=== PATIENT | female | born 1990 | race Caucasian/White ===

== ENCOUNTER 2018-09-07 17:02 | Emergency (ER) | payer MEDICAID, SELFPAY ==
[2018-09-07 17:03] VITALS: BP 125/84; PULSE 89; RESP 16; TEMP 36.6; O2SAT 97; BMI 27.2
--- NOTE | 2018-09-07 17:16 | RAD_ITS ---
STUDY: X-RAY - LEFT FOOT CLINICAL: Female, 28 years old. Smashed foot in between lawnmower and the table. Redness and swelling. TECHNIQUE: 3 view(s) of the foot. COMPARISON: None. FINDINGS: Normal talus, calcaneus, and tarsal bones. Normal visualized subtalar, talonavicular, calcaneocuboid, tarsal and tarsometatarsal articulations. Normal metatarsi. Normal metatarsophalangeal joint of the great toe. Normal tibial and fibular sesamoid bones. Normal interphalangeal joint of the great toe. Normal phalanges of the great toe. Normal second through fifth metatarsophalangeal joints. Normal interphalangeal joints and phalanges of the lesser toes. There is minimal soft tissue swelling over the dorsum of the forefoot. RAD/Foot min 3 Views IMPRESSION: Minimal soft tissue swelling. There is no fracture or dislocation. Electronically Signed: Pancho Mckeon DO at 18:03 EST Tel [phone], Service support ,
--- NOTE | 2018-09-07 18:02 | ED.DCSUM_ITS ---
- ER Visit Summary Date of Service: 09/07/18 Chief Complaint: [Injury to left foot] History of Present Illness: The patient is a 28 F [presents to the emergency department complaint of injury to her left foot that occurred earlier today. Patient states she was moving a riding mower and accidentally crushed her left foot between an hour and a large wooden table. Patient was wearing steel toed boots. Patient complains of bruising and swelling to the foot. Patient is able to bear some weight but painful.] Physical Examination: [HEENT-PERRLA, EOMI. Cranial nerves II through XII grossly intact. TMs clear. Mucous membranes moist. No adenopathy. Cardiovascular-regular rate and rhythm without murmur or ectopy Lungs-clear to auscultation, chest wall stable without crepitus or subcu emphysema Abdomen-normoactive bowel sounds, soft, nontender, no rebound or rigidity, no peritoneal signs. Extremities-intact ?4, normal range of motion, normal pulses. Left foot-patient does have ecchymosis and bruising noted over the dorsal lateral aspect of the foot. Patient has diffuse tenderness palpation. There is some mild soft tissue swelling noted. Patient has no pain about the ankle. No real tenderness over the calcaneus. Patient neurovascular intact. Test Results: [X-rays obtained the left foot showed no fractures.] Emergency Department Course and Treatment: [Patient will be given an Dane wrap and crutches.] Treatment Plan: [Patient given a prescription for Naprosyn and [place] for pain. Patient advised ice and elevate extremity. Patient to follow-up with primary care physician in 5-7 days.] Disposition: [Discharged home in stable condition.] Impression: [Contusion/crush injury left foot] This note was generated with [employer] dictation software. It may contain incorrect words, spelling, and punctuation that were not noted in review of the chart prior to signing ED Disposition - Plan for ED Patient: Chief Complaint: Lower Extremity Injury Referrals: Ellis Arnett DO [Primary Care Provider] -
--- NOTE | 2018-09-07 18:02 | ED.DEP ---
ED Disposition - Plan for ED Patient: Chief Complaint: Lower Extremity Injury Instructions: ED Contusion Foot Prescriptions: Hydrocodone Bitart/Apap 5-325 [[place] 5MG-325MG] 1 tab PO Q4H PRN PRN 2 Days #10 tab PRN Reason: Pain Naproxen [Naprosyn] 500 mg PO BID PRN #20 tab Referrals: Ellis Arnett DO [Primary Care Provider] - 5-7 Days
[2018-09-07 18:32] VITALS: BP 118/64; PULSE 71; RESP 16
== END 2018-09-07 18:33 | disposition home or self-care (01) ==
PROVIDERS: Emergency Provider Emergency Medicine; Family Provider Student in an Organized Health Care Education/Training Program; PCP Student in an Organized Health Care Education/Training Program
DX: S90.32XA Contusion of left foot, initial encounter (principal); W23.0XXA Caught, crushed, jammed, or pinched between moving objects, initial encounter; Y93.9 Activity, unspecified; Y92.9 Unspecified place or not applicable; Y99.9 Unspecified external cause status; Z72.0 Tobacco use
CPT/HCPCS: 73630; 99283

== ENCOUNTER 2020-07-04 14:32 | Emergency (ER) | payer BC, SELFPAY ==
[2020-07-04 14:32] VITALS: BP 104/76; PULSE 100; RESP 18; TEMP 36.6; O2SAT 99; BMI 22.2
--- NOTE | 2020-07-04 15:00 | CT_ITS ---
STUDY: CT ABDOMEN AND PELVIS WITHOUT CONTRAST REASON FOR EXAM: Female, 29 years old. Right flank pain x 1 week. RADIATION DOSAGE (If Supplied By Facility): CTDIvol = ( 6.04 ) mGy, DLP = ( 271.80 ) mGycm TECHNIQUE: Transaxial images were obtained from the dome of the diaphragm to the symphysis pubis without oral contrast, and without intravenous contrast. Sagittal and coronal images were reconstructed. Individualized dose optimization techniques were used for this CT. COMPARISON: None. FINDINGS: The visualized lung bases are unremarkable. The visualized portions of the heart are within normal limits. Normal liver. Normal gallbladder and extrahepatic biliary system. Normal spleen. Normal pancreas. Normal bilateral adrenal glands. Normal right kidney. Normal left kidney. Normal visualized stomach. Normal small intestine. Normal colon. The appendix is visualized and appears normal. Normal abdominal aorta. Normal inferior vena cava. Normal retroperitoneum. Normal urinary bladder. Normal abdominal wall. Normal osseous structures. CT/Abdomen/Pelvis without Cont IMPRESSION: Normal unenhanced CT of the abdomen and pelvis. Electronically Signed: Artis Harrington MD at 16:42 EDT Tel , Service support ,
--- NOTE | 2020-07-04 15:04 | ED.DCSUM_ITS ---
History of Present Illness Chief Complaint: Flank Pain Informant: Patient Onset: Days Context: Gradual Onset Timing: Intermittent Current Severity: Moderate Maximum Severity: Moderate Narrative: The patient is a 29-year-old female that presents to the emergency department with right-sided flank pain and right lower quadrant pain. The patient states has been having symptoms intermittently for the past week. She denies fevers or chills. She states she just finished her menses and has not noticed any hematuria. She states the pain started high in her back and is moved to her right lower quadrant. She does have history of prior , but no other abdominal surgery. She has no history of kidney stone. She denies urgency or dysuria. She states mostly, she is just been having pain. There is no food intolerance. Prior similar symptoms: No Recent Illness/Hospitalization: No Past Medical History - Allergies and Home Meds Allergies/Adverse Reactions: Allergies No Known Allergies Allergy (Verified 07/04/20 14:36) Primary Care Physician: Ellis Arnett DO [Primary Care Provider] - Prior records reviewed: Yes Past Medical History: None Surgical History: noncontributory Smoking Status: Current every day smoker Review of Systems General: Denies: Chills, Fever, Sweats Eyes: Denies: Visual changes - bilaterally, Diplopia ENT: Denies: Rhinorrhea, Sore throat Cardiovascular: Denies: Chest pain, Palpitations Respiratory: Denies: Dyspnea, Cough, Dyspnea on exertion Gastrointestinal: Reports: Abdominal pain. Denies: Nausea, Vomiting, Diarrhea, Melena, Hematochezia Genitourinary: Denies: Dysuria, Hematuria, Frequency Musculoskeletal: Denies: Back pain, Extremity Pain Skin: Denies: Rash, Wounds Neurological: Denies: Headache, Weakness, Numbness Physical Exam Vital Signs/Narrative: Vital Signs Temp Pulse Resp BP Pulse Ox 07/04/20 14:32 97.8 F 100 18 104/76 99 Inital Vital Signs reviewed: Yes General: Well nourished, Well developed, No Acute Distress Head: Normocephalic, Atraumatic Eyes: Perrl, EOMI ENT: Moist mucous membranes, No rhinorrhea Neck: Supple, Nontender Cardiovascular: Regular rate, Regular rhythm, No murmurs Respiratory: No distress, CTA bilaterally, Chest nontender Abdomen: Soft, Nontender, Nondistended, Normal bowel sounds Back: Nontender, Normal Inspection Extremities: Nontender, No edema Skin: Normal color, No rash Neurological: Alert, Oriented x3, Cranial nerves II-XII grossly intact, Normal Strength, Normal Sensation Psychological: Normal affect, Normal Mood Diagnostic/Tx/Re-eval Clinical Impression(s) from Imaging Studies Abdomen/Pelvis CT 07/04/20 15:00 IMPRESSION: Normal unenhanced CT of the abdomen and pelvis. Electronically Signed: Artis Harrington MD at 16:42 EDT Tel , Service support , Abnormal Lab Results 07/04/20 07/04/20 07/04/20 15:10 15:20 15:20 WBC 9.2 RBC 4.14 L Hgb 12.1 Hct 37.8 MCV 91.3 MCH 29.2 MCHC 32.0 RDW Std Deviation 46.6 H RDW Coeff of Jyoti 13.8 Plt Count 358 MPV 9.3 Immature Gran % (Auto) 0.300 Neut % (Auto) 65.5 Lymph % (Auto) 27.2 [place] % (Auto) 5.8 Eos % (Auto) 0.8 Baso % (Auto) 0.4 Absolute Neuts (auto) 6.0 Absolute Lymphs (auto) 2.49 Nucleated RBC % 0 Sodium 141 Potassium 4.1 Chloride 113 H Carbon Dioxide 26.0 Anion Gap 2 L BUN 14 Creatinine 0.73 Estim Creat Clear Calc 87.95 Est GFR (MDRD) Af Amer 118 Est GFR (MDRD) Non-Af 98 BUN/Creatinine Ratio 19.1 Glucose 78 Calcium 8.9 Serum , Qual Urine Color Yellow Urine Clarity Clear Urine pH 5.0 Ur Specific [place] 1.025 Urine Protein Negative Urine Glucose (UA) Normal Urine Ketones 5 H Urine Occult Blood 250 H Urine Nitrite Negative Urine Bilirubin Negative Urine Urobilinogen Normal Ur Leukocyte Esterase 25 H Urine RBC 0-5 SEEN Urine WBC 0 SEEN Ur Squamous Epith Cells 0-5 SEEN Urine Bacteria 3+ Urine Mucus 0 SEEN 07/04/20 15:20 WBC RBC Hgb Hct MCV MCH MCHC RDW Std Deviation RDW Coeff of Jyoti Plt Count MPV Immature Gran % (Auto) Neut % (Auto) Lymph % (Auto) [place] % (Auto) Eos % (Auto) Baso % (Auto) Absolute Neuts (auto) Absolute Lymphs (auto) Nucleated RBC % Sodium Potassium Chloride Carbon Dioxide Anion Gap BUN Creatinine Estim Creat Clear Calc Est GFR (MDRD) Af Amer Est GFR (MDRD) Non-Af BUN/Creatinine Ratio Glucose Calcium Serum , Qual NEGATIVE Urine Color Urine Clarity Urine pH Ur Specific [place] Urine Protein Urine Glucose (UA) Urine Ketones Urine Occult Blood Urine Nitrite Urine Bilirubin Urine Urobilinogen Ur Leukocyte Esterase Urine RBC Urine WBC Ur Squamous Epith Cells Urine Bacteria Urine Mucus - Medical Decision Making The patient's exam is relatively unremarkable. She does have some pain in the right lateral abdomen and CVA tenderness. Urine was obtained. There is 3+ bacteria with some blood. She is not febrile. Labs are unremarkable. The patient's pain is controlled. She underwent CT which shows no obstructing stone and a normal appendix. My suspicion is that she might be early pyelonephritis given her urine and where her pain is at. However, I do feel the patient is safe outpatient therapy. She will be given IV Rocephin and kept on Bactrim. She was counseled on concerning symptoms and reasons to return. She will be discharged home. Impression 1. Pyelonephritis ED Disposition - Plan for ED Patient: Instructions: ED Pyelonephritis Female Adult Prescriptions: Smz/Tmp Ds [Bactrim Ds] 1 tab PO BID #14 tab Prescription Printed Hydrocodone Bitart/Apap 5-325 [[place] 5MG-325MG] 1 tab PO Q6H PRN PRN 3 Days #10 tab PRN Reason: Pain Prescription Printed Ondansetron [Zofran Odt] 4 mg PO Q8H PRN PRN #10 tab PRN Reason: Nausea Prescription Printed Referrals: Ellis Arnett DO [Primary Care Provider] -
[2020-07-04 15:18] LABS: Mucous, Urine 0 SEEN /hpf (<or=2+); White Blood Cells 0 SEEN /hpf (0-5)
[2020-07-04 15:21] LABS: Color, Urine Yellow (Yellow); Glucose, Dipstick Normal (Normal); Ketone-Dipstick 5 mg/dl (Negative); Leukocyte Esterase-Dipstick 25 /ul (Negative); Nitrite-Dipstick Negative (Negative); Occult Blood-Urine 250 /ul (Negative); Protein-Dipstick Negative (Negative); Specific Gravity, Urine 1.025 (1.002-1.030); Urine Bilirubin Dipstick Negative (Negative); Urine Clarity Clear (Clear); Urine Urobilinogen Normal (Normal)
[2020-07-04 15:28] LABS: Bacteria 3+ /hpf (None Seen); Red Blood Cells-Urine 0-5 SEEN /hpf (0-5); Squamous Epithelial Cells - UA 0-5 SEEN /hpf (5-10)
[2020-07-04] MEDS: 0.9% Normal Saline 1,000 ML 250 ML IV (15:31)
[2020-07-04] MEDS: Ondansetron 4 MG/2 ML Vial IV (15:31)
[2020-07-04] MEDS: Ketorolac 15 MG/ML Vial IV (15:33)
[2020-07-04 15:37] LABS: Absolute Lymphocyte Count 2.49 X10^3/uL (0.83-4.51); Basophil# 0.04 X10^3/uL; Basophil% 0.4 % (0-1); Eosinophil# 0.07 X10^3/uL; Eosinophils% 0.8 % (0-5); Hematocrit 37.8 % (37-47); Hemoglobin 12.1 g/dL (12.0-15.0); Lymphocyte # 2.49 X10^3/ul (4.0); Lymphocyte % 27.2 % (19-41); Mean Corpuscular Hgb 29.2 pg (27.0-32.0); Mean Corpuscular Volume 91.3 fL (81-99); Mean Platelet Vol. 9.3 fl (6.2-12.0); Monocyte# 0.53 X10^3/uL; Monocyte% 5.8 % (0-10); NRBC Flagged by Analyzer 0 % (0-5); Neutrophil % 65.5 % (47-70); Platelet Count 358 K/mm3 (150-450); RBC Distribution Width CV 13.8 % (11.6-14.6); RBC Distribution Width SD 46.6 fl (35.1-43.9); Red Blood Count 4.14 M/mm3 (4.2-5.4); White Blood Count 9.2 K/mm3 (4.4-11.0)
[2020-07-04 15:59] LABS: Anion Gap 2 (5-15); BUN 14 mg/dL (7-18); BUN/Creat Ratio 19.1 RATIO (10-20); Calcium,Total 8.9 mg/dL (8.5-10.1); Chloride 113 mmol/L (98-107); Creatinine, Serum 0.73 mg/dL (0.55-1.02); EST Glomerular Filtration Rate 98 mL/min (>60); Est Glom Filt Rate - Afr Amer 118 mL/min (>60); Estimated Creatinine Clearance 87.95 ml/min; Glucose 78 mg/dL (74-106); Internal QC Validated? YES +Cl - CLEAR BKGD; Potassium 4.1 mmol/L (3.5-5.1); Pregnancy, Serum, hCG Quali. NEGATIVE Negative; Sodium Level 141 mmol/L (136-145)
[2020-07-04] MEDS: Morphine 4 MG/ML Syringe IV (16:27)
[2020-07-04] MEDS: Ceftriaxone 1 GM/50 ML BAG IV (17:27)
[2020-07-04 17:29] VITALS: PULSE 72; RESP 17; O2SAT 99
[2020-07-04 18:43] VITALS: BP 102/65; PULSE 75; RESP 18; O2SAT 97
== END 2020-07-04 18:20 | disposition home or self-care (01) ==
PROVIDERS: Emergency Provider Emergency Medicine; PCP Student in an Organized Health Care Education/Training Program
DX: N12 Tubulo-interstitial nephritis, not specified as acute or chronic (principal); F17.200 Nicotine dependence, unspecified, uncomplicated
CPT/HCPCS: 74176; 80048; 81001; 84703; 85025; 87086; 87088; 96365; 96375; 99283; J7030; A4216; J2405

== ENCOUNTER 2020-09-20 23:27 | Inpatient (IN) | payer BC, SELFPAY ==
[2020-09-20 23:28] VITALS: BP 121/83; PULSE 110; RESP 16; TEMP 36.6; O2SAT 99; BMI 22.2
[2020-09-21] VITALS (7 sets, daily range): BP systolic 95–120; BP diastolic 55–85; PULSE 73–96; RESP 16–18; TEMP 36.8–37.5; O2SAT 97–100; BMI 21.9
--- NOTE | 2020-09-21 00:05 | CT_ITS ---
STUDY: CT ORBITS WITH CONTRAST REASON FOR EXAM: Female, 30 years old. ORBITAL CELLULITIS ON RIGHT up into frontal and scalp area x 24 hr. RADIATION DOSAGE (If Supplied By Facility): CTDIvol = ( 29.38 ) mGy, DLP = ( 554.80 ) mGycm TECHNIQUE: The patient was scanned in a multi detector CT scanner. Transaxial imaging was performed following the intravenous administration of IV 75mL Isovue-370. Sagittal and coronal images were reconstructed. Individualized dose optimization techniques were used for this CT. COMPARISON: None. FINDINGS: Normal globes. Normal intraconal spaces. Normal optic nerve sheath complex. Normal bilateral extraocular muscles. Normal lacrimal glands. Normal bilateral medial and inferior orbital russ. Normal bilateral maxillary bones. Normal bilateral frontozygomatic arches. Normal bilateral zygomatic temporal arches. Normal frontal sinus. Normal ethmoidal sinuses. Normal maxillary sinuses. Normal sphenoid sinuses. There is mild nonspecific enhancement involving the region of the right temporal fossa, anterior aspect of the right zygomatic arch and right infraorbital region consistent with cellulitis. There is no evidence of abscess. CT/Orb Sella Post Fossa Ear W/CON IMPRESSION: Right facial soft tissue cellulitis as described. No evidence of abscess or mass. Electronically Signed: Zunilda Aviles MD at 1:02 EST , Service support ,
[2020-09-21 00:26] LABS: Absolute Lymphocyte Count 2.64 X10^3/uL (0.83-4.51); Absolute Neutrophil Count 13.9 X10^3/uL (2.0-7.7); Basophil# 0.05 X10^3/uL; Basophil% 0.3 % (0-1); Eosinophil# 0.09 X10^3/uL; Eosinophils% 0.5 % (0-5); Hematocrit 36.7 % (37-47); Lymphocyte # 2.64 X10^3/ul (4.0); Lymphocyte % 14.9 % (19-41); Mean Corp Hgb Conc 32.7 g/dL (32-36); Mean Corpuscular Hgb 28.8 pg (27.0-32.0); Mean Corpuscular Volume 88.2 fL (81-99); Mean Platelet Vol. 9.1 fl (6.2-12.0); Monocyte# 0.92 X10^3/uL; Monocyte% 5.2 % (0-10); NRBC Flagged by Analyzer 0 % (0-5); Neutrophil # 13.94 X10^3/uL (2.7-7.7); Neutrophil % 78.6 % (47-70); Platelet Count 409 K/mm3 (150-450); RBC Distribution Width CV 14.2 % (11.6-14.6); RBC Distribution Width SD 45.8 fl (35.1-43.9); Red Blood Count 4.16 M/mm3 (4.2-5.4); White Blood Count 17.7 K/mm3 (4.4-11.0)
--- NOTE | 2020-09-21 00:32 | ED.VISSUMM ---
- ER Visit Summary Date of Service: 09/21/20 Chief Complaint: Facial abscess History of Present Illness: The patient is a 30 F presenting with facial abscess. She states on she noticed an abscess on her right forehead. This continued to enlarge. States today she noticed redness surrounding this down inferior to her right eye. Denies vision changes. Denies fever. Denies other complaints. Physical Examination: Vitals are stable. Patient is afebrile. Alert no acute distress. HEENT exam right 3 cm forehead abscess with fluctuance and surrounding erythema. PERRL, EOMI Neck is supple. No meningismus Lungs are clear and equal bilaterally. Heart is regular and tachycardic Abdomen is soft nontender nondistended. Extremities are unremarkable. Skin is warm and dry. No focal neurologic deficit. Remainder of exam is unremarkable. Emergency Department Course and Treatment: Patient was given IV fluids. CBC shows white count 17.7. Chemistries unremarkable other than potassium 3.2. Lactic acid is normal. CT orbits shows right facial soft tissue cellulitis. No evidence of abscess or mass. I&D was performed. Anesthetized with lidocaine. Incised with 11 blade. Small amount of pus was drained. Irrigated and probed to break up loculations. Patient was given clindamycin IV. Discussed with the hospitalist for admission. Disposition: Admission Impression: Facial cellulitis, facial abscess, I&D This note was generated with [employer] dictation software. It may contain incorrect words, spelling, and punctuation that were not noted in review of the chart prior to signing ED Disposition - Plan for ED Patient:
[2020-09-21 00:43] LABS: Anion Gap 8 (5-15); BUN 10 mg/dL (7-18); Calcium,Total 9.1 mg/dL (8.5-10.1); Chloride 110 mmol/L (98-107); Creatinine, Serum 0.67 mg/dL (0.55-1.02); EST Glomerular Filtration Rate 109 mL/min (>60); Est Glom Filt Rate - Afr Amer 132 mL/min (>60); Estimated Creatinine Clearance 95.15 ml/min; Glucose 85 mg/dL (74-106); Potassium 3.2 mmol/L (3.5-5.1); Sodium Level 141 mmol/L (136-145)
[2020-09-21] MEDS: 0.9% Normal Saline 1,000 ML 999 ML IV (00:56)
[2020-09-21 01:07] LABS: Lactic Acid 0.8 mmol/L (0.4-1.9)
[2020-09-21] MEDS: Morphine 4 MG/ML Syringe IV (01:31)
[2020-09-21] MEDS: Ondansetron 4 MG/2 ML Vial IV (01:31)
--- NOTE | 2020-09-21 01:32 | HP.PCM_ITS ---
Problem List (1) Facial abscess Status: Acute (2) Sepsis Status: Acute (3) Hypokalemia Status: Acute History of Present Illness Date of Admission: 09/21/20 Chief Complaint: right facial swelling The patient is a 30 year old F with a significant history of asthma who presents emergency department with swelling of her right forehead. Her symptoms started 2 days ago with swelling at the right forehead. She tried to pop open the swelling but she stopped because it was painful. The swelling progressively got worse. Later she developed swelling under her right eye. At emergency department her heart rate was elevated. Her white count was also elevated. Past Medical History Medical History: Medical History (Last Updated 09/21/20 @ 02:[address] Konstantin García MD) Asthma J45.909 Allergies sulfamethoxazole [From Bactrim] Allergy (Verified 09/20/20 23:30) Vomiting trimethoprim [From Bactrim] Allergy (Verified 09/20/20 23:30) Vomiting Home Medications: Ambulatory Orders Medication Instructions Recorded Melatonin 10 mg PO QHS 09/21/20 Surgical History: - - Smoking Status: Current every day smoker Tobacco Use: Cigarettes - *Family History Maternal History Items: Cancer Paternal History Items: - - His father had lupus. His father was alcoholic and developed liver cirrhosis. Review of Systems Constitutional: Denies: Chills, Fever, Weight Change HEENT: Denies: Head Aches, Sinus Congestion, Sinus Drainage Cardiovascular: Denies: Chest Pain, Palpitations Respiratory: Denies: Cough, Shortness of breath at rest, Sputum production Gastrointestinal: Denies: Abdominal Pain, Nausea, Vomiting Genitourinary: Denies: Dysuria Musculoskeletal: Denies: Joint Pain, Joint Tenderness Skin: Reports: Skin Changes - Right forehead and right infraorbital area. Denies: Rash Neurological: Denies: Numbness, Tingling, Focal weakness Psychiatric: Denies: Anxiety, Depression, Homicidal Ideations, Suicidal Ideations Hematologic/ Lymphatic: Denies: Easy Bruising, Easy Bleeding VTE Information - Inpt Only VTE Present on Admission: No VTE Mechan Device Prophylaxis: None VTE Pharm Prophylaxis ordered?: No Reason prophylaxis not ordered:: Treatment Not Indicated - Low risk; encouraged to ambulate Patient Problems: Active and Suspected Problems (Last Updated 09/21/20 @ 02:[address] Konstantin García MD) Facial abscess (Acute) Sepsis (Acute) Hypokalemia (Acute) - Physical Exam Vitals/I&O's: Vital Signs Temp Pulse Resp BP Pulse Ox 97.8 F 110 H 16 121/83 H 99 09/20/20 23:28 09/20/20 23:28 09/20/20 23:28 09/20/20 23:28 09/20/20 23:28 Oxygen Delivery Method Room Air Weight: 50 kg Body Mass Index (BMI) 22.2 General: Alert, Oriented x3, Cooperative HEENT: Atraumatic, PERRLA, EOMI, Normocephalic, - - Swelling of right forehead with small ulcer; Swelling below right eye. Erythema of right forehead and right infraorbital area. Tenderness of right forehead. Neck: Supple, No JVD, Negative Carotid Bruits Lungs: Clear to auscultation, Normal air movement Cardiovascular: Regular rate, Normal S1, Normal S2, No murmurs Abdomen: Bowel Sounds Present, Soft, Non Tender Extremities: No edema, Capillary Refill Less than 3 Seconds Skin: No rashes, No breakdown Musculoskeletal: No Tenderness to Palpation of Joints or Extremities Neurological: Cranial nerves II-XII grossly intact Psych/Mental Status: Normal Affect, Appropriate Laboratory Results 09/20/20 00:12: WBC 17.7 H, RBC 4.16 L, Hgb 12.0, Hct 36.7 L, MCV 88.2, MCH 28.8, MCHC 32.7, RDW Std Deviation 45.8 H, RDW Coeff of Jyoti 14.2, Plt Count 409, MPV 9.1, Immature Gran % (Auto) 0.500, Neut % (Auto) 78.6 H, Lymph % (Auto) 14.9 L, [place] % (Auto) 5.2, Eos % (Auto) 0.5, Baso % (Auto) 0.3, Absolute Neuts (auto) 13.9 H, Absolute Lymphs (auto) 2.64, Nucleated RBC % 0 09/20/20 00:12: Sodium 141, Potassium 3.2 L, Chloride 110 H, Carbon Dioxide 23.0, Anion Gap 8, BUN 10, Creatinine 0.67, Estim Creat Clear Calc 95.15, Est GFR (MDRD) Af Amer 132, Est GFR (MDRD) Non-Af 109, BUN/Creatinine Ratio 15.0, Glucose 85, Calcium 9.1 09/20/20 00:12: Lactic Acid 0.8 Current Medications Sodium Chloride () 1,000 mls @ 999 mls/hr IV .Q1H1M ONE Stop: 09/21/20 01:34 Last Admin: 09/21/20 00:56 Dose: 999 mls/hr Documented by: Clindamycin Phosphate 600 mg/ (Dextrose) 54 mls @ 100 mls/hr IV X1 ONE Stop: 09/21/20 02:02 Assessment/Plan All Active Problems (Last Updated 09/21/20 @ 02:[address] Konstantin García MD) Facial abscess (Acute) Sepsis (Acute) Hypokalemia (Acute) The patient is a 30 year old F with a significant history of asthma who presents emergency department with swelling of her right face; tachycardia and tachypnea. Sepsis secondary to right forehead abscess and right infraorbital cellulitis Patient with tachycardia Review of emergency department labs showed leukocytosis Emergency department doctor will be doing I&D of the right forehead head abscess. Clindamycin IV started at the emergency department and continued Blood culture ordered by emergent department doctor, follow. Tobacco abuse Patient is trying to quit smoking. She apparently smokes about 3-4 sticks of cigarettes per day. Patient requested for nicotine patch. Nicotine patch ordered. Counseled. Hypokalemia Potassium was 3.2 Replacement ordered Trend BMP. DVT Prophylaxis Low risk Encouraged to ambulate. Inpatient E&M: 76476 Init Hosp L3
--- NOTE | 2020-09-21 02:35 | PCS.PANDOC ---
PANDEMIC DOCUMENTATION INITIATED: Date: 09/21/20 Time: 02:23
[2020-09-21] MEDS: oxyCODONE 5 MG Tablet 10 MG PO ×5 (02:53→20:39)
[2020-09-21] MEDS: Acetaminophen 325 MG Tablet 650 MG PO ×2 (02:54→20:40)
[2020-09-21 07:33] LABS: Absolute Lymphocyte Count 3.12 X10^3/uL (0.83-4.51); Absolute Neutrophil Count 11.2 X10^3/uL (2.0-7.7); Basophil# 0.03 X10^3/uL; Basophil% 0.2 % (0-1); Eosinophil# 0.09 X10^3/uL; Eosinophils% 0.6 % (0-5); Hematocrit 32.6 % (37-47); Hemoglobin 10.4 g/dL (12.0-15.0); Lymphocyte # 3.12 X10^3/ul (4.0); Lymphocyte % 20.3 % (19-41); Mean Corp Hgb Conc 31.9 g/dL (32-36); Mean Corpuscular Hgb 28.6 pg (27.0-32.0); Mean Corpuscular Volume 89.6 fL (81-99); Mean Platelet Vol. 9.6 fl (6.2-12.0); Monocyte# 0.84 X10^3/uL; Monocyte% 5.5 % (0-10); NRBC Flagged by Analyzer 0 % (0-5); Neutrophil % 72.9 % (47-70); Platelet Count 389 K/mm3 (150-450); RBC Distribution Width CV 14.1 % (11.6-14.6); RBC Distribution Width SD 45.8 fl (35.1-43.9); Red Blood Count 3.64 M/mm3 (4.2-5.4); White Blood Count 15.4 K/mm3 (4.4-11.0)
[2020-09-21 07:56] LABS: Anion Gap 7 (5-15); BUN 8 mg/dL (7-18); BUN/Creat Ratio 12.7 RATIO (10-20); Calcium,Total 8.3 mg/dL (8.5-10.1); Chloride 114 mmol/L (98-107); Creatinine, Serum 0.63 mg/dL (0.55-1.02); EST Glomerular Filtration Rate 116 mL/min (>60); Est Glom Filt Rate - Afr Amer 141 mL/min (>60); Estimated Creatinine Clearance 99.57 ml/min; Glucose 96 mg/dL (74-106); Potassium 3.8 mmol/L (3.5-5.1); Sodium Level 143 mmol/L (136-145)
--- NOTE | 2020-09-21 08:02 | PN_ITS ---
Progress Note Patient is a 30-year-old female admitted with Sepsis secondary to right forehead abscess and right infraorbital cellulitis. Antibiotics initiated per protocol admitted for subsequent inpatient management. Patient seen and evaluated. Her initial assessment including history and physical diagnostic data integrity specialist orders reviewed will follow STROKE Vital Signs/Narrative: Vital Signs Pulse Ox 09/21/20 07:22 97
--- NOTE | 2020-09-21 10:14 | PCM.RX.CS ---
Consult Pharmacy has been consulted to manage selected antiobiotic: Vancomycin Type of Consult: New start Suspected Infection: Skin/Soft tissue Prior Doses of Antibiotics Received/Current Regimen: Received 1250mg iv x 1 on 09.21.20 at 0748. Labs: Sodium 143 mmol/L (136-145) 09/21/20 06:00 Potassium 3.8 mmol/L (3.5-5.1) 09/21/20 06:00 Chloride 114 mmol/L (98-107) H 09/21/20 06:00 Carbon Dioxide 22.0 mmol/L (21.0-32.0) 09/21/20 06:00 Anion Gap 7 (5-15) 09/21/20 06:00 BUN 8 mg/dL (7-18) 09/21/20 06:00 Creatinine 0.63 mg/dL (0.55-1.02) 09/21/20 06:00 Est GFR (MDRD) Af Amer 141 mL/min (>60) 09/21/20 06:00 Est GFR (MDRD) Non-Af 116 mL/min (>60) 09/21/20 06:00 BUN/Creatinine Ratio 12.7 RATIO (10-20) 09/21/20 06:00 Glucose 96 mg/dL (74-106) 09/21/20 06:00 Weight used for dosin kg Estimated Creatinine Clearance: 100 ml/min Goal Trough: 15-20 mcg/mL Pharmacy Plan for Drug Dosing: Will begin 1gm iv q12h starting 12hrs after 1250mg dose.Trough level is ordered for 09.22.20 before 4th total dose. Pharmacy Service will continue to monitor and adjust dosing as required. Follow-Up Labs: Trough Vancomycin - .18.21 @1930 before 2000 dose
--- NOTE | 2020-09-21 11:39 | NURSING ---
Juan Tomas will be essential visitor for duration of stay
[2020-09-21] MEDS: MELATONIN 10 MG TABLET PO (20:40)
[2020-09-21] MEDS: Vancomycin IV 1,000 MG/200 ML BAG 200 MG IV (20:40)
[2020-09-22] MEDS: oxyCODONE 5 MG Tablet 10 MG PO ×2 (00:46→21:47)
[2020-09-22 02:45] VITALS: BP 92/58; PULSE 69; RESP 18; TEMP 36.7; O2SAT 98
[2020-09-22] MEDS: Acetaminophen 325 MG Tablet 650 MG PO ×3 (05:32→19:32)
[2020-09-22 06:06] LABS: Hematocrit 34.3 % (37-47); Hemoglobin 10.9 g/dL (12.0-15.0); Mean Corp Hgb Conc 31.8 g/dL (32-36); Mean Corpuscular Hgb 28.4 pg (27.0-32.0); Mean Corpuscular Volume 89.3 fL (81-99); Mean Platelet Vol. 9.5 fl (6.2-12.0); Platelet Count 364 K/mm3 (150-450); RBC Distribution Width CV 14.2 % (11.6-14.6); RBC Distribution Width SD 46.1 fl (35.1-43.9); Red Blood Count 3.84 M/mm3 (4.2-5.4)
[2020-09-22 06:35] LABS: Anion Gap 6 (5-15); BUN 5 mg/dL (7-18); BUN/Creat Ratio 9.1 RATIO (10-20); Calcium,Total 8.6 mg/dL (8.5-10.1); Chloride 108 mmol/L (98-107); Creatinine, Serum 0.55 mg/dL (0.55-1.02); EST Glomerular Filtration Rate 136 mL/min (>60); Est Glom Filt Rate - Afr Amer 165 mL/min (>60); Estimated Creatinine Clearance 114.05 ml/min; Glucose 72 mg/dL (74-106); Potassium 3.5 mmol/L (3.5-5.1); Sodium Level 139 mmol/L (136-145)
[2020-09-22 07:21] VITALS: O2SAT 98
--- NOTE | 2020-09-22 07:44 | PCM.PROGNOTE ---
Patient Problems: Active and Suspected Problems (Last Updated 09/21/20 @ 02:[address] Konstantin García MD) Facial abscess (Acute) Sepsis (Acute) Hypokalemia (Acute) Subjective: Chief complaint: Follow-up after admission for sepsis secondary to facial cellulitis and found to have hypokalemia. Patient seen and examined. No acute events overnight. Denies any more fever, no chills. Swelling of the right face is getting better, improving. Her vital signs are stable. - Physical Exam Vitals/I&O's: Vital Signs Temp Pulse Resp BP Pulse Ox 98.1 F 69 18 92/58 L 98 09/22/20 02:45 09/22/20 02:45 09/22/20 02:45 09/22/20 02:45 09/22/20 07:21 Oxygen Delivery Method Room Air Weight: 108 lb 7.479 oz Body Mass Index (BMI) 21.9 Intake and Output for Last 24 Hours 09/20/20 09/21/20 09/22/20 23:59 23:59 23:59 Intake Total 3012.0 / 3012.0 209.5 / 209.5 Balance 3012.0 / 3012.0 209.5 / 209.5 General: Alert, Oriented x3, Cooperative, No apparent distress HEENT: Atraumatic, PERRLA, EOMI, Normocephalic Oral: Moist Mucosa, No Gingival or Mucosal Lesions/ Ulcerations Neck: Supple, No JVD, Negative Carotid Bruits, Trachea Midline, Thyroid Normal Size and Texture Lungs: Clear to auscultation, Normal air movement, No rhonchi, No wheeze, No rales Cardiovascular: Regular rate, Regular Rhythm, Normal S1, Normal S2, PMI Normal Abdomen: Bowel Sounds Present, Soft, Non Tender, Non-Distended, No Hepato-splenomegaly Extremities: No clubbing, No cyanosis, No edema Skin: No rashes, No breakdown Lymphatic: No Cervical, Supraclavicular, or Inguinal Adenopathy Neurological: Cranial nerves II-XII grossly intact, Motor Exam 5/5 strength throughout Psych/Mental Status: Normal Affect, Appropriate, Alert and oriented to time, place, person, mood and affect Laboratory Results 09/21/20 06:00: Sodium 143, Potassium 3.8, Chloride 114 H, Carbon Dioxide 22.0, Anion Gap 7, BUN 8, Creatinine 0.63, Estim Creat Clear Calc 99.57, Est GFR (MDRD) Af Amer 141, Est GFR (MDRD) Non-Af 116, BUN/Creatinine Ratio 12.7, Glucose 96, Calcium 8.3 L 09/22/20 05:20: WBC 12.0 H, RBC 3.84 L, Hgb 10.9 L, Hct 34.3 L, MCV 89.3, MCH 28.4, MCHC 31.8 L, RDW Std Deviation 46.1 H, RDW Coeff of Jyoti 14.2, Plt Count 364, MPV 9.5 09/22/20 05:20: Sodium 139, Potassium 3.5, Chloride 108 H, Carbon Dioxide 25.0, Anion Gap 6, BUN 5 L, Creatinine 0.55, Estim Creat Clear Calc 114.05, Est GFR (MDRD) Af Amer 165, Est GFR (MDRD) Non-Af 136, BUN/Creatinine Ratio 9.1 L, Glucose 72 L, Calcium 8.6, Magnesium 2.0 Current Medications Acetaminophen (Acetaminophen 325 Mg Tablet) 650 mg PO Q6H PRN PRN PRN Reason: Pain Score 1-10/Temp > 100.7 F Last Admin: 09/22/20 05:32 Dose: 650 mg Documented by: Sodium Chloride () 250 mls @ 15 mls/hr IV .[id number] PRN PRN Reason: Saline Flush Last Infusion: 09/21/20 13:47 Dose: Infused Documented by: Sodium Chloride () 250 mls @ 15 mls/hr IV .[id number] PRN PRN Reason: Additional IVPB Infusion Vancomycin IV Pharmacy to Dose (1 ea/ Sodium Chloride) 500 mls @ 250 mls/hr IV PRN PRN; Protocol PRN Reason: Rx to Dose Vancomycin HCl (Vancomycin) 1,000 mg in 200 mls @ 200 mls/hr IV Q12H [facility] Last Infusion: 09/21/20 21:42 Dose: Infused Documented by: Ampicillin Sodium/Sulbactam (Sodium 3 gm/ Sodium Chloride) 112 mls @ 150 mls/hr IV Q6 [facility] Last Infusion: 09/22/20 06:11 Dose: Infused Documented by: Melatonin (Melatonin 10 Mg Tablet) 10 mg PO QHS [facility] Last Admin: 09/21/20 20:40 Dose: 10 mg Documented by: Nicotine (Nicotine 7 Mg Patch) 7 mg TD DAILY [facility] Last Admin: 09/21/20 09:15 Dose: 7 mg Documented by: Ondansetron HCl (Ondansetron 4 Mg/2 Ml Vial) 4 mg IV Q8H PRN PRN PRN Reason: NAUSEA/VOMITING Oxycodone HCl (Oxycodone 5 Mg Tablet) 5 mg PO Q4H PRN PRN PRN Reason: Pain Score 4-5 Oxycodone HCl (Oxycodone 5 Mg Tablet) 10 mg PO Q4H PRN PRN PRN Reason: Pain 6-10 Last Admin: 09/22/20 00:46 Dose: 10 mg Documented by: Sodium Chloride (0.9% Saline Lock 10 Ml Syringe) 10 - 40 ml IV UD PRN PRN Reason: SALINE FLUSH Medical Necessity - Tobacco Use Smoking Status: Current every day smoker Tobacco Use: Cigarettes Assessment/Plan All Active Problems (Last Updated 09/21/20 @ 02:[address] Konstantin García MD) Facial abscess (Acute) Sepsis (Acute) Hypokalemia (Acute) This is a 30 years old female patient presented to the emergency room because of increasing right forehead swelling and erythema, abscess and she was found to have acute right facial cellulitis/right forehead abscess with sepsis. #1 acute right facial cellulitis/right forehead abscess: Status post bedside incision and drainage. She is on IV Unasyn and vancomycin. She has been afebrile, WBC is trending down. Facial erythema and swelling is getting better. Her vital signs are stable. Lactic acid was normal. Blood cultures pending. Plan: Continue same treatment, start bacitracin ointment topically, repeat CBC tomorrow morning, anticipate discharge home tomorrow. #2 hypokalemia: Potassium was replaced and corrected, today's potassium is 3.5 which is normal. #3 tobacco abuse: Continue nicotine patch. #4 DVT prophylaxis: Low risk patient, no prophylaxis indicated. This note was generated with [employer] software. It may contain incorrect words, spelling, and punctuation that were not noted in checking the note before signing. Inpatient E&M: 79151 [facility] Hosp L2
[2020-09-22 08:00] VITALS: BP 104/54; PULSE 77; RESP 18; TEMP 36.9; O2SAT 97
[2020-09-22] MEDS: Vancomycin IV 1,000 MG/200 ML BAG 200 MG IV ×2 (08:03→20:32)
[2020-09-22] MEDS: oxyCODONE 5 MG Tablet PO ×2 (08:08→17:37)
--- NOTE | 2020-09-22 10:37 | CASEMGMT ---
WARD JOSEPH assessment: Face to Face with patient for initial transition planning/care coordination assessment. WARD JOSEPH introduced self and role at [facility], pt voices understanding and consents to assessment at this time. Pt is lying in bed in no distress at this time. Pt is A/Ox4 at this time and answers all questions appropriately at this time. Care providers, pharmacy, and demographics verified at this time. Presentation: Pt abscess to right forehead Admitting dx: Sepsis secondary to right facial abscess PCP: Melquiades Specialists: Pt states no current specialists. Preferred Pharmacy: [facility] Insurance: [employer] Prescription Benefit: [employer] Living Will/HPOA: Pt states does not have LW/HPOA and declines AD info at this time. LNOK: Karlene Sharpe, mother; Yane Hardwick, sister Living Arrangements: Pt states lives with daughter in apartment and states no concerns at home at this time. Pt states is independent with ADL's. Transportation: Pt states drives self and states no transportation concerns at this time. DME/HHC: Pt states no current DME or need for any at this time. Pt states no hx of HHC or SNF in the past. Pt states no concerns with going home at time of discharge. 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 Pt states smokes 3-4cigarettes daily and does not drink ETOH. Pt states no further concerns/needs at this time. CM to follow for any further discharge planning/needs. Advised pt to ask for CM if any further questions/concerns/needs arise, voices understanding. Pt Goal: Home Plan: [place] WARD JOSEPH
[2020-09-22] MEDS: BACITRACIN 15 GM Tube 1 APPLIC TOPICAL ×2 (12:37→21:48)
[2020-09-22 14:00] VITALS: BP 112/58; PULSE 84; RESP 18; TEMP 36.8; O2SAT 99
[2020-09-22 20:05] VITALS: BP 118/72; PULSE 83; RESP 18; TEMP 36.8; O2SAT 99
[2020-09-22] MEDS: MELATONIN 10 MG TABLET PO (21:47)
[2020-09-22] MEDS: 0.9% Saline Lock 10 ML Syringe IV (21:49)
[2020-09-22 22:03] LABS: Vancomycin, Trough Level 6.3 ug/mL (5.0-15.0)
--- NOTE | 2020-09-22 23:08 | PCM.RX.CS ---
Consult Pharmacy has been consulted to manage selected antiobiotic: Vancomycin Type of Consult: Follow-up Labs: Sodium 139 mmol/L (136-145) 09/22/20 05:20 Potassium 3.5 mmol/L (3.5-5.1) 09/22/20 05:20 Chloride 108 mmol/L (98-107) H 09/22/20 05:20 Carbon Dioxide 25.0 mmol/L (21.0-32.0) 09/22/20 05:20 Anion Gap 6 (5-15) 09/22/20 05:20 BUN 5 mg/dL (7-18) L 09/22/20 05:20 Creatinine 0.55 mg/dL (0.55-1.02) 09/22/20 05:20 Est GFR (MDRD) Af Amer 165 mL/min (>60) 09/22/20 05:20 Est GFR (MDRD) Non-Af 136 mL/min (>60) 09/22/20 05:20 BUN/Creatinine Ratio 9.1 RATIO (10-20) L 09/22/20 05:20 Glucose 72 mg/dL (74-106) L 09/22/20 05:20 Vancomycin Trough 6.3 ug/mL (5.0-15.0) 09/22/20 19:40 Goal Trough: 15-20 mcg/mL Pharmacy Plan for Drug Dosing: Pharmacy Service will continue to monitor and adjust dosing as required. TROUGH 6.3 (GOAL 15-20) INCREASE TO 1G Q8H Follow-Up Labs: Trough Vancomycin Labs to be done on [date and time ordered]: 09/23 @ 1930
[2020-09-23 02:05] VITALS: BP 95/45; PULSE 65; RESP 18; TEMP 36.6; O2SAT 97
[2020-09-23] MEDS: oxyCODONE 5 MG Tablet 10 MG PO ×2 (02:11→07:41)
[2020-09-23] MEDS: Acetaminophen 325 MG Tablet 650 MG PO (02:12)
[2020-09-23] MEDS: Vancomycin IV 1,000 MG/200 ML BAG 200 MG IV (04:11)
[2020-09-23] MEDS: 0.9% Saline Lock 10 ML Syringe IV (04:11)
[2020-09-23 06:06] LABS: Absolute Lymphocyte Count 2.93 X10^3/uL (0.83-4.51); Absolute Neutrophil Count 5.1 X10^3/uL (2.0-7.7); Basophil# 0.04 X10^3/uL; Basophil% 0.4 % (0-1); Eosinophil# 0.24 X10^3/uL; Eosinophils% 2.7 % (0-5); Hematocrit 33.1 % (37-47); Hemoglobin 10.3 g/dL (12.0-15.0); Lymphocyte # 2.93 X10^3/ul (4.0); Lymphocyte % 32.9 % (19-41); Mean Corp Hgb Conc 31.1 g/dL (32-36); Mean Corpuscular Hgb 27.9 pg (27.0-32.0); Mean Corpuscular Volume 89.7 fL (81-99); Mean Platelet Vol. 9.5 fl (6.2-12.0); Monocyte# 0.58 X10^3/uL; Monocyte% 6.5 % (0-10); NRBC Flagged by Analyzer 0 % (0-5); Neutrophil # 5.08 X10^3/uL (2.7-7.7); Neutrophil % 57.2 % (47-70); Platelet Count 327 K/mm3 (150-450); RBC Distribution Width CV 13.9 % (11.6-14.6); RBC Distribution Width SD 45.5 fl (35.1-43.9); Red Blood Count 3.69 M/mm3 (4.2-5.4); White Blood Count 8.9 K/mm3 (4.4-11.0)
[2020-09-23] MEDS: BACITRACIN 15 GM Tube 1 APPLIC TOPICAL (06:10)
[2020-09-23 07:21] VITALS: O2SAT 96
--- NOTE | 2020-09-23 07:59 | PCM.PROGNOTE ---
Patient Problems: Active and Suspected Problems (Last Updated 09/21/20 @ 02:[address] Konstantin García MD) Facial abscess (Acute) Sepsis (Acute) Hypokalemia (Acute) Subjective: Chief complaint: From hospital admission for sepsis secondary to right facial cellulitis and right forehead abscess. Patient seen and examined. No acute events overnight. Patient thinks that the swelling around her right eye still there, minimal improvement. I think the swelling and erythema is improving but the erythema on the right foot is more localized with fluctuation. Patient has been afebrile, no chills. Her vital signs are stable. - Physical Exam Vitals/I&O's: Vital Signs Temp Pulse Resp BP Pulse Ox 97.9 F 65 18 95/45 L 96 09/23/20 02:05 09/23/20 02:05 09/23/20 02:05 09/23/20 02:05 09/23/20 07:21 Oxygen Delivery Method Room Air Weight: 108 lb 7.479 oz Body Mass Index (BMI) 21.9 Intake and Output for Last 24 Hours 09/21/20 09/22/20 09/23/20 23:59 23:59 23:59 Intake Total 3012.0 / 3012.0 495.75 / 495.75 Balance 3012.0 / 3012.0 495.75 / 495.75 General: Alert, Oriented x3, Cooperative, No apparent distress HEENT: Atraumatic, PERRLA, EOMI, Normocephalic, - - Right foot localized swelling measuring about 3 x 3 cm, fluctuation, overlying erythema. Diffuse mild erythema of the right face, improving. Oral: Moist Mucosa, No Gingival or Mucosal Lesions/ Ulcerations Neck: Supple, No JVD, Negative Carotid Bruits, Trachea Midline, Thyroid Normal Size and Texture Lungs: Clear to auscultation, Normal air movement, No rhonchi, No wheeze, No rales Cardiovascular: Regular rate, Regular Rhythm, Normal S1, Normal S2, PMI Normal Abdomen: Bowel Sounds Present, Soft, Non Tender, Non-Distended, No Hepato-splenomegaly Extremities: No clubbing, No cyanosis, No edema Skin: No rashes, No breakdown Lymphatic: No Cervical, Supraclavicular, or Inguinal Adenopathy Neurological: Cranial nerves II-XII grossly intact, Motor Exam 5/5 strength throughout Psych/Mental Status: Normal Affect, Appropriate, Alert and oriented to time, place, person, mood and affect Microbiology Past 72 Hours 09/21/20 03:10 Blood Culture (Wb) - Right Forearm Blood Culture - Preliminary No growth in 48 hours. 09/21/20 03:10 Blood Culture (Wb) - Left Hand Blood Culture - Preliminary No growth in 48 hours. Laboratory Results 09/22/20 19:40: Vancomycin Trough 6.3 09/23/20 05:20: WBC 8.9, RBC 3.69 L, Hgb 10.3 L, Hct 33.1 L, MCV 89.7, MCH 27.9, MCHC 31.1 L, RDW Std Deviation 45.5 H, RDW Coeff of Jyoti 13.9, Plt Count 327, MPV 9.5, Immature Gran % (Auto) 0.300, Neut % (Auto) 57.2, Lymph % (Auto) 32.9, [place] % (Auto) 6.5, Eos % (Auto) 2.7, Baso % (Auto) 0.4, Absolute Neuts (auto) 5.1, Absolute Lymphs (auto) 2.93, Nucleated RBC % 0 Microbiology 09/21/20 03:10 Blood Culture (Wb) - Right Forearm Blood Culture - Preliminary No growth in 48 hours. 09/21/20 03:10 Blood Culture (Wb) - Left Hand Blood Culture - Preliminary No growth in 48 hours. Current Medications Acetaminophen (Acetaminophen 325 Mg Tablet) 650 mg PO Q6H PRN PRN PRN Reason: Pain Score 1-10/Temp > 100.7 F Last Admin: 09/23/20 02:12 Dose: 650 mg Documented by: Bacitracin (Bacitracin 15 Gm Tube) 1 applic TOPICAL TID [facility]; Protocol Last Admin: 09/23/20 06:10 Dose: 1 applicatio Documented by: Sodium Chloride () 250 mls @ 15 mls/hr IV .[id number] PRN PRN Reason: Saline Flush Last Infusion: 09/23/20 06:09 Dose: 0 mls/hr Documented by: Sodium Chloride () 250 mls @ 15 mls/hr IV .[id number] PRN PRN Reason: Additional IVPB Infusion Vancomycin IV Pharmacy to Dose (1 ea/ Sodium Chloride) 500 mls @ 250 mls/hr IV PRN PRN; Protocol PRN Reason: Rx to Dose Ampicillin Sodium/Sulbactam (Sodium 3 gm/ Sodium Chloride) 112 mls @ 150 mls/hr IV Q6 [facility] Last Infusion: 09/23/20 07:23 Dose: Infused Documented by: Vancomycin HCl (Vancomycin) 1,000 mg in 200 mls @ 200 mls/hr IV Q8H [facility] Last Infusion: 09/23/20 05:11 Dose: Infused Documented by: Melatonin (Melatonin 10 Mg Tablet) 10 mg PO QHS [facility] Last Admin: 09/22/20 21:47 Dose: 10 mg Documented by: Nicotine (Nicotine 7 Mg Patch) 7 mg TD DAILY [facility] Last Admin: 09/23/20 07:43 Dose: 7 mg Documented by: Ondansetron HCl (Ondansetron 4 Mg/2 Ml Vial) 4 mg IV Q8H PRN PRN PRN Reason: NAUSEA/VOMITING Oxycodone HCl (Oxycodone 5 Mg Tablet) 5 mg PO Q4H PRN PRN PRN Reason: Pain Score 4-5 Last Admin: 09/22/20 17:37 Dose: 5 mg Documented by: Oxycodone HCl (Oxycodone 5 Mg Tablet) 10 mg PO Q4H PRN PRN PRN Reason: Pain 6-10 Last Admin: 09/23/20 07:41 Dose: 10 mg Documented by: Sodium Chloride (0.9% Saline Lock 10 Ml Syringe) 10 - 40 ml IV UD PRN PRN Reason: SALINE FLUSH Last Admin: 09/23/20 04:11 Dose: 10 ml Documented by: Medical Necessity - Tobacco Use Smoking Status: Current every day smoker Tobacco Use: Cigarettes Assessment/Plan All Active Problems (Last Updated 09/21/20 @ 02:[address] Konstantin García MD) Facial abscess (Acute) Sepsis (Acute) Hypokalemia (Acute) This is a 30 years old female patient presented to the emergency room because of increasing right forehead swelling and erythema, abscess and she was found to have acute right facial cellulitis/right forehead abscess with sepsis. #1 acute right facial cellulitis/right forehead abscess: Status post bedside incision and drainage. Remained on IV Unasyn and vancomycin. Right forehead abscess is more localized with fluctuation. Patient has been afebrile, WBC is back to normal. Her vital signs are stable. Blood culture showed no growth in 48 hours. Plan: Plastic surgery consult as this forehead abscess may need to be drained again, continue same treatment. #2 hypokalemia: Potassium was replaced and corrected, yesterday's potassium is 3.5 which is normal. #3 tobacco abuse: Continue nicotine patch. #4 DVT prophylaxis: Low risk patient, no prophylaxis indicated. This note was generated with [employer] dictation software. It may contain incorrect words, spelling, and punctuation that were not noted in checking the note before signing. Inpatient E&M: 97439 [facility]s Hosp L2
[2020-09-23 08:05] VITALS: BP 116/74; PULSE 85; RESP 18; TEMP 36.8; O2SAT 98
--- NOTE | 2020-09-23 08:05 | NURSING ---
this RN in room with patient who is voicing concerns about hospitalization and states that she is feeling neglected. Pt stating that she wants to go somewhere else to see medical care. Reviewed lab work, blood cultures, POC with patient and also procedure if patient chooses to leave AMA. Pt is on the phone with her sister at this time who heard entire conversation. Informed patient that plastic surgery was consulted and waiting for him to come see patient. Patient decided to wait until Plastic surgery to come and eval before making decision. Notified dr mendes all of this @ [phone] via [employer].
--- NOTE | 2020-09-23 09:00 | NURSING ---
Pt called out and stating that she wants to go outside to get some fresh air. Informed patient that we are unable to do that at this time d/t hospital policy. Pt became more upset and states that she would just like to leave and to give her the paper to sign. IV removed at this time.
--- NOTE | 2020-09-23 09:12 | NURSING ---
education provided about AMA process and possible consequences. Pt accepts responsibility and signed AMA paper. Also asking for medical records, patient signed paper for medical records release and also educated on online portal for patient to access info.
--- NOTE | 2020-09-23 09:17 | NURSING ---
dr mendes in room with patient at this time
--- NOTE | 2020-09-23 11:26 | PCM.DC.SUM ---
Discharge Date and Diagnosis - Problem List Patient Problems: Active and Suspected Problems (Last Updated 09/21/20 @ 02:[address] Konstantin García MD) Facial abscess (Acute) Sepsis (Acute) Hypokalemia (Acute) Date of Admission: 09/21/20 Date of Discharge: 09/23/20 - Primary Discharge Diagnosis Acute Problems: Active Problems (Last Updated 09/21/20 @ 02:[address] Konstantin García MD) #1 acute right facial cellulitis/right forehead abscess, status post bedside incision and drainage that was performed by ED physician. #2 hypokalemia. #3 left the hospital AGAINST MEDICAL ADVICE. Hospital Course and Treatment Imaging Results: Clinical Impression(s) from Imaging Studies CT Orbit Sella Inner 09/21/20 00:05 IMPRESSION: Right facial soft tissue cellulitis as described. No evidence of abscess or mass. Electronically Signed: Zunilda Aviles MD at 1:02 EST , Service support , Operations: None Procedures: - - Bedside incision and drainage of the right forehead abscess. Summary of Care Provided: The patient is a 30 year old F presented to the emergency room because of increasing right forehead swelling and erythema extending to the right side of her face, found to have acute right facial cellulitis/right forehead abscess with sepsis. Patient was tachycardic on admission, had significant leukocytosis and she did have sepsis upon admission. Simple incision and drainage was performed by the ER physician and patient was admitted for IV antibiotics. She was treated with IV Unasyn and vancomycin as well as topical bacitracin. She remained afebrile throughout admission. Her lactic acid was normal. White blood cell count returned back to normal. Blood culture showed no growth in 48 hours. Facial erythema and swelling started to improve and patient started to have fluid collection with fluctuation at the site of the right foot abscess. Today, I spoke with the patient and I informed her that we will need to have a surgeon take a look at this abscess which may need to be drained again. Later in the morning, the nurse called me and informed that patient is very upset because she does not know what is going on although I have been explained to her what is going on and what we are doing. I went down to the patient's room, patient was upset and was about to leave the hospital AGAINST MEDICAL ADVICE. She claimed that she does not understand what is going on although I informed her multiple times that she does have facial cellulitis with forehead abscess which is bacterial in origin. Then she mentioned that she is upset because the staff took 7 hours to get her toothbrush. Then she mentioned that she is upset because she cannot go outside and take up fresh air. I informed the patient that according to the hospital policy, she cannot go out of the hospital while she is being treated for medical condition. Then patient mentioned that she has been having pain and nobody took care of it although she did not mention to me that she has any pain. Patient has been jumping from 1 topic to another just to find an excuse to leave the hospital. She mentioned that she would go to a different hospital and I told her that if she go to any other hospital, she will be on kind of similar antibiotics that she is on now. I informed her that she is on too strong IV antibiotics namely IV Unasyn and IV vancomycin which covers MRSA infection. I informed the patient that Dr. Dial was consulted and he will be seeing her either later today or tomorrow about need for drainage of this abscess again. After all this, patient decided to leave the hospital AGAINST MEDICAL ADVICE. Patient Problems: Active and Suspected Problems (Last Updated 09/21/20 @ 02:[address] Konstantin García MD) Facial abscess (Acute) Sepsis (Acute) Hypokalemia (Acute) - Physical Exam Vitals/I&O's: Vital Signs Temp Pulse Resp BP Pulse Ox 98.3 F 85 18 116/74 98 09/23/20 08:05 09/23/20 08:05 09/23/20 08:05 09/23/20 08:05 09/23/20 08:05 Oxygen Delivery Method Room Air Weight: 108 lb 7.479 oz Body Mass Index (BMI) 21.9 Intake and Output for Last 24 Hours 09/21/20 09/22/20 09/23/20 23:59 23:59 23:59 Intake Total 3012.0 / 3012.0 495.75 / 495.75 Balance 3012.0 / 3012.0 495.75 / 495.75 General: Alert, Oriented x3, Cooperative, No apparent distress HEENT: Atraumatic, PERRLA, EOMI, Normocephalic, - - Forehead: Swelling, erythema, localized fluid collection with fluctuation. Oral: Moist Mucosa, No Gingival or Mucosal Lesions/ Ulcerations Neck: Supple, No JVD, Negative Carotid Bruits, Trachea Midline, Thyroid Normal Size and Texture Lungs: Clear to auscultation, Normal air movement, No rhonchi, No wheeze, No rales Cardiovascular: Regular rate, Regular Rhythm, Normal S1, Normal S2, PMI Normal Abdomen: Bowel Sounds Present, Soft, Non Tender, Non-Distended, No Hepato-splenomegaly Extremities: No clubbing, No cyanosis, No edema Skin: No rashes, No breakdown Lymphatic: No Cervical, Supraclavicular, or Inguinal Adenopathy Neurological: Cranial nerves II-XII grossly intact, Neuro grossly intact Psych/Mental Status: Normal Affect, Appropriate Microbiology Past 72 Hours 09/21/20 03:10 Blood Culture (Wb) - Right Forearm Blood Culture - Preliminary No growth in 48 hours. 09/21/20 03:10 Blood Culture (Wb) - Left Hand Blood Culture - Preliminary No growth in 48 hours. Laboratory Results 09/22/20 19:40: Vancomycin Trough 6.3 09/23/20 05:20: WBC 8.9, RBC 3.69 L, Hgb 10.3 L, Hct 33.1 L, MCV 89.7, MCH 27.9, MCHC 31.1 L, RDW Std Deviation 45.5 H, RDW Coeff of Jyoti 13.9, Plt Count 327, MPV 9.5, Immature Gran % (Auto) 0.300, Neut % (Auto) 57.2, Lymph % (Auto) 32.9, [place] % (Auto) 6.5, Eos % (Auto) 2.7, Baso % (Auto) 0.4, Absolute Neuts (auto) 5.1, Absolute Lymphs (auto) 2.93, Nucleated RBC % 0 Home Medications: Medications to take at Discharge Melatonin 10 mg PO QHS 09/21/20 Primary Care Physician: Ellis Arnett DO [Primary Care Provider] - Disposition: Against Medical Advice Minutes spent on discharge:: 27 Patient Condition:: Stable Medical Necessity - Tobacco Use Smoking Status: Current every day smoker Tobacco Use: Cigarettes Meaningful Use Info Meaningful Use Diagnoses (Choose all that apply): None applicable Inpatient E&M: 86832 Disch Hosp
== END 2020-09-23 09:36 | disposition left against medical advice (07) | DRG 872 ==
LOC: ED 09-21 → PCU 09-21 01:48
PROVIDERS: Internal Medicine; Admitting Provider Hospitalist; Emergency Provider Emergency Medicine; PCP Student in an Organized Health Care Education/Training Program; Visit Provider Hospitalist
DX: A41.9 Sepsis, unspecified organism (principal); L02.01 Cutaneous abscess of face; L03.211 Cellulitis of face; E87.6 Hypokalemia; F17.210 Nicotine dependence, cigarettes, uncomplicated; Z53.29 Procedure and treatment not carried out because of patient's decision for other reasons
CPT/HCPCS: 36415; 70481; 80048; 80202; 83605; 83735; 85025; 85027; 87040; 99283; 99406; J7030; J7050; Q9967; A4216; J0295; J2405

== ENCOUNTER 2022-01-06 08:05 | Emergency (ER) | payer MEDICAID, SELFPAY ==
[2022-01-06 08:06] VITALS: BP 130/97; PULSE 114; RESP 16; TEMP 36.1; O2SAT 99; BMI 23.1
--- NOTE | 2022-01-06 08:21 | RAD_ITS ---
STUDY: X-RAY - RIGHT SHOULDER REASON FOR EXAM: Right shoulder pain, no specific injury. TECHNIQUE: 4 view(s) of the shoulder. COMPARISON: None. FINDINGS: Normal glenohumeral articulation. Normal acromioclavicular joint. Normal acromion. Normal humeral head and visualized proximal humerus. The soft tissue structures are unremarkable. Normal visualized pulmonary apex. RAD/Shoulder min 2 Views IMPRESSION: Normal x-ray examination of the right shoulder. Electronically Signed: Prosper Perez MD at 9:08 EDT ,
--- NOTE | 2022-01-06 08:24 | EX.ED.UPPERE ---
HPI History of Present Illness Chief Complaint: Upper Extremity Injury Informant: patient Narrative Narrative: [id number] female recurrent right shoulder pain for the past 4 days. No trauma no new exercises. States had issues with her shoulder when she was in her 20s was getting multiple cortisone injections however told not to continue by her specialist due to her age. Intermittent mild symptoms up till Tuesday. Using ibuprofen. Currently does not see the student development specialist. No other past medical history. States occasional tingling to the fingers. Pain worse with movement. No neck pain. Prior similar symptoms: Yes PFSH PFSH Medical History Asthma Home Medications Melatonin 10 mg PO QHS 09/21/20 [History Last Taken Unknown] oxycodone-acetaminophen [Percocet] 1 tab PO Q6H PRN 3 Days #12 tab 01/06/22 [Rx Last Taken Unknown] Allergy/AdvReac Type Severity Reaction Status Date / Time sulfamethoxazole Allergy Vomiting Verified 01/06/22 08:08 [From Bactrim] trimethoprim [From Bactrim] Allergy Vomiting Verified 01/06/22 08:08 Social History Smoking Status: Current every day smoker tobacco type: cigarettes ROS ROS ED Constitutional Constitutional ED: Denies chills, fever(s) or sweats Eyes Eyes: Denies change in vision ENT ENT ED: Denies dysphagia or sore throat Cardiovascular Cardiovascular: Denies chest pain, leg edema, palpitations or racing heartbeat Respiratory/Chest Respiratory/Chest: Denies cough, dyspnea or dyspnea on exertion Gastrointestinal Gastrointestinal: Denies abdominal pain, diarrhea, nausea or vomiting Genitourinary Genitourinary ED: Denies dysuria, hematuria or urinary frequency Musculoskeletal Musculoskeletal: Reports other Details: Right shoulder pain ; Denies back pain, extremity pain or neck pain Integumentary Denies rash or wounds Neurologic Neurologic: Denies headache(s), paresthesias or weakness EXAM Physical Exam Const Vital Signs: 01/06/22 08:06 Temperature 96.9 F L Temperature Source Temporal Pulse Rate 114 H Respiratory Rate 16 Blood Pressure 130/97 H Blood Pressure Mean 108 Pulse Ox 99 Oxygen Delivery Method Room Air Positive well nourished and well developed General Appearance ED: well developed and NAD HEENT Reports moist mucous membranes normocephalic and atraumatic Eyes PERRL, EOMs intact bilaterally and conjunctivae normal General Eye ED: Yes normal appearance of both eyes Neck no lymphadenopathy and supple General: Negative for tenderness Chest Wall Chest: Negative for tenderness Resp normal respiratory effort and normal air movement Effort and Inspection: symmetric chest movement; Negative for respiratory distress Cardio regular rate, regular rhythm and no murmurs Peripheral Pulses: pulses 2+ throughout GI normal to inspection, nondistended, normoactive bowel sounds and non-tender Palpation: Negative for guarding or rebound tenderness present Back/Spine no CVA tenderness and no thoracic nor lumbar tenderness Extremity Extremity Narrative: Right upper extremity: No clavicular pain. No deformities tender palpation with movement of the shoulder limited due to pain. No elbow tenderness. Neurovascular intact distally. General Extremety ED: Negative for edema or tenderness General Extremity: Negative for edema Neuro oriented x3 and no sensory deficits noted Sensorium / Orientation: awake and alert Skin no rashes or lesions noted and no wounds MDM MDM MDM Narrative Medical decision making narrative: Patient recurrent right shoulder pain over the last 4 days and symptoms worse with movement. Difficulty with exam of the shoulder due to pain. However there is no deformities. I suspect rotator cuff injury. She did states she had a tear in her 20s recommended surgery however was concerned and therefore did not have it done. 2 view x-ray shoulder reviewed by myself and read by radiology shows no acute process. [facility] report showed no recent prescriptions. Last Percocet was in July. She was given oxycodone in the ED due to having a ride. She will continue ibuprofen, short prescription Percocet additionally given for symptom control. I discussed adjunct therapies and limitations with certain movements not flare of her rotator cuff. She is given follow-up with orthopedics as an outpatient. Discharge Plan Triage Chief Complaint: Upper Extremity Injury ED Provider: Arpan Taylor Dx/Rx/DC Orders Clinical Impression: Acute pain of right shoulder, Rotator cuff arthropathy of right shoulder Instructions: Rotator Cuff Tendon Tear, ED Shoulder Pain, Uncertain Cause Prescriptions: New oxycodone-acetaminophen [Percocet] 5-325 mg tablet 1 tab PO Q6H PRN (Reason: pain) 3 Days Qty: 12 RF: 0 No Action Melatonin 10 mg PO QHS RF: 0 Primary Care Provider: Ellis Arnett Referrals: Ellis Arnett DO [Primary Care Provider] - Spittle,Jose Miguel, DO [STAFF PHYSICIAN] - 3-5 Days Disposition Disposition: Home, Self Care Discharge Date/Time: 01/06/22 10:02
[2022-01-06] MEDS: oxyCODONE 5 MG Tablet PO (08:38)
== END 2022-01-06 10:02 | disposition home or self-care (01) ==
PROVIDERS: Emergency Provider Emergency Medicine; PCP Student in an Organized Health Care Education/Training Program; Visit Provider Emergency Medicine
DX: M75.102 Unspecified rotator cuff tear or rupture of left shoulder, not specified as traumatic (principal); F17.210 Nicotine dependence, cigarettes, uncomplicated
CPT/HCPCS: 73030; 99283

== ENCOUNTER 2022-06-17 08:32 | Emergency (ER) | payer MEDICAID, SELFPAY ==
[2022-06-17 08:33] VITALS: BP 121/55; PULSE 98; RESP 14; TEMP 36.2; O2SAT 100; BMI 20.6
--- NOTE | 2022-06-17 09:02 | ED.VIS.GI ---
HPI HPI - GI History of Present Illness Chief Complaint: Constipation Informant: patient Abdominal Pain/Flank Pain Onset: Days (3) Context: Sudden Onset Timing: Continuous Quality: Sharp Location: RLQ and LLQ Worsened by: - (Palpation) Relieved by: Nothing Nausea/Vomiting/Emesis GI Symptom: Negative for Nausea or Vomiting Diarrhea/Melena/Hematochezia GI Symptom: Negative for Diarrhea, Melena or Hematochezia Associated Symptoms Associated Symptoms: Negative for Dysuria, Frequency or Hematuria LMP: Current Narrative Narrative: Patient presents with abdominal pain that has been constant for the past 3 days. Patient states it began rather suddenly. Patient states it has been constant. Patient describes her pain as sharp. Patient states her pain is over the lower abdomen. Patient states it is worse with palpation. Patient states nothing seems to help with it. Patient thinks she may be constipated. Patient states her last bowel movement was yesterday but states it was small. Patient denies any melena or hematochezia. Patient denies any nausea or vomiting. Patient denies any dysuria or hematuria. Patient states she is currently on her menstrual cycle and recently came off the Depo-Provera shot. Patient states she has been having some vaginal bleeding over the last month. Patient denies any fevers or chills. [facility] Medical History (Updated 06/17/22 @ 17:[address] Shay Stokes DO) Asthma Home Medications NK 06/17/22 [History Last Taken Unknown] Allergy/AdvReac Type Severity Reaction Status Date / Time sulfamethoxazole Allergy Vomiting Verified 06/17/22 08:33 [From Bactrim] trimethoprim [From Bactrim] Allergy Vomiting Verified 06/17/22 08:33 Surgical History (Updated 06/17/22 @ 09:[address] Shay Stokes DO) H/O section Social History Smoking Status: Current every day smoker tobacco type: cigarettes ROS ROS ED Constitutional Constitutional ED: Denies chills or fever(s) Eyes Eyes: Denies blurry vision or change in vision ENT ENT ED: Denies rhinorrhea or sore throat Cardiovascular Cardiovascular: Denies chest pain or palpitations Respiratory/Chest Respiratory/Chest: Denies cough or dyspnea Gastrointestinal Gastrointestinal: Reports abdominal pain and constipation; Denies melena, nausea or vomiting Genitourinary Genitourinary ED: Denies dysuria or hematuria Musculoskeletal Musculoskeletal: Denies back pain or neck pain Integumentary Denies abscess or rash Neurologic Neurologic: Denies headache(s) or weakness Allergic/Immunologic Allergic/Immunologic ED: Denies mouth swelling or urticaria EXAM Physical Exam Const Vital Signs: 06/17/22 08:33 Temperature 97.2 F L Temperature Source Temporal Pulse Rate 98 Respiratory Rate 14 Blood Pressure 121/55 H Blood Pressure Mean 77 Pulse Ox 100 Oxygen Delivery Method Room Air Positive well nourished and well developed General Appearance ED: well developed and NAD HEENT Reports moist mucous membranes Neck supple and no JVD Resp normal respiratory effort and clear to auscultation bilaterally Cardio regular rate, regular rhythm and no murmurs GI normal to inspection, nondistended, normoactive bowel sounds Palpation: soft and tender LLQ, RLQ and suprapubic; Negative for guarding or rebound tenderness present Extremity normal to inspection General Extremety ED: Negative for edema or tenderness General Extremity: Negative for edema Neuro oriented x3, CN's II-XII intact bilaterally and no sensory deficits noted Sensorium / Orientation: alert Motor Exam: strength 5/5 throughout Psych mental status grossly normal Skin no rashes or lesions noted MDM MDM MDM Narrative Medical decision making narrative: Patient was ordered IV fluids, Zofran, and Bentyl. I also ordered labs and CT scan to evaluate her abdominal pain. Patient states she did not think she was going to be here this long. Patient states she has no one to watch her children. Patient states she needs to leave. Patient left without receiving any medication or treatment. Patient states she thinks she is constipated and will try [id number] laxatives to see if this improves her pain. Patient states she will return if it is persistent. Discharge Plan Triage Chief Complaint: Constipation ED Provider: Shay Stokes Dx/Rx/DC Orders Clinical Impression: Abdominal pain Instructions: ED Abdominal Pain Unkn Cause Fem Prescriptions: No Action NK Primary Care Provider: Ellis Arnett Referrals: Ellis Arnett DO [Primary Care Provider] - Disposition Disposition: Elopement Discharge Date/Time: 06/17/22 09:48
--- NOTE | 2022-06-17 09:40 | ED.RN ---
This nurse went into pt's room to start her iv and give medications. 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 Pt notes she will try constipation medications at home and if that doesn't help her pain she will come back later. Dr. Stokes was made aware.
== END 2022-06-17 09:48 | disposition left against medical advice (07) ==
LOC: ED 09:17
PROVIDERS: Emergency Provider Emergency Medicine; PCP Student in an Organized Health Care Education/Training Program; Visit Provider Emergency Medicine
DX: R10.32 Left lower quadrant pain (principal); R10.31 Right lower quadrant pain; F17.210 Nicotine dependence, cigarettes, uncomplicated
CPT/HCPCS: J2405; 99281; 99282

== ENCOUNTER 2023-02-27 09:59 | Emergency (ER) | payer MEDICAID, SELFPAY ==
[2023-02-27 10:00] VITALS: BP 112/75; PULSE 117; RESP 16; TEMP 36.7; O2SAT 100; BMI 20.7
--- NOTE | 2023-02-27 10:32 | EDS_ITS ---
HPI History of Present Illness Chief Complaint: Upper Extremity Injury Informant: patient Narrative Narrative: Patient presenting with right shoulder pain. She is right-hand dominant, she had chronic issues with this shoulder for maybe 10 years and is following with Dr. Carrasquillo with orthopedics at [facility], she states that over the years it has just gradually gotten worse and she has episodes like she has for the past week where it flares up, she states that is the case right now. 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 She denies any acute onset symptoms. She does have some tingling in all of her fingers on the right, and this is happened before when this is flared up. She states most of the pain is anterior. PFSH PFSH Medical History Asthma Home Medications hydrocodone-acetaminophen 5-325mg 5mg-325mg 1 tab PO Q4H PRN PRN Pain 2 days #10 TABLETS 02/27/23 [Rx Last Taken Unknown] meloxicam 15 mg tablet 15 mg PO DAILY #20 tabs 02/27/23 [Rx Last Taken Unknown] Allergy/AdvReac Type Severity Reaction Status Date / Time sulfamethoxazole Allergy Vomiting Verified 06/17/22 08:33 [From Bactrim] trimethoprim [From Bactrim] Allergy Vomiting Verified 06/17/22 08:33 Surgical History H/O section Social History Smoking Status: Current every day smoker tobacco type: cigarettes ROS ROS ED Constitutional Constitutional ED: Denies chills or fever(s) Musculoskeletal Musculoskeletal: Reports extremity pain; Denies neck pain Integumentary Denies Abrasions, rash or wounds Neurologic Neurologic: Reports paresthesias RUE; Denies weakness EXAM Physical Exam Const Vital Signs: 02/27/23 10:00 Temperature 98.1 F Temperature Source Temporal Pulse Rate 117 H Respiratory Rate 16 Blood Pressure 112/75 Blood Pressure Mean 87 Pulse Ox 100 Oxygen Delivery Method Room Air Positive well nourished and well developed General Appearance ED: well developed and NAD Neck full ROM and supple Back/Spine normal ROM and normal to inspection Extremity normal to inspection Extremity Narrative: Tender at the anterior right shoulder bicipital groove and in addition at the coracoid process, she also has some pain posteriorly in the area of the teres minor. She does not have subacromial tenderness or acromioclavicular t enderness. There is no deformity. She can move with short arc range of motion without difficulty including flexion forward, internal/external rotation, but in a limited fashion. She does not have excessive warmth of the right shoulder. Positive speeds sign. Positive Yergason sign. Neuro oriented x3, no focal motor deficits and no sensory deficits noted Sensorium / Orientation: alert Psych mental status grossly normal and thought process normal Skin no wounds Rashes: no rashes MDM MDM MDM Narrative Medical decision making narrative: Patient states she has had multiple cortisone injections into the joint, she points to the subacromial approach when she had them in the past. Differential here includes multiple different rotators, she has trouble internally rotating, externally rotating, and abducting. Differential also includes subcoracoid bursitis, bicipital tendinitis, or she could have more than 1 of all of these. I do not think she has calcific tendinitis right now, I do not think she needs an emergent x-ray, I certainly recommend follow-up with orthopedics, she is already been contemplating surgery which has been recommended to her and we talked about that some. She is looking for pain control now, I will put her on Mobic in addition to a short course of something stronger for pain. Discharge Plan Triage Chief Complaint: Upper Extremity Injury ED Provider: Juvenal Kim Dx/Rx/DC Orders Clinical Impression: Rotator cuff arthropathy Instructions: The Shoulder Joint Prescriptions: New meloxicam 15 mg tablet 15 mg PO DAILY Qty: 20 0RF hydrocodone-acetaminophen [hydrocodone-acetaminophen] 5-325 mg tablet 1 tab PO Q4H PRN PRN (Reason: Pain) 2 Days Qty: 10 0RF Primary Care Provider: Ellis Arnett Referrals: Juvenal Carrasqulilo MD [Non-Staff] - As soon as possible Ellis Arnett, [Primary Care Provider] - Disposition Disposition: Home, Self Care
== END 2023-02-27 10:51 | disposition home or self-care (01) ==
LOC: ED 10:44
PROVIDERS: Emergency Provider Emergency Medicine; PCP Student in an Organized Health Care Education/Training Program; Visit Provider Emergency Medicine
DX: M19.011 Primary osteoarthritis, right shoulder (principal); F17.210 Nicotine dependence, cigarettes, uncomplicated
CPT/HCPCS: 99282

== ENCOUNTER 2023-05-14 10:57 | Emergency (ER) | payer MEDICAID, SELFPAY ==
[2023-05-14 10:58] VITALS: BP 137/89; PULSE 110; RESP 16; TEMP 36.2; O2SAT 100; BMI 20.9
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
[2023-05-14] MEDS: Oxycodone/Apap 5/325 Tablet PO (11:49)
[2023-05-14] MEDS: 0.9% Normal Saline (1000mL) 1,000 ML 1000 ML IV (11:49)
[2023-05-14] MEDS: Ondansetron ODT 4 MG Tablet PO (11:49)
[2023-05-14 11:52] LABS: Absolute Lymphocyte Count 1.96 X10^3/uL (0.83-4.51); Absolute Neutrophil Count 8.5 X10^3/uL (2.0-7.7); Basophil# 0.06 X10^3/uL; Basophil% 0.5 % (0-1); Eosinophil# 0.12 X10^3/uL; Eosinophils% 1.1 % (0-5); Hematocrit 37.8 % (37-47); Hemoglobin 11.2 g/dL (12.0-15.0); Lymphocyte # 1.96 X10^3/ul (0.83-4.51); Lymphocyte % 17.5 % (19-41); Mean Corp Hgb Conc 29.6 g/dL (32-36); Mean Corpuscular Hgb 24.3 pg (27.0-32.0); Mean Corpuscular Volume 82.2 fL (81-99); Mean Platelet Vol. 9.2 fl (6.2-12.0); Monocyte# 0.49 X10^3/uL; Monocyte% 4.4 % (0-10); NRBC Flagged by Analyzer 0 % (0-5); Neutrophil # 8.53 X10^3/uL (2.7-7.7); Neutrophil % 75.9 % (47-70); Platelet Count 445 K/mm3 (150-450); RBC Distribution Width CV 19.6 % (11.6-14.6); White Blood Count 11.2 K/mm3 (4.4-11.0)
[2023-05-14 12:08] LABS: ALB/GLOB Ratio 0.8 RATIO (0.9-2.4); AST(SGOT) 42 U/L (15-37); Alanine Aminotransfer ALT/SGPT 31 U/L (13-56); Albumin, Serum 3.5 g/dL (3.2-5.0); Alkaline Phosphatase 116 U/L (45-117); Anion Gap 5 (5-15); BUN 14 mg/dL (7-18); BUN/Creat Ratio 20.1 RATIO (10-20); Calcium,Total 9.3 mg/dL (8.5-10.1); Chloride 106 mmol/L (98-107); EST Glomerular Filtration Rate 102 mL/min (>60); Est Glom Filt Rate - Afr Amer 123 mL/min (>60); Estimated Creatinine Clearance 84.38 ml/min; Globulin 4.5 g/dL (2.2-4.2); Glucose 97 mg/dL (74-106); Sodium Level 137 mmol/L (136-145)
[2023-05-14 12:33] LABS: Bacteria 0 SEEN /hpf (None Seen); Mucous, Urine 0 SEEN /hpf (<or=2+); Red Blood Cells-Urine 0 SEEN /hpf (0-5); White Blood Cells 0 SEEN /hpf (0-5)
[2023-05-14 12:35] LABS: Color, Urine Yellow (Yellow); Glucose, Dipstick Normal (Normal); Ketone-Dipstick Negative (Negative); Leukocyte Esterase-Dipstick 25 /ul (Negative); Nitrite-Dipstick Negative (Negative); Occult Blood-Urine 10 /ul (Negative); Protein-Dipstick 15 mg/dl (Negative); Urine Bilirubin Dipstick Negative (Negative); Urine Clarity Clear (Clear); Urine Urobilinogen Normal (Normal)
[2023-05-14 12:40] LABS: Squamous Epithelial Cells - UA 0-5 SEEN /hpf (5-10)
== END 2023-05-14 13:15 | disposition home or self-care (01) ==
PROVIDERS: Nurse Practitioner; Emergency Provider Emergency Medicine; PCP Student in an Organized Health Care Education/Training Program; Visit Provider Emergency Medicine
DX: S20.20XA Contusion of thorax, unspecified, initial encounter (principal); S16.1XXA Strain of muscle, fascia and tendon at neck level, initial encounter; F17.210 Nicotine dependence, cigarettes, uncomplicated; V43.53XA Car driver injured in collision with pick-up truck in traffic accident, initial encounter
CPT/HCPCS: 70498; 71275; 74177; 80053; 81001; 85025; 96360; 99284; J7030; Q9967

== ENCOUNTER 2023-10-15 09:01 | Emergency (ER) | payer MEDICAID, SELFPAY ==
[2023-10-15 09:02] VITALS: BP 130/95; PULSE 115; RESP 16; TEMP 36.5; O2SAT 98; BMI 21.8
--- NOTE | 2023-10-15 09:33 | EDS_ITS ---
HPI History of Present Illness Chief Complaint: Abscess Informant: patient Onset/Context/Timing Onset: Days Context: Gradual Onset Timing: Continuous Current Severity: Mild Maximum Severity: Mild Narrative Narrative: 33-year-old female history of MRSA abscess to her face before. She is an abscess to the lateral right upper lip region for about 3 to 4 days. She has had some pus-like discharge. Denies any fever or other complaints. Prior similar symptoms: Yes Recent Illness/Hospitalization: No PFSH PFSH Medical History Asthma Home Medications clindamycin HCl 300 mg capsule (Cleocin HCl) 300 mg PO Q6H 10 days #40 CAPSULES 10/15/23 [Rx Last Taken Unknown] Allergy/AdvReac Type Severity Reaction Status Date / Time sulfamethoxazole Allergy Vomiting Verified 05/14/23 11:01 [From Bactrim] trimethoprim [From Bactrim] Allergy Vomiting Verified 05/14/23 11:01 Surgical History H/O section Social History Smoking Status: Current every day smoker tobacco type: cigarettes ROS ROS ED ROS Narrative Denies any recent illness. Review of Systems ROS Unobtainable: Denies due to encephalopathy Constitutional Constitutional ED: Denies chills or fever(s) Eyes Eyes: Denies blurry vision ENT ENT ED: Denies ear pain Cardiovascular Cardiovascular: Denies chest pain Respiratory/Chest Respiratory/Chest: Denies cough or dyspnea Gastrointestinal Gastrointestinal: Denies abdominal pain Genitourinary Genitourinary ED: Denies dysuria or hematuria Musculoskeletal Musculoskeletal: Denies arthralgias Integumentary Reports abscess; Denies Abrasions Neurologic Neurologic: Denies headache(s) Psychiatric Psychiatric: Denies anxiety Hematologic/Lymphatic Hematologic/Lymphatic: Reports none Allergic/Immunologic Allergic/Immunologic ED: Denies mouth swelling, tongue swelling or urticaria EXAM Physical Exam Narrative Exam Narrative: Well-appearing 33-year-old female. Vital signs stable afebrile. H EENT exam she has a small abscess about 1 cm in length circular to the lateral aspect of her right upper lip and corner of the lip. Involves the skin. Tender to palpation. There is no preauricular lymphadenopathy. No facial swelling otherwise. Neck nontender no lymphadenopathy. Lungs clear. Heart regular rhythm. Abdomen soft nontender. Moving all 4 extremities. Awake and alert. Const Vital Signs: 10/15/23 09:02 10/15/23 11:51 Temperature 97.7 F L Temperature Source Temporal Pulse Rate 115 H 101 H Respiratory Rate 16 16 Blood Pressure 130/95 H 115/80 Blood Pressure Mean 106 91 Pulse Ox 98 99 Oxygen Delivery Method Room Air Positive well nourished and well developed; Negative for obese, cachectic, contractures or unkempt General Appearance ED: well developed and NAD; Negative for unkempt, cachectic, contractures, cyanotic, diaphoretic or pallor Nutritional Appearance: Negative for cachectic or obese HEENT Reports moist mucous membranes Negative for trauma Eyes PERRL and EOMs intact bilaterally General Eye ED: Negative for pale conjunctiva or scleral icterus Neck no lymphadenopathy, supple and no JVD General: Negative for tenderness Lymph Lymphatic: Negative for other Chest Wall inspection of chest normal and palpation of chest normal Chest: Negative for other Resp normal respiratory effort and clear to auscultation bilaterally Effort and Inspection: Negative for retractions or pain with movement Cardio regular rate, regular rhythm, S1 normal heart sound, S2 normal heart sound and no murmurs Palpation: Negative for palpable S3 or palpable S4 Rate: Negative for bradycardia or tachycardic Rhythm: Negative for abnormal rhythm GI normal to inspection, nondistended, normoactive bowel sounds, non-tender, non- distended and no masses Inspection: Negative for abdominal distention Auscultation: normoactive bowel sounds Palpation: soft; Negative for tender or guarding Back/Spine no CVA tenderness General Back: Negative for CVA tenderness Cervical Spine: Negative for cervical spine tenderness Thoracic Spine / Upper Back: Negative for thoracic spinal tenderness Lumbar Spine / Lower Back: Negative for lumbar spinal tenderness Extremity normal to inspection General Extremety ED: Negative for edema or tenderness General Extremity: Negative for edema Neuro oriented x3 and CN's II-XII intact bilaterally Sensorium / Orientation: alert and orientation impaired; Negative for lethargic or stuporous Motor Exam: strength 5/5 throughout; Negative for general weakness or strength abnormal Psych mental status grossly normal Appearance: Negative for unkempt Attitude: No agitated Mood & Affect: Negative for depressed, anxious or tearful Skin no rashes or lesions noted and no wounds Skin Narrative: Small right facial abscess at the corner of her mouth on the right involving the skin. General Skin Exam: Negative for elasticity normal, jaundice or pallor Lesions: No lesion noted Trauma: Negative for abrasion MDM MDM MDM Narrative Medical decision making narrative: 33-year-old right facial abscess. That she would like to have this drained. History of MRSA. Clindamycin 1 dose here p.o. and then for the next 10 days. Outpatient follow-up. Will place let on the abscess and do an incision and drainage. Incision and drainage of the right facial abscess expressed about 1 cc of pus. She be discharged home. Tylenol and Motrin for pain. Clindamycin 4 times a day for 10 days. Outpatient follow-up to ensure she is improving. Return if worse. History & Record Review Discussion w/independent historian: Patient Procedures Other Procedures Procedure(s): Right facial abscess incision and drainage. Let applied. Cleaned with Shur-Clens. Local lidocaine. Made about centimeter incision drained about 1 cc of pus. It was mostly blood from her squeezing the area. She was instructed on wound care and when to return. Discharge Plan Triage Chief Complaint: Abscess ED Provider: Martell Lopez Dx/Rx/DC Orders Clinical Impression: Facial abscess, Hx MRSA infection Instructions: ED Abscess Incision And Drainage Prescriptions: New clindamycin HCl [Cleocin HCl] 300 mg capsule 300 mg PO Q6H 10 Days Qty: 40 0RF Primary Care Provider: Ellis Arnett Referrals: Ellis Arnett DO [Primary Care Provider] - 1 Week Activity Restrictions/Additional Instructions: Tylenol and Motrin for pain. Warm compresses to the abscess. Clindamycin 1 pill 4 times a day for the next 10 days. Follow-up with your doctor to ensure this is improving. If is getting a lot worse follow-up with the emergency department. Disposition Disposition: Home, Self Care Discharge Date/Time: 10/15/23 11:53
[2023-10-15] MEDS: Clindamycin HCl 150 MG Capsule 300 MG PO (09:38)
[2023-10-15] MEDS: Lidocaine 1% (20 ml mdv) 20 ML Vial 5 ML INFILT (09:38)
[2023-10-15] MEDS: Lidocaine/Epi/Tetracaine 50 ML 1 APPLIC TOPICAL (09:39)
--- OUTSIDE RECORDS SUMMARY | 2023-10-15 09:53 | XMS RPT_ITS | CCD ---
Author Name Unknown Address [address] [place] [address] Organization [facility] Care Team Providers Care Plating Engineer Name Role Phone ELLIS PRATHER DO Primary Care Physician Ellis Prather DO Primary Care Provider Ellis Prather DO Primary Care Provider Ellis Prather DO Primary Care Provider [facility]ORT Referring Unavailable ELLIS PRATHER Primary Care Unavailable NO LINDSAY Referring Unavailable ELLIS PRATHER Primary Care Unavailable ELLIS PRATHER Primary Care Unavailable LUIS A CLAYTON Referring Unavailab DILIP Cárdenas Attending Unavailable ELLIS PRATHER Primary Care Unavailable ELLIS PRATHER Primary Care Unavailable ELLIS PRATHER Primary Care Unavailable DIAZ DEL CIDON Attending Unavailable ELLIS PRATHER Primary Care Unavailable JOSE, YING Referring Unavailable ELLIS PRATHER Primary Care Unavailable JOSE, YING Attending Unavailable ELLIS PRATHER Primary Care Unavailable MARYA FLORES Attending Unavailable ELLIS PRATHER Primary Care Unavailable ELLIS PRATHER Primary Care Unavailable DILIP JONES Attending Unavailable JOSE, YING Attending Unavailable ELLIS PRATHER Primary Care Unavailable Allergies Allergy Classification Reported Allergen(s) Allergy Type Date of Onset Reaction(s) Facility (20 sources) Sulfamethoxazole / Trimethoprim; Translations: [sulfamethoxazole-tr imethoprim] Drug Allergy 0 Other: See [facility] (2 sources) Sulfamethoxazole / Trimethoprim; Translations: [SULFAMETHOXAZOLE-TR IMETHOPRIM] Drug Allergy [facility] Other [facility] Medications Current Medications Medication Drug Class(es) Dates Sig (Normalized) Sig (Original) Albuterol (Eqv-Proventil HFA) 90 mcg/inh inhalation aerosol (2 sources) Start: 04-27-2021 take 2 puff(s) by inhalation every four hours as needed for wheezing Albuterol (Eqv-Proventil HFA) 90 mcg/inh inhalation aerosol INHALE 2 PUFFS INSTRUCTED EVERY 4 HOURS NEEDED FOR WHEEZING/SHORTNE SS OF BREATH. Start Date: 04/27/21 Status: Ordered amoxicillin 875 mg / clavulanate 125 mg oral tablet (2 sources) Penicillin-class Antibacterial Start: 08-09-2022 End: 08-16-2022 take 1 tablet by mouth twice daily amoxicillin-clav ulanic acid (AUGMENTIN) 875-125 mg per tablet Take 1 tablet by mouth twice daily for 7 days. 14 tablet 0 08/09/2022 08/16/2022 Active Completed/Discontinued Medications Medication Drug Class(es) Dates Sig (Normalized) Sig (Original) [id number] 200 actuat albuterol 0.09 mg/actuat metered dose inhaler (20 sources) beta2-Adrenergic Agonist Start: 03-18-2023 take 2 puff(s) by inhalation every four hours as needed for wheezing albuterol HFA (PROVENTIL HFA, VENTOLIN HFA) 90 mcg/actuation inhaler Inhale 2 Puffs as instructed every 4 hours as needed for wheezing/shortnes s of breath. 8 g 4 03/18/2023 Active Problems Active Problems Problem Classification Problem Date Documented Date Episodic/Chronic Anxiety disorders (20 sources) Anxiety; Translations: [Mixed anxiety and depressive disorder] Onset: 12-18-2010 06-15-2021 Chronic Asthma (20 sources) Uncomplicated mild persistent asthma; Translations: [Mild persistent asthma, uncomplicated] Onset: 11-28-2015 11-28-2015 Chronic Contraceptive and procreative management (3 sources) Patient encounter status; Translations: [Encounter for contraceptive management, unspecified] Episodic Deficiency and other anemia (1 source) Iron deficiency anemia; Translations: [Iron deficiency anemia, unspecified] Episodic Deficiency and other anemia (3 sources) Iron deficiency anemia secondary to inadequate dietary iron intake; Translations: [Other iron deficiency anemias] Episodic Hepatitis (20 sources) Chronic hepatitis C; Translations: [Chronic viral hepatitis C] Onset: 09-26-2017 09-26-2017 Chronic Inflammation; infection of eye (except that caused by tuberculosis or sexually transmitteddisease) (1 source) Conjunctivitis of left eye; Translations: [Unspecified conjunctivitis] Episodic Miscellaneous mental health disorders (1 source) Lacks emotional support; Translations: [Other symptoms and signs involving emotional state] 05-05-2023 Episodic Mood disorders (1 source) Mood disorders; Translations: [Anxiety and depression] Onset: 08-04-2022 Other connective tissue disease (2 sources) Impingement syndrome of right shoulder region; Translations: [Impingement syndrome of right shoulder] Episodic Other skin disorders (2 sources) Mass of subcutaneous tissue; Translations: [Localized swelling, mass and lump, unspecified] Episodic Other skin disorders (4 sources) Disorder of left upper extremity; Translations: [Localized swelling, mass and lump, left upper limb] Episodic Other skin disorders (1 source) Mass of upper limb; Translations: [Localized swelling, mass and lump, right upper limb] Episodic Other upper respiratory infections (1 source) Bacterial sinusitis; Translations: [Chronic sinusitis, unspecified] Chronic Other upper respiratory infections (1 source) Sore throat symptom; Translations: [Acute pharyngitis, unspecified] Episodic Residual codes; unclassified (2 sources) Insomnia 06-15-2021 Episodic Residual codes; unclassified (1 source) Influenza-like symptoms; Translations: [Other general symptoms and signs] Episodic Substance-related disorders (20 sources) Tobacco user; Translations: [Nicotine dependence, unspecified, uncomplicated] Onset: 06-11-2013 06-11-2013 Chronic Viral infection (1 source) Recurrent herpes simplex labialis; Translations: [Herpesviral vesicular dermatitis] 05-05-2023 Episodic Past or Other Problems Problem Classification Problem Date Documented Da te Episodic/Chronic Deficiency and other anemia (1 source) Other iron deficiency anemias; Translations: [Iron deficiency anemia secondary to inadequate dietary iron intake] Onset: 08-04-2022 Episodic Deficiency and other anemia (1 source) Iron deficiency anemia, unspecified; Translations: [Iron deficiency anemia, unspecified iron deficiency anemia type] Onset: 07-09-2022 Episodic Malaise and fatigue (2 sources) Fatigue; Translations: [Other fatigue] Onset: 07-09-2022 Episodic Other nervous system disorders (20 sources) Numbness of upper limb; Translations: [Anesthesia of skin] Onset: 07-11-2014 07-11-2014 Episodic Other nervous system disorders (1 source) Anesthesia of skin; Translations: [Right arm numbness] Onset: 07-11-2014 Episodic Other and delivery including normal (2 sources) Onset: 10-10-2020 11-14-2020 Episodic Other skin disorders (2 sources) Localized swelling, mass and lump, left upper limb; Translations: [Localized swelling, mass, or lump of left upper extremity] Onset: 11-04-2022 Episodic Other skin disorders (1 source) Localized swelling, mass and lump, unspecified; Translations: [Subcutaneous mass] Onset: 07-09-2022 Episodic Other skin disorders (1 source) Localized swelling, mass and lump, right upper limb; Translations: [Arm mass, right] Onset: 11-30-2022 Episodic Results Test Name Value Interpretation Reference Range Facil ity Vital Signs Date Time Vital Sign Value Performing Clinician Facility 05-05-2023 12:06-0400 Body weight 42.91 kg Marya Flores APRN.CNP Work Phone: [facility] 05-05-2023 12:06-0400 Diastolic blood pressure 76 mm[Hg] Marya Flores APRN.CNP Work Phone: [facility] 05-05-2023 12:06-0400 Heart rate 84 /min Marya Flores APRN.CNP Work Phone: [facility] 05-05-2023 12:06-0400 Respiratory rate 16 /min Marya Flores APRN.CNP Work Phone: [facility] 05-05-2023 12:06-0400 SaO2% (BldA) [Mass fraction] 98 % Marya Flores APRN.CNP Work Phone: [facility] 05-05-2023 12:06-0400 Systolic blood pressure 102 mm[Hg] Marya Flores HAND TOUCH UP PAINTER.EXAMINER OF CURRENCY Work Phone: [facility] 02-01-2023 08:42-0400 Body temperature 98.4 [degF] Jeovanny King HAND TOUCH UP PAINTER.EXAMINER OF CURRENCY Work Phone: [facility] 02-01-2023 08:42-0400 Body weight 43.36 kg Jeovanny Sonny HAND TOUCH UP PAINTER.EXAMINER OF CURRENCY Work Phone: [facility] 02-01-2023 08:42-0400 Diastolic blood pressure 76 mm[Hg] Jeovanny Sonny HAND TOUCH UP PAINTER.EXAMINER OF CURRENCY Work Phone: [facility] 02-01-2023 08:42-0400 Heart rate 94 /min Jeovanny Sonny HAND TOUCH UP PAINTER.EXAMINER OF CURRENCY Work Phone: [facility] 02-01-2023 08:42-0400 Respiratory rate 16 /min Jeovanny Sonny HAND TOUCH UP PAINTER.EXAMINER OF CURRENCY Work Phone: [facility] 02-01-2023 08:42-0400 SaO2% (BldA) [Mass fraction] 99 % Jeovanny Sonny HAND TOUCH UP PAINTER.EXAMINER OF CURRENCY Work Phone: [facility] 02-01-2023 08:42-0400 Systolic blood pressure 110 mm[Hg] Jeovanny Dennis HAND TOUCH UP PAINTER.EXAMINER OF CURRENCY Work Phone: [facility] 11-18-2022 16:12-0400 Body height 149.9 cm Dilip Jones MD Work Phone: [facility] 11-18-2022 16:12-0400 Body temperature 98.01 [degF] Dilip Jones MD Work Phone: [facility] 11-18-2022 16:12-0400 Body weight 45.27 kg Dilip Jones MD Work Phone: [facility] 11-18-2022 16:12-0400 Diastolic blood pressure 60 mm[Hg] Dilip Jones MD Work Phone: [facility] 11-18-2022 16:12-0400 Heart rate 95 /min Dilip Jones MD Work Phone: [facility] 11-18-2022 16:12-0400 SaO2% (BldA) [Mass fraction] 98 % Dilip Jones MD Work Phone: [facility] 11-18-2022 16:12-0400 Systolic blood pressure 98 mm[Hg] Dilip Jones MD Work Phone: [facility] 08-31-2022 08:07-0500 Body temperature 100.6 [degF] Chiqui Praisler-Wood HAND TOUCH UP PAINTER.EXAMINER OF CURRENCY Work Phone: [facility] 08-31-2022 08:07-0500 Body weight 47.45 kg Chiqui Praisler-Wood HAND TOUCH UP PAINTER.EXAMINER OF CURRENCY Work Phone: [facility] 08-31-2022 08:07-0500 Diastolic blood pressure 64 mm[Hg] Chiqui Praisler-Wood HAND TOUCH UP PAINTER.EXAMINER OF CURRENCY Work Phone: [facility] 08-31-2022 08:07-0500 Heart rate 108 /min Chiqui Praisler-Wood HAND TOUCH UP PAINTER.EXAMINER OF CURRENCY Work Phone: [facility] 08-31-2022 08:07-0500 Respiratory rate 18 /min Chiqui Praisler-Wood HAND TOUCH UP PAINTER.EXAMINER OF CURRENCY Work Phone: [facility] 08-31-2022 08:07-0500 SaO2% (BldA) [Mass fraction] 99 % Chiqui Praisler-Wood HAND TOUCH UP PAINTER.EXAMINER OF CURRENCY Work Phone: [facility] 08-31-2022 08:07-0500 Systolic blood pressure 102 mm[Hg] Chiqui Praisler-Wood HAND TOUCH UP PAINTER.EXAMINER OF CURRENCY Work Phone: [facility] 08-09-2022 16:29-0500 Body temperature 98.29 [degF] Ted Claudia HAND TOUCH UP PAINTER.EXAMINER OF CURRENCY Work Phone: [facility] 08-09-2022 16:29-0500 Body weight 48.17 kg Ted Claudia HAND TOUCH UP PAINTER.EXAMINER OF CURRENCY Work Phone: [facility] 08-09-2022 16:29-0500 Diastolic blood pressure 66 mm[Hg] Ted [facility] HAND TOUCH UP PAINTER.EXAMINER OF CURRENCY Work Phone: [facility] 08-09-2022 16:29-0500 Heart rate 71 /min [facility] HAND TOUCH UP PAINTER.EXAMINER OF CURRENCY Work Phone: [facility] 08-09-2022 16:29-0500 Respiratory rate 18 /min [facility] HAND TOUCH UP PAINTER.EXAMINER OF CURRENCY Work Phone: [facility] 08-09-2022 16:29-0500 SaO2% (BldA) [Mass fraction] 99 % [facility] HAND TOUCH UP PAINTER.EXAMINER OF CURRENCY Work Phone: [facility] 08-09-2022 16:29-0500 Systolic blood pressure 102 mm[Hg] [facility] HAND TOUCH UP PAINTER.EXAMINER OF CURRENCY Work Phone: [facility] 07-07-2022 10:08-0400 Body weight 45.63 kg Ying Zureddieck HAND TOUCH UP PAINTER.EXAMINER OF CURRENCY Work Phone: [facility] 07-07-2022 10:08-0400 Diastolic blood pressure 60 mm[Hg] Ying Zurawick HAND TOUCH UP PAINTER.EXAMINER OF CURRENCY Work Phone: [facility] 07-07-2022 10:08-0400 Heart rate 64 /min Ying Zurawick HAND TOUCH UP PAINTER.EXAMINER OF CURRENCY Work Phone: [facility] 07-07-2022 10:08-0400 Respiratory rate 12 /min Ying Zurawick HAND TOUCH UP PAINTER.EXAMINER OF CURRENCY Work Phone: [facility] 07-07-2022 10:08-0400 Systolic blood pressure 90 mm[Hg] Ying Zurawick HAND TOUCH UP PAINTER.EXAMINER OF CURRENCY Work Phone: [facility] 03-22-2022 11:14-0400 Body weight 45.41 kg Ying Zurawick HAND TOUCH UP PAINTER.EXAMINER OF CURRENCY Work Phone: [facility] 03-16-2022 14:02-0400 Body weight 46.27 kg No Lindsay HAND TOUCH UP PAINTER.EXAMINER OF CURRENCY Work Phone: [facility] 03-16-2022 14:02-0400 Diastolic blood pressure 72 mm[Hg] No Podlogar HAND TOUCH UP PAINTER.EXAMINER OF CURRENCY Work Phone: [facility] 03-16-2022 14:02-0400 Heart rate 89 /min No Podlogar HAND TOUCH UP PAINTER.EXAMINER OF CURRENCY Work Phone: [facility] 03-16-2022 14:02-0400 Respiratory rate 18 /min No Podlogar HAND TOUCH UP PAINTER.EXAMINER OF CURRENCY Work Phone: [facility] 03-16-2022 14:02-0400 SaO2% (BldA) [Mass fraction] 100 % No Podlogar HAND TOUCH UP PAINTER.EXAMINER OF CURRENCY Work Phone: [facility] 03-16-2022 14:02-0400 Systolic blood pressure 100 mm[Hg] No Podlogar HAND TOUCH UP PAINTER.EXAMINER OF CURRENCY Work Phone: [facility] 07-02-2021 16:51-0400 Body height 149.9 cm LOUIS ALEXANDER MD [facility] 07-02-2021 16:51-0400 Body weight 65.5 kg LOUIS ALEXANDER MD [facility] 07-02-2021 16:51-0400 Body weight 29.15 kg/m2 LOUIS ALEXANDER MD [facility] 07-02-2021 16:50-0400 Body temperature 97.88 [degF] LOUIS ALEXANDER MD [facility] 07-02-2021 16:50-0400 Diastolic blood pressure 85 mm[Hg] LOUIS ALEXANDER MD [facility] 07-02-2021 16:50-0400 Heart rate 106 /min LOUIS ALEXANDER MD [facility] 07-02-2021 16:50-0400 Mean blood pressure 100 mm[Hg] LOUIS ALEXANDER MD [facility] 07-02-2021 16:50-0400 Respiratory rate 18 /min LOUIS ALEXANDER MD [facility] 07-02-2021 16:50-0400 Systolic blood pressure 131 mm[Hg] LOUIS ALEXANDER MD [facility] Encounters Encounter Date Encounter Type Care Provider Facility Start: 05-05-2023 End: 05-05-[address] [facility] Facility:[facility] Start: 05-05-2023 End: 05-05-2023 Patient encounter procedure Marya Flores HAND TOUCH UP PAINTER.EXAMINER OF CURRENCY Work Phone: [facility] Procedures Date Procedure Procedure Detail Performing Clinician Start: 11-30-2022 Level iv surg pathology gross&microscopic exam Dilip Jones MD Work Phone: Start: 08-31-2022 COVID WITH FLUA+B, ROUTINE Chiqui Salvador HAND TOUCH UP PAINTER.EXAMINER OF CURRENCY Work Phone: Start: 08-31-2022 STREP A MOLECULAR (POC) Gina Bradford PA-C Work Phone: Start: 03-16-2022 Urine test visual color cmprsn galos No Lindsay HAND TOUCH UP PAINTER.EXAMINER OF CURRENCY Work Phone: Start: 09-18-2007 section JACKIE CONTRERAS MD H/O: section Previous c esarean delivery, antepartum( Confirmed ) JACKIE CONTRERAS MD Plan of Treatment Date Care Activity Detail Author Start: 09-23-2030 Urine microalbumin profile DTA P,TDAP,TD (3 - Td or Tdap) [facility] Start: 11-01-2024 HPV TESTING HPV TESTING [facility] Start: 11-01-2024 PAP TESTING PAP TESTING [facility] Start: 05-05-2024 ANNUAL PCP TEAM INSURANCE LOSS ASSESSOR [place] DISEASE VISIT ANNUAL PCP TEAM CHRONIC DISEASE VISIT [facility] Start: 11-23-2023 ANNUAL PCP TEAM INSURANCE LOSS ASSESSOR [place] DISEASE VISIT ANNUAL PCP TEAM CHRONIC DISEASE VISIT [facility] Start: 08-04-2023 ANNUAL PCP TEAM INSURANCE LOSS ASSESSOR [place] DISEASE VISIT ANNUAL PCP TEAM CHRONIC DISEASE VISIT [facility] Start: 08-04-2023 COVID-19 VACCINE (#1) COVID-19 VACCI NE (#1) [facility] Immunizations Immunization Date Immunization Notes Care Provider Ivone ramirez 04-27-2021 tetanus toxoid, redu mike diphtheria toxoid, and acellular pertussis vaccine, adsorbed; Translations: [Boostrix (Tdap)] JACKIE CONTRERAS MD [facility] Payers Date Payer Category Payer Medicaid [id number] 2021 Medicaid [employer] [id number] 2021-Present [phone] [address] [place] [address] Medicaid [id number] 2021 Medicaid [id number] 2021 Medicaid [id number] Social History Date Type Detail Facility Start: 11-14-2020 Light tobacco smoker (finding) [facility] Sex Assigned At [facility] Start: 07-07-2022 Tobacco smoking stat us ILIS Smokes tobacco daily [facility] History of tobacco use Cigarette Smoker [facility] Work Phone: Start: 03-16-2022 End: 05-05-2023 Alcohol intake Current drinker of alcohol (finding) [facility] Start: 06-21-2018 History SDOH Alcohol Comment social [facility] Start: 11-01-2019 End: 11-22-2022 History SDOH Social Connections Phone 5 [facility] Start: 11-01-2019 History SDOH Social Connections Get Together 4 [facility] Start: 11-01-2019 End: 11-22-2022 History SDOH Social Connections Sabianism 1 [facility] Start: 11-01-2019 End: 11-22-2022 History SDOH Social Connections Membership 2 [facility] Start: 11-01-2019 End: 11-22-2022 History SDOH Physical Activity DPW 0 [facility] Start: 11-15-2013 End: 07-07-2022 Tobacco Comment 4-5 cigarettes per day [facility] Start: 1990 Sex Assigned At Not on file [facility] Start: 03-06-2022 End: 08-04-2022 Exposure to SARS-CoV-2 (event) Not sure [facility] Start: 07-07-2022 End: 01-05-2023 Cigarettes smoked current (pack per day) - Reported 0.2 [facility] Start: 07-07-2022 Tobacco use and exposure Smoke less tobacco non-user [facility] Start: 11-22-2022 History SDOH Social Connections Living 7 [facility] Start: 11-22-2022 History SDOH Physica l Activity MPS 3 [facility] Start: 11-22-2022 End: 01-05-2023 Social connection and isolation panel [facility] Do you belong to any clubs or organizations such as episcopalian groups, unions, fraternal or athletic groups, or school groups? No [facility] Are you now , , , , never or living with a partner? Never [facility] How often to you hav e a drink containing alcohol? Never [facility] How many standard dr inks containing alcohol do you have on a typical day? Patient does not drink [facility] How hard is it for y ou to pay for the very basics like food, housing, medical care, and heating Hard [facility] Do you feel stress - tense, restless, nervous, or anxious, or unable to sleep at night because your mind is troubled all the time - these days [OSQ] Very much [facility] (I/We) worried wheth er (my/our) food would run out before (I/we) got money to buy more. Sometimes true [facility] In the past 12 month s, was there a time when you were not able to pay the mortgage or rent on time? Yes [facility] Clinical Notes 03-31-2017 to 05-05-2023 Marya Flores APRN.NAVIN - 05/05/2023 12:43 PM EDTTelephone Encounter - Kevin Pina MD - 03/18/2023 3:12 PM EDTTelephone Encounter - Muriel Zhu LPN - 03/18/2023 2:09 PM EDT Note Date & Type Note Facility 05-05-2023 Note HNO ID: [id number] Author: Marya Flores APRN.EXAMINER OF CURRENCY Service: ? Author Type: Nurse Practitioner Type: Progress Notes Filed: 05/05/2023 1:07 PM Note Text: Chief Complaint Patient presents with: Medication Follow-up: Requested rx for cold sores, needs letter- emotional support animal HPI Sherlyn Amin is a 32 year old female who presents here today for Above Complaints. Today: When gets very stressed out breaks out with cold sores. Has been very stressed out with moving, financial. [place]-moving to an apartment complex and needs these to help her emotionally with her anxiety and depression. 3 cats-Mary Humphrey Nola. Past medical history, appointments, medications, allergies reviewed. Previous Medical History PAST MEDICAL HISTORY Diagnosis Date Anemia Arthritis In both shoulders Asthma Chronic hepatitis C affecting , antepartum (HCC) 03/31/2017 Hepatitis C treated Heroin addiction (HCC) 11/18/2016 Mental disorder Previous Surgical History PAST SURGICAL HISTORY Procedure Laterality Date DELIVERY ONLY 09/18/2007 , low transverse SUCTION D AND C 04/05/2017 Family History FAMILY HISTORY Problem Relation Age of Onset Colon Cancer Mother other (lupus) Father Diabetes Maternal Grandmother Great Grandmother Cancer Maternal Grandmother Brain Cancer Maternal Grandfather Lung-Greatgrandfather Prostate Cancer Maternal Grandfather Stroke Paternal Grandmother Cervical Cancer Maternal Aunt Patient Allergies ALLERGIES Allergen Reactions Bactrim [Sulfametho* Other: See Comments Sick to stomach, chest tightness, FLORES Current Medications Current Outpatient Medications on File Prior to Visit Medication Sig ARIPiprazole (ABILIFY) 2 mg tablet TAKE 1/2 (ONE-HALF) OF A TABLET BY MOUTH EVERY MORNING venlafaxine (EFFEXOR) 37.5 mg tablet Take 1/4 tablet by mouth for 4 days, then 1/2 tablet daily x4 days, then 1 tablet daily after dinner. QUEtiapine (SEROQUEL) 100 mg tablet Take 100 mg by mouth daily at bedtime. hydrOXYzine HCl (ATARAX) 10 mg tablet Take 10 mg by mouth three times daily. cyclobenzaprine (FLEXERIL) 10 mg tablet Take 1 tablet by mouth three times daily as needed for muscle spasm. albuterol HFA (PROVENTIL HFA, VENTOLIN HFA) 90 mcg/actuation inhaler Inhale 2 Puffs as instructed every 4 hours as needed for wheezing/shortness of breath. albuterol HFA (VENTOLIN HFA) 90 mcg/actuation inhaler Inhale 2 Puffs as instructed every 4 hours as needed for wheezing/shortness of breath. COMPOUNDED PRESCRIPTION AIR CONDITIONER DX ASTHMA J45.909 ciprofloxacin HCl (CILOXAN) 0.3 % ophthalmic solution Use 1 Drop in the left eye four times daily. (Patient not taking: Reported on 05/05/2023) DULoxetine (CYMBALTA) 20 mg capsule Take 1 capsule by mouth once daily. (Patient not taking: Reported on 02/01/2023) Ferrous Sulfate (SLOW FE) 142 mg (45 mg iron) TbER Take 1 tablet by mouth twice daily with meals. (Patient not taking: Reported on 02/01/2023) Ascorbic Acid 1,000 mg tablet TAKE 1 TABLET BY MOUTH EVERY DAY (Patient not taking: Reported on 02/01/2023) No current facility-administered medications on file prior to visit. Social History Social History Tobacco Use Smoking status: Every Day Packs/day: 0.20 Years: 5.00 Additional pack years: 0.00 Total pack years: 1.00 Types: Cigarettes Smokeless tobacco: Never Tobacco comments: 4-5 cigarettes per day Vaping Use Vaping Use: Never used Substance Use Topics Alcohol use: Yes Comment: social Drug use: No Review of Symptoms REVIEW OF SYSTEMS See HPI, otherwise negative EXAM: BP 102/76 (BP Site: Left Arm, BP Position: Sitting, BP Cuff Size: Regular Adult) Pulse 84 Resp 16 Wt 42.9 kg (94 lb 9.6 oz) LMP 02/14/2022 SpO2 98% BMI 19.11 kg/m? General Appearance: Well appearing, alert, in no acute distress, well-hydrated, well nourished. and Thin. Skin: 3 small lesions spread just under bottom lip, are reddened, no drainage, mild erythema. Lungs: Lungs clear to auscultation. No wheezing, rhonchi, rales.. Heart: RRR without murmur, gallop, or rubs. No ectopy. Psychiatric: pleasant cooperative. Health Maintenance List HEPATITIS A(1 of 2 - Risk 2-dose series) Never done PNEUMOCOCCAL(1 - PCV) due on 07/07/2023 COVID-19 VACCINE(1) due on 08/04/2023 INFLUENZA(1) due on 05/06/2023 ANNUAL PCP TEAM CHRONIC DISEASE VISIT due on 05/05/2024 PAP TESTING due on 11/01/2024 HPV TESTING due on 11/01/2024 DTAP,TDAP,TD(3 - Td or Tdap) due on 09/23/2030 SPIROMETRY Completed HEPATITIS C SCREENING Completed HIV SCREENING Completed HPV VACCINE Aged Out Data reviewed See HPI, otherwise negative ASSESSMENT/PLAN: 1. 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 Need for emotional support - ICD9: 799.29, ICD10: R45.89 Letter given for [place] for apartment complex. Marya Flores APRN.C (more content not included)... [facility] 05-05-2023 History of Presen t illness Narrative Chief Complaint Patient presents with: Medication Follow-up: Requested rx for cold sores, needs letter- emotional support animal HPI Sherlyn Amin is a 32 year old female who presents here today for Above Complaints. Today: When gets very stressed out breaks out with cold sores. Has been very stressed out with moving, financial. [place]-moving to an apartment complex and needs these to help her emotionally with her anxiety and depression. 3 cats-Mary Humphrey Nola. Past medical history, appointments, medications, allergies reviewed. Previous Medical History PAST MEDICAL HISTORY Diagnosis Date Anemia Arthritis In both shoulders Asthma Chronic hepatitis C affecting , antepartum (HCC) 03/31/2017 Hepatitis C treated Heroin addiction (HCC) 11/18/2016 Mental disorder Previous Surgical History PAST SURGICAL HISTORY Procedure Laterality Date DELIVERY ONLY 09/18/2007 , low transverse SUCTION D & C 04/05/2017 Family History FAMILY HISTORY Problem Relation Age of Onset Colon Cancer Mother other (lupus) Father Diabetes Maternal Grandmother Great Grandmother Cancer Maternal Grandmother Brain Cancer Maternal Grandfather Lung-Greatgrandfather Prostate Cancer Maternal Grandfather Stroke Paternal Grandmother Cervical Cancer Maternal Aunt Patient Allergies ALLERGIES Allergen Reactions Bactrim [Sulfametho* Other: See Comments Sick to stomach, chest tightness, FLORES Current Medications Current Outpatient Medications on File Prior to Visit Medication Sig ARIPiprazole (ABILIFY) 2 mg tablet TAKE 1/2 (ONE-HALF) OF A TABLET BY MOUTH EVERY MORNING venlafaxine (EFFEXOR) 37.5 mg tablet Take 1/4 tablet by mouth for 4 days, then 1/2 tablet daily x4 days, then 1 tablet daily after dinner. QUEtiapine (SEROQUEL) 100 mg tablet Take 100 mg by mouth daily at bedtime. hydrOXYzine HCl (ATARAX) 10 mg tablet Take 10 mg by mouth three times daily. cyclobenzaprine (FLEXERIL) 10 mg tablet Take 1 tablet by mouth three times daily as needed for muscle spasm. albuterol HFA (PROVENTIL HFA, VENTOLIN HFA) 90 mcg/actuation inhaler Inhale 2 Puffs as instructed every 4 hours as needed for wheezing/shortness of breath. albuterol HFA (VENTOLIN HFA) 90 mcg/actuation inhaler Inhale 2 Puffs as instructed every 4 hours as needed for wheezing/shortness of breath. COMPOUNDED PRESCRIPTION AIR CONDITIONER DX ASTHMA J45.909 ciprofloxacin HCl (CILOXAN) 0.3 % ophthalmic solution Use 1 Drop in the left eye four times daily. (Patient not taking: Reported on 05/05/2023) DULoxetine (CYMBALTA) 20 mg capsule Take 1 capsule by mouth once daily. (Patient not taking: Reported on 02/01/2023) Ferrous Sulfate (SLOW FE) 142 mg (45 mg iron) TbER Take 1 tablet by mouth twice daily with meals. (Patient not taking: Reported on 02/01/2023) Ascorbic Acid 1,000 mg tablet TAKE 1 TABLET BY MOUTH EVERY DAY (Patient not taking: Reported on 02/01/2023) No current facility-administered medications on file prior to visit. Social History Social History Tobacco Use Smoking status: Every Day Packs/day: 0.20 Years: 5.00 Additional pack years: 0.00 Total pack years: 1.00 Types: Cigarettes Smokeless tobacco: Never Tobacco comments: 4-5 cigarettes per day Vaping Use Vaping Use: Never used Substance Use Topics Alcohol use: Yes Comment: social Drug use: No Review of Symptoms REVIEW OF SYSTEMS See HPI, otherwise negative EXAM: BP 102/76 (BP Site: Left Arm, BP Position: Sitting, BP Cuff Size: Regular Adult) Pulse 84 Resp 16 Wt 42.9 kg (94 lb 9.6 oz) LMP 02/14/2022 SpO2 98% BMI 19.11 kg/m General Appearance: Well appearing, alert, in no acute distress, well-hydrated, well nourished. and Thin. Skin: 3 small lesions spread just under bottom lip, are reddened, no drainage, mild erythema. Lungs: Lungs clear to auscultation. No wheezing, rhonchi, rales.. Heart: RRR without murmur, gallop, or rubs. No ectopy. Psychiatric: pleasant cooperative. Health Maintenance List HEPATITIS A(1 of 2 - Risk 2-dose series) Never done PNEUMOCOCCAL(1 - PCV) due on 07/07/2023 COVID-19 VACCINE(1) due on 08/04/2023 INFLUENZA(1) due on 05/06/2023 ANNUAL PCP TEAM CHRONIC DISEASE VISIT due on 05/05/2024 PAP TESTING due on 11/01/2024 HPV TESTING due on 11/01/2024 DTAP,TDAP,TD(3 - Td or Tdap) due on 09/23/2030 SPIROMETRY Completed HEPATITIS C SCREENING Completed HIV SCREENING Completed HPV VACCINE Aged Out Data reviewed See HPI, otherwise negative ASSESSMENT/PLAN: 1. 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 Need for emotional support - ICD9: 799.29, ICD10: R45.89 Letter given for [place] for apartment complex. Marya Flores APRN.NAVIN documented in this encounter [facility] 03-18-2023 Miscellaneous Notes Oarrs done. Filled in pcp absence Patient phones requesting refills as follows: Requested Prescriptions Pending Prescriptions Disp Refills ALPRAZolam (XANAX) 0.25 mg tablet 30 tablet 0 Sig: Take 1 tablet by mouth once daily as needed for up to 30 days. MARGARET-08/04/22 Labs-07/09/22Jul-04/11/23 Please review and advise. Muriel Zhu LPN documented in this encounter [facility] 03-18-2023 Miscellaneous Notes The following approved medication requests have been transmitted electronically. Requested Prescriptions Pending Prescriptions Disp Refills cyclobenzaprine (FLEXERIL) 10 mg tablet 30 tablet 0 Sig: Take 1 tablet by mouth three times daily as needed for muscle spasm. Sawyer Gordon APRN.NAVIN Patient phones requesting refills as follows: Requested Prescriptions Pending Prescriptions Disp Refills cyclobenzaprine (FLEXERIL) 10 mg tablet 30 tablet 0 Sig: Take 1 tablet by mouth three times daily as needed for muscle spasm. MARGARET-08/04/22 Labs-07/09/22Jul-04/11/23 Please review and advise. Muriel Zhu LPN documented in this encounter [facility] 03-18-2023 Miscellaneous Notes Spacer included. The following approved medication requests have been transmitted electronically. Requested Prescriptions Signed Prescriptions Disp Refills albuterol HFA (PROVENTIL HFA, VENTOLIN HFA) 90 mcg/actuation inhaler 8 g 4 Sig: Inhale 2 Puffs as instructed every 4 hours as needed for wheezing/shortness of breath. Authorizing Provider: ELLIS PRATHER Ordering User: SAWYER GORDON Inhalational Spacing Device 1 Each 0 Si Device one time only for 1 dose. Authorizing Provider: ELLIS PRATHER Ordering User: SAWYER GORDON APRN.EXAMINER OF CURRENCY Patient phones requesting refills as follows: Patient comment: Can i also get a spacer for my inhaler to please Requested Prescriptions Pending Prescriptions Disp Refills albuterol HFA (VENTOLIN HFA) 90 mcg/actuation inhaler 8 g 0 Sig: Inhale 2 Puffs as instructed every 4 hours as needed for wheezing/shortness of breath. MARGARET-08/04/22 Labs-07/09/22 NOV-04/11/23 Please review and advise. Muriel Zhu LPN documented in this encounter [facility] 02-17-2023 Miscellaneous Notes OK to refill as ordered Sage Mishra MD Last office visit: 11/22/22 F/u scheduled: 03/16/23 Last refilled on: Xanax #30 with 0 refill on 01/20/23 Tanika Phillip Ma Patient has been identified by name and date of : Yes Requested Prescriptions Pending Prescriptions Disp Refills ALPRAZolam (XANAX) 0.25 mg tablet 30 tablet 0 Sig: Take 1 tablet by mouth once daily as needed for up to 30 days. RX INSTRUCTIONS: Patient aware RX will be sent to pharmacy. No need to notify patient. Ivanna Dexter documented in this encounter [facility] 02-01-2023 Note HNO ID: [id number] Author: Jeovanny Dennis APRN.EXAMINER OF [employer]RENCY Service: ? Author Type: Nurse Practitioner Type: Progress Notes Filed: 02/01/2023 9:06 AM Note Text: Subjective HPI HPI Sherlyn Amin is a 32 year old female who presents today for CC of left eye redness/drainage. This started 5 days ago. Has tried otc drops without relief. Symptoms are worsened by nothing. Denies uri symptoms. Does not wear contacts. Denies possibility of being . .Patient presents with: Eye Problem: Red irritated left eye x 5 days PAST MEDICAL HISTORY Diagnosis Date Anemia Arthritis In both shoulders Asthma Chronic hepatitis C affecting , antepartum (HCC) 03/31/2017 Hepatitis C treated Heroin addiction (HCC) 11/18/2016 Mental disorder PAST SURGICAL HISTORY Procedure Laterality Date DELIVERY ONLY 09/18/2007 , low transverse SUCTION D AND C 04/05/2017 ALLERGIES Bactrim [Sulfamethoxazole-Trimethoprim] MEDICATIONS ALPRAZolam (XANAX) 0.25 mg tabletTake 1 tablet by mouth once daily as needed for up to 30 days.Disp: 30 tabletRfl: 0 cyclobenzaprine (FLEXERIL) 10 mg tabletTake 1 tablet by mouth three times daily as needed for muscle spasm.Disp: 30 tabletRfl: 0 albuterol HFA (VENTOLIN HFA) 90 mcg/actuation inhalerInhale 2 Puffs as instructed every 4 hours as needed for wheezing/shortness of breath.Disp: 8 gRfl: 5 olopatadine (PATANOL) 0.1 % ophthalmic solutionUse 1 Drop in the left eye twice daily for 30 days.Disp: 5 mLRfl: 0 ciprofloxacin HCl (CILOXAN) 0.3 % ophthalmic solutionUse 1 Drop in the left eye four times daily.Disp: 5 mLRfl: 0 DULoxetine (CYMBALTA) 20 mg capsuleTake 1 capsule by mouth once daily.Disp: 90 capsuleRfl: 0 (Patient not taking: Reported on 02/01/2023) Ferrous Sulfate (SLOW FE) 142 mg (45 mg iron) TbERTake 1 tablet by mouth twice daily with meals.Disp: 60 tabletRfl: 5 (Patient not taking: Reported on 02/01/2023) Ascorbic Acid 1,000 mg tabletTAKE 1 TABLET BY MOUTH EVERY DAYDisp: 30 tabletRfl: 5 (Patient not taking: Reported on 02/01/2023) COMPOUNDED PRESCRIPTIONAIR CONDITIONER DX ASTHMA J45.909Disp: 1 EachRfl: 0 FAMILY HISTORY Problem Relation Age of Onset Colon Cancer Mother other (lupus) Father Diabetes Maternal Grandmother Great Grandmother Cancer Maternal Grandmother Brain Cancer Maternal Grandfather Lung-Greatgrandfather Prostate Cancer Maternal Grandfather Stroke Paternal Grandmother Cervical Cancer Maternal Aunt Social History Tobacco Use Smoking status: Every Day Packs/day: 0.20 Years: 5.00 Pack years: 1.00 Types: Cigarettes Smokeless tobacco: Never Tobacco comments: 4-5 cigarettes per day Vaping Use Vaping Use: Never used Substance Use Topics Alcohol use: Yes Comment: social Drug use: No Review of Systems Constitutional: Negative for chills and fever. HENT: Negative for ear discharge, ear pain and sore throat. Eyes: Positive for discharge and redness. Negative for blurred vision, double vision, photophobia and pain. Neurological: Negative for headaches. Objective Blood pressure 110/76, pulse 94, temperature 36.9 ?C (98.4 ?F), temperature source Tympanic, resp. rate 16, weight 43.4 kg (95 lb 9.6 oz), last menstrual period 02/14/2022, SpO2 99 %. Physical Exam Constitutional: General: She is not in acute distress. Appearance: She is not toxic-appearing. HENT: Right Ear: Hearing, tympanic membrane and external ear normal. Left Ear: Hearing, tympanic membrane, ear canal and external ear normal. Nose: No mucosal edema. Mouth/Throat: Pharynx: Uvula midline. Eyes: General: Right eye: No discharge. Left eye: No discharge. Conjunctiva/sclera: Right eye: Right conjunctiva is not injected. Left eye: Left conjunctiva is injected. Chemosis present. Lymphadenopathy: Cervical: Right cervical: No superficial cervical adenopathy. Left cervical: No superficial cervical adenopathy. Comments: No cervical lymphadenopathy bilaterally Neurological: Mental Status: She is oriented to person, place, and time. ASSESSMENT/PLAN: 1. Conjunctivitis of left eye, unspecified conjunctivitis type - ICD9: 372.30, ICD10: H10.9 -today is suspect mostly allergic conjunctivitis, try patanol today, if no improvement in 2 days try atb drops. -urgent f/u for severe/worsening s/s. - see medication orders - course and contagiousness issues discussed, including hand washing. - Instructed to call if high fever, development of periorbital redness or swelling, eye pain, visual changes, concerns or if symptoms persist. Agrees to plan Declines avs - OLOPATADINE 0.1 % EYE DROPS - CIPROFLOXACIN 0.3 % EYE DROPS Jeovanny Dennis APRN.CNP [facility] 02-01-2023 Instructions Jeovanny Dennis APRN.CNP - 02/01/2023 9:02 AM EDT Try patanol first, antibiotics second. If no improvement see eye dr in 3-4 days. Urgent f/u for severe/worsening s/s. EXPRESS CARE PATIENT INFO CONJUNCTIVITIS OVERVIEW Conjunctivitis, also called pinkeye , is defined as an inflammation of the conjunctiva. The conjunctiva is the thin membrane that lines the inner surface of the eyelids and the whites of the eyes (called the sclera). Conjunctivitis can affect children and adults. The most common symptoms of conjunctivitis include a red eye and discharge. There are many potential causes of conjunctivitis, including bacterial or viral infections, allergies, or a non-specific condition (eg, a foreign body in the eye). All types of conjunctivitis cause a red eye, although not everyone with a red eye has conjunctivitis. TYPES OF CONJUNCTIVITIS There are four main types of conjunctivitis: bacterial, viral, allergic, and non-specific. Most cases of infectious conjunctivitis are viral in adults and children; however, bacterial conjunctivitis is more common in children than in adults. Viral conjunctivitis -- Viral conjunctivitis is typically caused by a virus that can also cause the common cold. A person may have symptoms of conjunctivitis alone, or as part of a general cold syndrome, with swollen lymph nodes (glands), fever, a sore throat, and runny nose. Viral conjunctivitis is highly contagious. It is spread by contact, usually with objects which have come into contact with the infected person's eye secretions. As examples, the virus can be transmitted when an infected person touches their eye and then touches another surface (eg, door handle) or shares an object that has touched their eye (eg, a towel or pillow case). The most common symptoms of viral conjunctivitis include redness, watery or mucus discharge, and a burning, case, or gritty feeling in one eye. Some people have morning crusting followed by watery discharge, perhaps with some scant mucus discharge throughout the day. The second eye usually becomes infected within 24 to 48 hours. There is no cure for viral conjunctivitis. Recovery can begin within days, although the symptoms frequently get worse for the first three to five days, with gradual improvement over the following one to two weeks for a total course of two to three weeks. Some people experience morning crusting that continues for up to two weeks after the initial symptoms, although the daytime redness, irritation, and tearing should be much improved. Bacterial conjunctivitis -- Bacterial conjunctivitis is highly contagious, often affecting multiple family members or children within a classroom. Bacterial conjunctivitis is spread by contact, usually with objects which have come into contact with the infected person's eye secretions. As examples, the virus can be transmitted when an infected person touches their eye and then touches another surface (eg, door handle) or shares an object that has touched their eye (eg, a towel or pillow case). The most common symptoms of bacterial conjunctivitis include redness and thick discharge from one eye, although both eyes can become infected. The discharge may be yellow, white, or green, and it usually continues to drain throughout the day. The affected eye often is stuck shut in the morning. Most types of bacterial conjunctivitis resolve quickly and cause no permanent damage when treated with antibiotic eye drops or ointment Non-specific conjunctivitis -- It is possible to develop a red eye and discharge that is not caused by an infection or allergy. The most common causes include one of the following. People with a dry eye may have chronic or intermittent redness or discharge. A person whose eyes are irrigated after a chemical splash may have redness and discharge. A person with a foreign body (eg, dust, eyelash) in the eye may have redness and discharge for 12 to 24 hours after the object is removed. All of these problems generally improve spontaneously within 24 hours. CONJUNCTIVITIS TREATMENT The treatment of conjunctivitis depends upon the cause. For this reason, it is important to have the correct diagnosis before treatment begins. Viral conjunctivitis treatment -- A topical antihistamine/decongestant eye drop may help to relieve the itching and irritation of viral conjunctivitis. These drops are available without a prescription in most pharmacies. However, particular care must be taken to avoid spreading viral infections from one eye to the other -- apply drops only to affected eye and wash hands thoroughly after application. Similar to cold medicines, this treatment may reduce the symptoms but does not shorten the course of the infection. Another option is to use warm or cool compresses, as needed. The irritation and discharge may get worse for three to five days before getting better, and symptoms can persist for two to three weeks. Bacterial conjunctivitis treatment -- Bacterial conjunctivitis is usually treated with an antibiotic eye drop or ointment. When started early, treatment helps to shorten the duration of symptoms, although most cases do resolve spontaneously if no treatment is used. Adults -- Adults are usually treated with an antibiotic eye drop or ointment for five to seven days. Redness, irritation, and eye discharge should begin to improve within 24 to 48 hours. If there is no improvement or if the condition worsens within this time, the person should be evaluated by an strip cutter. Contact lens wearers -- People who wear contact lenses should be evaluated by a healthcare provider before treatment begins; this is to confirm the diagnosis of conjunctivitis and to be sure that another, more serious condition related to contact lens use (an infection of the cornea), is not present. People who wear contact lenses should avoid wearing the lenses during the first 24 hours of treatment, or until the eye is no longer red. The contact case should be thrown away and the contacts disinfected overnight or replaced (if disposable). Return to work/school -- The safest approach to avoid spreading viral and bacterial conjunctivitis to others is to stay home until there is no longer any discharge from the eye(s). However, this is not practical for most students and for those who work outside the home. Most daycare centers and schools require that students receive 24 hours of eye drops or ointment before returning to school. This treatment helps to prevent the spread of bacterial conjunctivitis, but is not necessary or helpful for children with viral conjunctivitis. Viral conjunctivitis is similar to a cold because it spreads easily between people. Younger children, who may not remember to wash their hands or avoid touching their eyes, should probably not attend school until the discharge has resolved. Older students or adults may choose to attend school/work, although they should limit close contact with others. In addition, adults who have contact with the very old, the very young, and people with a weakened immune system should limit contact with these susceptible individuals. Non-specific conjunctivitis treatment -- The conjunctiva heals quickly after it is injured, and non-specific conjunctivitis usually resolves within a few days without any treatment. However, the eye may feel better faster when it is treated with a lubricant, such as drops or ointments. These products are available without a prescription in most pharmacies. Preservative-free preparations are more expensive and are necessary only for people with a severe case of dry eye and those who are allergic to preservatives. Lubricant drops can be used as often as hourly with no side effects. The ointment provides longer lasting relief but blurs vision temporarily. For this reason, some people use ointment only at bedtime. It may be worthwhile to switch brands if one brand of drop or ointment is irritating, since each preparation contains different active and inactive ingredients and preservatives. Antibiotic or steroid eye drops/ointments are not recommended unless there is a specific reason they are needed (eg, a bacterial infection or inflammatory condition). Using these treatments when they are not needed can lead to serious complications. If the symptoms of conjunctivitis do not improve within two weeks, an examination with an strip cutter may be recommended. CONJUNCTIVITIS PREVENTION Bacterial and viral conjunctivitis are both highly contagious and spread by direct contact with secretions or contact with contaminated objects. Simple hygiene measures can help minimize transmission to others. Adults or children with bacterial or viral conjunctivitis should not share handkerchiefs, tissues, towels, cosmetics, or bed sheets/pillows with uninfected family or friends. Hand washing is an essential and highly effective way to prevent the spread of infection. Hands should be wet with water and plain soap, and rubbed together for 15 to 30 seconds. It is not necessary to use antibacterial hand soap. Teach children to wash their hands before and after eating and after touching the eyes, coughing, or sneezing. Alcohol-based hand rubs are a good alternative for disinfecting hands if a sink is not available. Hand rubs should be spread over the entire surface of hands, fingers, and wrists until dry, and may be used several times. These rubs can be used repeatedly without skin irritation or loss of effectiveness. documented in this encounter [facility] 02-01-2023 History of Presen t illness Narrative Subjective HPI HPI Sherlyn Amin is a 32 year old female who presents today for CC of left eye redness/drainage. This started 5 days ago. Has tried otc drops without relief. Symptoms are worsened by nothing. Denies uri symptoms. Does not wear contacts. Denies possibility of being . .Patient presents with: Eye Problem: Red irritated left eye x 5 days PAST MEDICAL HISTORY Diagnosis Date Anemia Arthritis In both shoulders Asthma Chronic hepatitis C affecting , antepartum (HCC) 03/31/2017 Hepatitis C treated Heroin addiction (HCC) 11/18/2016 Mental disorder PAST SURGICAL HISTORY Procedure Laterality Date DELIVERY ONLY 09/18/2007 , low transverse SUCTION D & C 04/05/2017 ALLERGIES Bactrim [Sulfamethoxazole-Trimethoprim] MEDICATIONS ALPRAZolam (XANAX) 0.25 mg tablet^Take 1 tablet by mouth once daily as needed for up to 30 days.^Disp: 30 tablet^Rfl: 0 cyclobenzaprine (FLEXERIL) 10 mg tablet^Take 1 tablet by mouth three times daily as needed for muscle spasm.^Disp: 30 tablet^Rfl: 0 albuterol HFA (VENTOLIN HFA) 90 mcg/actuation inhaler^Inhale 2 Puffs as instructed every 4 hours as needed for wheezing/shortness of breath.^Disp: 8 g^Rfl: 5 olopatadine (PATANOL) 0.1 % ophthalmic solution^Use 1 Drop in the left eye twice daily for 30 days.^Disp: 5 mL^Rfl: 0 ciprofloxacin HCl (CILOXAN) 0.3 % ophthalmic solution^Use 1 Drop in the left eye four times daily.^Disp: 5 mL^Rfl: 0 DULoxetine (CYMBALTA) 20 mg capsule^Take 1 capsule by mouth once daily.^Disp: 90 capsule^Rfl: 0 (Patient not taking: Reported on 02/01/2023) Ferrous Sulfate (SLOW FE) 142 mg (45 mg iron) TbER^Take 1 tablet by mouth twice daily with meals.^Disp: 60 tablet^Rfl: 5 (Patient not taking: Reported on 02/01/2023) Ascorbic Acid 1,000 mg tablet^TAKE 1 TABLET BY MOUTH EVERY DAY^Disp: 30 tablet^Rfl: 5 (Patient not taking: Reported on 02/01/2023) COMPOUNDED PRESCRIPTION^AIR CONDITIONER DX ASTHMA J45.909^Disp: 1 Each^Rfl: 0 FAMILY HISTORY Problem Relation Age of Onset Colon Cancer Mother other (lupus) Father Diabetes Maternal Grandmother Great Grandmother Cancer Maternal Grandmother Brain Cancer Maternal Grandfather Lung-Greatgrandfather Prostate Cancer Maternal Grandfather Stroke Paternal Grandmother Cervical Cancer Maternal Aunt Social History Tobacco Use Smoking status: Every Day Packs/day: 0.20 Years: 5.00 Pack years: 1.00 Types: Cigarettes Smokeless tobacco: Never Tobacco comments: 4-5 cigarettes per day Vaping Use Vaping Use: Never used Substance Use Topics Alcohol use: Yes Comment: social Drug use: No Review of Systems Constitutional: Negative for chills and fever. HENT: Negative for ear discharge, ear pain and sore throat. Eyes: Positive for discharge and redness. Negative for blurred vision, double vision, photophobia and pain. Neurological: Negative for headaches. Objective Blood pressure 110/76, pulse 94, temperature 36.9 C (98.4 F), temperature source Tympanic, resp. rate 16, weight 43.4 kg (95 lb 9.6 oz), last menstrual period 02/14/2022, SpO2 99 %. Physical Exam Constitutional: General: She is not in acute distress. Appearance: She is not toxic-appearing. HENT: Right Ear: Hearing, tympanic membrane and external ear normal. Left Ear: Hearing, tympanic membrane, ear canal and external ear normal. Nose: No mucosal edema. Mouth/Throat: Pharynx: Uvula midline. Eyes: General: Right eye: No discharge. Left eye: No discharge. Conjunctiva/sclera: Right eye: Right conjunctiva is not injected. Left eye: Left conjunctiva is injected. Chemosis present. Lymphadenopathy: Cervical: Right cervical: No superficial cervical adenopathy. Left cervical: No superficial cervical adenopathy. Comments: No cervical lymphadenopathy bilaterally Neurological: Mental Status: She is oriented to person, place, and time. ASSESSMENT/PLAN: 1. Conjunctivitis of left eye, unspecified conjunctivitis type - ICD9: 372.30, ICD10: H10.9 -today is suspect mostly allergic conjunctivitis, try patanol today, if no improvement in 2 days try atb drops. -urgent f/u for severe/worsening s/s. - see medication orders - course and contagiousness issues discussed, including hand washing. - Instructed to call if high fever, development of periorbital redness or swelling, eye pain, visual changes, concerns or if symptoms persist. Agrees to plan Declines avs - OLOPATADINE 0.1 % EYE DROPS - CIPROFLOXACIN 0.3 % EYE DROPS Jeovanny Dennis APRN.EXAMINER OF CURRENCY documented in this encounter [facility] 01-07-2023 Miscellaneous Notes This is being addressed in another encounter. Isaias Roberson LPN documented in this encounter [facility] 01-07-2023 Miscellaneous Notes Last refill 11/24/22 Qty: 30 with 0 refills MARGARET 11/22/22 NOV pt had appointment schedule 01/05/23. Looks like she did not complete appointment. No other appointment scheduled. Isaias Roberson LPN documented in this encounter [facility] 11-30-2022 Note HNO ID: [id number] Author: Dilip Jones MD Service: ? Author Type: Physician Type: Progress Notes Filed: 12/20/2022 12:25 PM Note Text: Preoperative diagnosis: 1.5 cm subcutaneous lesion in the left forearm Postoperative diagnosis: The same Procedure: Excision of a 1.5 cm subcutaneous lesion of the left forearm Surgeon: Robert Procedure: Left forearm was sterilely prepped and draped in usual fashion. 1% lidocaine plain was injected. A transverse incision was made. Dissection was carried down a firm yellowish lesion was removed this did not look like a typical lipoma. It was sent to pathology for permanent sectioning. The wound was brought together with a deep dermal stitch of 3-0 Vicryl then 2 interrupted 4-0 nylon's. Sterile dressings were applied and the patient tolerated the procedure well. [facility] 11-30-2022 Note HNO ID: [id number] Author: Maeve Terrazas LPN Service: ? Author Type: LICENSED NURSE Type: Progress Notes Filed: 12/20/2022 12:25 PM Note Text: UNIVERSAL PROTOCOL / SAFETY CHECKLIST Procedure to be Performed: Excision of uncertain subcutaneous lesion left forearm Sign In: A Moment of CARE was completed. Personnel directly involved with the procedure wore the appropriate PPE (Personal Protective Equipment). No special equipment needed. Patient/Surrogate Stated/Verified: PATIENT VERIFIED(optional for EMERGENT procedures): Patient name, Date of , Relevant allergies, and The intended procedure Time Out Communication: Intended patient and procedure match the source documents. Consent documented and matches the intended procedure. No relevant labs, photos, and/or imaging studies were applicable for review. No medications required for procedure. No fire risk assessment and interventions applicable. No implant(s) inserted. Sign Out: SIGN OUT (optional for EMERGENT procedures): All specimen containers correctly labeled. No instruments, equipment or retained foreign bodies applicable. Maeve Terrazas LPN [facility] 11-30-2022 History of Presen t illness Narrative Preoperative diagnosis: 1.5 cm subcutaneous lesion in the left forearm Postoperative diagnosis: The same Procedure: Excision of a 1.5 cm subcutaneous lesion of the left forearm Surgeon: Robert Procedure: Left forearm was sterilely prepped and draped in usual fashion. 1% lidocaine plain was injected. A transverse incision was made. Dissection was carried down a firm yellowish lesion was removed this did not look like a typical lipoma. It was sent to pathology for permanent sectioning. The wound was brought together with a deep dermal stitch of 3-0 Vicryl then 2 interrupted 4-0 nylon's. Sterile dressings were applied and the patient tolerated the procedure well. UNIVERSAL PROTOCOL / SAFETY CHECKLIST Procedure to be Performed: Excision of uncertain subcutaneous lesion left forearm Sign In: A Moment of CARE was completed. Personnel directly involved with the procedure wore the appropriate PPE (Personal Protective Equipment). No special equipment needed. Patient/Surrogate Stated/Verified: PATIENT VERIFIED(optional for EMERGENT procedures): Patient name, Date of , Relevant allergies, and The intended procedure Time Out Communication: Intended patient and procedure match the source documents. Consent documented and matches the intended procedure. No relevant labs, photos, and/or imaging studies were applicable for review. No medications required for procedure. No fire risk assessment and interventions applicable. No implant(s) inserted. Sign Out: SIGN OUT (optional for EMERGENT procedures): All specimen containers correctly labeled. No instruments, equipment or retained foreign bodies applicable. Maeve Terrazas LPN documented in this encounter [facility] 11-30-2022 Instructions Maeve Terrazas LPN - 11/30/2022 8:52 AM EDT The following instructions are important for you related to your office visit today with the [facility] Surgeons. Instructions After SKIN EXCISION-SUTURES You can remove the dressing in two days. If the dressing becomes soaked or had significant drainage, the dressing should be changed. If there is minor bleeding from this skin edge, you should hold pressure on the incision until the bleeding stops. If there is continued bleeding, you should contact our office immediately. You do not need to leave a dressing on the wound after two days. If the wound shows signs of redness, inflammation, or purulent drainage, you should contact our office immediately. You should keep the wound dry for the first two days. After that time, you may wash the wound with gentle soap and water. The wound should not be immersed in a pool, bathtub, or even hot tub. We prefer to check the incision and remove the stitches in our office when ready. Please make an appointment to return to our office in 1 week. Please do not remove the stitches yourself without approval from our office. If you note any additional difficulties, questions, or concerns, you should contact our office immediately @ [phone] and ask to be transferred to the General Surgery department. documented in this encounter [facility] 11-24-2022 Miscellaneous Notes PDMP website checked and validated. All prescriptions have been APPROPRIATELY filled. No suspicious activity was identified. 11/24/2022 by Ying Del Cid APRN.CNP The following approved medication requests have been transmitted electronically. Requested Prescriptions Signed Prescriptions Disp Refills ALPRAZolam (XANAX) 0.25 mg tablet 30 tablet 0 Sig: Take 1 tablet by mouth once daily as needed for up to 30 days. Authorizing Provider: YING DEL CID APRN.CNP Patient calls to ask why alprazolam prescription is not able to be ordered. Noted discontinued on 11/22/2022 but not certain of specific reason to relay to patient. Patient asking if provider would send prescription to [facility]. Patient is aware provider is out of office today. Please review and advise, Pema Moser RN documented in this encounter [facility] 11-22-2022 Note HNO ID: [id number] Author: Ying Del Cid APRN.CNP Service: ? Author Type: Nurse Practitioner Type: Progress Notes Filed: 11/26/2022 9:38 AM Note Text: This Team Access Model visit is a virtual encounter. It required patient-provider interaction for the medical decision making as documented below. Patient agrees to the visit: Yes Patient Location: [place] I have communicated my name and active licensure. The patient's identity and physical location were verified at the time of this visit. Either the patient or their legal textile designs sales representative has been informed of the risks and benefits of -- and alternatives to -- treatment through a remote evaluation and consents to proceed with the evaluation remotely. CC: Patient presents with: Anxiety HPI Sherlyn Amin is a 32 year old female who is contacted today for a virtual visit. This is an established patient of Dr. Ellis Prather, DO and myself. Concerns today.. Anxiety/depression --- Has tried numerous medications for anxiety/depression without relief. Has tried: Paxil, Prozac, Zoloft, Seroquel, Wellbutrin, and Celexa. Feels that none of these worked well for her. Paxil was the most recent and pt stopped taking after 1 month. Trying to get into psychiatrist/counseling center but long wait lists and insurance recently changed so now she has to wait for new card to establish. Pt asking about anxiety vs ADHD symptoms -- reports sister is dx with adult ADHD. Reports poor motivation is biggest concern. Pt also reports poor focus, easily distracted and unable to finish tasks for weeks/months. Does feel like xanax helps symptoms but not day-to-day generalized mood/anxiety/depression. On 0.25 mg as needed, uses rarely. Shoulder pain --- Reports about 2x per year her R shoulder will act-up and cause severe pain that takes her to the ER. Will normally give her muscle relaxant and pain medication to relieve. Asking if she can have some of this on hand when needed so she does not have to make ER trips for this. Reports she is suppose to get rotator cuff surgery to R shoulder but has not been able to get this completed d/t hectic schedule. Has been seen by Dr. Carrasquillo for this in 2013. Was given steroid injection in joint at this time. REVIEW OF SYSTEMS See HPI PAST MEDICAL HISTORY Diagnosis Date Anemia Arthritis In both shoulders Asthma Chronic hepatitis C affecting , antepartum (HCC) 03/31/2017 Hepatitis C treated Heroin addiction (HCC) 11/18/2016 Mental disorder PAST SURGICAL HISTORY Procedure Laterality Date DELIVERY ONLY 09/18/2007 , low transverse SUCTION D AND C 04/05/2017 ALLERGIES Bactrim [Sulfamethoxazole-Trimethoprim] MEDICATIONS Ferrous Sulfate (SLOW FE) 142 mg (45 mg iron) TbERTake 1 tablet by mouth twice daily with meals.Disp: 60 tabletRfl: 5 ALPRAZolam (XANAX) 0.25 mg tabletTake 2 tablets by mouth twice daily as needed for up to 30 days.Disp: 60 tabletRfl: 0 Ascorbic Acid 1,000 mg tabletTAKE 1 TABLET BY MOUTH EVERY DAYDisp: 30 tabletRfl: 5 albuterol HFA (VENTOLIN HFA) 90 mcg/actuation inhalerInhale 2 Puffs as instructed every 4 hours as needed for wheezing/shortness of breath.Disp: 8 gRfl: 5 COMPOUNDED PRESCRIPTIONAIR CONDITIONER DX ASTHMA J45.909Disp: 1 EachRfl: 0 FAMILY HISTORY Problem Relation Age of Onset Colon Cancer Mother other (lupus) Father Diabetes Maternal Grandmother Great Grandmother Cancer Maternal Grandmother Brain Cancer Maternal Grandfather Lung-Greatgrandfather Prostate Cancer Maternal Grandfather Stroke Paternal Grandmother Cervical Cancer Maternal Aunt Social History Tobacco Use Smoking status: Every Day Packs/day: 0.20 Years: 5.00 Pack years: 1.00 Types: Cigarettes Smokeless tobacco: Never Tobacco comments: 4-5 cigarettes per day Vaping Use Vaping Use: Never used Substance Use Topics Alcohol use: Yes Comment: social Drug use: No EXAM: Deferred physical exam as visit was completed over the phone Patient is speaking in complete sentences without obvious respiratory distress or audible wheezing. Virtual visit completed using video, limited exam completed. GENERAL: alert and appropriate, in no distress, well-hydrated, well nourished, and happy, smiling, interactive SKIN: no rash noted HEAD: normocephalic, no abnormality or lesion noted DATA REVIEWED: Most recent labs and imaging results. HEPATITIS A(1 of 2 - Risk 2-dose series) Never done INFLUENZA(1) due on 03/04/2023 PNEUMOCOCCAL(1 - PCV) due on 07/07/2023 COVID-19 VACCINE(1) due on 08/04/2023 ANNUAL PCP TEAM CHRONIC DISEASE VISIT due on 08/04/2023 PAP TESTING due on 11/01/2024 HPV TESTING due on 11/01/2024 DTAP,TDAP,TD(3 - Td or Tdap) due on 09/23/2030 SPIROMETRY Completed HEPATITIS C SCREENING Completed HIV SCREENING Completed ASSESSMENT/PLAN: 1. Anxiety and depression - ICD9: 300.00, 311, ICD10: F41.9, F32.A (prima (more content not included)... [facility] 11-22-2022 Note HNO ID: [id number] Author: Eileen Thompson LPN Service: ? Author Type: LICENSED NURSE Type: Progress Notes Filed: 11/22/2022 4:38 PM Note Text: Spoke to Sherlyn Amin, confirmed patient is registered on [employer] and is prepared for their appointment. Confirmed the patient will update medications, allergies, and questionnaires via [employer]. Informed patient if there is an issue with the connection, provider will send the patient a secure link. If provider is running late, patient should remain connected to the visit. Patient verbalized understanding. [facility] 11-22-2022 History of Presen t illness Narrative This Team Access Model visit is a virtual encounter. It required patient-provider interaction for the medical decision making as documented below. Patient agrees to the visit: Yes Patient Location: [place] CC: Patient presents with: Anxiety HPI Sherlyn Amin is a 32 year old female who is contacted today for a virtual visit. This is an established patient of Dr. Ellis Prather, DO and myself. Concerns today.. Anxiety/depression --- Has tried numerous medications for anxiety/depression without relief. Has tried: Paxil, Prozac, Zoloft, Seroquel, Wellbutrin, and Celexa. Feels that none of these worked well for her. Paxil was the most recent and pt stopped taking after 1 month. Trying to get into psychiatrist/counseling center but long wait lists and insurance recently changed so now she has to wait for new card to establish. Pt asking about anxiety vs ADHD symptoms -- reports sister is dx with adult ADHD. Reports poor motivation is biggest concern. Pt also reports poor focus, easily distracted and unable to finish tasks for weeks/months. Does feel like xanax helps symptoms but not day-to-day generalized mood/anxiety/depression. On 0.25 mg as needed, uses rarely. Shoulder pain --- Reports about 2x per year her R shoulder will act-up and cause severe pain that takes her to the ER. Will normally give her muscle relaxant and pain medication to relieve. Asking if she can have some of this on hand when needed so she does not have to make ER trips for this. Reports she is suppose to get rotator cuff surgery to R shoulder but has not been able to get this completed d/t hectic schedule. Has been seen by Dr. Carrasquillo for this in 2013. Was given steroid injection in joint at this time. REVIEW OF SYSTEMS See HPI PAST MEDICAL HISTORY Diagnosis Date Anemia Arthritis In both shoulders Asthma Chronic hepatitis C affecting , antepartum (HCC) 03/31/2017 Hepatitis C treated Heroin addiction (HCC) 11/18/2016 Mental disorder PAST SURGICAL HISTORY Procedure Laterality Date DELIVERY ONLY 09/18/2007 , low transverse SUCTION D & C 04/05/2017 ALLERGIES Bactrim [Sulfamethoxazole-Trimethoprim] MEDICATIONS Ferrous Sulfate (SLOW FE) 142 mg (45 mg iron) TbER^Take 1 tablet by mouth twice daily with meals.^Disp: 60 tablet^Rfl: 5 ALPRAZolam (XANAX) 0.25 mg tablet^Take 2 tablets by mouth twice daily as needed for up to 30 days.^Disp: 60 tablet^Rfl: 0 Ascorbic Acid 1,000 mg tablet^TAKE 1 TABLET BY MOUTH EVERY DAY^Disp: 30 tablet^Rfl: 5 albuterol HFA (VENTOLIN HFA) 90 mcg/actuation inhaler^Inhale 2 Puffs as instructed every 4 hours as needed for wheezing/shortness of breath.^Disp: 8 g^Rfl: 5 COMPOUNDED PRESCRIPTION^AIR CONDITIONER DX ASTHMA J45.909^Disp: 1 Each^Rfl: 0 FAMILY HISTORY Problem Relation Age of Onset Colon Cancer Mother other (lupus) Father Diabetes Maternal Grandmother Great Grandmother Cancer Maternal Grandmother Brain Cancer Maternal Grandfather Lung-Greatgrandfather Prostate Cancer Maternal Grandfather Stroke Paternal Grandmother Cervical Cancer Maternal Aunt Social History Tobacco Use Smoking status: Every Day Packs/day: 0.20 Years: 5.00 Pack years: 1.00 Types: Cigarettes Smokeless tobacco: Never Tobacco comments: 4-5 cigarettes per day Vaping Use Vaping Use: Never used Substance Use Topics Alcohol use: Yes Comment: social Drug use: No EXAM: Deferred physical exam as visit was completed over the phone Patient is speaking in complete sentences without obvious respiratory distress or audible wheezing. Virtual visit completed using video, limited exam completed. GENERAL: alert and appropriate, in no distress, well-hydrated, well nourished, and happy, smiling, interactive SKIN: no rash noted HEAD: normocephalic, no abnormality or lesion noted DATA REVIEWED: Most recent labs and imaging results. HEPATITIS A(1 of 2 - Risk 2-dose series) Never done INFLUENZA(1) due on 03/04/2023 PNEUMOCOCCAL(1 - PCV) due on 07/07/2023 COVID-19 VACCINE(1) due on 08/04/2023 ANNUAL PCP TEAM CHRONIC DISEASE VISIT due on 08/04/2023 PAP TESTING due on 11/01/2024 HPV TESTING due on 11/01/2024 DTAP,TDAP,TD(3 - Td or Tdap) due on 09/23/2030 SPIROMETRY Completed HEPATITIS C SCREENING Completed HIV SCREENING Completed ASSESSMENT/PLAN: 1. Anxiety and depression - ICD9: 300.00, 311, ICD10: F41.9, F32.A (primary diagnosis) Try Cymbalta regimen -- discussed how this is an SNRI vs an SSRI which is all the prior medication she has tried and failed. Encouraged to continue to try to get in with psychiatry once insurance situation is figured out. Pt concerned about possibility of ADHD d/t symptoms and familial hx --- we discussed follow-up in office in 6 weeks after starting Cymbalta to reassess symptoms and possibly screen for ADHD. If significant benefit -- will need drug tox screen and pain panel. As well as controlled substance agreement signed -- pt hx of heroin addiction puts her at very high risk for abuse and likely makes risk higher than benefit of starting stimulant. - DULOXETINE 20 MG CAPSULE,DELAYED RELEASE 2. Shoulder impingement syndrome, right - ICD9: 726.2, ICD10: M75.41 Flexeril as needed when shoulder discomfort flares. If occurring frequently -- should revisit with ortho for this. - CYCLOBENZAPRINE 10 MG TABLET Prescription instructions reviewed with patient as applicable. Potential red flag symptoms discussed with the patient. Reviewed appropriate action plan to take if red flag symptoms occur. Patient agreeable to treatment plan. During this patient visit I have spent approximately 30 minutes in counseling regarding treatment options and medications. Ying Del Cid APRN.NAVIN Spoke to Sherlyn E Eloisa, confirmed patient is registered on [employer] and is prepared for their appointment. Confirmed the patient will update medications, allergies, and questionnaires via [employer]. Informed patient if there is an issue with the connection, provider will send the patient a secure link. If provider is running late, patient should remain connected to the visit. Patient verbalized understanding. documented in this encounter [facility] 11-19-2022 Note HNO ID: [id number] Author: Dilip Jones MD Service: ? Author Type: Physician Type: Progress Notes Filed: 11/19/2022 2:28 PM Note Text: HISTORY AND PHYSICAL Sherlyn Amin 1990 REFERRING PHYSICIAN: Luis A Clayton,* CHIEF COMPLAINT: Consult (Mass or lump of left extremity) HPI: The patient is a 32 year old female with a complaint of lump on her left forearm. She has had this for many months tender to touch. In July of last year she had an ultrasound which showed a nonspecific subcutaneous lesion which could resemble a complex cyst or solid mass. MRI was ordered this showed a nonspecific enhancing 1 cm solid soft tissue nodule within the subcutaneous fat of the dorsal medial mid to distal forearm on the left side. The patient is being seen by me today at the request of Dr. Clayton for my opinion and advice regarding Localized swelling, mass, or lump of left upper extremity. PAST MEDICAL HISTORY Diagnosis Date Anemia Arthritis In both shoulders Asthma Chronic hepatitis C affecting , antepartum (HCC) 03/31/2017 Hepatitis C treated Heroin addiction (HCC) 11/18/2016 Mental disorder PAST SURGICAL HISTORY Procedure Laterality Date DELIVERY ONLY 09/18/2007 , low transverse SUCTION D AND C 04/05/2017 Current Outpatient Medications Medication Sig Ferrous Sulfate (SLOW FE) 142 mg (45 mg iron) TbER Take 1 tablet by mouth twice daily with meals. ALPRAZolam (XANAX) 0.25 mg tablet Take 2 tablets by mouth twice daily as needed for up to 30 days. Ascorbic Acid 1,000 mg tablet TAKE 1 TABLET BY MOUTH EVERY DAY albuterol HFA (VENTOLIN HFA) 90 mcg/actuation inhaler Inhale 2 Puffs as instructed every 4 hours as needed for wheezing/shortness of breath. COMPOUNDED PRESCRIPTION AIR CONDITIONER DX ASTHMA J45.909 PARoxetine (PAXIL) 10 mg tablet Take 1 tablet by mouth once daily. Current Facility-Administered Medications Medication Dose Route Frequency medroxyPROGESTERone 150 mg injection (DEPO-PROVERA) 150 mg INTRAMUSCULAR every 12 weeks ALLERGIES: Bactrim [Sulfamethoxazole-Trimethoprim] PERSONAL HISTORY: Social History Tobacco Use Smoking status: Every Day Packs/day: 0.20 Years: 5.00 Pack years: 1.00 Types: Cigarettes Smokeless tobacco: Never Tobacco comments: 4-5 cigarettes per day Vaping Use Vaping Use: Never used Substance Use Topics Alcohol use: Yes Comment: social Drug use: No FAMILY HISTORY: FAMILY HISTORY Problem Relation Age of Onset Colon Cancer Mother other (lupus) Father Diabetes Maternal Grandmother Great Grandmother Cancer Maternal Grandmother Brain Cancer Maternal Grandfather Lung-Greatgrandfather Prostate Cancer Maternal Grandfather Stroke Paternal Grandmother Cervical Cancer Maternal Aunt REVIEW OF SYMPTOMS: The review of systems data was entered by the nurse and reviewed by me Nursing Notes: Lauren Vasquez RN 11/18/2022 4:12 PM Signed REVIEW OF SYSTEMS: General: The patient NOTES fatigue, denies weight loss, denies weight gain, denies feeling hot, and denies feelings of cold. Eyes: The patient denies glaucoma, denies eye injury/surgery, wears glasses or contacts. Ear/Nose/Throat: The patient denies allergies, denies hayfever, denies ear infections, and denies bloody noses. Cardiovascular: The patient denies chest pain, denies heart disease, denies high blood pressure,denies cardiac stent, denies prior heart attack, denies irregular heart beat, denies high cholesterol, denies poor circulation, denies heart failure, other cardiac issues, denies claudication, denies cold feet, denies peripheral arterial stent. Respiratory: The patient denies tuberculosis, denies pneumonia, denies frequent cough, denies pulmonary embolism, denies shortness of breath, and denies coughing up blood. Gastrointestinal: The patient denies difficulty swallowing, denies acid reflux, denies ulcers, denies vomiting, denies jaundice/hepatitis, denies gallbladder problems, denies black or tarry stools, denies hemorrhoids, denies bleeding from rectum, denies diverticulitis, denies constipation, denies diarrhea, denies loss of stool control, and denies hernias. Kidney/Bladder: The patient denies kidney stones, NOTES urine infections, and denies bloody urine. Skin: The patient denies a history of skin cancer, denies bleeding/changing moles, and denies a history of skin rash. Neurologic: The patient denies a history of epilepsy/convulsions, denies headaches, denies head/spinal injuries, and denies stroke/TIA. Psychiatric: The patient denies psychiatric medications, denies depression, and denies voices, denies substance abuse. Endocrine: The patient denies thyroid disorders, denies diabetes, and denies hormonal problems. Hematologic: The patient NOTES a history of bruising, denies bleeding, and NOTES anemia, denies blood clots. Infections: The patient denies a histo (more content not included)... [facility] 11-19-2022 History of Presen t illness Narrative HISTORY AND PHYSICAL Sherlyn Amin 1990 REFERRING PHYSICIAN: Luis A Clayton,* CHIEF COMPLAINT: Consult (Mass or lump of left extremity) HPI: The patient is a 32 year old female with a complaint of lump on her left forearm. She has had this for many months tender to touch. In July of last year she had an ultrasound which showed a nonspecific subcutaneous lesion which could resemble a complex cyst or solid mass. MRI was ordered this showed a nonspecific enhancing 1 cm solid soft tissue nodule within the subcutaneous fat of the dorsal medial mid to distal forearm on the left side. The patient is being seen by me today at the request of Dr. Clayton for my opinion and advice regarding Localized swelling, mass, or lump of left upper extremity. PAST MEDICAL HISTORY Diagnosis Date Anemia Arthritis In both shoulders Asthma Chronic hepatitis C affecting , antepartum (HCC) 03/31/2017 Hepatitis C treated Heroin addiction (HCC) 11/18/2016 Mental disorder PAST SURGICAL HISTORY Procedure Laterality Date DELIVERY ONLY 09/18/2007 , low transverse SUCTION D & C 04/05/2017 Current Outpatient Medications Medication Sig Ferrous Sulfate (SLOW FE) 142 mg (45 mg iron) TbER Take 1 tablet by mouth twice daily with meals. ALPRAZolam (XANAX) 0.25 mg tablet Take 2 tablets by mouth twice daily as needed for up to 30 days. Ascorbic Acid 1,000 mg tablet TAKE 1 TABLET BY MOUTH EVERY DAY albuterol HFA (VENTOLIN HFA) 90 mcg/actuation inhaler Inhale 2 Puffs as instructed every 4 hours as needed for wheezing/shortness of breath. COMPOUNDED PRESCRIPTION AIR CONDITIONER DX ASTHMA J45.909 PARoxetine (PAXIL) 10 mg tablet Take 1 tablet by mouth once daily. Current Facility-Administered Medications Medication Dose Route Frequency medroxyPROGESTERone 150 mg injection (DEPO-PROVERA) 150 mg INTRAMUSCULAR every 12 weeks ALLERGIES: Bactrim [Sulfamethoxazole-Trimethoprim] PERSONAL HISTORY: Social History Tobacco Use Smoking status: Every Day Packs/day: 0.20 Years: 5.00 Pack years: 1.00 Types: Cigarettes Smokeless tobacco: Never Tobacco comments: 4-5 cigarettes per day Vaping Use Vaping Use: Never used Substance Use Topics Alcohol use: Yes Comment: social Drug use: No FAMILY HISTORY: FAMILY HISTORY Problem Relation Age of Onset Colon Cancer Mother other (lupus) Father Diabetes Maternal Grandmother Great Grandmother Cancer Maternal Grandmother Brain Cancer Maternal Grandfather Lung-Greatgrandfather Prostate Cancer Maternal Grandfather Stroke Paternal Grandmother Cervical Cancer Maternal Aunt REVIEW OF SYMPTOMS: The review of systems data was entered by the nurse and reviewed by me Nursing Notes: Lauren Vasquez RN 11/18/2022 4:12 PM Signed REVIEW OF SYSTEMS: General: The patient NOTES fatigue, denies weight loss, denies weight gain, denies feeling hot, and denies feelings of cold. Eyes: The patient denies glaucoma, denies eye injury/surgery, wears glasses or contacts. Ear/Nose/Throat: The patient denies allergies, denies hayfever, denies ear infections, and denies bloody noses. Cardiovascular: The patient denies chest pain, denies heart disease, denies high blood pressure,denies cardiac stent, denies prior heart attack, denies irregular heart beat, denies high cholesterol, denies poor circulation, denies heart failure, other cardiac issues, denies claudication, denies cold feet, denies peripheral arterial stent. Respiratory: The patient denies tuberculosis, denies pneumonia, denies frequent cough, denies pulmonary embolism, denies shortness of breath, and denies coughing up blood. Gastrointestinal: The patient denies difficulty swallowing, denies acid reflux, denies ulcers, denies vomiting, denies jaundice/hepatitis, denies gallbladder problems, denies black or tarry stools, denies hemorrhoids, denies bleeding from rectum, denies diverticulitis, denies constipation, denies diarrhea, denies loss of stool control, and denies hernias. Kidney/Bladder: The patient denies kidney stones, NOTES urine infections, and denies bloody urine. Skin: The patient denies a history of skin cancer, denies bleeding/changing moles, and denies a history of skin rash. Neurologic: The patient denies a history of epilepsy/convulsions, denies headaches, denies head/spinal injuries, and denies stroke/TIA. Psychiatric: The patient denies psychiatric medications, denies depression, and denies voices, denies substance abuse. Endocrine: The patient denies thyroid disorders, denies diabetes, and denies hormonal problems. Hematologic: The patient NOTES a history of bruising, denies bleeding, and NOTES anemia, denies blood clots. Infections: The patient denies a history of measles and mumps, denies rheumatic fever, and denies sexually transmitted diseases. Musculoskeletal: The patient denies back pain/injury, denies back problems, denies sciatica, denies knee/foot trouble, denies arthritis, or denies gout. When was patient's last Mammogram screening? N/A Last Colonoscopy: none Lauren Vasquez RN PHYSICAL EXAMINATION: General: The patient is 32 year old female, well nourished, well hydrated in no acute distress. The patient is oriented to time, place, and person. VITALS: Blood pressure 98/60, pulse 95, temperature 36.7 C (98 F), height 149.9 cm (4' 11 ), weight 45.3 kg (99 lb 12.8 oz), last menstrual period 02/14/2022, SpO2 98 %. HEENT: Normal cephalic, ataumatic, pupils are equally round, sclera are anicteric, mucous membranes are moist, oropharynx is clear. Neck has no masses, asymmetry or lymphadenopathy. Thyroid is unremarkable. Rectal exam: exam deferred Extremities: no clubbing, cyanosis or edema. No adenopathy. Other: Left distal forearm shows a 1.5 cm subcutaneous lesion overlying skin appears normal no signs of any inflammation or infection it is slightly tender to touch. It is mobile. LABORATORY VALUES: As Noted RADIOLOGIC STUDIES: As Noted Assessment IMPRESSION: Localized swelling, mass, or lump of left upper extremity PLAN: My plan is to excise this in the office. The planned surgical procedure was discussed extensively with the patient. The risks, benefits, anticipated outcomes and possible complications were mentioned. My staff has also explained the procedure in understandable terms and the patient was given the option to take printed material concerning the planned procedure. The patient had the opportunity to ask questions concerning the planned procedure. The patient freely consents to the planned procedure. Diagnoses: (R22.32) Localized swelling, mass, or lump of left upper extremity My findings have been communicated to Dr. Clayton via shared medical record. This note will be forwarded to Dr. Ellis Prather DO. Return to Clinic: The patient is instructed to follow-up with me 1 week post operatively. Dilip Jones III, MD documented in this encounter [facility] 11-18-2022 Nurse Note REVIEW OF SYSTEMS: General: The patient NOTES fatigue, denies weight loss, denies weight gain, denies feeling hot, and denies feelings of cold. Eyes: The patient denies glaucoma, denies eye injury/surgery, wears glasses or contacts. Ear/Nose/Throat: The patient denies allergies, denies hayfever, denies ear infections, and denies bloody noses. Cardiovascular: The patient denies chest pain, denies heart disease, denies high blood pressure,denies cardiac stent, denies prior heart attack, denies irregular heart beat, denies high cholesterol, denies poor circulation, denies heart failure, other cardiac issues, denies claudication, denies cold feet, denies peripheral arterial stent. Respiratory: The patient denies tuberculosis, denies pneumonia, denies frequent cough, denies pulmonary embolism, denies shortness of breath, and denies coughing up blood. Gastrointestinal: The patient denies difficulty swallowing, denies acid reflux, denies ulcers, denies vomiting, denies jaundice/hepatitis, denies gallbladder problems, denies black or tarry stools, denies hemorrhoids, denies bleeding from rectum, denies diverticulitis, denies constipation, denies diarrhea, denies loss of stool control, and denies hernias. Kidney/Bladder: The patient denies kidney stones, NOTES urine infections, and denies bloody urine. Skin: The patient denies a history of skin cancer, denies bleeding/changing moles, and denies a history of skin rash. Neurologic: The patient denies a history of epilepsy/convulsions, denies headaches, denies head/spinal injuries, and denies stroke/TIA. Psychiatric: The patient denies psychiatric medications, denies depression, and denies voices, denies substance abuse. Endocrine: The patient denies thyroid disorders, denies diabetes, and denies hormonal problems. Hematologic: The patient NOTES a history of bruising, denies bleeding, and NOTES anemia, denies blood clots. Infections: The patient denies a history of measles and mumps, denies rheumatic fever, and denies sexually transmitted diseases. Musculoskeletal: The patient denies back pain/injury, denies back problems, denies sciatica, denies knee/foot trouble, denies arthritis, or denies gout. When was patient's last Mammogram screening? N/A Last Colonoscopy: none Lauren Vasquez RN documented in this encounter [facility] 11-10-2022 Miscellaneous Notes Patient calls and notified of results and providers instructions. Patient verbalizes understanding. Transferred to schedule. Pema Moser RN Message left for patient to call back for update. Tika Mo LPN MRI of left arm shows 1 cm solid nodule with recommendation for biopsy. Will place referral order to general surgery. Please assist with scheduling. Will send as FYI to PCP for follow up. documented in this encounter [facility] 11-04-2022 Note HNO ID: [id number] Author: RT Vanessa(R) Service: ? Author Type: Technologist Type: Progress Notes Filed: 11/04/2022 3:55 PM Note Text: Radiology Service Progress Note DATE OF SERVICE: November 04, 2022 TIME: 3:40 PM PATIENT IDENTITY VERIFICATION COMPLETED USING TWO (2) STANDARD IDENTIFIERS: Name and Date of confirmed by patient verbally. FALL SCREENING: Has the patient had 2 falls in the last year or 1 fall with injury or currently using an Ambulatory Assistive Device (Walker, Cane, Wheelchair, Crutches, etc.)? No PATIENT GENDER DATA: Female. status: : No status: NO. PATIENT RELEVANT IMPLANT DATA REVIEWED: Not Applicable ALLERGIES: Reviewed and unchanged CONTRAST ALLERGY: NO. EXAM: MRI - CONTRAST TYPE: GROUP I OR GROUP III RISK FACTORS: N/A CREATININE: Creatinine Date Value Ref Range Status 07/09/2022 0.61 0.58 - 0.96 mg/dL Final 09/23/2020 0.61 0.58 - 0.96 mg/dL Final 01/22/2019 0.52 (L) 0.58 - 0.96 mg/dL Final Estimated Glomerular Filtration Rate Date Value Ref Range Status 07/09/2022 121 >=60 mL/min/1.73m? Final Comment: Estimated Glomerular Filtration Rate (eGFR) is calculated using the 2020 CKD-EPI creatinine equation. This equation utilizes serum creatinine, sex, and age as parameters. The creatinine assay has traceable calibration to isotope dilution-mass spectrometry. Refer to KDIGO guidelines for clinical interpretation. In patients with unstable renal function, e.g. those with acute kidney injury, the eGFR may not accurately reflect actual GFR. eGFR- Date Value Ref Range Status 09/23/2020 >60 Final P.O.C.T. RESULTS: N/A November 04, 2022 TREATMENT: N/A PERIPHERAL IV DATA: Ambulatory: A peripheral IV was started in the Right antecubital site with a Butterfly: 23 gauge. RADIOLOGY DEPARTMENT: MR; Exam(s) Completed: Upper MSK: Forearm, left SIGNATURE: [facility] PATIENT NAME: Sherlyn Amin DATE: November 04, 2022 TIME: 3:40 PM [facility] 11-04-2022 History of Presen t illness Narrative Radiology Service Progress Note DATE OF SERVICE: November 04, 2022 TIME: 3:40 PM PATIENT IDENTITY VERIFICATION COMPLETED USING TWO (2) STANDARD IDENTIFIERS: Name and Date of confirmed by patient verbally. FALL SCREENING: Has the patient had 2 falls in the last year or 1 fall with injury or currently using an Ambulatory Assistive Device (Walker, Cane, Wheelchair, Crutches, etc.)? No PATIENT GENDER DATA: Female. status: : No status: NO. PATIENT RELEVANT IMPLANT DATA REVIEWED: Not Applicable ALLERGIES: Reviewed and unchanged CONTRAST ALLERGY: NO. EXAM: MRI - CONTRAST TYPE: GROUP I OR GROUP III RISK FACTORS: N/A CREATININE: Creatinine Date Value Ref Range Status 07/09/2022 0.61 0.58 - 0.96 mg/dL Final 09/23/2020 0.61 0.58 - 0.96 mg/dL Final 01/22/2019 0.52 (L) 0.58 - 0.96 mg/dL Final Estimated Glomerular Filtration Rate Date Value Ref Range Status 07/09/2022 121 >=60 mL/min/1.73m Final Comment: Estimated Glomerular Filtration Rate (eGFR) is calculated using the 2020 CKD-EPI creatinine equation. This equation utilizes serum creatinine, sex, and age as parameters. The creatinine assay has traceable calibration to isotope dilution-mass spectrometry. Refer to KDIGO guidelines for clinical interpretation. In patients with unstable renal function, e.g. those with acute kidney injury, the eGFR may not accurately reflect actual GFR. eGFR- Date Value Ref Range Status 09/23/2020 >60 Final P.O.C.T. RESULTS: N/A November 04, 2022 TREATMENT: N/A PERIPHERAL IV DATA: Ambulatory: A peripheral IV was started in the Right antecubital site with a Butterfly: 23 gauge. RADIOLOGY DEPARTMENT: MR; Exam(s) Completed: Upper MSK: Forearm, left SIGNATURE: [facility] PATIENT NAME: Sherlyn Amin DATE: November 04, 2022 TIME: 3:40 PM documented in this encounter [facility] 10-25-2022 Miscellaneous Notes Patient phones requesting refills as follows: Requested Prescriptions Pending Prescriptions Disp Refills Ferrous Sulfate (SLOW FE) 142 mg (45 mg iron) TbER 60 tablet 5 Sig: Take 1 tablet by mouth twice daily with meals. ALPRAZolam (XANAX) 0.25 mg tablet 60 tablet 0 Sig: Take 2 tablets by mouth twice daily as needed for up to 30 days. MARGARET-07/07/22 Labs-07/09/22 NOV-none Please review and advise. Muriel Zhu LPN documented in this encounter [facility] 10-04-2022 Miscellaneous Notes The following approved medication requests have been transmitted electronically. Requested Prescriptions Signed Prescriptions Disp Refills ALPRAZolam (XANAX) 0.25 mg tablet 60 tablet 0 Sig: Take 2 tablets by mouth twice daily as needed for up to 30 days. Authorizing Provider: MARYA FLORES APRN.[facility] PDMP website checked and validated. All prescriptions have been APPROPRIATELY filled. No suspicious activity was identified. 10/04/2022 by Marya Flores CNP. Patient has been identified by name and date of : Yes, Pema Moser RN Date 10/04/2022 Time 8:09 am Patient phones for refill(s): Requested Prescriptions Pending Prescriptions Disp Refills ALPRAZolam (XANAX) 0.25 mg tablet 60 tablet 0 Sig: Take 2 tablets by mouth twice daily as needed for up to 30 days. Date of last office visit with pcp: 08/04/2022 Future appt: none Last 2 Encounter Wt Readings: Date: Wt: 08/31/2022 47.4 kg (104 lb 9.6 oz) 08/09/2022 48.2 kg (106 lb 3.2 oz) Previous labs/tests for medication: Blood Pressure: BUN (mg/dL) Date Value 07/09/2022 11 09/23/2020 6 Sodium (mmol/L) Date Value 07/09/2022 141 09/23/2020 138 Last 1 Encounter BP Readings: Date: BP: 08/31/2022 102/64 Liver Function: ALT (U/L) Date Value 07/09/2022 9 09/23/2020 7 AST (U/L) Date Value 07/09/2022 18 09/23/2020 15 Please advise. Thank you. Pema Moser RN documented in this encounter [facility] 09-06-2022 Miscellaneous Notes Pt notified of below. Tara Toussaint LPN Left message for patient to return call. Shonda Horton This message is to inform you that the patient has not yet read the following message. (Notification date: September 02, 2022) Results From Marianne Bae APRN.EXAMINER OF CURRENCY To Sherlyn Amin Sent and Delivered 09/01/2022 2:52 PM Hi Sherlyn, You can return to work when you are feeling better, and have gone 48 hours with no fever or fever reducing medicine. I will place a letter for you to return September 06, 2022. [employer] [place] [employer] User Last Read On Sherlyn Amin Not Read documented in this encounter [facility] 09-01-2022 Miscellaneous Notes Gur[employer] message sent. Work letter provided, with return date of 09/06/22 Patient calling to request work excuse letter for yesterday 08/31 and for the recommended number of days she should be off work after testing positive for influenza A. She was seen in [facility] on 08/31 and received results this AM. Please send letter to My Chart. Ora Figueroa RN documented in this encounter [facility] 08-31-2022 Influenza virus A and B RNA and SARS-CoV-2 (COVID-19) N gene panel PAULINO+probe (Resp) COVID 19 RESULT: SARS-CoV-2 (Agent of COVID-19) Not Detected by RT-PCR or equivalent method. jordan [id number]_[employer] (MAO)_EUA This test was developed and its performance characteristics determined by [facility] [place]. This test has been authorized by FDA under an Emergency Use Authorization (EUA). This test has been validated in accordance with the FDA's Guidance Document Policy for Diagnostics Testing in Laboratories Certified to Perform High Complexity Testing under CLIA prior to Emergency use Authorization for Coronavirus Disease 2019 during the Public Health Emergency issued on November 03, 2019. Test performed by [facility], [facility] [place], [address] [place] [address]. INFLUENZA A PCR: Positive for Influenza A by RT-PCR INFLUENZA B PCR: Negative for Influenza B by RT-PCR [facility] documented as of this encounter (statuses as of 03/16/2022) [facility]-2017 History of Past illness Narrative* Problem Noted Date Resolved Date Chronic hepatitis C affecting , antepar indio 03/31/2017 03/31/2017 Overview: 03/31/17 - diagnosed 2015 she thinks - KJ Heroin abuse affecting , antepartum 03/31/2017 Overview: 03/31/17 - no heroin use since 06/20, s/p rehab (finished 2/26/17), lives with her mom who is supportive - KJ Asthma affecting , antepartum 7 03/31/2017 Depression affecting 03/31/2017 0 03/31/2017 Overview: 03/31/17 - patient also has anxiety with panic attacks, she stopped her meds with had positive hcg test, needs to see MD for this - KJ Previous delivery affecting 0 03/31/2017 03/31/2017 Overview: 03/31/17 - Risks/benefits/alternatives discussed with patient regarding trial of labor and potential for uterine rupture. Risks include but are not limited to maternal hemorrhage, risk of injury to adjacent organs including potential hysterectomy. risks discussed as well, including potential for permanent neurologic injury or . Overall uterine rupture risk is less than 1% after one section. Is a trial of labor contraindicated for this patient? Needs operative report If no, calculate rate of success using pre-labor factors: http://[email or web address]/vagbirth.html Predicted chance of vaginal after : 76% Patient's plan for delivery mode: patient unsure, await operative report Eloise Randall MD documented as of this encounter (statuses as of 03/17/2022) [facility] History of Past illness Narrative* Problem Noted Date Resolved Date Chronic hepatitis C affecting , antepar indio 03/31/2017 03/31/2017 Overview: 03/31/17 - diagnosed 2015 she thinks - KJ Heroin abuse affecting , antepartum 03/31/2017 Overview: 03/31/17 - no heroin use since 06/20, s/p rehab (finished 10/31/16), lives with her mom who is supportive - KJ Asthma affecting , antepartum 7 03/31/2017 Depression affecting 03/31/2017 0 03/31/2017 Overview: 03/31/17 - patient also has anxiety with panic attacks, she stopped her meds with had positive hcg test, needs to see MD for this - KJ Previous delivery affecting 0 03/31/2017 03/31/2017 Overview: 03/31/17 - Risks/benefits/alternatives discussed with patient regarding trial of labor and potential for uterine rupture. Risks include but are not limited to maternal hemorrhage, risk of injury to adjacent organs including potential hysterectomy. risks discussed as well, including potential for permanent neurologic injury or . Overall uterine rupture risk is less than 1% after one section. Is a trial of labor contraindicated for this patient? Needs operative report If no, calculate rate of success using pre-labor factors: http://www.[facility].edu/mfmu/vagbirth.html Predicted chance of vaginal after : 76% Patient's plan for delivery mode: patient unsure, await operative report Eloise Randall MD documented as of this encounter (statuses as of 03/22/2022) [facility] History of Past illness Narrative* Problem Noted Date Resolved Date Chronic hepatitis C affecting , antepar indio 03/31/2017 03/31/2017 Overview: 03/31/17 - diagnosed 2015 she thinks - KJ Heroin abuse affecting , antepartum 03/31/2017 Overview: 03/31/17 - no heroin use since 06/20, s/p rehab (finished 10/31/16), lives with her mom who is supportive - KJ Asthma affecting , antepartum 03/31/2017 Depression affecting 03/31/2017 0 03/31/2017 Overview: 03/31/17 - patient also has anxiety with panic attacks, she stopped her meds with had positive hcg test, needs to see MD for this - KJ Previous delivery affecting 0 03/31/2017 03/31/2017 Overview: 03/31/17 - Risks/benefits/alternatives discussed with patient regarding trial of labor and potential for uterine rupture. Risks include but are not limited to maternal hemorrhage, risk of injury to adjacent organs including potential hysterectomy. risks discussed as well, including potential for permanent neurologic injury or . Overall uterine rupture risk is less than 1% after one section. Is a trial of labor contraindicated for this patient? Needs operative report If no, calculate rate of success using pre-labor factors: [email or web address] [place] [facility] [email or web address].html Predicted chance of vaginal after : 76% Patient's plan for delivery mode: patient unsure, await operative report Eloise Randall MD documented as of this encounter (statuses as of 07/07/2022) [facility]07-27-2017 History of Past illness Narrative* Problem Noted Date Resolved Date Chronic hepatitis C affecting , antepar indio 03/31/2017 03/31/2017 Overview: 03/31/17 - diagnosed 2015 she thinks - KJ Heroin abuse affecting , antepartum 03/31/2017 Overview: 03/31/17 - no heroin use since 06/20, s/p rehab (finished 10/31/16), lives with her mom who is supportive - KJ Asthma affecting , antepartum 7 03/31/2017 Depression affecting 03/31/2017 0 03/31/2017 Overview: 03/31/17 - patient also has anxiety with panic attacks, she stopped her meds with had positive hcg test, needs to see MD for this - KJ Previous delivery affecting 0 03/31/2017 03/31/2017 Overview: 03/31/17 - Risks/benefits/alternatives discussed with patient regarding trial of labor and potential for uterine rupture. Risks include but are not limited to maternal hemorrhage, risk of injury to adjacent organs including potential hysterectomy. risks discussed as well, including potential for permanent neurologic injury or . Overall uterine rupture risk is less than 1% after one section. Is a trial of labor contraindicated for this patient? Needs operative report If no, calculate rate of success using pre-labor factors: http://www.[email or web address]/[email or web address].html Predicted chance of vaginal after : 76% Patient's plan for delivery mode: patient unsure, await operative report Eloise Randall MD documented as of this encounter (statuses as of 07/10/2022) [facility]-2017 History of Past illness Narrative* Problem Noted Date Resolved Date Chronic hepatitis C affecting , antepar indio 03/31/2017 03/31/2017 Overview: 03/31/17 - diagnosed 2015 she thinks - KJ Heroin abuse affecting , antepartum 03/31/2017 Overview: 03/31/17 - no heroin use since 06/20, s/p rehab (finished 10/31/16), lives with her mom who is supportive - ALBERTO Asthma affecting , antepartum 7 03/31/2017 Depression affecting 03/31/2017 0 03/31/2017 Overview: 03/31/17 - patient also has anxiety with panic attacks, she stopped her meds with had positive hcg test, needs to see MD for this - KJ Previous delivery affecting 0 03/31/2017 03/31/2017 Overview: 03/31/17 - Risks/benefits/alternatives discussed with patient regarding trial of labor and potential for uterine rupture. Risks include but are not limited to maternal hemorrhage, risk of injury to adjacent organs including potential hysterectomy. risks discussed as well, including potential for permanent neurologic injury or . Overall uterine rupture risk is less than 1% after one section. Is a trial of labor contraindicated for this patient? Needs operative report If no, calculate rate of success using pre-labor factors: http://[email or web address]/[email or web address].html Predicted chance of vaginal after : 76% Patient's plan for delivery mode: patient unsure, await operative report Eloise Randall MD documented as of this encounter (statuses as of 07/12/2022) [facility]2017 History of Past illness Narrative* Problem Noted Date Resolved Date Chronic hepatitis C affecting , antepar indio 03/31/2017 03/31/2017 Overview: 03/31/17 - diagnosed 2014 she thinks - KJ Heroin abuse affecting , antepartum 03/31/2017 Overview: 03/31/17 - no heroin use since 06/20, s/p rehab (finished 10/31/16), lives with her mom who is supportive - KJ Asthma affecting , antepartum 7 03/31/2017 Depression affecting 03/31/2017 0 03/31/2017 Overview: 03/31/17 - patient also has anxiety with panic attacks, she stopped her meds with had positive hcg test, needs to see MD for this - KJ Previous delivery affecting 0 03/31/2017 03/31/2017 Overview: 03/31/17 - Risks/benefits/alternatives discussed with patient regarding trial of labor and potential for uterine rupture. Risks include but are not limited to maternal hemorrhage, risk of injury to adjacent organs including potential hysterectomy. risks discussed as well, including potential for permanent neurologic injury or . Overall uterine rupture risk is less than 1% after one section. Is a trial of labor contraindicated for this patient? Needs operative report If no, calculate rate of success using pre-labor factors: http://[email or web address]/[email or web address].html Predicted chance of vaginal after : 76% Patient's plan for delivery mode: patient unsure, await operative report Eloise Randall MD documented as of this encounter (statuses as of 07/13/2022) [facility]2017 History of Past illness Narrative* Problem Noted Date Resolved Date Chronic hepatitis C affecting , antepar indio 03/31/2017 03/31/2017 Overview: 03/31/17 - diagnosed 2014 she thinks - KJ Heroin abuse affecting , antepartum 03/31/2017 Overview: 03/31/17 - no heroin use since 06/20, s/p rehab (finished 10/31/16), lives with her mom who is supportive - KJ Asthma affecting , antepartum 7 03/31/2017 Depression affecting 03/31/2017 0 03/31/2017 Overview: 03/31/17 - patient also has anxiety with panic attacks, she stopped her meds with had positive hcg test, needs to see MD for this - KJ Previous delivery affecting 0 03/31/2017 03/31/2017 Overview: 03/31/17 - Risks/benefits/alternatives discussed with patient regarding trial of labor and potential for uterine rupture. Risks include but are not limited to maternal hemorrhage, risk of injury to adjacent organs including potential hysterectomy. risks discussed as well, including potential for permanent neurologic injury or . Overall uterine rupture risk is less than 1% after one section. Is a trial of labor contraindicated for this patient? Needs operative report If no, calculate rate of success using pre-labor factors: http://www.bs.[email or web address]/[email or web address].html Predicted chance of vaginal after : 76% Patient's plan for delivery mode: patient unsure, await operative report Eloise Randall MD documented as of this encounter (statuses as of 07/14/2022) [facility]2017 History of Past illness Narrative* Problem Noted Date Resolved Date Chronic hepatitis C affecting , antepar indio 03/31/2017 03/31/2017 Overview: 03/31/17 - diagnosed 2015 she thinks - KJ Heroin abuse affecting , antepartum 03/31/2017 Overview: 03/31/17 - no heroin use since 06/20, s/p rehab (finished 10/31/16), lives with her mom who is supportive - KJ Asthma affecting , antepartum 7 03/31/2017 Depression affecting 03/31/2017 0 03/31/2017 Overview: 03/31/17 - patient also has anxiety with panic attacks, she stopped her meds with had positive hcg test, needs to see MD for this - KJ Previous delivery affecting 0 03/31/2017 03/31/2017 Overview: 03/31/17 - Risks/benefits/alternatives discussed with patient regarding trial of labor and potential for uterine rupture. Risks include but are not limited to maternal hemorrhage, risk of injury to adjacent organs including potential hysterectomy. risks discussed as well, including potential for permanent neurologic injury or . Overall uterine rupture risk is less than 1% after one section. Is a trial of labor contraindicated for this patient? Needs operative report If no, calculate rate of success using pre-labor factors: http://[email or web address]/[email or web address].html Predicted chance of vaginal after : 76% Patient's plan for delivery mode: patient unsure, await operative report Eloise Randall MD documented as of this encounter (statuses as of 07/22/2022) [facility]2017 History of Past illness Narrative* Problem Noted Date Resolved Date Chronic hepatitis C affecting , antepar indio 03/31/2017 03/31/2017 Overview: 03/31/17 - diagnosed 2015 she thinks - KJ Heroin abuse affecting , antepartum 03/31/2017 Overview: 03/31/17 - no heroin use since 06/20, s/p rehab (finished 10/31/16), lives with her mom who is supportive - KJ Asthma affecting , antepartum 7 03/31/2017 Depression affecting 03/31/2017 0 03/31/2017 Overview: 03/31/17 - patient also has anxiety with panic attacks, she stopped her meds with had positive hcg test, needs to see MD for this - KJ Previous delivery affecting 0 03/31/2017 03/31/2017 Overview: 03/31/17 - Risks/benefits/alternatives discussed with patient regarding trial of labor and potential for uterine rupture. Risks include but are not limited to maternal hemorrhage, risk of injury to adjacent organs including potential hysterectomy. risks discussed as well, including potential for permanent neurologic injury or . Overall uterine rupture risk is less than 1% after one section. Is a trial of labor contraindicated for this patient? Needs operative report If no, calculate rate of success using pre-labor factors: http://www.[email or web address]/vagbirth.html Predicted chance of vaginal after : 76% Patient's plan for delivery mode: patient unsure, await operative report Eloise Randall MD documented as of this encounter (statuses as of 2022) [facility]2017 History of Past illness Narrative* Problem Noted Date Resolved Date Chronic hepatitis C affecting , antepar indio 03/31/2017 03/31/2017 Overview: 03/31/17 - diagnosed 2015 she thinks - KJ Heroin abuse affecting , antepartum 03/31/2017 Overview: 03/31/17 - no heroin use since 06/20, s/p rehab (finished 10/31/16), lives with her mom who is supportive - ALBERTO Asthma affecting , antepartum 03/31/2017 Depression affecting 03/31/2017 0 03/31/2017 Overview: 03/31/17 - patient also has anxiety with panic attacks, she stopped her meds with had positive hcg test, needs to see MD for this - KJ Previous delivery affecting 0 03/31/2017 03/31/2017 Overview: 03/31/17 - Risks/benefits/alternatives discussed with patient regarding trial of labor and potential for uterine rupture. Risks include but are not limited to maternal hemorrhage, risk of injury to adjacent organs including potential hysterectomy. risks discussed as well, including potential for permanent neurologic injury or . Overall uterine rupture risk is less than 1% after one section. Is a trial of labor contraindicated for this patient? Needs operative report If no, calculate rate of success using pre-labor factors: http://www.[email or web address]/[email or web address].html Predicted chance of vaginal after : 76% Patient's plan for delivery mode: patient unsure, await operative report Eloise Randall MD documented as of this encounter (statuses as of 08/04/2022) [facility]2017 History of Past illness Narrative* Problem Noted Date Resolved Date Chronic hepatitis C affecting , antepar indio 03/31/2017 03/31/2017 Overview: 03/31/17 - diagnosed 2014 she thinks - KJ Heroin abuse affecting , antepartum 03/31/2017 Overview: 03/31/17 - no heroin use since 06/20, s/p rehab (finished 10/31/16), lives with her mom who is supportive - KJ Asthma affecting , antepartum 03/31/2017 Depression affecting 03/31/2017 0 03/31/2017 Overview: 03/31/17 - patient also has anxiety with panic attacks, she stopped her meds with had positive hcg test, needs to see MD for this - KJ Previous delivery affecting 0 03/31/2017 03/31/2017 Overview: 03/31/17 - Risks/benefits/alternatives discussed with patient regarding trial of labor and potential for uterine rupture. Risks include but are not limited to maternal hemorrhage, risk of injury to adjacent organs including potential hysterectomy. risks discussed as well, including potential for permanent neurologic injury or . Overall uterine rupture risk is less than 1% after one section. Is a trial of labor contraindicated for this patient? Needs operative report If no, calculate rate of success using pre-labor factors: http://[email or web address]/[email or web address].html Predicted chance of vaginal after : 76% Patient's plan for delivery mode: patient unsure, await operative report Eloise Randall MD documented as of this encounter (statuses as of 08/09/2022) [facility]2017 History of Past illness Narrative* Problem Noted Date Resolved Date Chronic hepatitis C affecting , antepar indio 03/31/2017 03/31/2017 Overview: 03/31/17 - diagnosed 2014 she thinks - KJ Heroin abuse affecting , antepartum 03/31/2017 Overview: 03/31/17 - no heroin use since 06/20, s/p rehab (finished 10/31/16), lives with her mom who is supportive - KJ Asthma affecting , antepartum 7 03/31/2017 Depression affecting 03/31/2017 0 03/31/2017 Overview: 03/31/17 - patient also has anxiety with panic attacks, she stopped her meds with had positive hcg test, needs to see MD for this - KJ Previous delivery affecting 0 03/31/2017 03/31/2017 Overview: 03/31/17 - Risks/benefits/alternatives discussed with patient regarding trial of labor and potential for uterine rupture. Risks include but are not limited to maternal hemorrhage, risk of injury to adjacent organs including potential hysterectomy. risks discussed as well, including potential for permanent neurologic injury or . Overall uterine rupture risk is less than 1% after one section. Is a trial of labor contraindicated for this patient? Needs operative report If no, calculate rate of success using pre-labor factors: http://[email or web address]/[email or web address].html Predicted chance of vaginal after : 76% Patient's plan for delivery mode: patient unsure, await operative report Eloise Randall MD documented as of this encounter (statuses as of 08/16/2022) [facility]2017 History of Past illness Narrative* Problem Noted Date Resolved Date Chronic hepatitis C affecting , antepar indio 03/31/2017 03/31/2017 Overview: 03/31/17 - diagnosed 2015 she thinks - KJ Heroin abuse affecting , antepartum 03/31/2017 Overview: 03/31/17 - no heroin use since 06/20, s/p rehab (finished 10/31/16), lives with her mom who is supportive - KJ Asthma affecting , antepartum 7 03/31/2017 Depression affecting 03/31/2017 0 03/31/2017 Overview: 03/31/17 - patient also has anxiety with panic attacks, she stopped her meds with had positive hcg test, needs to see MD for this - KJ Previous delivery affecting 0 03/31/2017 03/31/2017 Overview: 03/31/17 - Risks/benefits/alternatives discussed with patient regarding trial of labor and potential for uterine rupture. Risks include but are not limited to maternal hemorrhage, risk of injury to adjacent organs including potential hysterectomy. risks discussed as well, including potential for permanent neurologic injury or . Overall uterine rupture risk is less than 1% after one section. Is a trial of labor contraindicated for this patient? Needs operative report If no, calculate rate of success using pre-labor factors: http://www.bs.[email or web address]/[email or web address].html Predicted chance of vaginal after : 76% Patient's plan for delivery mode: patient unsure, await operative report Eloise Randall MD documented as of this encounter (statuses as of 09/05/2022) [facility]2017 History of Past illness Narrative* Problem Noted Date Resolved Date Chronic hepatitis C affecting , antepar indio 03/31/2017 03/31/2017 Overview: 03/31/17 - diagnosed 2015 she thinks - KJ Heroin abuse affecting , antepartum 03/31/2017 Overview: 03/31/17 - no heroin use since 06/20, s/p rehab (finished 10/31/16), lives with her mom who is supportive - KJ Asthma affecting , antepartum 7 03/31/2017 Depression affecting 03/31/2017 0 03/31/2017 Overview: 03/31/17 - patient also has anxiety with panic attacks, she stopped her meds with had positive hcg test, needs to see MD for this - KJ Previous delivery affecting 0 03/31/2017 03/31/2017 Overview: 03/31/17 - Risks/benefits/alternatives discussed with patient regarding trial of labor and potential for uterine rupture. Risks include but are not limited to maternal hemorrhage, risk of injury to adjacent organs including potential hysterectomy. risks discussed as well, including potential for permanent neurologic injury or . Overall uterine rupture risk is less than 1% after one section. Is a trial of labor contraindicated for this patient? Needs operative report If no, calculate rate of success using pre-labor factors: http://www.bs.[email or web address]/[email or web address].html Predicted chance of vaginal after : 76% Patient's plan for delivery mode: patient unsure, await operative report Eloise Randall MD documented as of this encounter (statuses as of 09/08/2022) [facility]2017 History of Past illness Narrative* Problem Noted Date Resolved Date Chronic hepatitis C affecting , antepar indio 03/31/2017 03/31/2017 Overview: 03/31/17 - diagnosed 2015 she thinks - KJ Heroin abuse affecting , antepartum 03/31/2017 Overview: 03/31/17 - no heroin use since 06/20, s/p rehab (finished 10/31/16), lives with her mom who is supportive - ALBERTO Asthma affecting , antepartum 03/31/2017 Depression affecting 03/31/2017 0 03/31/2017 Overview: 03/31/17 - patient also has anxiety with panic attacks, she stopped her meds with had positive hcg test, needs to see MD for this - KJ Previous delivery affecting 0 03/31/2017 03/31/2017 Overview: 03/31/17 - Risks/benefits/alternatives discussed with patient regarding trial of labor and potential for uterine rupture. Risks include but are not limited to maternal hemorrhage, risk of injury to adjacent organs including potential hysterectomy. risks discussed as well, including potential for permanent neurologic injury or . Overall uterine rupture risk is less than 1% after one section. Is a trial of labor contraindicated for this patient? Needs operative report If no, calculate rate of success using pre-labor factors: http://www.[email or web address]/vagbirth.html Predicted chance of vaginal after : 76% Patient's plan for delivery mode: patient unsure, await operative report Eloise Randall MD documented as of this encounter (statuses as of 09/09/2022) [facility]2017 History of Past illness Narrative* Problem Noted Date Resolved Date Chronic hepatitis C affecting , antepar indio 03/31/2017 03/31/2017 Overview: 03/31/17 - diagnosed 2015 she thinks - KJ Heroin abuse affecting , antepartum 03/31/2017 Overview: 03/31/17 - no heroin use since 06/20, s/p rehab (finished 10/31/16), lives with her mom who is supportive - ALBERTO Asthma affecting , antepartum 7 03/31/2017 Depression affecting 03/31/2017 0 03/31/2017 Overview: 03/31/17 - patient also has anxiety with panic attacks, she stopped her meds with had positive hcg test, needs to see MD for this - KJ Previous delivery affecting 0 03/31/2017 03/31/2017 Overview: 03/31/17 - Risks/benefits/alternatives discussed with patient regarding trial of labor and potential for uterine rupture. Risks include but are not limited to maternal hemorrhage, risk of injury to adjacent organs including potential hysterectomy. risks discussed as well, including potential for permanent neurologic injury or . Overall uterine rupture risk is less than 1% after one section. Is a trial of labor contraindicated for this patient? Needs operative report If no, calculate rate of success using pre-labor factors: http://www.[email or web address]/vagbirth.html Predicted chance of vaginal after : 76% Patient's plan for delivery mode: patient unsure, await operative report Eloise Randall MD documented as of this encounter (statuses as of 10/04/2022) [facility]2017 History of Past illness Narrative* Problem Noted Date Resolved Date Chronic hepatitis C affecting , antepar indio 03/31/2017 03/31/2017 Overview: 03/31/17 - diagnosed 2014 she thinks - KJ Heroin abuse affecting , antepartum 03/31/2017 Overview: 03/31/17 - no heroin use since 06/20, s/p rehab (finished 10/31/16), lives with her mom who is supportive - KJ Asthma affecting , antepartum 7 03/31/2017 Depression affecting 03/31/2017 0 03/31/2017 Overview: 03/31/17 - patient also has anxiety with panic attacks, she stopped her meds with had positive hcg test, needs to see MD for this - KJ Previous delivery affecting 0 03/31/2017 03/31/2017 Overview: 03/31/17 - Risks/benefits/alternatives discussed with patient regarding trial of labor and potential for uterine rupture. Risks include but are not limited to maternal hemorrhage, risk of injury to adjacent organs including potential hysterectomy. risks discussed as well, including potential for permanent neurologic injury or . Overall uterine rupture risk is less than 1% after one section. Is a trial of labor contraindicated for this patient? Needs operative report If no, calculate rate of success using pre-labor factors: http://[email or web address]/[email or web address].html Predicted chance of vaginal after : 76% Patient's plan for delivery mode: patient unsure, await operative report Eloise Randall MD documented as of this encounter (statuses as of 10/26/2022) [facility]2017 History of Past illness Narrative* Problem Noted Date Resolved Date Chronic hepatitis C affecting , antepar indio 03/31/2017 03/31/2017 Overview: 03/31/17 - diagnosed 2014 she thinks - KJ Heroin abuse affecting , antepartum 03/31/2017 Overview: 03/31/17 - no heroin use since 06/20, s/p rehab (finished 10/31/16), lives with her mom who is supportive - KJ Asthma affecting , antepartum 7 03/31/2017 Depression affecting 03/31/2017 0 03/31/2017 Overview: 03/31/17 - patient also has anxiety with panic attacks, she stopped her meds with had positive hcg test, needs to see MD for this - KJ Previous delivery affecting 0 03/31/2017 03/31/2017 Overview: 03/31/17 - Risks/benefits/alternatives discussed with patient regarding trial of labor and potential for uterine rupture. Risks include but are not limited to maternal hemorrhage, risk of injury to adjacent organs including potential hysterectomy. risks discussed as well, including potential for permanent neurologic injury or . Overall uterine rupture risk is less than 1% after one section. Is a trial of labor contraindicated for this patient? Needs operative report If no, calculate rate of success using pre-labor factors: http://[email or web address]/[email or web address].html Predicted chance of vaginal after : 76% Patient's plan for delivery mode: patient unsure, await operative report Eloise Randall MD documented as of this encounter (statuses as of 11/05/2022) [facility]2017 History of Past illness Narrative* Problem Noted Date Resolved Date Chronic hepatitis C affecting , antepar indio 03/31/2017 03/31/2017 Overview: 03/31/17 - diagnosed 2015 she thinks - KJ Heroin abuse affecting , antepartum 03/31/2017 Overview: 03/31/17 - no heroin use since 06/20, s/p rehab (finished 10/31/16), lives with her mom who is supportive - KJ Asthma affecting , antepartum 7 03/31/2017 Depression affecting 03/31/2017 0 03/31/2017 Overview: 03/31/17 - patient also has anxiety with panic attacks, she stopped her meds with had positive hcg test, needs to see MD for this - KJ Previous delivery affecting 0 03/31/2017 03/31/2017 Overview: 03/31/17 - Risks/benefits/alternatives discussed with patient regarding trial of labor and potential for uterine rupture. Risks include but are not limited to maternal hemorrhage, risk of injury to adjacent organs including potential hysterectomy. risks discussed as well, including potential for permanent neurologic injury or . Overall uterine rupture risk is less than 1% after one section. Is a trial of labor contraindicated for this patient? Needs operative report If no, calculate rate of success using pre-labor factors: http://[email or web address].html Predicted chance of vaginal after : 76% Patient's plan for delivery mode: patient unsure, await operative report Eloise Randall MD documented as of this encounter (statuses as of 11/11/2022) [facility]-27-2017 History of Past illness Narrative* Problem Noted Date Resolved Date Chronic hepatitis C affecting , antepar indio 03/31/2017 03/31/2017 Overview: 03/31/17 - diagnosed 2015 she thinks - KJ Heroin abuse affecting , antepartum 03/31/2017 Overview: 03/31/17 - no heroin use since 06/20, s/p rehab (finished 10/31/16), lives with her mom who is supportive - KJ Asthma affecting , antepartum 03/31/2017 Depression affecting 03/31/2017 0 03/31/2017 Overview: 03/31/17 - patient also has anxiety with panic attacks, she stopped her meds with had positive hcg test, needs to see MD for this - KJ Previous delivery affecting 0 03/31/2017 03/31/2017 Overview: 03/31/17 - Risks/benefits/alternatives discussed with patient regarding trial of labor and potential for uterine rupture. Risks include but are not limited to maternal hemorrhage, risk of injury to adjacent organs including potential hysterectomy. risks discussed as well, including potential for permanent neurologic injury or . Overall uterine rupture risk is less than 1% after one section. Is a trial of labor contraindicated for this patient? Needs operative report If no, calculate rate of success using pre-labor factors: http://www.[facility]/vagbirth.html Predicted chance of vaginal after : 76% Patient's plan for delivery mode: patient unsure, await operative report Eloise Randall MD documented as of this encounter (statuses as of 11/19/2022) [facility]2017 History of Past illness Narrative* Problem Noted Date Resolved Date Chronic hepatitis C affecting , antepar indio 03/31/2017 03/31/2017 Overview: 03/31/17 - diagnosed 2015 she thinks - KJ Heroin abuse affecting , antepartum 03/31/2017 Overview: 03/31/17 - no heroin use since 06/20, s/p rehab (finished 10/31/16), lives with her mom who is supportive - ALBERTO Asthma affecting , antepartum 03/31/2017 Depression affecting 03/31/2017 0 03/31/2017 Overview: 03/31/17 - patient also has anxiety with panic attacks, she stopped her meds with had positive hcg test, needs to see MD for this - KJ Previous delivery affecting 0 03/31/2017 03/31/2017 Overview: 03/31/17 - Risks/benefits/alternatives discussed with patient regarding trial of labor and potential for uterine rupture. Risks include but are not limited to maternal hemorrhage, risk of injury to adjacent organs including potential hysterectomy. risks discussed as well, including potential for permanent neurologic injury or . Overall uterine rupture risk is less than 1% after one section. Is a trial of labor contraindicated for this patient? Needs operative report If no, calculate rate of success using pre-labor factors: http://www.[facility]/vagbirth.html Predicted chance of vaginal after : 76% Patient's plan for delivery mode: patient unsure, await operative report Eloise Randall MD documented as of this encounter (statuses as of 11/23/2022) [facility]2017 History of Past illness Narrative* Problem Noted Date Resolved Date Chronic hepatitis C affecting , antepar indio 03/31/2017 03/31/2017 Overview: 03/31/17 - diagnosed 2014 she thinks - KJ Heroin abuse affecting , antepartum 03/31/2017 Overview: 03/31/17 - no heroin use since 06/20, s/p rehab (finished 10/31/16), lives with her mom who is supportive - KJ Asthma affecting , antepartum 7 03/31/2017 Depression affecting 03/31/2017 0 03/31/2017 Overview: 03/31/17 - patient also has anxiety with panic attacks, she stopped her meds with had positive hcg test, needs to see MD for this - KJ Previous delivery affecting 0 03/31/2017 03/31/2017 Overview: 03/31/17 - Risks/benefits/alternatives discussed with patient regarding trial of labor and potential for uterine rupture. Risks include but are not limited to maternal hemorrhage, risk of injury to adjacent organs including potential hysterectomy. risks discussed as well, including potential for permanent neurologic injury or . Overall uterine rupture risk is less than 1% after one section. Is a trial of labor contraindicated for this patient? Needs operative report If no, calculate rate of success using pre-labor factors: http://www.[facility]/vagbirth.html Predicted chance of vaginal after : 76% Patient's plan for delivery mode: patient unsure, await operative report Eloise Randall MD documented as of this encounter (statuses as of 11/24/2022) [facility]2017 History of Past illness Narrative* Problem Noted Date Resolved Date Chronic hepatitis C affecting , antepar indio 03/31/2017 03/31/2017 Overview: 03/31/17 - diagnosed 2014 she thinks - KJ Heroin abuse affecting , antepartum 03/31/2017 Overview: 03/31/17 - no heroin use since 06/20, s/p rehab (finished 10/31/16), lives with her mom who is supportive - KJ Asthma affecting , antepartum 7 03/31/2017 Depression affecting 03/31/2017 0 03/31/2017 Overview: 03/31/17 - patient also has anxiety with panic attacks, she stopped her meds with had positive hcg test, needs to see MD for this - KJ Previous delivery affecting 0 03/31/2017 03/31/2017 Overview: 03/31/17 - Risks/benefits/alternatives discussed with patient regarding trial of labor and potential for uterine rupture. Risks include but are not limited to maternal hemorrhage, risk of injury to adjacent organs including potential hysterectomy. risks discussed as well, including potential for permanent neurologic injury or . Overall uterine rupture risk is less than 1% after one section. Is a trial of labor contraindicated for this patient? Needs operative report If no, calculate rate of success using pre-labor factors: http://www.bs.[facility]/vagbirth.html Predicted chance of vaginal after : 76% Patient's plan for delivery mode: patient unsure, await operative report Eloise Randall MD documented as of this encounter (statuses as of 12/20/2022) [facility]2017 History of Past illness Narrative* Problem Noted Date Resolved Date Chronic hepatitis C affecting , antepar indio 03/31/2017 03/31/2017 Overview: 03/31/17 - diagnosed 2014 she thinks - KJ Heroin abuse affecting , antepartum 03/31/2017 Overview: 03/31/17 - no heroin use since 06/20, s/p rehab (finished 10/31/16), lives with her mom who is supportive - KJ Asthma affecting , antepartum 7 03/31/2017 Depression affecting 03/31/2017 0 03/31/2017 Overview: 03/31/17 - patient also has anxiety with panic attacks, she stopped her meds with had positive hcg test, needs to see MD for this - KJ Previous delivery affecting 0 03/31/2017 03/31/2017 Overview: 03/31/17 - Risks/benefits/alternatives discussed with patient regarding trial of labor and potential for uterine rupture. Risks include but are not limited to maternal hemorrhage, risk of injury to adjacent organs including potential hysterectomy. risks discussed as well, including potential for permanent neurologic injury or . Overall uterine rupture risk is less than 1% after one section. Is a trial of labor contraindicated for this patient? Needs operative report If no, calculate rate of success using pre-labor factors: http://www.[facility]/vagbirth.html Predicted chance of vaginal after : 76% Patient's plan for delivery mode: patient unsure, await operative report Eloise Randall MD documented as of this encounter (statuses as of 01/07/2023) [facility]2017 History of Past illness Narrative* Problem Noted Date Resolved Date Chronic hepatitis C affecting , antepar indio 03/31/2017 03/31/2017 Overview: 03/31/17 - diagnosed 2014 she thinks - KJ Heroin abuse affecting , antepartum 03/31/2017 Overview: 03/31/17 - no heroin use since 06/20, s/p rehab (finished 10/31/16), lives with her mom who is supportive - KJ Asthma affecting , antepartum 7 03/31/2017 Depression affecting 03/31/2017 0 03/31/2017 Overview: 03/31/17 - patient also has anxiety with panic attacks, she stopped her meds with had positive hcg test, needs to see MD for this - KJ Previous delivery affecting 0 03/31/2017 03/31/2017 Overview: 03/31/17 - Risks/benefits/alternatives discussed with patient regarding trial of labor and potential for uterine rupture. Risks include but are not limited to maternal hemorrhage, risk of injury to adjacent organs including potential hysterectomy. risks discussed as well, including potential for permanent neurologic injury or . Overall uterine rupture risk is less than 1% after one section. Is a trial of labor contraindicated for this patient? Needs operative report If no, calculate rate of success using pre-labor factors: http://www.[facility]/vagbirth.html Predicted chance of vaginal after : 76% Patient's plan for delivery mode: patient unsure, await operative report Eloise Randall MD documented as of this encounter (statuses as of 01/07/2023) [facility]2017 History of Past illness Narrative* Problem Noted Date Resolved Date Chronic hepatitis C affecting , antepar indio 03/31/2017 03/31/2017 Overview: 03/31/17 - diagnosed 2015 she thinks - KJ Heroin abuse affecting , antepartum 03/31/2017 Overview: 03/31/17 - no heroin use since 06/20, s/p rehab (finished 10/31/16), lives with her mom who is supportive - KJ Asthma affecting , antepartum 03/31/2017 Depression affecting 03/31/2017 0 03/31/2017 Overview: 03/31/17 - patient also has anxiety with panic attacks, she stopped her meds with had positive hcg test, needs to see MD for this - KJ Previous delivery affecting 0 03/31/2017 03/31/2017 Overview: 03/31/17 - Risks/benefits/alternatives discussed with patient regarding trial of labor and potential for uterine rupture. Risks include but are not limited to maternal hemorrhage, risk of injury to adjacent organs including potential hysterectomy. risks discussed as well, including potential for permanent neurologic injury or . Overall uterine rupture risk is less than 1% after one section. Is a trial of labor contraindicated for this patient? Needs operative report If no, calculate rate of success using pre-labor factors: http://www.[facility]/vagbirth.html Predicted chance of vaginal after : 76% Patient's plan for delivery mode: patient unsure, await operative report Eloise Randall MD documented as of this encounter (statuses as of 02/01/2023) [facility]2017 History of Past illness Narrative* Problem Noted Date Resolved Date Chronic hepatitis C affecting , antepar indio 03/31/2017 03/31/2017 Overview: 03/31/17 - diagnosed 2015 she thinks - KJ Heroin abuse affecting , antepartum 03/31/2017 Overview: 03/31/17 - no heroin use since 06/20, s/p rehab (finished 10/31/16), lives with her mom who is supportive - KJ Asthma affecting , antepartum 7 03/31/2017 Depression affecting 03/31/2017 0 03/31/2017 Overview: 03/31/17 - patient also has anxiety with panic attacks, she stopped her meds with had positive hcg test, needs to see MD for this - KJ Previous delivery affecting 0 03/31/2017 03/31/2017 Overview: 03/31/17 - Risks/benefits/alternatives discussed with patient regarding trial of labor and potential for uterine rupture. Risks include but are not limited to maternal hemorrhage, risk of injury to adjacent organs including potential hysterectomy. risks discussed as well, including potential for permanent neurologic injury or . Overall uterine rupture risk is less than 1% after one section. Is a trial of labor contraindicated for this patient? Needs operative report If no, calculate rate of success using pre-labor factors: http://www.[facility]/vagbirth.html Predicted chance of vaginal after : 76% Patient's plan for delivery mode: patient unsure, await operative report Eloise Randall MD documented as of this encounter (statuses as of 02/18/2023) [facility]-2017 History of Past illness Narrative* Problem Noted Date Diagnosed Date Resolved Date Chronic hepatitis C affectin g , antepartum 03/31/2017 03/31/2017 Overview: 03/31/17 - diagnosed 2015 she thinks - KJ Heroin abuse affecting , antepartum 03/31/2017 Overview: 03/31/17 - no heroin use since 06/20, s/p rehab (finished 10/31/16), lives with her mom who is supportive - ALBERTO Asthma affecting , antepartum 03/31/2017 03/31/2017 Depression affecting 03/31/2017 03/31/2017 Overview: 03/31/17 - patient also has anxiety with panic attacks, she stopped her meds with had positive hcg test, needs to see MD for this - KJ Previous delivery a ffecting 03/31/2017 03/31/2017 Overview: 03/31/17 - Risks/benefits/alternatives discussed with patient regarding trial of labor and potential for uterine rupture. Risks include but are not limited to maternal hemorrhage, risk of injury to adjacent organs including potential hysterectomy. risks discussed as well, including potential for permanent neurologic injury or . Overall uterine rupture risk is less than 1% after one section. Is a trial of labor contraindicated for this patient? Needs operative report If no, calculate rate of success using pre-labor factors: http://www.[facility]/vagbirth.html Predicted chance of vaginal after : 76% Patient's plan for delivery mode: patient unsure, await operative report Eloise Randall MD documented as of this encounter (statuses as of 03/18/2023) [facility]2017 History of Past illness Narrative* Problem Noted Date Diagnosed Date Resolved Date Chronic hepatitis C affectin g , antepartum 03/31/2017 03/31/2017 Overview: 03/31/17 - diagnosed 2014 she thinks - KJ Heroin abuse affecting , antepartum 7 03/31/2017 Overview: 03/31/17 - no heroin use since 06/20, s/p rehab (finished 10/31/16), lives with her mom who is supportive - KJ Asthma affecting , antepartum 03/31/2017 03/31/2017 Depression affecting 03/31/2017 03/31/2017 Overview: 03/31/17 - patient also has anxiety with panic attacks, she stopped her meds with had positive hcg test, needs to see MD for this - KJ Previous delivery a ffecting 03/31/2017 03/31/2017 Overview: 03/31/17 - Risks/benefits/alternatives discussed with patient regarding trial of labor and potential for uterine rupture. Risks include but are not limited to maternal hemorrhage, risk of injury to adjacent organs including potential hysterectomy. risks discussed as well, including potential for permanent neurologic injury or . Overall uterine rupture risk is less than 1% after one section. Is a trial of labor contraindicated for this patient? Needs operative report If no, calculate rate of success using pre-labor factors: http://www.[facility]/vagbirth.html Predicted chance of vaginal after : 76% Patient's plan for delivery mode: patient unsure, await operative report Eloise Randall MD documented as of this encounter (statuses as of 03/19/2023) [facility]2017 History of Past illness Narrative* Problem Noted Date Diagnosed Date Resolved Date Chronic hepatitis C affectin g , antepartum 03/31/2017 03/31/2017 Overview: 03/31/17 - diagnosed 2014 she thinks - KJ Heroin abuse affecting , antepartum 7 03/31/2017 Overview: 03/31/17 - no heroin use since 06/20, s/p rehab (finished 2/26/17), lives with her mom who is supportive - KJ Asthma affecting , antepartum 03/31/2017 03/31/2017 Depression affecting 03/31/2017 03/31/2017 Overview: 03/31/17 - patient also has anxiety with panic attacks, she stopped her meds with had positive hcg test, needs to see MD for this - KJ Previous delivery a ffecting 03/31/2017 03/31/2017 Overview: 03/31/17 - Risks/benefits/alternatives discussed with patient regarding trial of labor and potential for uterine rupture. Risks include but are not limited to maternal hemorrhage, risk of injury to adjacent organs including potential hysterectomy. risks discussed as well, including potential for permanent neurologic injury or . Overall uterine rupture risk is less than 1% after one section. Is a trial of labor contraindicated for this patient? Needs operative report If no, calculate rate of success using pre-labor factors: http://www.[facility]/vagbirth.html Predicted chance of vaginal after : 76% Patient's plan for delivery mode: patient unsure, await operative report Eloise Randall MD documented as of this encounter (statuses as of 05/05/2023) [facility] Appointment Date:06/22/2021 09:15:00 AM Scheduled Provider:BENJAMIN SANTILLAN, LOUIS Sommers Location:[facility] Appointment Type: OV Future Scheduled Tests Laboratory* Glucose Tolerance Test 3 Hour (AO) 05/14/21 * Pathology Technology Auditor Request 12/17/20 * Complete Blood Count 06/15/21 [facility] Evaluation + Plan note Future Appointments Appointment Date:07/06/2021 09:00:00 AM Scheduled Provider:CLIFFORD CARLOS MD Location:[facility] Appointment Type: OV OB Routine Follow Up Future Scheduled Tests Laboratory* Glucose Tolerance Test 3 Hour (AO) 05/14/21 * Pathology Technology Auditor Request 12/17/20 * Complete Blood Count 06/15/21 [facility] Evaluation note* Diagnosis Encounter for contraceptive management, unspecified type- Primary Subcutaneous mass Localized superficial swelling, mass, or lump [facility] Diagnosis Encounter for contraceptive management, unspecified type- Primary documented in this encounter [facility] note* Diagnosis Encounter for initial prescription of injectable contraceptive General counseling for initiation of other contraceptive measures documented in this encounter [facility] note* Diagnosis Anxiety and depression- Primary Dysthymic disorder Mild persistent asthma without complication Unspecified asthma Iron deficiency anemia, unspecified iron deficiency anemia type Fatigue, unspecified type Wellness examination documented in this encounter [facility] note* Diagnosis Subcutaneous mass Localized superficial swelling, mass, or lump [facility] Diagnosis Iron deficiency anemia secondary to inadequate dietary iron intake- Primary documented in this encounter [facility] note* Diagnosis Localized swelling, mass, or lump of left upper extremity- Primary documented in this encounter [facility] note* Diagnosis Anxiety and depression Dysthymic disorder documented in this encounter [facility] note* Diagnosis Anxiety and depression Dysthymic disorder documented in this encounter [facility] note* Diagnosis Iron deficiency anemia secondary to inadequate dietary iron intake [facility] Diagnosis Bacterial sinusitis- Primary Unspecified sinusitis (chronic) documented in this encounter [facility] note* Diagnosis Anxiety and depression Dysthymic disorder [facility] Diagnosis Sore throat- Primary Acute pharyngitis Flu-like symptoms Other general symptoms documented in this encounter [facility] note* Diagnosis Anxiety and depression Dysthymic disorder documented in this encounter [facility] note* Diagnosis Iron deficiency anemia secondary to inadequate dietary iron intake Anxiety and depression Dysthymic disorder [facility] Diagnosis Localized swelling, mass, or lump of left upper extremity [facility] Diagnosis Localized swelling, mass, or lump of left upper extremity- Primary [facility] Diagnosis Localized swelling, mass, or lump of left upper extremity documented in this encounter [facility] note* Diagnosis Anxiety and depression- Primary Dysthymic disorder Shoulder impingement syndrome, right documented in this encounter [facility] note* Diagnosis Anxiety and depression [facility]ysthymic disorder [facility] Right arm numbness- Primary Disturbance of skin sensation Arm mass, right [facility] Diagnosis Conjunctivitis of left eye, unspecified conjunctivitis type- Primary [facility] Diagnosis Anxiety and depression Dysthymic disorder documented in this encounter [facility] note* Diagnosis Shoulder impingement syndrome, right documented in this encounter [facility] note* Diagnosis Mild persistent asthma without complication Unspecified asthma documented in this encounter [facility] note* Diagnosis Anxiety and depression Dysthymic disorder documented in this encounter [facility] note* Diagnosis Recurrent cold sores- Primary Herpes simplex without mention of complication Need for emotional support documented in this encounter [facility] course Narrative No data available for this section [facility] Hospital Discharge instructions No data available for this section [facility] Reason for referral (narrative)* Diagnostic Procedure Only (Routine) - Authorized Specialty Diagnoses / Procedures Referred By Contac t Referred To Contact US IMAGING Diagnoses Subcutaneous mass Procedures US EXTREMITY MASS/FLUID COLLECTION No Andujar APRN.CNP [address] [place] [address] Us Imaging Referral ID Status Reason Start Date Expiration Date Visits Requested Visits Authorized [id number] Authorized Auto-Generat ed Referral 03/16/2022 04/15/20[address] [facility] for referral (narrative)* Diagnostic Procedure Only (Routine) - Closed Specialty Diagnoses / Procedures Referred By Contjamie t Referred To Contact US IMAGING Diagnoses Subcutaneous mass Procedures US EXTREMITY MASS/FLUID COLLECTION No Andujar APRN.CNP [address] [place] [address] Us Imaging Referral ID Status Reason Start Date Expiration Date V isits Requested Visits Authorized [id number] Closed Auto-Generate d Referral 03/16/2022 04/15/2023 1 1 [facility]* Diagnostic Procedure Only (Routine) - Closed Specialty Diagnoses / Procedures Referred By Emili t Referred To Contact US IMAGING Diagnoses Subcutaneous mass Procedures US EXTREMITY MASS/FLUID COLLECTION LT PodlogNo short APRN.CNP [address] [place] [address] Us Imaging Referral ID Status Reason Start Date Expiration Date V isits Requested Visits Authorized [id number] Closed Auto-Generate d Referral 03/16/2022 04/15/2023 1 1 [facility] Summary Purpose Family History No Family History Records FoundNo Family History Records FoundNo Family History Records FoundNo Family History Records Found Advance Directives No Advanced Directives Records FoundDocuments on File Type Date Recorded 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 Given 03/22/2022 11:39 AM EDT 150 mg Deltoid, Left Reason for Referral Specialty Diagnoses / Procedures Referred By Emili t Referred To Contact General Surgery Diagnoses Localized swelling, mass, or lump of left upper extremity Procedures CONSULT TO GENERAL SURGERY OFFICE/OUTPATIENT [facility] 60-74 MINUTES Luis A Clayton MD [address] [place] [address] Referral ID Status Reason Start Date Expiration Date Visits Requested Visits Authorized [id number] Authorized PCP Requested Referral 11/10/2022 11/10/2023 1 1 Specialty Diagnoses / Procedures Referred By Emili carreno Referred To Contact MR IMAGING Diagnoses Localized swelling, mass, or lump of left upper extremity Procedures MRI LOWER ARM WO/W IVCON LT MRI ANY JT UPPER EXTREMITY W/CONTRAST SANDRAL No Lindsay APRN.EXAMINER OF CURRENCY [address] [place] [address] Mr Imaging Referral ID Status Reason Start Date Expiration Date Visits Requested Visits Authorized [id number] Additional Clinical Info Needed Auto-Generat ed Referral 07/12/2022 08/11/2023 1 1 Specialty Diagnoses / Procedures Referred By Contjamie t Referred To Contact Diagnoses Mild persistent asthma without complication Ying Coronel APRN.EXAMINER OF CURRENCY [address] [place] [address] Referral ID Status Reason Start Date Expiration Date Visits Re quested Visits Authorized [id number] Closed 1 1 Health Concerns Infection Onset Date Last Indicated Resolved Time COVID-19 Rule-Out 08/31/2022 08/31/2022 08/31/2022 11:07 PM EST Additional Source Comments INFORMATION SOURCE (unrecogn ized section and content) DATE CREATED AUTHOR AUTHOR'S ORGANIZ ATION 07/13/2021 [facility] ([place] DATE CREATED AUTHOR AUTHOR'S ORGANIZ ATION 11/06/2022 [facility] DATE CREATED AUTHOR AUTHOR'S ORGANIZ ATION 05/06/2023 [facility] Source Comments (unrecognize d section and content) In the event this informatio n is protected by the Federal Confidentiality of Alcohol and Drug Abuse Patient Records regulations: The Federal rules restrict any use of the information to criminally investigate or prosecute any alcohol or drug abuse patient.[facility] the event this information is protected by the Federal Confidentiality of Alcohol and Drug Abuse Patient Records regulations: The Federal rules restrict any use of the information to criminally investigate or prosecute any alcohol or drug abuse patient.[facility] AndersonIn the event this information is protected by the Federal Confidentiality of Alcohol and Drug Abuse Patient Records regulations: The Federal rules restrict any use of the information to criminally investigate or prosecute any alcohol or drug abuse patient.[facility] AndersonIn the event this information is protected by the Federal Confidentiality of Alcohol and Drug Abuse Patient Records regulations: The Federal rules restrict any use of the information to criminally investigate or prosecute any alcohol or drug abuse patient.[facility] AndersonIn the event this information is protected by the Federal Confidentiality of Alcohol and Drug Abuse Patient Records regulations: The Federal rules restrict any use of the information to criminally investigate or prosecute any alcohol or drug abuse patient.[facility] AndersonIn the event this information is protected by the Federal Confidentiality of Alcohol and Drug Abuse Patient Records regulations: The Federal rules restrict any use of the information to criminally investigate or prosecute any alcohol or drug abuse patient.[facility] AndersonIn the event this information is protected by the Federal Confidentiality of Alcohol and Drug Abuse Patient Records regulations: The Federal rules restrict any use of the information to criminally investigate or prosecute any alcohol or drug abuse patient.[facility] AndersonIn the event this information is protected by the Federal Confidentiality of Alcohol and Drug Abuse Patient Records regulations: The Federal rules restrict any use of the information to criminally investigate or prosecute any alcohol or drug abuse patient.[facility] AndersonIn the event this information is protected by the Federal Confidentiality of Alcohol and Drug Abuse Patient Records regulations: The Federal rules restrict any use of the information to criminally investigate or prosecute any alcohol or drug abuse patient.[facility] AndersonIn the event this information is protected by the Federal Confidentiality of Alcohol and Drug Abuse Patient Records regulations: The Federal rules restrict any use of the information to criminally investigate or prosecute any alcohol or drug abuse patient.[facility] AndersonIn the event this information is protected by the Federal Confidentiality of Alcohol and Drug Abuse Patient Records regulations: The Federal rules restrict any use of the information to criminally investigate or prosecute any alcohol or drug abuse patient.[facility] AndersonIn the event this information is protected by the Federal Confidentiality of Alcohol and Drug Abuse Patient Records regulations: The Federal rules restrict any use of the information to criminally investigate or prosecute any alcohol or drug abuse patient.[facility] AndersonIn the event this information is protected by the Federal Confidentiality of Alcohol and Drug Abuse Patient Records regulations: The Federal rules restrict any use of the information to criminally investigate or prosecute any alcohol or drug abuse patient.[facility] AndersonIn the event this information is protected by the Federal Confidentiality of Alcohol and Drug Abuse Patient Records regulations: The Federal rules restrict any use of the information to criminally investigate or prosecute any alcohol or drug abuse patient.[facility] AndersonIn the event this information is protected by the Federal Confidentiality of Alcohol and Drug Abuse Patient Records regulations: The Federal rules restrict any use of the information to criminally investigate or prosecute any alcohol or drug abuse patient.[facility] AndersonIn the event this information is protected by the Federal Confidentiality of Alcohol and Drug Abuse Patient Records regulations: The Federal rules restrict any use of the information to criminally investigate or prosecute any alcohol or drug abuse patient.[facility] AndersonIn the event this information is protected by the Federal Confidentiality of Alcohol and Drug Abuse Patient Records regulations: The Federal rules restrict any use of the information to criminally investigate or prosecute any alcohol or drug abuse patient.[facility] AndersonIn the event this information is protected by the Federal Confidentiality of Alcohol and Drug Abuse Patient Records regulations: The Federal rules restrict any use of the information to criminally investigate or prosecute any alcohol or drug abuse patient.[facility] AndersonIn the event this information is protected by the Federal Confidentiality of Alcohol and Drug Abuse Patient Records regulations: The Federal rules restrict any use of the information to criminally investigate or prosecute any alcohol or drug abuse patient.[facility] AndersonIn the event this information is protected by the Federal Confidentiality of Alcohol and Drug Abuse Patient Records regulations: The Federal rules restrict any use of the information to criminally investigate or prosecute any alcohol or drug abuse patient.[facility] AndersonIn the event this information is protected by the Federal Confidentiality of Alcohol and Drug Abuse Patient Records regulations: The Federal rules restrict any use of the information to criminally investigate or prosecute any alcohol or drug abuse patient.[facility] AndersonIn the event this information is protected by the Federal Confidentiality of Alcohol and Drug Abuse Patient Records regulations: The Federal rules restrict any use of the information to criminally investigate or prosecute any alcohol or drug abuse patient.[facility] AndersonIn the event this information is protected by the Federal Confidentiality of Alcohol and Drug Abuse Patient Records regulations: The Federal rules restrict any use of the information to criminally investigate or prosecute any alcohol or drug abuse patient.[facility] AndersonIn the event this information is protected by the Federal Confidentiality of Alcohol and Drug Abuse Patient Records regulations: The Federal rules restrict any use of the information to criminally investigate or prosecute any alcohol or drug abuse patient.[facility] AndersonIn the event this information is protected by the Federal Confidentiality of Alcohol and Drug Abuse Patient Records regulations: The Federal rules restrict any use of the information to criminally investigate or prosecute any alcohol or drug abuse patient.[facility] AndersonIn the event this information is protected by the Federal Confidentiality of Alcohol and Drug Abuse Patient Records regulations: The Federal rules restrict any use of the information to criminally investigate or prosecute any alcohol or drug abuse patient.[facility] AndersonIn the event this information is protected by the Federal Confidentiality of Alcohol and Drug Abuse Patient Records regulations: The Federal rules restrict any use of the information to criminally investigate or prosecute any alcohol or drug abuse patient.[facility] AndersonIn the event this information is protected by the Federal Confidentiality of Alcohol and Drug Abuse Patient Records regulations: The Federal rules restrict any use of the information to criminally investigate or prosecute any alcohol or drug abuse patient.[facility] AndersonIn the event this information is protected by the Federal Confidentiality of Alcohol and Drug Abuse Patient Records regulations: The Federal rules restrict any use of the information to criminally investigate or prosecute any alcohol or drug abuse patient.[facility] AndersonIn the event this information is protected by the Federal Confidentiality of Alcohol and Drug Abuse Patient Records regulations: The Federal rules restrict any use of the information to criminally investigate or prosecute any alcohol or drug abuse patient.[facility] AndersonIn the event this information is protected by the Federal Confidentiality of Alcohol and Drug Abuse Patient Records regulations: The Federal rules restrict any use of the information to criminally investigate or prosecute any alcohol or drug abuse patient.[facility] AndersonIn the event this information is protected by the Federal Confidentiality of Alcohol and Drug Abuse Patient Records regulations: The Federal rules restrict any use of the information to criminally investigate or prosecute any alcohol or drug abuse patient.[facility] Reason for Visit (unrecogniz ed section and content) Reason Comments Orders Reason Comments Imm/Inj depo provera Reason Comments Depression And anxiety, started when had to come off meds so its been there since pregnacy baby will be a year old Tuesday. Reason Comments Results Appointment Reason Comments Results Reason Comments Behavioral Health Social Work Reason Onset Date Comments Refill Request 07/22/2022 Reason Comments Refill Request Reason Comments Ear Pain R ear pain x1 week Reason Onset Date Comments Refill Request 08/16/2022 Reason Comments Sinus Problem sinus pressure, drai nage, chest burning, cough and sore throat x 2 days Reason Comments Work Excuse Letter Reason Comments Results Reason Onset Date Comments Refill Request 10/04/2022 Reason Onset Date Comments Refill Request 10/24/2022 Specialty Diagnoses / Procedures Referred By Contac t Referred To Contact MR IMAGING Diagnoses Localized swelling, mass, or lump of left upper extremity Procedures MRI LOWER ARM WO/W IVCON LT MRI ANY JT UPPER EXTREMITY W/CONTRAST MATRL PodlogNo short APRN.NAVIN [address] [place] [address] Mr Imaging Referral ID Status Reason Start Date Expiration Date V isits Requested Visits Authorized [id number] Closed Auto-Generat ed Referral Clearance Not Met - Admin/Chairm an/Director Advise to Postpone/Res chedule or Not Proceed Clearance Not Met - Pt Rescheduled/ Cancelled/Ch ose Not to Proceed 08/09/2022 10/08/2022 1 1 Reason Comments Consult Mass or lump of left extremity Specialty Diagnoses / Procedures Referred By Contac t Referred To Contact General Surgery Diagnoses Localized swelling, mass, or lump of left upper extremity Procedures CONSULT TO GENERAL SURGERY OFFICE/OUTPATIENT [facility] 60-74 MINUTES Luis A Clayton MD [address] [place] [address] Referral ID Status Reason Start Date Expiration Date V isits Requested Visits Authorized [id number] Closed PCP Requested Referral 11/10/2022 11/10/2023 1 1 Reason Comments Anxiety Reason Comments Patient Question Reason Comments Procedure Excision of uncertai n subcutaneous lesion left forearm Reason Onset Date Comments Refill Request 01/07/2023 Reason Comments Eye Problem Red irritated left e ye x 5 days Reason Onset Date Comments Refill Request 02/17/2023 Reason Onset Date Comments Refill Request 03/18/2023 Reason Comments Medication Follow-up Requested rx for co ld sores, needs letter- emotional support animal Care Teams (unrecognized sec tion and content) Plating Engineer Relationship Specialty Start Date End Date Ellis Prather, DO [address] [place] [address] PCP - General Family Practice 02/11/14 Plating Engineer Relationship Specialty Start Date End Date Ellis Prather, DO [address] [place] [address] PCP - General Family Practice 02/11/14 Plating Engineer Relationship Specialty Start Date End Date Ellis Prather, DO [address] [place] [address] PCP - General Family Medicine 02/11/14 Plating Engineer Relationship Specialty Start Date End Date Ellis Prather, DO [address] [place] [address] PCP - General Family Medicine 02/11/14 Plating Engineer Relationship Specialty Start Date End Date Ellis Prather, DO [address] [place] [address] PCP - General Family Medicine 02/11/14 Plating Engineer Relationship Specialty Start Date End Date Ellis Prather, DO [address] [place] [address] PCP - General Family Medicine 02/11/14 Plating Engineer Relationship Specialty Start Date End Date Ellis Prather, DO [address] [place] [address] PCP - General Family Medicine 02/11/14 Plating Engineer Relationship Specialty Start Date End Date Ellis Prather, DO [address] [place] [address] PCP - General Family Medicine 02/11/14 Plating Engineer Relationship Specialty Start Date End Date Ellis Prather, DO [address] [place] [address] PCP - General Family Medicine 02/11/14 Plating Engineer Relationship Specialty Start Date End Date Ellis Prather, DO [address] [place] [address] PCP - General Family Medicine 02/11/14 Plating Engineer Relationship Specialty Start Date End Date Ellis Prather, DO [address] [place] [address] PCP - General Family Medicine 02/11/14 Plating Engineer Relationship Specialty Start Date End Date Elils Prather, DO [address] [place] [address] PCP - General Family Medicine 02/11/14 Plating Engineer Relationship Specialty Start Date End Date Ellis Prather, DO [address] [place] [address] PCP - General Family Medicine 02/11/14 Plating Engineer Relationship Specialty Start Date End Date Ellis Prather, DO [address] [place] [address] PCP - General Family Medicine 02/11/14 Plating Engineer Relationship Specialty Start Date End Date Ellis Prather, DO [address] [place] [address] PCP - General Family Medicine 02/11/14 Plating Engineer Relationship Specialty Start Date End Date Ellis Prather, DO [address] [place] [address] PCP - General Family Medicine 02/11/14 Plating Engineer Relationship Specialty Start Date End Date Ellis Prather, DO [address] [place] [address] PCP - General Family Medicine 02/11/14 Plating Engineer Relationship Specialty Start Date End Date Ellis Prather DO [address] [place] [address] PCP - General Family Medicine 02/11/14 Plating Engineer Relationship Specialty Start Date End Date Ellis Prather DO [address] [place] [address] PCP - General Family Medicine 02/11/14 Plating Engineer Relationship Specialty Start Date End Date Ellis Prather DO [address] [place], [place] [address] PCP - General Family Medicine 02/11/14 Plating Engineer Relationship Specialty Start Date End Date Ellis Prather, DO [address] [place], [place] [address] PCP - General Family Medicine 02/11/14 FOR RECORDS PERTAINING TO PATIENTS WHO ARE OR HAVE BEEN ENROLLED IN A CHEMICAL DEPENDENCY/SUBSTANCEABUSE PROGRAM, SOME INFORMATION MAY BE OMITTED. This clinical summary was aggregated from multiple sources. Caution should be exercised in using it in the provision of clinical care. This summary normalizes information from multiple sources, and as a consequence, information in this document may materially change the coding, format and clinical context of patient data. In addition, data may be omitted in some cases. CLINICAL DECISIONS SHOULD BE BASED ON THE PRIMARY CLINICAL RECORDS. [facility]. provides no warranty or guarantee of the accuracy or completeness of information in this document.
[2023-10-15 11:51] VITALS: BP 115/80; PULSE 101; RESP 16; O2SAT 99
== END 2023-10-15 11:53 | disposition home or self-care (01) ==
LOC: ED 09:49
PROVIDERS: Emergency Provider Emergency Medicine; PCP Student in an Organized Health Care Education/Training Program; Visit Provider Emergency Medicine
DX: L02.01 Cutaneous abscess of face (principal); F17.210 Nicotine dependence, cigarettes, uncomplicated; Z86.14 Personal history of Methicillin resistant Staphylococcus aureus infection
CPT/HCPCS: 10060; 99283

== ENCOUNTER 2025-02-06 14:53 | Emergency (ER) | payer MEDICAID, SELFPAY ==
[2025-02-06 14:55] VITALS: BP 115/85; PULSE 125; RESP 18; TEMP 36.7; O2SAT 98; BMI 22.1
[2025-02-06 14:57] VITALS: BP 115/85; PULSE 125; RESP 18; TEMP 36.7; O2SAT 98
[2025-02-06 15:57] VITALS: BP 120/78; PULSE 78; RESP 15; TEMP 36.6; O2SAT 98
--- NOTE | 2025-02-06 16:33 | RAD_ITS ---
PROCEDURE: HAND MIN 3 VIEWS 02/06/2025 REASON FOR EXAM: INDEX FINGER INJURY TECHNIQUE: Three views of the right hand COMPARISON: None FINDINGS: No acute fracture or dislocations. Mild soft tissue edema about the 2nd phalanx. No radiographic foreign body. RAD/Hand Min 3 Views IMPRESSION: No acute fracture or dislocations. Mild soft tissue edema about the 2nd phalanx . No radiographic foreign body. Reading Location: [id number]
--- NOTE | 2025-02-06 16:36 | EDS_ITS ---
HPI History of Present Illness Chief Complaint: Upper Extremity Injury Narrative Narrative: Patient is a 34-year-old female with past medical history of asthma who presents to the emergency department with a chief complaint of right index finger pain. Patient does not recall any specific injuries to her finger but is concerned that she may have infection and feels that she may need antibiotic. States that she has been taking ibuprofen it has helped her pain some but notes that her pain kept her up all night therefore she came here for further evaluation management. PFSH PFSH Medical History Asthma Home Medications ?Medication ?Instructions ?Recorded ?Last Taken ?Type clindamycin HCl 300 mg capsule 300 mg PO Q6H 10 days # 40 CAPSULES 10/15/23 Unknown Rx (Cleocin HCl) doxycycline hyclate 100 mg capsule 100 mg PO BID 5 day s #10 caps 02/06/25 Unknown Rx Allergy/AdvReac Type Severity Reaction Status Date / Time sulfamethoxazole (From Allergy Vomiting Verified 02/06/25 14:55 Bactrim) trimethoprim (From Bactrim) Allergy Vomiting Verified 02/06/25 14:55 Surgical History H/O section Social History household members: significant other and children housing: apartment Smoking Status: Current every day smoker tobacco type: cigarettes ROS ROS ED ROS Narrative Constitutional: Denies any fevers, chills, headaches Neurological: Denies numbness, wheeze, tingling Musculoskeletal: Complains of right index finger injury/pain as noted above with swelling EXAM Physical Exam Narrative Exam Narrative: General: Patient lying in bed did appear to be uncomfortable secondary to pain Head: Atraumatic, normocephalic Eyes: PERRL bilaterally, EOMI bilateral, no conjunctival injection noted Neck: Soft, supple, trachea midline Cardiovascular: Regular in rhythm no murmurs gallops rubs noted patient tachycardia is resolved Respiratory: Clear to auscultation bilaterally Extremities: Patient's right index finger just distal to the distal interphalangeal joint is swollen and red she also has some ecchymosis noted under the nail bed that is roughly 15% of the nail. No concern for flexor tenosynovitis Neurological: Patient follow commands and that she was at [facility] year is 2024. Sensation grossly intact in the median ulnar radial nerve distribution bilaterally, radial pulses +2/4 in the bilateral upper extremities Skin: Patient has swelling and erythema to the right index finger as noted above no pustules or other lesions noted Const Vital Signs: 02/06/25 14:55 02/06/25 14:57 02/06/25 15:57 Temperature 98.1 F 98.1 F 98 F Temperature Source Oral Oral Oral Pulse Rate 125 H 125 H 78 Respiratory Rate 18 18 15 Blood Pressure 115/85 H 115/85 H 120/78 Blood Pressure Mean 95 95 92 Pulse Ox 98 98 98 Oxygen Delivery Method Room Air Room Air MDM MDM MDM Narrative Medical decision making narrative: Patient is a 34-year-old female who presents to the emergency department with a chief complaint of right finger pain and redness and swelling as noted above. On the differential diagnosis includes but not limited to tuft fracture, felon, paronychia, cellulitis. Once workup is obtained reviewed she will be reevaluated. Patient's hand x-ray reviewed by myself by radiology showed no acute fracture dislocation there is mild soft tissue edema about the second phalanx no radiogr aphic foreign body noted. Patient had a digital block performed in the second digit on the volar aspect after appropriate antiseptic was applied. 2 cc of 1% lidocaine without epinephrine injected to perform digital block patient tolerated procedure well. Patient had the paronychia drained with purulent material discharge. She tolerated the procedure well. Patient will be placed on doxycycline and was advised to follow-up with her primary care physician outpatient setting. She was advised to return for worsening symptoms or concerns. She is agreeable this plan all question concerns answered she is discharged home in stable condition. Patient tetanus shot will be updated today. Patient given first dose of doxycycline here in the emergency department. Prescription sent to the [facility]. Procedure note Timeout protocol was performed prior to initiating procedure. The area was prepped and draped in the usual, sterile manner. The site was anesthetized with 1 percent lidocaine without epinephrine. A linear incision along the local skin lines were made and the purulent material expressed from the second phalanx from her paronychia. The abscess was explored thoroughly and sequestered pockets were opened. Bleeding was minimal. Packing none Follow-up: The patient tolerated procedure well without complications. Standard postprocedure care is explained and return precautions were given. Discharge Plan Triage Chief Complaint: Upper Extremity Injury ED Provider: Huang Basurto Dx/Rx/DC Orders Clinical Impression: Paronychia of right index finger Prescriptions: New doxycycline hyclate 100 mg capsule 100 mg PO BID 5 Days Qty: 10 0RF No Action clindamycin HCl [Cleocin HCl] 300 mg capsule 300 mg PO Q6H 10 Days Qty: 40 0RF Primary Care Provider: Ellis Arnett Referrals: Ellis Arnett DO [Primary Care Provider] - Activity Restrictions/Additional Instructions: Take antibiotics as prescribed. Your tetanus shot was updated today. Follow-up your doctor in outpatient setting. If you are having worsening swelling and pain or any other concerns with your fingers you need to return immediately to the emergency department. Rotate Tylenol and ibuprofen [id number] for pain control when you do that she can take something every 3 hours. Max dose of Tylenol in 24 hours 4000 mg max dose of ibuprofen 24 hours 3200 mg. Print Language: Citizen Of [place] Disposition Disposition: Home, Self Care
--- NOTE | 2025-02-06 16:36 | ED.RN ---
THIS RN IS IN PT ROOM ASKING PT QUESTIONS ABOUT INJURY TO FINGER. PT IS APPEARING TO BE FALLING ASLEEP WHILE TALKING TO THIS RN. THIS RN WAKES PT UP MULTIPLE TIMES AND ASKS PT IF SHE IS FEELING OKAY. PT STATES SHE WAS UP ALL NIGHT BECAUSE HER FINGER HURTS. PT THEN APPEARS TO FALL ASLEEP AGAIN MID SENTENCE WITH THIS RN. THIS RN WAKES PT UP AGAIN AND ASKS IF PT HAS TAKEN ANY DRUGS TODAY. PT STATES `I DO NOT DABBLE IN THAT SHIT NO IM JUST TIRED`
[2025-02-06] MEDS: Lidocaine 1% (20 ml mdv) 20 ML Vial 10 ML INFILT (17:59)
[2025-02-06] MEDS: Doxycycline 100 MG CAPSULE PO (17:59)
[2025-02-06 18:46] VITALS: BP 120/78; PULSE 78; RESP 15; TEMP 36.6; O2SAT 98
[2025-02-06] MEDS: Diphth,Pertuss(Acell),Tet Vac 0.5 ML Vial IM (18:53)
--- OUTSIDE RECORDS SUMMARY | 2025-02-06 22:05 | XMS RPT_ITS | CCD ---
Author Organization [facility] Care Team Providers Care Program Writer Name Role Phone ELLIS ARNETT DO Primary Care Physician Ellis Arnett DO Primary Care Provider Ellis Arnett DO Primary Care Provider Ellis Arnett DO Primary Care Provider PODLOGNO KWOK Referring Unavailable ARNETT, ELLIS Salmon Primary Care Unavailable PODLOGNO KWOK Referring Unavailable ARNETTELLIS L Primary Care Unavailable Arnett, Ellis Primary Care Unavailable Juvenal Kim Attending Unavailable Dilip Grey Attending Unavailable Arnett, Ellis Primary Care Unavailable Martell Lopez Attending Unavailable Arnett, Ellis Primary Care Unavailable Arnett DO Ellis Luis Antonio Primary Care Provider Nehemias SURGICAL INSTRUMENT MAKER.Ying HOLDEN Unavailable 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.Marya HOLDEN Unavailable ANTOINE VERAS MD Attending Unavailable ARNETT DO, ELLIS Primary Care Unavailable ARNETT, ELLIS L Primary Care Unavailable ARNETT, ELLIS L Primary Care Unavailable KEVIN MAYA Attending Unavailable ARNETT, ELLIS Luis Antonio Primary Care Unavailable ARNETT, ELLIS L Referring Unavailable ARNETT, ELLIS L Primary Care Unavailable SHAW GUEVARA Attending Unavailable MELQUIADES, ELLIS Luis Antonio Primary Care Unavailable SHAW GUEVARA Attending Unavailable MELQUIADES, ELLIS Luis Antonio Primary Care Unavailable SHAW GUEVARA Attending Unavailable ARNETT, ELLIS L Primary Care Unavailable Allergies Allergy Classification Reported Allergen(s) Allergy Type Date of Onset Reaction(s) Facility Sulfamethoxazole / Trimethoprim (1 source) Sulfamethoxazole / Trimethoprim Drug Allergy 07-07-20 Other: See Comments [facility] (20 sources) Sulfamethoxazole / Trimethoprim; Translations: [sulfamethoxazole-tr imethoprim] Drug Allergy 07-07-20 Other: See Comments [facility] (4 sources) Sulfamethoxazole Drug Allergy 01-07-20 [facility] [place] (4 sources) Trimethoprim Drug Allergy 01-07-20 [facility] (2 sources) Sulfamethoxazole / Trimethoprim; Translations: [SULFAMETHOXAZOLE-TR IMETHOPRIM] Drug Allergy 07-07-20 [facility] Other [facility] [place] [facility] (1 source) Sulfamethoxazole Drug Allergy 05-14-20 [facility] (1 source) Trimethoprim Drug Allergy 05-14-20 [facility] Medications Current Medications Medication Drug Class(es) Dates Sig (Normalized) Sig (Original) [id number] 200 actuat albuterol 0.09 mg/actuat metered dose inhaler (20 sources) beta2-Adrenergic Agonist Start: 03-26-2021 End: 09-30-2024 take 2 puff(s) by inhalation every four hours as needed for wheezing albuterol HFA (PROVENTIL HFA, VENTOLIN HFA) 90 mcg/actuation inhaler Inhale 2 Puffs as instructed every 4 hours as needed for wheezing/shortness of breath. 8 g 4 10/01/2024 Active Comment on above: Inhale 2 Puffs as in structed every 4 hours as needed for wheezing/shortness of breath. Albuterol (Eqv-Proventil HFA) 90 mcg/inh inhalation aerosol (2 sources) Start: 04-27-2021 take 2 puff(s) by inhalation every four hours as needed for wheezing Albuterol (Eqv-Proventil HFA) 90 mcg/inh inhalation aerosol INHALE 2 PUFFS INSTRUCTED EVERY 4 HOURS NEEDED FOR WHEEZING/SHORTNESS OF BREATH. Start Date: 04/27/21 Status: Ordered amoxicillin 875 mg oral tablet (4 sources) Penicillin-class Antibacterial Start: 12-10-2024 End: 12-17-2024 take 1 tablet by mouth twice daily amoxicillin (AMOXIL) 875 mg tablet Indications: Other acute nonsuppurative otitis media of right ear, recurrence not specified Take 1 tablet by mouth two times a day for 7 days. 14 tablet 12/10/2024 12/17/2024 Active amoxicillin 875 mg / clavulanate 125 mg oral tablet (2 sources) Penicillin-class Antibacterial Start: 08-09-2022 End: 08-16-2022 take 1 tablet by mouth twice daily amoxicillin-clavul anic acid (AUGMENTIN) 875-125 mg per tablet Take 1 tablet by mouth twice daily for 7 days. 14 tablet 0 08/09/2022 08/16/2022 Active Comment on above: Take 1 tablet by chauncey twice daily for 7 days. amphetamine aspartate 2.5 mg / amphetamine sulfate 2.5 mg / dextroamphetamine saccharate 2.5 mg / dextroamphetamine sulfate 2.5 mg oral tablet (20 sources) Central Nervous System Stimulant Start: 10-05-2024 End: 08-08-2024 take 1 tablet by mouth once daily dextroamphetamine- amphetamine (ADDERALL) 10 mg tablet Indications: Depression with anxiety , Medication management Take 1 tablet by mouth once daily for 30 days. Patient should start on October 05, 2024. 30 tablet 10/05/2024 08/08/2024 Discontinued Start: 10-02-2024 End: 11-01-2024 take 1 tablet by mouth once daily dextroamphetamine-amphetamine (ADDERALL) 10 mg tablet Indications: Adult ADHD Take 1 tablet by mouth once daily for 30 days. 30 tablet 10/02/2024 Active Start: 09-05-2024 End: 08-08-2024 dextroamphetamine-amphetamin e (ADDERALL) 10 mg tablet Indications: Depression with anxiety , Medication management Take 1 tablet by mouth once daily for 30 days. Patient should start on September 05, 2024. 30 tablet 09/05/2024 08/08/2024 Discontinued Start: 03-27-2024 End: 11-04-2024 take 1 tablet by mouth once daily dextroamphetamine-amphetamine (ADDERALL) 10 mg tablet Indications: Adult ADHD Take 1 tablet by mouth once daily for 30 days. 30 tablet 06/30/2024 10/01/2024 Discontinued Start: 02-24-2024 End: 03-25-2024 take 1 tablet by mouth once daily dextroamphetamine-amphetamine (ADDERALL) 10 mg tablet Indications: Adult ADHD Take 1 tablet by mouth once daily for 30 days. 30 tablet 0 02/24/2024 03/24/2024 Discontinued Start: 11-21-2023 End: 02-19-2024 take 1 tablet by mouth once daily dextroamphetamine-amphetamine (ADDERALL) 10 mg tablet Indications: Adult ADHD Take 1 tablet by mouth once daily for 30 days. 30 tablet 0 01/20/2024 02/19/2024 Active Start: 11-08-2023 End: 12-08-2023 take 1 tablet by mouth once daily dextroamphetamine-amphetamine (ADDERALL) 5 mg tablet Indications: Adult ADHD Take 1 tablet by mouth once daily for 30 days. 30 tablet 0 11/08/2023 11/21/2023 Discontinued Comment on above: Take 1 tablet by chauncey once daily for 30 days. clindamycin 300 mg oral capsule (1 source) Lincosamide Antibacterial Start: 10-15-19 take 1 capsule by mouth every six hours Clindamycin Hcl (Cleocin Hcl) 300 mg capsule Active 300 MG PO EVERY 6 HOURS 40 October 15, 2023 12:00am Combivent Respimat CFC free 20 mcg-100 mcg/inh inhalation aerosol (2 sources) Start: 04-27-20 take 1 dose by inhalation four times daily Combivent Respimat CFC free 20 mcg-100 mcg/inh inhalation aerosol Dose = 1 puff(s), Inhalation, QID, # 4 gram(s), 0 Refill(s) Start Date: 04/27/21 Status: Ordered COMPOUNDED PRESCRIPTION (20 sources) Start: 02-21-20 COMPOUNDED PRESCRIPTION AIR CONDITIONER DX ASTHMA J45.909 1 Each 02/20/2018 Active Start: 02-20-2018 COMPOUNDED PRE SCRIPTION AIR CONDITIONER DX ASTHMA J45.909 1 Each 0 02/20/2018 Active Comment on above: AIR CONDITIONER DX A STA J45.909 cyclobenzaprine hydrochloride 10 mg oral tablet (20 sources) Muscle Relaxant Start: 01-18-20 End: 10-15-19 take 1 tablet by mouth three times daily as needed for muscle spasms cyclobenzaprine (FLEXERIL) 10 mg tablet Indications: Shoulder impingement syndrome, right Take 1 tablet by mouth three times daily as needed for muscle spasm. 30 tablet 03/18/2023 Active Start: 11-22-2022 take 1 tablet by chauncey th three times daily as needed for muscle spasms cyclobenzaprine (FLEXERIL) 10 mg tablet Indications: Shoulder impingement syndrome, right Take 1 tablet by mouth three times daily as needed for muscle spasm. 30 tablet 0 11/22/2022 Active Comment on above: Take 1 tablet by chauncey th three times daily as needed for muscle spasm. doxycycline hyclate 100 mg oral tablet (2 sources) Tetracycline-class Drug Start: 11-18-19 End: 11-28-19 take 1 tablet by mouth twice daily doxycycline (VIBRA-TABS) 100 mg tablet Indications: Cellulitis of face Take 1 tablet by mouth two times a day for 10 days. 20 tablet 0 11/18/2023 11/28/2023 Active Comment on above: Take 1 tablet by chauncey th two times a day for 10 days. famotidine 20 mg oral tablet (1 source) Histamine-2 Receptor Antagonist Start: 06-29-20 End: 08-28-20 Pepcid 20 mg oral tablet Dose : 20 mg = 1 tab(s), Oral, BID, # 60 tab(s), 1 Refill(s), Pharmacy: [facility]/pharmacy #[id number], 150, cm, 06/29/21 10:02:00 EDT, Height, kg, 03/25/21 11:12:00 EDT, Dosing Weight Start Date: 06/29/21 Stop Date: 08/28/21 Status: Ordered ferrous gluconate 324 mg oral tablet (2 sources) Start: 06-04-20 End: 08-03-20 take 1 tablet by mouth twice daily ferrous gluconate 324 mg (38 mg elemental iron) oral tablet See Instructions, TAKE 1 TABLET BY MOUTH TWICE A DAY, # 60 tab(s), 1 Refill(s), Pharmacy: [facility] STORE [id number], 150, cm, 06/22/21 9:36:00 EDT, Height, kg, 03/25/21 11:12:00 EDT, Dosing Weight Start Date: 06/29/21 Status: Ordered hydrOXYzine hydrochloride 10 mg oral tablet (20 sources) Antihistamine Start: 04-22-20 take 1 tablet by mouth three times daily hydrOXYzine HCl (ATARAX) 10 mg tablet Take 10 mg by mouth three times daily. 04/22/2023 Active Start: 04-21-2021 take 1 capsule by [facility] once daily as needed for anxiety hydrOXYzine pamoate 25 mg oral capsule See Instructions, TAKE 1 CAPSULE BY MOUTH EVERY DAY NEEDED FOR ANXIETY, # 30 cap(s), 1 Refill(s), Pharmacy: [facility] STORE [id number], 150, cm, 03/25/21 11:12:00 EDT, Height, kg, 03/25/21 11:12:00 EDT, Dosing Weight Start Date: 04/21/21 Status: Ordered Comment on above: Take 10 mg by mouth three times daily. Inhalational Spacing Device (1 source) Start: 03-18-20 End: 03-18-20 Inhalational Spacing Device 1 Device one time only for 1 dose. 1 Each 0 03/18/2023 03/18/2023 Active Comment on above: 1 Device one time on ly for 1 dose. iv contrast (will be provided with radiology test) (1 source) Start: 07-12-20 End: 07-13-20 iv contrast (will be provided with radiology test) MRI lower arm LT Inject, intravenously, once for 1 dose. No IV access, insert saline lock prior to the beginning of sedation, infusion, injection of imaging exam. Discontinue saline lock post exam. If Pt. has a central line or IVAD, may access for administration according to line specific nursing protocol. Once exam is complete flush line and de-access according to line specific nursing protocol in the MR contrast administration guidelines link. 1 Each 0 07/12/2022 07/13/2022 Active Comment on above: MRI lower arm LT Inj ect, intravenously, once for 1 dose. No IV access, insert saline lock prior to the beginning of sedation, infusion, injection of imaging exam. Discontinue saline lock post exam. If Pt. has a central line or IVAD, may access for administration according to line specific nursing protocol. Once exam is complete flush line and de-access according to line specific nursing protocol in the MR contrast administration guidelines link. 1 ml medroxyPROGESTERone acetate 150 mg/ml prefilled syringe (20 sources) Progestin Start: 03-17-20 End: 02-17-20 medroxyPROGESTERone 150 mg injection (DEPO-PROVERA) Start: 10-02-2019 End: 07-07-2022 medroxyPROGESTERone (DEPO-NC OVERA) 150 mg/mL injection Indications: Initiation of Depo Provera Inject 1 mL intramuscularly every 12 weeks. 1 mL 2 03/16/2022 07/07/2022 Discontinued Comment on above: Inject 1 mL intramus cularly every 12 weeks. melatonin 10 mg extended release oral tablet (1 source) Start: take 10 mg by mouth at bedtime Melatonin Active 10 MG PO AT BEDTIME September 21, 2020 4:04am naproxen 500 mg oral tablet (2 sources) Nonsteroidal Anti-inflammatory Drug Start: take 1 tablet by mouth twice daily as needed for pain naproxen (NAPROSYN) 500 mg tablet Indications: Right ear pain Take 1 tablet by mouth two times a day as needed (FOR PAIN - TAKE WITH FOOD.). 20 tablet 12/21/2024 Active {14 (24 HR Nicotine 0.292 MG/HR Transdermal Patch) / 14 (24 HR Nicotine 0.583 MG/HR Transdermal Patch) / 28 (24 HR Nicotine 0.875 MG/HR Transdermal Patch) } Pack (2 sources) Cholinergic Nicotinic Agonist Start: apply 1 dose transdermal route once daily nicotine patch 14-7mg TAPER (Disch Rx) Dose = 1 EA, Transdermal, qDay, # 1 kit(s), 0 Refill(s), Pharmacy: [facility]/pharmacy #[id number], 150, cm, 03/25/21 11:12:00 EDT, Height, kg, 03/25/21 11:12:00 EDT, Dosing Weight Start Date: 03/26/21 Status: Ordered olopatadine 1 mg/ml ophthalmic solution (2 sources) Histamine-1 Receptor Inhibitor Start: 023 End: 023 take 1 drop(s) into the eye(s) twice daily olopatadine (PATANOL) 0.1 % ophthalmic solution Indications: Conjunctivitis of left eye, unspecified conjunctivitis type Use 1 Drop in the left eye twice daily for 30 days. 5 mL 0 02/01/2023 03/03/2023 Active Comment on above: Use 1 Drop in the le ft eye twice daily for 30 days. predniSONE 20 mg oral tablet (13 sources) Start: 025 End: take 1 tablet by mouth once daily predniSONE (DELTASONE) 20 mg tablet Indications: Eustachian tube dysfunction, right Take 1 tablet by mouth once daily for 3 days. 3 tablet 12/12/2024 12/15/2024 Active Start: 11-18-2023 End: 08-06-2024 take 1 tablet by mouth once daily predniSONE (DELTASONE) 20 mg tablet Indications: Cellulitis of face Take 1 tablet by mouth once daily. X 5 days. 5 tablet 11/18/2023 08/06/2024 Discontinued (Course of therapy completed) Comment on above: Take 1 tablet by chauncey th once daily. X 5 days. valACYclovir 1000 mg oral tablet (2 sources) Herpesvirus Nucleoside Analog DNA Polymerase Inhibitor, Herpes Simplex Virus Nucleoside Analog DNA Polymerase Inhibitor, Herpes Zoster Virus Nucleoside Analog DNA Polymerase Inhibitor Start: End: take 2 tablets by mouth once daily valACYclovir (VALTREX) 1 gram tablet Indications: Recurrent cold sores Take 2 tablets by mouth once daily for 7 days. 28 tablet 1 02/07/2024 02/14/2024 Active Start: 05-05-2023 End: 05-12-2023 take 2 tablets by mouth once daily valACYclovir (VALTREX) 1 gram Indications: Recurrent cold sores Take 2 tablets by mouth once daily for 7 days. 28 tablet 1 05/05/2023 05/12/2023 Active Comment on above: Take 2 tablets by mo [facility] once daily for 7 days. 24 hr venlafaxine 75 mg extended release oral capsule (20 sources) Serotonin and Norepinephrine Reuptake Inhibitor Start: 12-27-19 take 1 capsule by mouth once daily venlafaxine ER (EFFEXOR XR) 75 mg 24 hr capsule Indications: Depression with anxiety Take 1 capsule by mouth once daily. 30 capsule 5 12/26/2024 Active Start: 11-05-2024 take 1 tablet by chauncey th once daily venlafaxine (EFFEXOR) 37.5 mg tablet Indications: Depression with anxiety Take 1 tablet by mouth once daily. 30 tablet 5 11/05/2024 Active Start: 04-22-2023 End: 11-05-2024 venlafaxine (EFFEXOR) 37.5 m g tablet Indications: Depression with anxiety Take 1/4 tablet by mouth for 4 days, then 1/2 tablet daily x4 days, then 1 tablet daily after dinner. 30 tablet 5 08/06/2024 11/05/2024 Discontinued Comment on above: Take 1/4 tablet by m outh for 4 days, then 1/2 tablet daily x4 days, then 1 tablet daily after dinner. Completed/Discontinued Medications Medication Drug Class(es) Dates Sig (Normalized) Sig (Original) acetaminophen 325 mg / HYDROcodone bitartrate 5 mg oral tablet (12 sources) Opioid Agonist Start: 12-26-2024 End: 12-29-2024 take 1 tablet by mouth every eight hours as needed for pain HYDROcodone-aceta minophen (NORCO) 5-325 mg per tablet Indications: Otalgia, right ear , Right non-suppurative otitis media Take 1 tablet by mouth every 8 hours as needed for pain for up to 3 days. 9 tablet 12/26/2024 12/29/2024 Start: 02-27-2023 End: 10-15-2023 take 1 tablet by mouth every four hours as needed Hydrocodone-Acetaminophen Discontinued 1 TABLET PO EVERY 4 HOURS NEEDED 10 February 27, 2023 October 15, 2023 9:32am Start: 07-04-2020 End: 07-07-2020 take 1 tablet by mouth every six hours as needed Hydrocodone-Acetaminophen Discontinued 1 TABLET PO EVERY 6 HOURS NEEDED 06 07July 04, 2020 July 07, 2020 12:02am Start: 09-07-2018 End: 09-09-2018 take 1 tablet by mouth every four hours as needed Hydrocodone-Acetaminophen Discontinued 1 TABLET PO EVERY 4 HOURS NEEDED 10 September 07, 2018 12:00am September 09, 2018 12:07am acetaminophen 325 mg / oxyCODONE hydrochloride 5 mg oral tablet (3 sources) Opioid Agonist Start: 05-14-2023 End: 10-15-2023 take 1 tablet by mouth every eight hours Oxycodone-Acetaminophen (Percocet) 5-325 mg tablet Discontinued 1 TABLET PO Q8H 06 07May 14, 2023 October 15, 2023 9:32am Start: 01-06-2022 take 1 tablet by chauncey th every six hours Oxycodone-Acetaminophen (Percocet) 5-325 mg tablet Active 1 TABLET PO EVERY 6 HOURS 08 07January 06, 2022 9:31am ALPRAZolam 0.25 mg oral tablet (20 sources) Benzodiazepine Start: 01-20-2023 End: 04-17-2023 take 1 tablet by mouth once daily as needed ALPRAZolam (XANAX) 0.25 mg tablet Indications: Anxiety and depression Take 1 tablet by mouth once daily as needed for up to 30 days. 30 tablet 0 02/17/2023 03/18/2023 Discontinued Start: 11-24-2022 End: 12-24-2022 take 1 tablet by mouth once daily as needed ALPRAZolam (XANAX) 0.25 mg tablet Indications: Anxiety and depression Take 1 tablet by mouth once daily as needed for up to 30 days. 30 tablet 0 11/24/2022 12/24/2022 Active Start: 11-22-2022 End: 11-22-2022 take 1 tablet by mouth twice daily as needed ALPRAZolam (XANAX) 0.25 mg tablet Indications: Anxiety and depression Take 1 tablet by mouth twice daily as needed for up to 30 days. 60 tablet 0 11/22/2022 11/22/2022 Discontinued Start: 10-04-2022 End: 11-25-2022 take 2 tablets by mouth twice daily as needed ALPRAZolam (XANAX) 0.25 mg tablet Indications: Anxiety and depression Take 2 tablets by mouth twice daily as needed for up to 30 days. 60 tablet 0 10/26/2022 11/22/2022 Discontinued Start: 07-22-2022 End: 09-15-2022 take 2 tablets by mouth twice daily as needed ALPRAZolam (XANAX) 0.25 mg tablet Indications: Anxiety and depression Take 2 tablets by mouth twice daily as needed for up to 30 days. 60 tablet 0 08/16/2022 09/15/2022 Active Start: 07-07-2022 End: 08-06-2022 take 1 tablet by mouth once daily as needed ALPRAZolam (XANAX) 0.25 mg tablet Indications: Anxiety and depression Take 1 tablet by mouth once daily as needed for up to 30 days. 30 tablet 0 07/07/2022 07/22/2022 Discontinued Comment on above: Take 1 tablet by chauncey once daily as needed for up to 30 days. Take 2 tablets by mo [facility] twice daily as needed for up to 30 days. Take [address] tablet [address] [facility] twice daily as needed for up to 30 days. ARIPiprazole 2 mg oral tablet (4 sources) Atypical Antipsychotic Start: 04-22-20 End: 11-21-19 take 0.5 tablet by mouth once daily in the morning ARIPiprazole (ABILIFY) 2 mg tablet TAKE 1/2 (ONE-HALF) OF A TABLET BY MOUTH EVERY MORNING 0 04/22/2023 11/21/2023 Discontinued Comment on above: TAKE 1/2 (ONE-HALF) OF A TABLET BY MOUTH EVERY MORNING ascorbic acid 1000 mg oral tablet (20 sources) Vitamin C Start: 07-12-20 End: 11-18-19 take 1 tablet by mouth once daily Ascorbic Acid 1,000 mg tablet Indications: Iron deficiency anemia secondary to inadequate dietary iron intake TAKE 1 TABLET BY MOUTH EVERY DAY 30 tablet 5 08/04/2022 11/18/2023 Discontinued Comment on above: Take [address] [facility] once daily. TAKE 1 TABLET BY [facility] EVERY DAY ciprofloxacin 3 mg/ml ophthalmic solution (9 sources) Quinolone Antimicrobial Start: 02-02-20 End: 11-21-19 take 1 drop(s) into the eye(s) four times daily ciprofloxacin HCl (CILOXAN) 0.3 % ophthalmic solution Indications: Conjunctivitis of left eye, unspecified conjunctivitis type Use 1 Drop in the left eye four times daily. 5 mL 0 02/01/2023 11/21/2023 Discontinued Start: 02-01-2023 take 1 drop(s) into the eye(s) four times daily ciprofloxacin HCl (CILOXAN) 0.3 % ophthalmic solution Indications: Conjunctivitis of left eye, unspecified conjunctivitis type Use 1 Drop in the left eye four times daily. 5 mL 0 02/01/2023 Active Comment on above: Use 1 Drop in the le ft eye four times daily. DULoxetine 20 mg delayed release oral capsule (20 sources) Serotonin and Norepinephrine Reuptake Inhibitor Start: 11-23-19 End: 08-06-20 take 1 capsule by mouth once daily DULoxetine (CYMBALTA) 20 mg capsule Indications: Anxiety and depression Take 1 capsule by mouth once daily. 90 capsule 11/22/2022 08/06/2024 Discontinued Comment on above: Take 1 capsule by [facility] once daily. 24 hr ferrous sulfate 142 mg extended release oral tablet (20 sources) Start: 10-26-19 End: 08-06-20 take 1 tablet by mouth twice daily at mealtime Ferrous Sulfate (SLOW FE) 142 mg (45 mg iron) TbER Indications: Iron deficiency anemia secondary to inadequate dietary iron intake Take 1 tablet by mouth twice daily with meals. 60 tablet 5 10/26/2022 08/06/2024 Discontinued Start: 08-04-2022 End: 10-24-2022 take 1 tablet by mouth twice daily at mealtime SLOW FE 142 mg (45 mg iron) TbER Indications: Iron deficiency anemia secondary to inadequate dietary iron intake TAKE 1 TABLET BY MOUTH TWICE A DAY WITH MEALS 60 tablet 5 08/04/2022 10/24/2022 Discontinued Start: 07-12-2022 End: 08-04-2022 take 1 tablet by mouth twice daily at mealtime ferrous sulfate (SLOW FE) 140 mg (45 mg iron) TbER Indications: Iron deficiency anemia secondary to inadequate dietary iron intake Take 1 tablet by mouth twice daily with meals. 60 tablet 5 07/12/2022 08/04/2022 Discontinued Comment on above: Take 1 tablet by chauncey twice daily with meals. TAKE 1 TABLET BY CHAUNCEY TH TWICE A DAY WITH MEALS FLUoxetine 10 mg oral capsule (7 sources) Serotonin Reuptake Inhibitor Start: 2021 take 1 capsule by mouth once daily FLUoxetine (PROZAC) 10 mg capsule Indications: Anxiety and depression Take 1 capsule by mouth once daily. 30 capsule 2 07/07/2022 Active Comment on above: Take 1 capsule by [facility] once daily. lactobacillus rhamnosus gg [id number] unt oral capsule (1 source) Start: 2020 End: 2021 take 1 capsule by mouth once daily lactobacillus rhamnosus (CULTURELLE) 10 billion cell capsule Take 1 capsule by mouth once daily for 10 days. 10 capsule 0 09/23/2020 03/16/2022 Discontinued (Course of therapy completed) Comment on above: Take 1 capsule by [facility] once daily for 10 days. meloxicam 15 mg oral tablet (3 sources) Nonsteroidal Anti-inflammatory Drug Start: 2022 End: 2023 take 15 mg by mouth once daily Meloxicam Discontinued 15 MG PO DAILY February 26, 2023 11:00pm October 15, 2023 9:32am methylPREDNISolone 4 mg oral tablet (1 source) Corticosteroid Start: 2020 End: 2021 methylPREDNISolone (MEDROL, MADDIE,) 4 mg Dose-Pack Take by mouth. As directed on package 1 Package 0 09/23/2020 03/16/2022 Discontinued (Course of therapy completed) Comment on above: Take by mouth. As di rected on package oseltamivir 75 mg oral capsule (2 sources) Neuraminidase Inhibitor Start: 2021 End: 2022 take 1 capsule by mouth twice daily oseltamivir (TAMIFLU) 75 mg capsule Indications: Flu-like symptoms Take 1 capsule by mouth twice daily for 5 days. 10 capsule 0 08/31/2022 09/05/2022 Comment on above: Take 1 capsule by mo [facility] twice daily for 5 days. PARoxetine hydrochloride 10 mg oral tablet (12 sources) Serotonin Reuptake Inhibitor Start: 2021 End: 2022 take 1 tablet by mouth once daily PARoxetine (PAXIL) 10 mg tablet Indications: Anxiety and depression Take 1 tablet by mouth once daily. 90 tablet 0 08/04/2022 11/22/2022 Discontinued (Patient chooses alternative therapy) Comment on above: Take [address] [facility] once daily. Multivitamins with FA 0.8 mg oral tablet (2 sources) Start: 2020 End: 2024 take 1 tablet by mouth once daily Multivitamins with FA 0.8 mg oral tablet Dose = 1 tab(s), Oral, qDay, # 30 tab(s), 6 Refill(s), Pharmacy: [facility]/pharmacy #[id number], 150, cm, 06/01/21 9:32:00 EDT, Height, kg, 03/25/21 11:12:00 EDT, Dosing Weight Start Date: 06/01/21 Stop Date: 11/12/24 Status: Ordered QUEtiapine 100 mg oral tablet (15 sources) Atypical Antipsychotic Start: 2022 End: 2023 take 1 tablet by mouth once daily at bedtime QUEtiapine (SEROQUEL) 100 mg tablet Take 100 mg by mouth daily at bedtime. 04/22/2023 08/06/2024 Discontinued Start: 06-15-2021 SEROquel 25 mg oral tablet Dose : 25 mg = 1 tab(s), Oral, BID, increase by one tab daily to two tabs (50mg) bid., # 60 tab(s), 0 Refill(s), Pharmacy: [facility]/pharmacy #[id number], 35 weeks gestation of Previous delivery, antepartum, 150, cm, 06/15/21 9:29:00 EDT, Hei... Start Date: 06/15/21 Status: Ordered Comment on above: Take 100 mg by mouth daily at bedtime. Problems Active Problems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 SPECIMENOrdering Facility: [facility] Address: [address] [place] [address] Performed By: #### U QNTX ####[facility] LABIA [id number] [place] [address] [place] SPECIMEN VALIDITY, URINEon 0 - CREATININE,URINE 13.0 mg/dL Low 20.0-300.0 [facility] Comment on above: Order Comment: Speci men Type: URINE SPECIMENOrdering Facility: [facility] Address: [address] [place] [address] Performed By: #### L [id number] ####[facility] LABCLIA [id number] [place] [id number] [place] NITRITES,URINE <50 Normal <500 [facility] Comment on above: Order Comment: Speci men Type: URINE SPECIMENOrdering Facility: [facility] Address: [address] [place] [address] Performed By: #### L [id number] ####[facility] LABCLIA [id number] [address] [place] [address] [place] OXIDANTS,URINE <38 Normal <200 [facility] Comment on above: Order Comment: Speci men Type: URINE SPECIMENOrdering Facility: [facility] Address: [address] [place] [address] Performed By: #### L [id number] ####[facility] LABCLIA [id number] [place] [address] [place] pH (U) 9.3 [pH] High 4.5-8.0 [facility] Comment on above: Order Comment: Speci men Type: URINE SPECIMENOrdering Facility: [facility] Address: [address] [place] [address] Performed By: #### L [id number] ####[facility] LABCLIA [id number] [place] [address] [place] SPEC GRAVITY,UR 1.017 Normal 1.003-1.03 5 [facility] Comment on above: Order Comment: Speci men Type: URINE SPECIMENOrdering Facility: [facility] Address: [address] [place] [address] Performed By: #### L [id number] ####[facility] LABCLIA [id number] [place] [address] [place] SPECIMEN VALIDITY QUALITY Specimen quality results within acceptable limits Normal [facility] Comment on above: Order Comment: Speci men Type: URINE SPECIMENOrdering Facility: [facility] Address: [address] [place] [address] Performed By: #### L [id number] ####[facility] LABCLIA [id number] [place] [id number] [place] TOXICOLOGY SCREEN, ROUTINE U RINEon 12-26-2024 Amphetamines Confirm (U) [Mass/Vol] Negative Normal Negative [facility] Comment on above: Order Comment: Speci men Type: URINE SPECIMENOrdering Facility: [facility] Address: [address] [place], [place] [id number] Result Comment: Cuto ff threshold at 1000 ng/mL. Performed By: #### U TOX2 ####[facility] LABCLIA [id number] [place] [address] [place] BARBITURATES, URINE Negative Normal Negative [facility] Comment on above: Order Comment: Speci men Type: URINE SPECIMENOrdering Facility: [facility] Address: [address] [place] [address] Result Comment: Cuto ff threshold at 200 ng/mL. Performed By: #### U TOX2 ####[facility] LABCLIA [id number] [place] [address] [place] BENZODIAZEPINES, UR Negative Normal Negative [facility] Comment on above: Order Comment: Speci men Type: URINE SPECIMENOrdering Facility: [facility] Address: [address] [place] [address] Result Comment: Cuto ff threshold at 200 ng/mL. Performed By: #### U TOX2 ####[facility] LABCLIA [id number] [place] [address] [place] Cannabinoids Screen Ql (U) Negative Normal Negative [facility] Comment on above: Order Comment: Speci men Type: URINE SPECIMENOrdering Facility: [facility] Address: [address] [place] [address] Result Comment: Cuto ff threshold at 50 ng/mL. Performed By: #### U TOX2 ####[facility] LABCLIA [id number] [place] [address] [place] Cocaine Ql (U) Negative Normal Negative [facility] Comment on above: Order Comment: Speci men Type: URINE SPECIMENOrdering Facility: [facility] Address: [address] [place] [address] Result Comment: Cuto ff threshold at 300 ng/mL. Performed By: #### U TOX2 ####[facility] LABCLIA [id number] [place] [address] [place] Ethanol (U) [Mass/Vol] <11 Normal <11 [facility] Comment on above: Order Comment: Speci men Type: URINE SPECIMENOrdering Facility: [facility] Address: [address] [place] [address] Performed By: #### U TOX2 ####[facility] LABIA [id number] [place] [address] [place] Opiates Screen Ql (U) Negative Normal Negative [facility] Comment on above: Order Comment: Speci men Type: URINE SPECIMENOrdering Facility: [facility] Address: [address] [place] [address] Result Comment: Cuto ff threshold at 300 ng/mL. Performed By: #### U TOX2 ####[facility] LABIA [id number] [address] [place] oxyCODONE cutoff Screen (U) [Mass/Vol] Negative Normal Negative [facility] Comment on above: Order Comment: Speci men Type: URINE SPECIMENOrdering Facility: [facility] Address: [address] [place] [address] Result Comment: Cuto ff threshold at 100 ng/mL. Performed By: #### U TOX2 ####[facility] LABIA [id number] [place] [address] [place] Phencyclidine Ql (U) Negative Normal Negative [facility] Comment on above: Order Comment: Speci men Type: URINE SPECIMENOrdering Facility: [facility] Address: [address] [place] [address] Result Comment: Cuto ff threshold at 25 ng/mL. Performed By: #### U TOX2 ####[facility] LABIA [id number] [place] [address] [place] CNPKatya 12-20-2024 CNPN Telephone (FAMPWS) SHERLYN AMIN ([id number]) 1990 F Date Time Provider Department 12/20/24 [facility] During your visit today, we recorded the following information about you: Lidia Ayers RN 12/20/2024 10:26 AM Signed Patient calls and states that she continues to have right ear pain. Patient was previously prescribed antibiotics and prednisone by [facility]. Patient is not happy with [facility] and now has an appointment with [facility] on Tuesday12/25/2024. Patient reports that she went to [facility] ER and was told that her ear drum was perforated. ER took her off of antibiotic and prednisone because they had told her that medication would not work for problem. Patient was then referred to ENT again. Patient has ringing in her ear and cracking/popping sounds. Patient has a lot of pain in Right ear. Patient asking if there is anything provider would recommend to get her to appointment on Tuesday when she sees ENT? Patient is using Flonase nasal spray and Ibuprofen. Please review and advise, WARD Rowland Rebekah, APRN.NAVIN 12/21/2024 1:37 PM Signed I can send prn naproxen for the pain. Otherwise there is nothing else we can do from our standpoint. She could try heat to her ear like a hot water bottle or rice sock for relief. The following approved medication requests have been transmitted electronically. Requested Prescriptions Signed Prescriptions Disp Refills naproxen (NAPROSYN) 500 mg tablet 20 tablet 0 Sig: Take 1 tablet by mouth two times a day as needed (FOR PAIN - TAKE WITH FOOD.). Authorizing Provider: ELLIS ARNETT Ordering User: MARYA FRANCOIS APRN.Lidia Tabares RN 12/21/2024 1:46 PM Signed TC patient, left message for patient to call back and speak with a triage nurse regarding provider instructions. WARD Rowland Stephanie, RN 12/24/2024 12:06 PM Signed My Chart message sent to patient regarding provider's message. Lidia Ayers RN Allergies As of Date: 12/20/2024 Noted Allergy Reaction BACTRIM (SULFAMETHOXAZOLE-TRIMETH*1 09/06/2019 14 - Other: See Comments Comments: Sick to stomach, chest tightness, FLORES Date Reviewed: 12/14/2024 Reviewed by: Isaias Roberson LPN - Fully Assessed Reason for Visit: Patient Question [1477] Primary Visit Diagnosis:Right ear pain [H92.01] Order(s):naproxen (NAPROSYN) 500 mg tabletTake 1 tablet by mouth two times a day as needed (FOR PAIN - TAKE WITH FOOD.).Disp: 20 tabletRfl: 0 Prescriptions as of 12/24/2024 - naproxen (NAPROSYN) 500 mg tablet Take 1 tablet by mouth two times a day as needed (FOR PAIN - TAKE WITH FOOD.). - venlafaxine (EFFEXOR) 37.5 mg tablet Take 1 tablet by mouth once daily. - dextroamphetamine-amphetami ne (ADDERALL) 10 mg tablet Take 1 tablet by mouth once daily for 30 days. - albuterol HFA (PROVENTIL HFA, VENTOLIN HFA) 90 mcg/actuation inhaler Inhale 2 Puffs as instructed every 4 hours as needed for wheezing/shortness of breath. - hydrOXYzine HCl (ATARAX) 10 mg tablet Take 10 mg by mouth three times daily. - cyclobenzaprine (FLEXERIL) 10 mg tablet Take 1 tablet by mouth three times daily as needed for muscle spasm. - COMPOUNDED PRESCRIPTION AIR CONDITIONER DX ASTHMA J45.909 Problem List As Of Date 12/20/2024 Noted Resolved Depression with anxiety [F41.8] 12/18/2010 Tobacco use disorder [F17.200] 06/11/2013 Right arm numbness [R20.0] 07/11/2014 Mild persistent asthma without complication [J4*11/28/2015 Heroin addiction (HCC) [F11.20] 11/18/2016 Chronic hepatitis C affecting , antepa*03/31/2017 03/31/2017 Heroin abuse affecting , antepartum [O*03/31/2017 03/31/2017 Asthma affecting , antepartum [O99.519*03/31/2017 03/31/2017 Depression affecting [O99.340, F32.A] 03/31/2017 03/31/2017 Previous delivery affecting *03/31/2017 03/31/2017 Chronic hepatitis C without hepatic coma (HCC) *09/26/2017 Prescriptions ordered this encounter Disp Refills Start End NAPROXEN 500 MG TABLET 20 t* 0 12/21/2024 Route: ORAL Sig: Take 1 tablet by mouth two times a day as needed (FOR PAIN - TAKE WITH FOOD.). Encounter Status:Closed by LIDIA AYERS on 12/24/24 [facility] ([id number]) 1990 F Date Time Provider Department 12/19/24 [facility] During your visit today, we recorded the following information about you: Rachel Ball LPN 12/19/2024 10:27 AM Signed Patient did call regarding right ear issue. Was not at all happy with [facility] evaluation. States she was told that she was impatient that she needed to give the flonase more time to work and more prednisone. Did go to [facility] 12/18/24 and was told that she did not have an infection and that she had a perforated eardrum. Question what she should do? Did tell her that she needed to see ENT and could try a different ENT. Call was transferred to scheduling office. Allergies As of Date: 12/19/2024 Noted Allergy Reaction BACTRIM (SULFAMETHOXAZOLE-TRIMETH*1 09/06/2019 14 - Other: See Comments Comments: Sick to stomach, chest tightness, FLORES Date Reviewed: 12/14/2024 Reviewed by: Hambel, Sherill A, [employer] - Fully Assessed Reason for Visit: Ear Problem [38] Prescriptions as of 12/19/2024 - venlafaxine (EFFEXOR) 37.5 mg tablet Take 1 tablet by mouth once daily. - dextroamphetamine-amphetami ne (ADDERALL) 10 mg tablet Take 1 tablet by mouth once daily for 30 days. - albuterol HFA (PROVENTIL HFA, VENTOLIN HFA) 90 mcg/actuation inhaler Inhale 2 Puffs as instructed every 4 hours as needed for wheezing/shortness of breath. - hydrOXYzine HCl (ATARAX) 10 mg tablet Take 10 mg by mouth three times daily. - cyclobenzaprine (FLEXERIL) 10 mg tablet Take 1 tablet by mouth three times daily as needed for muscle spasm. - COMPOUNDED PRESCRIPTION AIR CONDITIONER DX ASTHMA J45.909 Problem List As Of Date 12/19/2024 Noted Resolved Depression with anxiety [F41.8] 12/18/2010 Tobacco use disorder [F17.200] 06/11/2013 Right arm numbness [R20.0] 07/11/2014 Mild persistent asthma without complication [J4*11/28/2015 Heroin addiction (HCC) [F11.20] 11/18/2016 Chronic hepatitis C affecting , antepa*03/31/2017 03/31/2017 Heroin abuse affecting , antepartum [O*03/31/2017 03/31/2017 Asthma affecting , antepartum [O99.519*03/31/2017 03/31/2017 Depression affecting [O99.340, F32.A] 03/31/2017 03/31/2017 Previous delivery affecting *03/31/2017 03/31/2017 Chronic hepatitis C without hepatic coma (HCC) *09/26/2017 Encounter Status:Closed by RACHEL BALL on 12/19/24 [facility] 12-14-2024 CNOV Office Visit (INTMWS ) SHERLYN AMIN ([id number]) 1990 F Date Time Provider Department 12/14/24 2:00 PM SHAW GUEVARA INTReynoldWS During your visit today, we recorded the following information about you: Temperature Pulse Respiration Blood pressure 97.7 degrees 91/minute 18/minute 112/84 Weight 51.5 kg Shaw Guevara MD 12/14/2024 2:39 PM Signed This note was created using Include Fitnessriter. Subjective Patient presents with: Ear Problem: Right ear not improving, having trouble hearing PCP DO Sherlyn Lyman Eloisa is a 34 year old female. She was treated for right sided acute otitis media at 12/10 with amoxicillin. I saw her for follow up 12/12 and gave her prednisone x 3 days for eustachian tube dysfunction. Her hearing loss was not better. Ear drainage resolved but she continued with ear pain and tinnitus. . Review of Systems HENT: Positive for ear pain, hearing loss and tinnitus. Negative for congestion, ear discharge and sore throat. Respiratory: Negative. ACTIVE PROBLEM LIST Depression With Anxiety Tobacco Use Disorder Right Arm Numbness Mild Persistent Asthma Without Complication (Hcc) Heroin Addiction (Hcc) Chronic Hepatitis C Without Hepatic Coma (Hcc) Social History Tobacco Use Smoking status: Former Average packs/day: 0.2 packs/day for 5.0 years (1.0 ttl pk-yrs) Types: Cigarettes Start date: 01/04/2024 Quit date: 2023 Years since quittin.2 Smokeless tobacco: Never Tobacco comments: 4-5 cigarettes per day Vaping Use Vaping status: Never Used Substance Use Topics Alcohol use: Yes Comment: social Drug use: No Current Outpatient Medications Medication Sig predniSONE (DELTASONE) 20 mg tablet Take 1 tablet by mouth once daily for 3 days. amoxicillin (AMOXIL) 875 mg tablet Take 1 tablet by mouth two times a day for 7 days. venlafaxine (EFFEXOR) 37.5 mg tablet Take 1 tablet by mouth once daily. dextroamphetamine-amphetami ne (ADDERALL) 10 mg tablet Take 1 tablet by mouth once daily for 30 days. albuterol HFA (PROVENTIL HFA, VENTOLIN HFA) 90 mcg/actuation inhaler Inhale 2 Puffs as instructed every 4 hours as needed for wheezing/shortness of breath. hydrOXYzine HCl (ATARAX) 10 mg tablet Take 10 mg by mouth three times daily. cyclobenzaprine (FLEXERIL) 10 mg tablet Take 1 tablet by mouth three times daily as needed for muscle spasm. COMPOUNDED PRESCRIPTION AIR CONDITIONER DX ASTHMA J45.909 No current facility-administered medications for this visit. Objective BP 112/84 (BP Site: Left Arm, BP Position: Sitting, BP Cuff Size: Regular Adult) Pulse 91 Temp 36.5 ?C (97.7 ?F) Resp 18 Wt 51.5 kg (113 lb 8.6 oz) LMP 02/14/2022 SpO2 100% BMI 22.93 kg/m? Physical Exam Constitutional: General: She is not in acute distress. Appearance: She is not ill-appearing. HENT: Right Ear: Decreased hearing noted. No drainage. There is hemotympanum. Tympanic membrane is perforated and retracted. Left Ear: Tympanic membrane normal. Ears: Comments: Tympanic membrane less erythematous. Fissure or linear perforation and small area of hemorrhage inferiorly. Nose: Congestion present. No rhinorrhea. Mouth/Throat: Pharynx: Oropharynx is clear. Assessment and Plan 1. Right non-suppurative otitis media - ICD9: 381.4, ICD10: H65.91 (primary diagnosis) - CONSULT TO ENT 2. Hearing loss of right ear, unspecified hearing loss type - ICD9: 389.9, ICD10: H91.91 - CONSULT TO ENT Referral to [facility]. Patient indicated understanding and willingness to follow recommendations. Shaw Guevara MD Allergies As of Date: 12/14/2024 Noted Allergy Reaction BACTRIM (SULFAMETHOXAZOLE-TRIMETH*1 09/06/2019 14 - Other: See Comments Comments: Sick to stomach, chest tightness, FLORES Date Reviewed: 12/14/2024 Reviewed by: Isaias Roberson LPN - Fully Assessed Reason for Visit: Ear Problem [38] Cmt: Right ear not improving, having trouble hearing Primary Visit Diagnosis:Right non-suppurative otitis media [H65.91] Other Visit Diagnosis:Hearing loss of right ear, unspecified hearing loss type [H91.91] Order(s):CONSULT TO ENT [9008] Order #: [id number]: 1 FUTURE Prescriptions as of 12/14/2024 - predniSONE (DELTASONE) 20 mg tablet Take 1 tablet by mouth once daily for 3 days. - amoxicillin (AMOXIL) 875 mg tablet Take 1 tablet by mouth two times a day for 7 days. - venlafaxine (EFFEXOR) 37.5 mg tablet Take 1 tablet by mouth once daily. - dextroamphetamine-amphetami ne (ADDERALL) 10 mg tablet Take 1 tablet by mouth once daily for 30 days. - albuterol HFA (PROVENTIL HFA, VENTOLIN HFA) 90 mcg/actuation inhaler Inhale 2 Puffs as instructed every 4 hours as needed for wheezing/shortness of breath. - hydrOXYzine HCl (ATARAX) 10 mg tablet Take 10 mg by mouth three times daily. - cyclobenzaprine (FLEXERIL) 10 mg tablet Take 1 tabl (more content not included)... Normal [facility] CNOVon 12-12-2024 CNOV Office Visit (INTMWS ) SHERLYN AMIN ([id number]) 1990 F Date Time Provider Department 12/12/24 4:20 PM SHAW GUEVARA INTMWS During your visit today, we recorded the following information about you: Temperature Pulse Respiration Blood pressure 98.6 degrees 92/minute 16/minute 118/74 Weight 52.4 kg Shaw Guevara MD 12/12/2024 5:15 PM Signed This note was created using NoteWriter. Subjective Sherlyn Amin is a 34 year old female. PCP Ellis Arnett, DO The patient consented to the use of Tradono software for draft documentation of the visit consistent with [facility]?s Notice of Privacy Practices. Patient presents with: Ear Problem Sherlyn is a 34-year-old female presenting with concerns about her ear not healing. Sherlyn was seen at urgent care on Tuesday for an ear infection and sinusitis and was prescribed amoxicillin. She reports that her ear feels the same or worse since then, with persistent pain and drainage. She also notes a difference in hearing, describing it as ringy and hollow. She denies any previous ear problems except for one ear infection earlier this year. She also reports swelling inside her mouth and around her ear. She denies fever today but had one on Tuesday. She is still taking amoxicillin and ibuprofen 600 mg. She also reports that her sinus infection is improving, and her congestion is getting better. She denies being diabetic. Review of Systems Constitutional: (-) fever, (+) generalized discomfort Ears/Nose/Mouth/Throat: (+) ear pain, (+) hearing changes, (+) ear discharge, (+) congestion, (+) mouth swelling, (+) tinnitus ACTIVE PROBLEM LIST Depression With Anxiety Tobacco Use Disorder Right Arm Numbness Mild Persistent Asthma Without Complication (Hcc) Heroin Addiction (Hcc) Chronic Hepatitis C Without Hepatic Coma (Hcc) Social History Tobacco Use Smoking status: Former Average packs/day: 0.2 packs/day for 5.0 years (1.0 ttl pk-yrs) Types: Cigarettes Start date: 01/04/2024 Quit date: 2023 Years since quittin.2 Smokeless tobacco: Never Tobacco comments: 4-5 cigarettes per day Vaping Use Vaping status: Never Used Substance Use Topics Alcohol use: Yes Comment: social Drug use: No Current Outpatient Medications Medication Sig amoxicillin (AMOXIL) 875 mg tablet Take 1 tablet by mouth two times a day for 7 days. venlafaxine (EFFEXOR) 37.5 mg tablet Take 1 tablet by mouth once daily. albuterol HFA (PROVENTIL HFA, VENTOLIN HFA) 90 mcg/actuation inhaler Inhale 2 Puffs as instructed every 4 hours as needed for wheezing/shortness of breath. hydrOXYzine HCl (ATARAX) 10 mg tablet Take 10 mg by mouth three times daily. cyclobenzaprine (FLEXERIL) 10 mg tablet Take 1 tablet by mouth three times daily as needed for muscle spasm. COMPOUNDED PRESCRIPTION AIR CONDITIONER DX ASTHMA J45.909 dextroamphetamine-amphetami ne (ADDERALL) 10 mg tablet Take 1 tablet by mouth once daily for 30 days. No current facility-administered medications for this visit. Objective BP 118/74 (BP Site: Left Arm, BP Position: Sitting, BP Cuff Size: Large Adult) Pulse 92 Temp 37 ?C (98.6 ?F) (Temporal) Resp 16 Wt 52.4 kg (115 lb 8.3 oz) LMP 02/14/2022 BMI 23.33 kg/m? Physical Exam Constitutional: General: She is not in acute distress. Appearance: She is not ill-appearing. HENT: Right Ear: External ear normal. Decreased hearing noted. No drainage or tenderness. No middle ear effusion. Tympanic membrane is erythematous and retracted. Tympanic membrane is not perforated. Left Ear: Tympanic membrane and external ear normal. Nose: Congestion and rhinorrhea present. Rhinorrhea is purulent. Right Turbinates: Swollen. Left Turbinates: Swollen. Mouth/Throat: Pharynx: Posterior oropharyngeal erythema present. No oropharyngeal exudate. Lymphadenopathy: Cervical: No cervical adenopathy. Assessment and Plan 1. Eustachian tube dysfunction, right - ICD9: 381.81, ICD10: H69.91 (primary diagnosis) Findings discussed. See printed instructions or information. - PREDNISONE 20 MG TABLET. Daily x 3 days. 2. Right non-suppurative otitis media - ICD9: 381.4, ICD10: H65.91 - Supportive care with plenty of fluids, rest, and analgesia prn. - Finish Amoxicillin. MD Ismael Pina Victor H, MD 12/12/2024 5:05 PM Signed We discussed your ear pain, hearing changes, and drainage: - You are experiencing eustachian tube dysfunction, which is causing your eardrum to be retracted due to uneven pressure. This is likely related to swelling in your nasal passages and throat. - I prescribed prednisone (a steroid) for 3 days to reduce the swelling and help open your eustachian tubes. This prescription has been sent to your preferred pharmacy, [facility]. - You may also use Afrin (an cjwj-sxg-[id number] nasal spray) for up t (more content not included)... Normal [facility] CNOVon 12-10-2024 CNOV Office Visit (UCWSTR ) SHERLYN AMIN ([id number]) 1990 F Date Time Provider Department 12/10/24 10:45 AM CHIQUI SALVADOR [facility] During your visit today, we recorded the following information about you: Temperature Pulse Respiration Blood pressure 100.9 degrees 127/minute 20/minute 122/78 Weight 52.2 kg Chiqui Salvador, SURGICAL INSTRUMENT MAKER.LINEN CLERK 12/10/2024 11:22 AM Signed [facility] Subjective Sherlyn Amin is a 34 year old female. Patient presents with: Ear Pain: Right ear pain x 1 day and sinus, cough and FLORES x 1 week Ear Pain Associated symptoms include congestion, coughing, a fever and headaches. Pertinent negatives include no sore throat. Sherlyn Amin is a 34 year old female who presents with sinus congestion and drainage, cough, headache x 2 days. She started having right ear pain and popping in her ear today. She has a fever today of 100.2 degrees F. She took Mucinex DM and ibuprofen at home. Review of Systems Constitutional: Positive for fever. HENT: Positive for congestion, ear discharge, ear pain and rhinorrhea. Negative for sore throat. Respiratory: Positive for cough. Cardiovascular: Negative. Neurological: Positive for headaches. Objective BP 122/78 Pulse (!) 127 Temp (!) 38.3 ?C (100.9 ?F) (Tympanic) Resp 20 Wt 52.2 kg (115 lb 1.3 oz) LMP 02/14/2022 SpO2 100% BMI 23.24 kg/m? PAST MEDICAL HISTORY Diagnosis Date - Anemia - Arthritis In both shoulders - Asthma (HCC) - Chronic hepatitis C affecting , antepartum (HCC) 03/31/2017 - Hepatitis C treated - Heroin addiction (HCC) 11/18/2016 - Mental disorder PAST SURGICAL HISTORY Procedure Laterality Date - DELIVERY ONLY 09/18/2007 , low transverse - SUCTION D AND C 04/05/2017 ALLERGIES Bactrim [Sulfamethoxazole-Trimethop rim] MEDICATIONS - venlafaxine (EFFEXOR) 37.5 mg tablet Take 1 tablet by mouth once daily. - albuterol HFA (PROVENTIL HFA, VENTOLIN HFA) 90 mcg/actuation inhaler Inhale 2 Puffs as instructed every 4 hours as needed for wheezing/shortness of breath. - hydrOXYzine HCl (ATARAX) 10 mg tablet Take 10 mg by mouth three times daily. - cyclobenzaprine (FLEXERIL) 10 mg tablet Take 1 tablet by mouth three times daily as needed for muscle spasm. - COMPOUNDED PRESCRIPTION AIR CONDITIONER DX ASTHMA J45.909 - amoxicillin (AMOXIL) 875 mg tablet Take 1 tablet by mouth two times a day for 7 days. - dextroamphetamine-amphetami ne (ADDERALL) 10 mg tablet Take 1 tablet by mouth once daily for 30 days. FAMILY HISTORY Problem Relation Age of Onset - Colon Cancer Mother - other (lupus) Father - Diabetes Maternal Grandmother Great Grandmother - Cancer Maternal Grandmother Brain - Cancer Maternal Grandfather Lung-Greatgrandfather - Prostate Cancer Maternal Grandfather - Stroke Paternal Grandmother - Cervical Cancer Maternal Aunt Social History Tobacco Use - Smoking status: Former Average packs/day: 0.2 packs/day for 5.0 years (1.0 ttl pk-yrs) Types: Cigarettes Start date: 01/04/2024 Quit date: 2023 Years since quittin.2 - Smokeless tobacco: Never - Tobacco comments: 4-5 cigarettes per day Vaping Use - Vaping status: Never Used Substance Use Topics - Alcohol use: Yes Comment: social - Drug use: No Physical Exam Vitals and nursing note reviewed. Constitutional: General: She is not in acute distress. Appearance: Normal appearance. She is not ill-appearing. HENT: Right Ear: Ear canal and external ear normal. Drainage present. Tympanic membrane is erythematous. Left Ear: Tympanic membrane, ear canal and external ear normal. Nose: Nose normal. Mouth/Throat: Mouth: Mucous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 Diffon 07-11-2021 Basophil, Absolute 0.10 10 3/mcL Normal 0.00-0.19 [facility] ([place]) Comment on above: Performed By: #### C BC, ADIFF, ANEU, ABOG, HIVRP, ANSG #### [address] [address] #### HBSAG, RUBIS, RPR #### [address] [address] Basophils/100 WBC (Bld) 0.4 % Normal 0.0-2.5 [facility] ([place]) Comment on above: Performed By: #### C BC, ADIFF, ANEU, ABOG, HIVRP, ANSG #### [address] [address] #### HBSAG, RUBIS, RPR #### [address] [address] Eosinophil, Absolute 0.10 10 3/mcL Normal 0.00-0.40 A [facility] ([place]) Comment on above: Performed By: #### C BC, ADIFF, ANEU, ABOG, HIVRP, ANSG #### [place] [address] #### HBSAG, RUBIS, RPR #### [address] [address] Eosinophils/100 WBC (Bld) 0.5 % Normal 0.0-7.0 [facility] ([place]) Comment on above: Performed By: #### C BC, ADIFF, ANEU, ABOG, HIVRP, ANSG #### [place] [address] #### HBSAG, RUBIS, RPR #### [address] [address] Lymphocyte, Absolute 2.30 10 3/mcL Normal 0.77-3.85 A [facility] ([place]) Comment on above: Performed By: #### C BC, ADIFF, ANEU, ABOG, HIVRP, ANSG #### [place] [address] #### HBSAG, RUBIS, RPR #### [address] [address] Lymphocytes/100 WBC (Bld) 17.2 % Normal 10.0-50.0 [facility] ([place]) Comment on above: Performed By: #### C BC, ADIFF, ANEU, ABOG, HIVRP, ANSG #### [place] [address] #### HBSAG, RUBIS, RPR #### [address] [address] Monocyte, Absolute 0.70 10 3/mcL Normal 0.15-1.00 [facility] ([place]) Comment on above: Performed By: #### C BC, ADIFF, ANEU, ABOG, HIVRP, ANSG #### [place] [address] #### HBSAG, RUBIS, RPR #### [address] [address] Monocytes/100 WBC (Bld) 5.6 % Normal 1.7-13.0 [facility] ([place]) Comment on above: Performed By: #### C BC, ADIFF, ANEU, ABOG, HIVRP, ANSG #### [address] [address] #### HBSAG, RUBIS, RPR #### [address] [address] Neutrophils/100 WBC (Bld) 76.3 % Normal 37.0-80.0 [facility] ([place]) Comment on above: Performed By: #### C BC, ADIFF, ANEU, ABOG, HIVRP, ANSG #### [place] [address] #### HBSAG, RUBIS, RPR #### [address] [address] .NEUABSon 07-11-2021 Neutrophil, Absolute 10.30 10 3/mcL High 2.85-6.16 [facility] ([place]) Comment on above: Performed By: #### C BC, ADIFF, ANEU, ABOG, HIVRP, ANSG #### [place] [address] #### HBSAG, RUBIS, RPR #### [address] [address] CBCon 07-11-2021 Erythrocyte distribution width (RBC) [Ratio] 13.9 % Normal 11.5-14.5 [facility] ([place]) Comment on above: Performed By: #### C BC, ADIFF, ANEU, ABOG, HIVRP, ANSG #### [place] [address] #### HBSAG, RUBIS, RPR #### [address] [address] Hematocrit (Bld) [Volume fraction] 29.0 % Low 37.0-47.0 [facility] ([place]) Comment on above: Performed By: #### C BC, ADIFF, ANEU, ABOG, HIVRP, ANSG #### [place] [address] #### HBSAG, RUBIS, RPR #### [place] [address] Hgb 9.8 G/dL Low 12.0-16.0 [facility] ([place]) Comment on above: Performed By: #### C BC, ADIFF, ANEU, ABOG, HIVRP, ANSG #### [place] [address] #### HBSAG, RUBIS, RPR #### [place] [address] MCH (RBC) [Entitic mass] 31.2 pg Normal 27.0-31.2 [facility] ([place]) Comment on above: Performed By: #### C BC, ADIFF, ANEU, ABOG, HIVRP, ANSG #### [place] [address] #### HBSAG, RUBIS, RPR #### [place] [address] MCHC 34.0 G/dL Normal 33.0-37.0 [facility] ([place]) Comment on above: Performed By: #### C BC, ADIFF, ANEU, ABOG, HIVRP, ANSG #### [place] [address] #### HBSAG, RUBIS, RPR #### [place] [address] MCV (RBC) [Entitic vol] 91.7 fL Normal 80.0-94.0 [facility] ([place]) Comment on above: Performed By: #### C BC, ADIFF, ANEU, ABOG, HIVRP, ANSG #### [place] [address] #### HBSAG, RUBIS, RPR #### [place] [address] Platelet 252 10 3/mcL Normal 130-400 [facility] ([place]) Comment on above: Performed By: #### C BC, ADIFF, ANEU, ABOG, HIVRP, ANSG #### [place] [address] #### HBSAG, RUBIS, RPR #### [place] [address] Platelet mean volume (Bld) [Entitic vol] 7.8 fL Normal 7.4-10.4 [facility] ([place]) Comment on above: Performed By: #### C BC, ADIFF, ANEU, ABOG, HIVRP, ANSG #### [place] [address] #### HBSAG, RUBIS, RPR #### [place] [address] RBC 3.16 10 6/mcL Low 4.20-5.40 [facility] ([place]) Comment on above: Performed By: #### C BC, ADIFF, ANEU, ABOG, HIVRP, ANSG #### [place] [address] #### HBSAG, RUBIS, RPR #### [place] [address] WBC 13.40 10 3/mcL High 4.60-10.80 [facility] ([place]) Comment on above: Performed By: #### C BC, ADIFF, ANEU, ABOG, HIVRP, ANSG #### [place] [address] #### HBSAG, RUBIS, RPR #### [place] [address] .Auto Diffon 07-10-2021 Basophil, Absolute 0.10 10 3/mcL Normal 0.00-0.19 [facility] ([place]) Comment on above: Performed By: #### C BC, ADIFF, ANEU, ABOG, HIVRP, ANSG #### [place] [address] #### HBSAG, RUBIS, RPR #### [place] [address] Basophils/100 WBC (Bld) 1.2 % Normal 0.0-2.5 [facility] ([place]) Comment on above: Performed By: #### C BC, ADIFF, ANEU, ABOG, HIVRP, ANSG #### [place] [address] #### HBSAG, RUBIS, RPR #### [address] [address] Eosinophil, Absolute 0.00 10 3/mcL Normal 0.00-0.40 A [facility] ([place]) Comment on above: Performed By: #### C BC, ADIFF, ANEU, ABOG, HIVRP, ANSG #### [place] [address] #### HBSAG, RUBIS, RPR #### [address] [address] Eosinophils/100 WBC (Bld) 0.4 % Normal 0.0-7.0 [facility] ([place]) Comment on above: Performed By: #### C BC, ADIFF, ANEU, ABOG, HIVRP, ANSG #### [place] [address] #### HBSAG, RUBIS, RPR #### [address] [address] Lymphocyte, Absolute 1.70 10 3/mcL Normal 0.77-3.85 A [facility] ([place]) Comment on above: Performed By: #### C BC, ADIFF, ANEU, ABOG, HIVRP, ANSG #### [place] [address] #### HBSAG, RUBIS, RPR #### [address] [address] Lymphocytes/100 WBC (Bld) 18.4 % Normal 10.0-50.0 [facility] ([place]) Comment on above: Performed By: #### C BC, ADIFF, ANEU, ABOG, HIVRP, ANSG #### [place] [address] #### HBSAG, RUBIS, RPR #### [address] [address] Monocyte, Absolute 0.50 10 3/mcL Normal 0.15-1.00 [facility] ([place]) Comment on above: Performed By: #### C BC, ADIFF, ANEU, ABOG, HIVRP, ANSG #### [place] [address] #### HBSAG, RUBIS, RPR #### [address] [address] Monocytes/100 WBC (Bld) 4.9 % Normal 1.7-13.0 [facility] ([place]) Comment on above: Performed By: #### C BC, ADIFF, ANEU, ABOG, HIVRP, ANSG #### [place] [address] #### HBSAG, RUBIS, RPR #### [address] [address] Neutrophils/100 WBC (Bld) 75.1 % Normal 37.0-80.0 [facility] ([place]) Comment on above: Performed By: #### C BC, ADIFF, ANEU, ABOG, HIVRP, ANSG #### [place] [address] #### HBSAG, RUBIS, RPR #### [address] [address] .NEUABSon 07-10-2021 Neutrophil, Absolute 7.00 10 3/mcL High 2.85-6.16 A [facility] ([place]) Comment on above: Performed By: #### C BC, ADIFF, ANEU, ABOG, HIVRP, ANSG #### [place] [address] #### HBSAG, RUBIS, RPR #### [place] [id number] CBCon 07-10-2021 Erythrocyte distribution width (RBC) [Ratio] 13.5 % Normal 11.5-14.5 [facility] ([place]) Comment on above: Performed By: #### C BC, ADIFF, ANEU, ABOG, HIVRP, ANSG #### [place] [address] #### HBSAG, RUBIS, RPR #### [place] [address] Hematocrit (Bld) [Volume fraction] 31.3 % Low 37.0-47.0 [facility] ([place]) Comment on above: Performed By: #### C BC, ADIFF, ANEU, ABOG, HIVRP, ANSG #### [place] [address] #### HBSAG, RUBIS, RPR #### [place] [address] Hgb 10.9 G/dL Low 12.0-16.0 [facility] ([place]) Comment on above: Performed By: #### C BC, ADIFF, ANEU, ABOG, HIVRP, ANSG #### [place] [address] #### HBSAG, RUBIS, RPR #### [place] [address] MCH (RBC) [Entitic mass] 31.4 pg High 27.0-31.2 [facility] ([place]) Comment on above: Performed By: #### C BC, ADIFF, ANEU, ABOG, HIVRP, ANSG #### [place] [address] #### HBSAG, RUBIS, RPR #### [place] [address] MCHC 34.7 G/dL Normal 33.0-37.0 [facility] ([place]) Comment on above: Performed By: #### C BC, ADIFF, ANEU, ABOG, HIVRP, ANSG #### [place] [address] #### HBSAG, RUBIS, RPR #### [place] [address] MCV (RBC) [Entitic vol] 90.4 fL Normal 80.0-94.0 [facility] ([place]) Comment on above: Performed By: #### C BC, ADIFF, ANEU, ABOG, HIVRP, ANSG #### [place] [address] #### HBSAG, RUBIS, RPR #### [place] [address] Platelet 292 10 3/mcL Normal 130-400 [facility] ([place]) Comment on above: Performed By: #### C BC, ADIFF, ANEU, ABOG, HIVRP, ANSG #### [place] [address] #### HBSAG, RUBIS, RPR #### [place] [address] Platelet mean volume (Bld) [Entitic vol] 7.6 fL Normal 7.4-10.4 [facility] ([place]) Comment on above: Performed By: #### C BC, ADIFF, ANEU, ABOG, HIVRP, ANSG #### [place] [address] #### HBSAG, RUBIS, RPR #### [place] [address] RBC 3.46 10 6/mcL Low 4.20-5.40 [facility] ([place]) Comment on above: Performed By: #### C BC, ADIFF, ANEU, ABOG, HIVRP, ANSG #### [place] [address] #### HBSAG, RUBIS, RPR #### [place] [address] WBC 9.40 10 3/mcL Normal 4.60-10.80 [facility] ([place]) Comment on above: Performed By: #### C BC, ADIFF, ANEU, ABOG, HIVRP, ANSG #### [place] [address] #### HBSAG, RUBIS, RPR #### [place] [address] Gel ABOon 07-10-2021 ABO/Rh Interp Positive Invalid Interpretation Code [facility] ([place]) Comment on above: Performed By: #### C BC, ADIFF, ANEU, ABOG, HIVRP, ANSG #### [address] [address] #### HBSAG, RUBIS, RPR #### [address] [address] Gel ABSon 07-10-2021 Antibody Screen Gel Negative Normal [facility] ([place]) Comment on above: Performed By: #### C BC, ADIFF, ANEU, ABOG, HIVRP, ANSG #### [address] [address] #### HBSAG, RUBIS, RPR #### [address] [address] No Panel Informationon 06-15 Group B Strep PCR GBS NEGATIVE. Group B Streptococcus DNA not detected by Real-Time. Polymerase Chain Reaction (PCR). A negative result does not rule out the possibility of Group B Streptococcus False negative results may occur when Group B Streptococcus concentration is below the level of detection of 200 CFU/mL of sample preparation reagent. If the patient has signs or symptoms of infection, other laboratory tests and clinical information should be used to confirm the negative result. This test is not intended to differentiate carriers of Group B Streptococcus from those with Streptococcus disease. [facility] Work Phone: .Auto Diffon 06-01-2021 Basophil, Absolute 0.00 10 3/mcL Normal 0.00-0.19 [facility] ([place]) Comment on above: Performed By: #### H PV #### [address] [address] Basophils/100 WBC (Bld) 0.2 % Normal 0.0-2.5 [facility] ([place]) Comment on above: Performed By: #### H PV #### [address] [address] Eosinophil, Absolute 0.10 10 3/mcL Normal 0.00-0.40 A [facility] ([place]) Comment on above: Performed By: #### H PV #### [address] [address] Eosinophils/100 WBC (Bld) 0.4 % Normal 0.0-7.0 [facility] ([place]) Comment on above: Performed By: #### H PV #### [address] [address] Lymphocyte, Absolute 1.80 10 3/mcL Normal 0.77-3.85 A [facility] ([place]) Comment on above: Performed By: #### H PV #### [address] [address] Lymphocytes/100 WBC (Bld) 14.2 % Normal 10.0-50.0 [facility] ([place]) Comment on above: Performed By: #### H PV #### [address] [address] Monocyte, Absolute 0.50 10 3/mcL Normal 0.15-1.00 [facility] ([place]) Comment on above: Performed By: #### H PV #### [address] [address] Monocytes/100 WBC (Bld) 3.9 % Normal 1.7-13.0 [facility] ([place]) Comment on above: Performed By: #### H PV #### [address] [address] Neutrophils/100 WBC (Bld) 81.3 % High 37.0-80.0 [facility] ([place]) Comment on above: Performed By: #### H PV #### [address] [address] .NEUABSon 06-01-2021 Neutrophil, Absolute 10.40 10 3/mcL High 2.85-6.16 [facility] ([place]) Comment on above: Performed By: #### H PV #### [address] [address] CBCon 06-01-2021 Erythrocyte distribution width (RBC) [Ratio] 13.0 % Normal 11.5-14.5 [facility] ([place]) Comment on above: Performed By: #### H PV #### [address] [address] Hematocrit (Bld) [Volume fraction] 32.2 % Low 37.0-47.0 [facility] ([place]) Comment on above: Performed By: #### H PV #### [place] [address] Hgb 10.8 G/dL Low 12.0-16.0 [facility] ([place]) Comment on above: Performed By: #### H PV #### [place] [address] MCH (RBC) [Entitic mass] 31.3 pg High 27.0-31.2 [facility] ([place]) Comment on above: Performed By: #### H PV #### [place] [address] MCHC 33.6 G/dL Normal 33.0-37.0 [facility] ([place]) Comment on above: Performed By: #### H PV #### [place] [address] MCV (RBC) [Entitic vol] 93.3 fL Normal 80.0-94.0 [facility] ([place]) Comment on above: Performed By: #### H PV #### [place] [address] Platelet 304 10 3/mcL Normal 130-400 [facility] ([place]) Comment on above: Performed By: #### H PV #### [place] [address] Platelet mean volume (Bld) [Entitic vol] 7.9 fL Normal 7.4-10.4 [facility] ([place]) Comment on above: Performed By: #### H PV #### [place] [address] RBC 3.45 10 6/mcL Low 4.20-5.40 [facility] ([place]) Comment on above: Performed By: #### H PV #### [place] [address] WBC 12.80 10 3/mcL High 4.60-10.80 [facility] ([place]) Comment on above: Performed By: #### H PV #### [place] [id number] FT3on 06-01-2021 Free T3 [Mass/Vol] 2.36 pg/mL Normal 2.30-4.00 [facility] ([place]) Comment on above: Performed By: #### H PV #### [place] [address] FT4on 06-01-2021 Free T4 [Mass/Vol] 0.89 ng/dL Normal 0.76-1.46 [facility] ([place]) Comment on above: Performed By: #### H PV #### [place] [address] TSHon 06-01-2021 TSH Qn 2.55 m[IU]/L Normal 0.36-3.74 [facility] ([place]) Comment on above: Performed By: #### H PV #### [place] [address] GL1on 05-14-2021 Glucose [Mass/Vol] 169 mg/dL Normal 120-190 [facility] ([place]) Comment on above: Performed By: #### H PV #### [place] [address] GL2on 05-14-2021 Glucose [Mass/Vol] 146 mg/dL Normal 70-165 [facility] ([place]) Comment on above: Performed By: #### H PV #### [place] [address] GL3on 05-14-2021 Glucose [Mass/Vol] 130 mg/dL Normal 70-145 [facility] ([place]) Comment on above: Performed By: #### H PV #### [place] [address] GLFon 05-14-2021 Glucose [Mass/Vol] 86 mg/dL Normal 83-110 [facility] ([place]) Comment on above: Performed By: #### H PV #### [place] [id number] 05-04-2021 Glucose [Mass/Vol] 180 mg/dL High 70-140 [facility] ([place]) Comment on above: Performed By: #### G YCR #### [place] [address] FFNon 04-27-2021 Fibronectin Negative Normal Negative [facility] ([place]) Comment on above: Performed By: #### G YCR #### [place] [address] FT4on 03-30-2021 Free T4 [Mass/Vol] 1.01 ng/dL Normal 0.76-1.46 [facility] ([place]) Comment on above: Performed By: #### G YCR #### [place] [address] BLOA65og 03-25-2021 Date of Onset [id number] Invalid Interpretation Code [facility] ([place]) Comment on above: Performed By: #### G YCR #### [place] [address] Employed in Healthcare Unknown [facility] ([place]) Comment on above: Performed By: #### G YCR #### [place] [address] First Test Unknown [facility] ([place]) Comment on above: Performed By: #### G YCR #### [place] [address] Hospitalized No [facility] ([place]) Comment on above: Performed By: #### G YCR #### [place] [address] ICU No [facility] ([place]) Comment on above: Performed By: #### G YCR #### [place] [address] [facility] ([place]) Comment on above: Performed By: #### G YCR #### [place] [address] Resides in Congregate Care Setting Unknown [facility] ([place]) Comment on above: Performed By: #### G YCR #### [place] [address] [place] [id number] SARS-CoV-2 (COVID-19) RNA PAULINO+probe Ql (Unsp spec) Negative Normal Negative [facility] ([place]) Comment on above: Performed By: #### G YCR #### [place] [id number] [place] [address] SARS-CoV-2 (COVID-19) RNA PAULINO+probe Ql (Unsp spec) Normal [facility] ([place]) Comment on above: Result Comment: Nega tive results do not preclude SARS-CoV-2 infection and should not be used as the sole basis for patient management decisions. Negative results must be combined with clinical observations, patient history, and epidemiological information. There is a risk of false negative values resulting from improperly collected, transported, or handled specimens. There is a risk of false negative values due to the presence of sequence variants in the pathogen targets of the assay, procedural errors, amplification inhibitors in specimens, or inadequate numbers of organisms for amplification. NILDA SARS-CoV-2 Assay is a Real-Time reverse-transcriptase polymerase chain reaction (RT-PCR) based qualitative in vitro diagnostic test intended for the qualitative detection of nucleic acid from the SARS-CoV-2 in nasopharyngeal swab specimens collected from individuals suspected of COVID-19 by their healthcare provider. Testing is limited to laboratories certified under the Clinical Laboratory Improvement Amendments of 1988 (CLIA), 42 U.S.C. ?263a, to perform moderate and high complexity tests. COVID-19 Int Performed By: #### G YCR #### [address] [address] Symptomatic as Defined by CDC Yes Normal [facility] ([place]) Comment on above: Performed By: #### G YCR #### [address] [address] XR CHEST 1 VIEWon 03-25-2021 XR CHEST 1 VIEW ORIGINAL EXAMINATION: ONE XRAY VIEW OF THE CHEST03/25/2021 11:47 am COMPARISON: None HISTORY: ORDERING SYSTEM PROVIDED HISTORY: SOB/cough/fever FINDINGS: A single portable AP view of the chest was obtained. The cardiomediastinal silhouette is within normal limits. No focal consolidation, pleural effusion or pneumothorax is seen. Osseous structures are unremarkable. IMPRESSION: No acute cardiopulmonary abnormality is seen. Interpreted by: Hernan Mckeon Preliminary Report By: Hernan Mckeon Electronically signed By Hernan Mckeon Dictated Date: 03/25/2021 12:24:41 PM Prelim Date: 03/25/2021 12:29:57 PM Sign Date: 03/25/2021 12:29:57 PM Ordering Provider: MARIA ALEJANDRA Mendez [facility] ([place]) .Auto Diffon 03-23-2021 Basophil, Absolute 0.00 10 3/mcL Normal 0.00-0.19 [facility] ([place]) Comment on above: Performed By: #### N GPCR1 #### [address] [address] Basophils/100 WBC (Bld) 0.3 % Normal 0.0-2.5 [facility] ([place]) Comment on above: Performed By: #### N GPCR1 #### [address] [address] Eosinophil, Absolute 0.10 10 3/mcL Normal 0.00-0.40 A [facility] ([place]) Comment on above: Performed By: #### N GPCR1 #### [address] [address] Eosinophils/100 WBC (Bld) 0.6 % Normal 0.0-7.0 [facility] ([place]) Comment on above: Performed By: #### N GPCR1 #### [address] [address] Lymphocyte, Absolute 1.90 10 3/mcL Normal 0.77-3.85 A [facility] ([place]) Comment on above: Performed By: #### N GPCR1 #### [address] [address] Lymphocytes/100 WBC (Bld) 15.1 % Normal 10.0-50.0 [facility] ([place]) Comment on above: Performed By: #### N GPCR1 #### [address] [address] Monocyte, Absolute 0.50 10 3/mcL Normal 0.15-1.00 [facility] ([place]) Comment on above: Performed By: #### N GPCR1 #### [address] [address] Monocytes/100 WBC (Bld) 4.3 % Normal 1.7-13.0 [facility] ([place]) Comment on above: Performed By: #### N GPCR1 #### [address] [address] Neutrophils/100 WBC (Bld) 79.7 % Normal 37.0-80.0 [facility] ([place] Comment on above: Performed By: #### N GPCR1 #### [address] [address] .GFRon 03-23-2021 GFR Non- 154 ml/min/1.73sqm Normal [facility] ([place]) Comment on above: Result Comment: GFR Population mean for , Non- Americans Ages 20-29 = 116 mL/min/1.73 sq.m. Ages 30-39 = 107 mL/min/1.73 sq.m. Ages 40-49 = 99 mL/min/1.73 sq.m. Ages 50-59 = 93 mL/min/1.73 sq.m. Ages 60-69 = 85 mL/min/1.73 sq.m. Ages 70+ = 75 mL/min/1.73 sq.m. Chronic Kidney Disease: Less than 60 mL/min/1.73 square meters End Stage Renal Disease: Less than 15 mL/min/1.73 square meters Performed By: #### N GPCR1 #### [address] [address] GFR 186 ml/min/1.73sqm Normal [facility] ([place]) Comment on above: Result Comment: GFR Population mean for , Non- Americans Ages 20-29 = 116 mL/min/1.73 sq.m. Ages 30-39 = 107 mL/min/1.73 sq.m. Ages 40-49 = 99 mL/min/1.73 sq.m. Ages 50-59 = 93 mL/min/1.73 sq.m. Ages 60-69 = 85 mL/min/1.73 sq.m. Ages 70+ = 75 mL/min/1.73 sq.m. Chronic Kidney Disease: Less than 60 mL/min/1.73 square meters End Stage Renal Disease: Less than 15 mL/min/1.73 square meters Performed By: #### N GPCR1 #### [place] [address] .NEUABSon 03-23-2021 Neutrophil, Absolute 9.90 10 3/mcL High 2.85-6.16 A [facility] ([place]) Comment on above: Performed By: #### N GPCR1 #### [place] [address] CBCon 03-23-2021 Erythrocyte distribution width (RBC) [Ratio] 13.2 % Normal 11.5-14.5 [facility] ([place]) Comment on above: Performed By: #### N GPCR1 #### [place] [address] Hematocrit (Bld) [Volume fraction] 35.0 % Low 37.0-47.0 [facility] ([place]) Comment on above: Performed By: #### N GPCR1 #### [place] [address] Hgb 12.1 G/dL Normal 12.0-16.0 [facility] ([place]) Comment on above: Performed By: #### N GPCR1 #### [place] [address] MCH (RBC) [Entitic mass] 33.2 pg High 27.0-31.2 [facility] ([place]) Comment on above: Performed By: #### N GPCR1 #### [place] [address] MCHC 34.5 G/dL Normal 33.0-37.0 [facility] ([place]) Comment on above: Performed By: #### N GPCR1 #### [place] [address] MCV (RBC) [Entitic vol] 96.2 fL High 80.0-94.0 [facility] ([place]) Comment on above: Performed By: #### N GPCR1 #### [address] [address] Platelet 334 10 3/mcL Normal 130-400 [facility] ([place]) Comment on above: Performed By: #### N GPCR1 #### [place] [address] Platelet mean volume (Bld) [Entitic vol] 7.6 fL Normal 7.4-10.4 [facility] ([place]) Comment on above: Performed By: #### N GPCR1 #### [place] [address] RBC 3.64 10 6/mcL Low 4.20-5.40 [facility] ([place]) Comment on above: Performed By: #### N GPCR1 #### [place] [address] WBC 12.50 10 3/mcL High 4.60-10.80 [facility] ([place]) Comment on above: Performed By: #### N GPCR1 #### [place] [address] CMPon 03-23-2021 Albumin Level 3.0 G/dL Low 3.5-5.0 [facility] ([place]) Comment on above: Performed By: #### N GPCR1 #### [place] [address] Albumin/Globulin [Mass ratio] 0.9 {ratio} Low 1.1-2.5 [facility] ([place]) Comment on above: Performed By: #### N GPCR1 #### [place] [id number] ALP [Catalytic activity/Vol] 73 U/L Normal 40-135 [facility] ([place]) Comment on above: Performed By: #### N GPCR1 #### [place] [address] ALT [Catalytic activity/Vol] 15 U/L Normal 14-59 [facility] ([place]) Comment on above: Performed By: #### N GPCR1 #### [place] [address] AST [Catalytic activity/Vol] 12 U/L Normal 10-40 [facility] ([place]) Comment on above: Performed By: #### N GPCR1 #### [place] [id number] Bili Total 0.4 mg/dL Normal 0.2-1.0 [facility] ([place]) Comment on above: Result Comment: Use of this assay is not recommended for patients undergoing treatment with eltrombopag due to the potential for falsely elevated results. Performed By: #### N GPCR1 #### [place] [address] BUN/Creatinine Ratio 17 ratio Normal 7-27 [facility] ([place]) Comment on above: Performed By: #### N GPCR1 #### [place] [address] Calcium [Mass/Vol] 8.9 mg/dL Normal 8.4-10.2 [facility] ([place]) Comment on above: Performed By: #### N GPCR1 #### [place] [address] Chloride [Moles/Vol] 108 mmol/L High 98-107 [facility] ([place]) Comment on above: Performed By: #### N GPCR1 #### [place] [id number] CO2 [Moles/Vol] 21 mmol/L Low 22-29 [facility] ([place]) Comment on above: Performed By: #### N GPCR1 #### [place] [address] Creatinine [Mass/Vol] 0.47 mg/dL Low 0.55-1.02 [facility] ([place]) Comment on above: Performed By: #### N GPCR1 #### [place] [address] Electrolyte Balance 13.0 mEq/L Normal [facility] ([place]) Comment on above: Performed By: #### N GPCR1 #### [place] [address] Globulin 3.3 G/dL Normal [facility] ([place]) Comment on above: Performed By: #### N GPCR1 #### [address] [address] Glucose [Mass/Vol] 95 mg/dL Normal 70-105 [facility] ([place]) Comment on above: Performed By: #### N GPCR1 #### [place] [address] Potassium [Moles/Vol] 3.7 mmol/L Normal 3.5-5.1 [facility] ([place]) Comment on above: Performed By: #### N GPCR1 #### [place] [address] Sodium [Moles/Vol] 142 mmol/L Normal 136-145 [facility] ([place]) Comment on above: Performed By: #### N GPCR1 #### [place] [address] Total Protein 6.3 G/dL Low 6.4-8.2 [facility] ([place]) Comment on above: Performed By: #### N GPCR1 #### [place] [address] Urea nitrogen [Mass/Vol] 8 mg/dL Normal 7-18 [facility] ([place]) Comment on above: Performed By: #### N GPCR1 #### [place] [address] T3on 03-23-2021 Total T3 198 ng/dL High 60-181 [facility] ([place]) Comment on above: Performed By: #### G YCR #### [place] [address] T4on 03-23-2021 T4 [Mass/Vol] 14.9 ug/dL High 4.5-10.9 [facility] ([place]) Comment on above: Result Comment: No te - New Reference Range in effect 20 Performed By: #### G YCR #### [place] [address] TSHon 03-23-2021 TSH Qn 1.87 m[IU]/L Normal 0.36-3.74 [facility] ([place]) Comment on above: Performed By: #### N GPCR1 #### [place] [id number] RPRon 01-13-2021 Reagin Ab RPR Ql (S) Non-Reactive Normal Non-Cicero cti ve [facility] ([place]) Comment on above: Result Comment: The RPR test is a non-treponemal assay useful as an aid in the diagnosis of primary and secondary syphilis. It converts to positive generally within 2 weeks after the appearance of a lesion. This test is also useful for monitoring response to antibiotic therapy. A positive RPR screening test will be followed by the FTA ABS test. False positive RPR tests may occur in 1) patients with underlying autoimmune disorders, 2) elderly patients, 3) , and 4) other conditions with abnormal serum globulins. Performed By: #### N GPCR1 #### [place] [address] RUBISon 01-13-[address] Positive Normal Positive [facility] ([place]) Comment on above: Result Comment: This immune status assay detects IgM and/or IgG antibody to Rubella. Interpret results in conjunction with clinical history. POS: Antibody detected; exposure at undetermined recent or distant time. If clinically indicated, order Rubella IGM to rule out recent infection. NEG: No antibody detected. Performed By: #### N GPCR1 #### [place] [address] .Auto Diffon 01-12-2021 Basophil, Absolute 0.10 10 3/mcL Normal 0.00-0.19 [facility] ([place]) Comment on above: Performed By: #### C BC, ADIFF, ANEU, ABOG, HIVRP, ANSG #### [place] [address] #### HBSAG, RUBIS, RPR #### [place] [address] Basophils/100 WBC (Bld) 0.6 % Normal 0.0-2.5 [facility] ([place]) Comment on above: Performed By: #### C BC, ADIFF, ANEU, ABOG, HIVRP, ANSG #### [place] [address] #### HBSAG, RUBIS, RPR #### [address] [address] Eosinophil, Absolute 0.10 10 3/mcL Normal 0.00-0.40 A [facility] ([place]) Comment on above: Performed By: #### C BC, ADIFF, ANEU, ABOG, HIVRP, ANSG #### [place] [address] #### HBSAG, RUBIS, RPR #### [address] [address] Eosinophils/100 WBC (Bld) 0.4 % Normal 0.0-7.0 [facility] ([place]) Comment on above: Performed By: #### C BC, ADIFF, ANEU, ABOG, HIVRP, ANSG #### [place] [address] #### HBSAG, RUBIS, RPR #### [address] [address] Lymphocyte, Absolute 2.20 10 3/mcL Normal 0.77-3.85 A [facility] ([place]) Comment on above: Performed By: #### C BC, ADIFF, ANEU, ABOG, HIVRP, ANSG #### [place] [address] #### HBSAG, RUBIS, RPR #### [address] [address] Lymphocytes/100 WBC (Bld) 17.7 % Normal 10.0-50.0 [facility] ([place]) Comment on above: Performed By: #### C BC, ADIFF, ANEU, ABOG, HIVRP, ANSG #### [place] [address] #### HBSAG, RUBIS, RPR #### [address] [address] Monocyte, Absolute 0.50 10 3/mcL Normal 0.15-1.00 [facility] ([place]) Comment on above: Performed By: #### C BC, ADIFF, ANEU, ABOG, HIVRP, ANSG #### [place] [address] #### HBSAG, RUBIS, RPR #### [address] [address] Monocytes/100 WBC (Bld) 3.8 % Normal 1.7-13.0 [facility] ([place]) Comment on above: Performed By: #### C BC, ADIFF, ANEU, ABOG, HIVRP, ANSG #### [place] [address] #### HBSAG, RUBIS, RPR #### [address] [address] Neutrophils/100 WBC (Bld) 77.5 % Normal 37.0-80.0 [facility] ([place]) Comment on above: Performed By: #### C BC, ADIFF, ANEU, ABOG, HIVRP, ANSG #### [place] [address] #### HBSAG, RUBIS, RPR #### [address] [address] .NEUABSon 01-12-2021 Neutrophil, Absolute 9.50 10 3/mcL High 2.85-6.16 A [facility] ([place]) Comment on above: Performed By: #### C BC, ADIFF, ANEU, ABOG, HIVRP, ANSG #### [place] [address] #### HBSAG, RUBIS, RPR #### [address] [address] CBCon 01-12-2021 Erythrocyte distribution width (RBC) [Ratio] 18.6 % High 11.5-14.5 [facility] ([place]) Comment on above: Performed By: #### C BC, ADIFF, ANEU, ABOG, HIVRP, ANSG #### [place] [address] #### HBSAG, RUBIS, RPR #### [place] [address] Hematocrit (Bld) [Volume fraction] 35.2 % Low 37.0-47.0 [facility] ([place]) Comment on above: Performed By: #### C BC, ADIFF, ANEU, ABOG, HIVRP, ANSG #### [place] [address] #### HBSAG, RUBIS, RPR #### [place] [address] Hgb 12.1 G/dL Normal 12.0-16.0 [facility] ([place]) Comment on above: Performed By: #### C BC, ADIFF, ANEU, ABOG, HIVRP, ANSG #### [place] [address] #### HBSAG, RUBIS, RPR #### [place] [address] MCH (RBC) [Entitic mass] 30.7 pg Normal 27.0-31.2 [facility] ([place]) Comment on above: Performed By: #### C BC, ADIFF, ANEU, ABOG, HIVRP, ANSG #### [place] [address] #### HBSAG, RUBIS, RPR #### [place] [address] MCHC 34.4 G/dL Normal 33.0-37.0 [facility] ([place]) Comment on above: Performed By: #### C BC, ADIFF, ANEU, ABOG, HIVRP, ANSG #### [place] [address] #### HBSAG, RUBIS, RPR #### [place] [address] MCV (RBC) [Entitic vol] 89.1 fL Normal 80.0-94.0 [facility] ([place]) Comment on above: Performed By: #### C BC, ADIFF, ANEU, ABOG, HIVRP, ANSG #### [place] [address] #### HBSAG, RUBIS, RPR #### [place] [address] Platelet 328 10 3/mcL Normal 130-400 [facility] ([place]) Comment on above: Performed By: #### C BC, ADIFF, ANEU, ABOG, HIVRP, ANSG #### [place] [address] #### HBSAG, RUBIS, RPR #### [place] [address] Platelet mean volume (Bld) [Entitic vol] 7.9 fL Normal 7.4-10.4 [facility] ([place]) Comment on above: Performed By: #### C BC, ADIFF, ANEU, ABOG, HIVRP, ANSG #### [place] [address] #### HBSAG, RUBIS, RPR #### [place] [address] RBC 3.96 10 6/mcL Low 4.20-5.40 [facility] ([place]) Comment on above: Performed By: #### C BC, ADIFF, ANEU, ABOG, HIVRP, ANSG #### [place] [address] #### HBSAG, RUBIS, RPR #### [place] [address] WBC 12.20 10 3/mcL High 4.60-10.80 [facility] ([place]) Comment on above: Performed By: #### C BC, ADIFF, ANEU, ABOG, HIVRP, ANSG #### [place] [address] #### HBSAG, RUBIS, RPR #### [place] [address] Gel ABOon 01-12-2021 ABO/Rh Interp Positive Invalid Interpretation Code [facility] ([place]) Comment on above: Performed By: #### C BC, ADIFF, ANEU, ABOG, HIVRP, ANSG #### [place] [address] #### HBSAG, RUBIS, RPR #### [address] [address] Gel ABSon 01-12-2021 Antibody Screen Gel Negative Normal [facility] ([place]) Comment on above: Performed By: #### C BC, ADIFF, ANEU, ABOG, HIVRP, ANSG #### [place] [address] #### HBSAG, RUBIS, RPR #### [place] [id number] HBSAGon 01-12-2021 Hep B Surf Ag Non-Reactive Normal Non-Reacti ve [facility] ([place]) Comment on above: Performed By: #### N GPCR1 #### [place] [address] HIVRPon 01-12-2021 HIV p24 Antigen Non-Reactive Normal Non-Reacti ve [facility] ([place]) Comment on above: Result Comment: Dete ction of p24 may be inhibited by biotin in the sample, causing false negative results in acute infection. Therefore do not test samples from patients who are taking biotin. Performed By: #### C BC, ADIFF, ANEU, ABOG, HIVRP, ANSG #### [place] [address] #### HBSAG, RUBIS, RPR #### [place] [address] HIV P24 Int Non-Reactive Invalid Interpretation Code [facility] ([place]) Comment on above: Performed By: #### C BC, ADIFF, ANEU, ABOG, HIVRP, ANSG #### [place] [address] #### HBSAG, RUBIS, RPR #### [place] [id number] Rapid HIV 1/2 Antibody Non-Reactive Normal Non-R eacti ve [facility] ([place]) Comment on above: Performed By: #### C BC, ADIFF, ANEU, ABOG, HIVRP, ANSG #### [address] [address] #### HBSAG, RUBIS, RPR #### [place] [address] RHIV 1/2 Ab Int Non-Reactive Invalid Interpretation Code [facility] ([place]) Comment on above: Performed By: #### C BC, ADIFF, ANEU, ABOG, HIVRP, ANSG #### [address] [address] #### HBSAG, RUBIS, RPR #### [place] [address] HPVon 12-29-2020 HPV Interp Normal See Interp HPVN [facility] ([place]) Comment on above: Order Comment: Order placed by AP_HPV_ORDER rule from [id number] Result Comment: High Risk HPV Typing: NEGATIVE HPV types 16, 18, 31, 33, 35, 39, 45, 51, 52, 56, 58, 59, 66 and 68 DNA were undetectable or below the pre-set threshold. The jordan High-Risk HPV DNA Test is not intended for use as a screening device for Pap normal women under age 30 and is not intended to substitute for regular Pap screening. The jordan High-Risk HPV DNA Test is designed to augment existing methods for the detection of cervical disease and should be used in conjunction with clinical information derived from other diagnostic and screening tests, physical examinations and full medical history in accordance with appropriate patient management procedures. NOTE: A negative result does not preclude the presence of HPV infection because results depend on adequate specimen collection, absence of inhibitors and sufficient DNA to be detected. 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 Pathology Reports Accession: Collected Date/Time: Received Date/Time: Pathologist: [id number] 12/17/2020 11:27 EDT 12/18/2020 18:00 TINOT MD OTIS EUBANSK [employer] Cytology Report SPECIMEN: Specimen Description: Liquid Prep w/ HPV Specimen: Cervical/Endocervical Screening or Diagnostic: Screening RELEVANT HISTORY: LMP: 10/10/2020 [id number] SPECIMEN ADEQUACY: SATISFACTORY FOR EVALUATION ENDOCERVICAL/TRANSFORMATION AL ZONE COMPONENT PRESENT INTERPRETATION/RESULTS: ATYPICAL SQUAMOUS CELLS OF UNDETERMINED SIGNIFICANCE ADJUNCTIVE TESTING: HIGH RISK HPV DNA TESTING ORDERED, REPORT TO FOLLOW UNDER SEPARATE COVER ORGANISMS: FUNGAL ORGANISMS MORPHOLOGICALLY CONSISTENT WITH BENNY SPECIES. SHIFT IN KEVYN CONSISTENT WITH BACTERIAL VAGINOSIS COMMENT: This Pap Test was successfully processed and evaluated with the assistance of the [employer] ThinPrep Test Imaging System. Electronically Signed by Pathology report verified by [facility] Screened by: STEVE RM Electronically signed by OTIS EUBANKS MD Sign-Out Date: 12/26/2020 13:03 Performing Lab: [facility], [address] [place] [address] Disclaimer The Pap test is a screening test for cervical cancer. As evidenced by published data, it is subject to both inherent false negative and false positive results. Your patient's results should be interpreted in context with pertinent clinical history including gynecological examination. Normal [facility] ([place]) Comment on above: Performed By: #### G YCR #### [place] [address] CTPCRon 12-19-2020 C. trachomatis Interp Normal See CT Interp N [facility] ([place]) Comment on above: Result Comment: C. t rachomatis DNA not detected. Specimen is presumptive negative for C. trachomatis. A negative result does not preclude C. trachomatis infection because results depend on adequate specimen collection, absence of inhibitors, and sufficient DNA to be detected. See CT Interp N Performed By: #### C TPCR #### [place] [address] C.trachomatis PCR Negative Normal Negative [facility] ([place]) Comment on above: Result Comment: Mole cular (PCR) assay performed on the [employer] 4800 system. Performed By: #### C TPCR #### [place] [address] Chlam Source Cervix Normal [facility] ([place]) Comment on above: Performed By: #### C TPCR #### [address] [address] [id number] 12-19-2020 N. gonorrhoeae (PCR) Negative Normal Negative [facility] ([place]) Comment on above: Result Comment: Mole cular (PCR) assay performed on the [employer] 4800 System. Performed By: #### N GPCR1 #### [place] [address] N. gonorrhoeae Interp Normal [facility] ([place]) Comment on above: Result Comment: N. g onorrhoeae DNA not detected. Specimen is presumptive negative for N. gonorrhoeae. A negative result does not preclude Neisseria gonorrhoeae infection because results depend on adequate specimen collection, absence of inhibitors, and sufficient DNA to be detected. See NG Interp N Performed By: #### N GPCR1 #### [place] [address] GC PCR Source Cervix Normal [facility] ([place]) Comment on above: Performed By: #### N GPCR1 #### [address] 09-23-2020 [facility] HNO ID: [id number] Author: ANSON Payton (Ct) Service: Radiology Author Type: Clinical Natural Resources Instructor Type: Allied Health Filed: 09/23/2020 5:20 PM Note Text: Radiology Service Progress Note DATE OF SERVICE: September 23, 2020 TIME: 5:20 PM PATIENT IDENTITY VERIFICATION COMPLETED USING TWO (2) STANDARD IDENTIFIERS: Name and Date of confirmed by patient verbally and Name and Date of confirmed by identification band. FALL SCREENING: Has the patient had 2 falls in the last year or 1 fall with injury or currently using an Ambulatory Assistive Device (Walker, Cane, Wheelchair, Crutches, etc.)? Emergency Room Patient: Screened in ED PATIENT GENDER DATA: Female. status: : No status: NO. PATIENT RELEVANT IMPLANT DATA REVIEWED: Not Applicable ALLERGIES: Reviewed and unchanged CONTRAST ALLERGY: NO. EXAM: CT -CONTRAST INDUCED NEPHROPATHY RISK FACTORS: Not applicable CREATININE: Creatinine Date Value Ref Range Status 09/23/2020 0.61 0.58 - 0.96 mg/dL Final 01/22/2019 0.52 (L) 0.58 - 0.96 mg/dL Final 12/20/2018 0.60 0.58 - 0.96 mg/dL Final eGFR-All Other Races Date Value Ref Range Status 09/23/2020 >60 . Final Comment: eGFR (Estimated GFR) Units of measure: mL/min/1.73 meters squared eGFR is derived from the reexpressed MDRD Study equation using the following parameters: serum creatinine, age, gender and race. The creatinine assay has been calibrated to be traceable to IDMS. An eGFR <60 mL/min/1.73m2 for >3 months is consistent with chronic kidney disease. Refer to KDOQI guidelines for clinical interpretation. In patients with unstable renal function, e.g. those with acute kidney injury, the eGFR may not accurately reflect actual GFR. eGFR- Date Value Ref Range Status 09/23/2020 >60 Final P.O.C.T. RESULTS: POC done: Yes, See Lab Tab September 23, 2020 TREATMENT: N/A PERIPHERAL IV DATA: Inpatient - refer to LDA documentation RADIOLOGY DEPARTMENT: CT; Exam(s) Completed: Face/Mandible SIGNATURE: ANSON Payton PATIENT NAME: Sherlyn Amin DATE: September 23, 2020 TIME: 5:20 PM Normal [facility] Blood Cultureon 09-23-2020 Bacteria identified Cx Nom (Bld) Culture Result - No growth 5 days Normal [facility] Comment on above: Performed By: #### B LCUL #### [facility] [address] [place] [address] CBC and Differentialon 09-23 Abs Baso 0.04 k/uL Normal <0.11 [facility] Comment on above: Performed By: #### C BCDIF CMP #### [facility] [address] [facility] [phone] Abs Kimble 0.53 k/uL Normal <0.87 [facility] Comment on above: Performed By: #### C BCDIF, CMP #### [facility] [address] [facility] [phone] Abs Neut 7.82 k/uL High 1.45-7.50 [facility] Comment on above: Performed By: #### C BCDIF, CMP #### [facility] [address] Absolute nRBC <0.01 Normal <0.01 [facility] Comment on above: Performed By: #### C BCDIF, CMP #### [facility] [address] [place] [address] Basophils/100 WBC (Bld) 0.4 % Normal [facility] Comment on above: Performed By: #### C BCDIF, CMP #### [facility] [address] [place] [address] DTYPE Auto Diff Normal [facility] Comment on above: Performed By: #### C BCDIF, CMP #### [facility] [address] [place] [address] Eosinophils (Bld) [#/Vol] 0.15 10*3/uL Normal <0.46 [facility] Comment on above: Performed By: #### C BCDIF, CMP #### [facility] [address] [place] [address] Eosinophils/100 WBC (Bld) 1.4 % Normal [facility] Comment on above: Performed By: #### C BCDIF, CMP #### [facility] [address] [place] [address] Erythrocyte distribution width (RBC) [Ratio] 13.9 % Normal 11.5-15.0 [facility] Comment on above: Performed By: #### C BCDIF, CMP #### [facility] [address] [place] [address] Hematocrit (Bld) [Volume fraction] 36.5 % Normal 36.0-46.0 [facility] Comment on above: Performed By: #### C BCDIF, CMP #### [facility] [address] [place] [address] Hemoglobin (Bld) [Mass/Vol] 11.3 g/dL Low 11.5-15.5 [facility] Comment on above: Performed By: #### C BCDIF, CMP #### [facility] [address] [place] [address] Lymphocytes (Bld) [#/Vol] 2.11 10*3/uL Normal 1.00-4.00 [facility] Comment on above: Performed By: #### C BCDIF, CMP #### [facility] [address] Lymphocytes/100 WBC (Bld) 19.8 % Normal [facility] Comment on above: Performed By: #### C BCDIF, CMP #### [facility] [address] MCH (RBC) [Entitic mass] 28.3 pG Normal 26.0-34.0 [facility] Comment on above: Performed By: #### C BCDIF, CMP #### [facility] [address] MCHC (RBC) [Mass/Vol] 31.0 g/dL Normal 30.5-36.0 [facility] Comment on above: Performed By: #### C BCDIF, CMP #### [facility] [address] [place] [address] MCV (RBC) [Entitic vol] 91.5 fL Normal 80.0-100.0 [facility] Comment on above: Performed By: #### C BCDIF, CMP #### [facility] [address] Monocytes/100 WBC (Bld) 5.0 % Normal [facility] Comment on above: Performed By: #### C BCDIF, CMP #### [facility] [address] Neutrophils/100 WBC (Bld) 73.4 % Normal [facility] Comment on above: Performed By: #### C BCDIF, CMP #### [facility] [address] NRBCs 0.0 /100 WBC Normal 0 [facility] Comment on above: Performed By: #### C BCDIF, CMP #### [facility] [address] [place], [place] [id number] Platelet mean volume (Bld) [Entitic vol] 9.3 fL Normal 9.0-12.7 [facility] Comment on above: Performed By: #### C BCDIF, CMP #### [facility] [address] [place] [phone] Platelets (Bld) [#/Vol] 411 10*3/uL High 150-400 [facility] Comment on above: Performed By: #### C BCDIF, CMP #### [facility] [address] [facility] [phone] RBC (Bld) [#/Vol] 3.99 10*6/uL Normal 3.90-5.20 [facility] Comment on above: Performed By: #### C BCDIF, CMP #### [facility] [address] [facility] [phone] WBC (Bld) [#/Vol] 10.65 10*3/uL Normal 3.70-11.00 [facility] Comment on above: Performed By: #### C BCDIF, CMP #### [facility] [address] [facility] [phone] CT FACIAL BONE W IVCONon CT FACIAL BONE W IVCON * * *Final Report * * * DATE OF EXAM: Sep 23 2020 5:20PM [facility] [facility] - CT FACIAL BONE W IVCON / PROCEDURE REASON: Mass, lump or swelling, maxface * * * * Physician Interpretation * * * * CT FACIAL BONE W IVCON HISTORY: Forehead wound. A CT of the facial bones has been requested and performed as the assessment. TECHNIQUE: Facial bone CT with contrast. 2 mm axial scans. Sagittal and coronal reformations. Contrast: IV 100 ml of Omnipaque 300 CT Radiation dose: Integrated Dose-length product (DLP) for this visit = 373 mGy*cm CT Dose Reduction Employed: Automated exposure control (AEC) RESULT: Punctate focus of air is present in the lateral right forehead scalp above the temporal region. (Axial image 81). Adjacent to this is soft tissue swelling lateral and superior to the right brow line. No avid enhancement and no evidence for drainable fluid collection. This appearance would be similar in the setting of either localized soft tissue contusion or prior contusion/laceration with superimposed soft tissue infection/cellulitis. Typically edema is relatively soft and pliable, while cellulitis will generally be read and firm. No adjacent fracture. No evidence for focal contributory odontogenic or sinus pathology. Paranasal sinus chambers, mastoid air cells, and middle ear cavities are clear. Gross brain volume and morphology is normal within the [id number]. No abnormal enhancement. Typical intracranial and extracranial arterial and venous enhancement within the [id number] of this examination. Orbits are structurally normal. Globes are intact. No abnormal infiltrative process involving the retrobulbar region on the right or left. Mild asymmetric right supraorbital/periorbital swelling contiguous with the process described above. IMPRESSION: Punctate air within the soft tissues lateral and superior to the right brow above the temporal region as discussed above which may be related to a small localized soft tissue laceration. Pattern of swelling visible on this exam can be seen in the setting of direct soft tissue contusion/laceration, with or without superimposed mild infection. There is no avid enhancement to suggest an aggressive infectious process. There is no evidence for drainable abscess. Ecommerce Marketing Manager: CELIA Transcribe Date/Time: Sep 23 2020 5:32P Dictated by : MONICA LIU MD This examination was interpreted and the report reviewed and electronically signed by: MONICA LIU MD on Sep 23 2020 5:39PM EST [id number] Normal [facility] Comp Metabolic Panelon 09-23 Albumin [Mass/Vol] 4.0 g/dL Normal 3.9-4.9 [facility] Comment on above: Performed By: #### C DORETHA CMP #### [facility] [address] [place] [address] ALP [Catalytic activity/Vol] 65 U/L Normal 34-123 [facility] Comment on above: Performed By: #### C ROSMERYF CMP #### [facility] [address] [place] [address] ALT [Catalytic activity/Vol] 7 U/L Normal 7-38 [facility] Comment on above: Performed By: #### C ROSMERYF CMP #### [facility] [address] [place] [address] Anion gap [Moles/Vol] 9 mmol/L Normal 9-18 [facility] Comment on above: Performed By: #### C BCDIF CMP #### [facility] [address] [place] [address] AST [Catalytic activity/Vol] 15 U/L Normal 13-35 [facility] Comment on above: Performed By: #### C BCDIF, CMP #### [facility] [address] Bilirubin [Mass/Vol] 0.4 mg/dL Normal 0.2-1.3 [facility] Comment on above: Performed By: #### C BCDIF, CMP #### [facility] [address] [place] [id number] Calcium [Mass/Vol] 9.3 mg/dL Normal 8.5-10.2 [facility] Comment on above: Performed By: #### C BCDIF, CMP #### [facility] [address] [place] [address] Chloride [Moles/Vol] 103 mmol/L Normal 97-105 [facility] Comment on above: Performed By: #### C BCBRYCEF, CMP #### [facility] [address] [place] [address] CO2 [Moles/Vol] 26 mmol/L Normal 22-30 [facility] Comment on above: Performed By: #### C BCBRYCEF, CMP #### [facility] [address] [place] [address] Creatinine [Mass/Vol] 0.61 mg/dL Normal 0.58-0.96 [facility] Comment on above: Performed By: #### C BCBRYCEF, CMP #### [facility] [address] [place] [address] eGFR- Amer. >60 Normal [facility] Comment on above: Performed By: #### C BCDIF, CMP #### [facility] [address] [place], [place] [id number] GFR/1.73 sq M predicted among non-blacks MDRD (S/P/Bld) [Vol rate/Area] mL/min/{1.73_m2} Normal [facility] Comment on above: Result Comment: eGFR (Estimated GFR) Units of measure: mL/min/1.73 meters squared eGFR is derived from the reexpressed MDRD Study equation using the following parameters: serum creatinine, age, gender and race. The creatinine assay has been calibrated to be traceable to IDMS. An eGFR <60 mL/min/1.73m2 for >3 months is consistent with chronic kidney disease. Refer to KDOQI guidelines for clinical interpretation. In patients with unstable renal function, e.g. those with acute kidney injury, the eGFR may not accurately reflect actual GFR. Performed By: #### C BCDIF, CMP #### [facility] [address] [place] [address] Glucose [Mass/Vol] 90 mg/dL Normal 74-99 [facility] Comment on above: Result Comment: The [place] Diabetes Association (ADA) provides guidance for cutoff values for fasting glucose and random glucose. The ADA defines fasting as no caloric intake for at least 8 hours. Fasting plasma glucose results between 100 to 125 mg/dL indicate increased risk for diabetes (prediabetes). Fasting plasma glucose results greater than or equal to 126 mg/dL meet the criteria for diagnosis of diabetes. In the absence of unequivocal hyperglycemia, results should be confirmed by repeat testing. In a patient with classic symptoms of hyperglycemia or hyperglycemic crisis, random plasma glucose results greater than or equal to 200 mg/dL meet the criteria for diagnosis of diabetes. Reference: Standards of Medical Care in Diabetes 2016, [place] [employer]. Diabetes Care. 2016.39(Suppl 1). Performed By: #### C BCDIF, CMP #### [facility] [address] [place] [address] Potassium [Moles/Vol] 4.0 mmol/L Normal 3.7-5.1 [facility] Comment on above: Performed By: #### C BCDIF, CMP #### [facility] [address] [place] [address] Protein [Mass/Vol] 7.0 g/dL Normal 6.3-8.0 [facility] Comment on above: Performed By: #### C BCDIF, CMP #### [facility] [address] [place] [address] Sodium [Moles/Vol] 138 mmol/L Normal 136-144 [facility] Comment on above: Performed By: #### C BCDIF, CMP #### [facility] [address] [place], [place] [id number] Urea nitrogen [Mass/Vol] 6 mg/dL Low 7-21 [facility] Comment on above: Performed By: #### C BCDIF, CMP #### [facility] [address] [place], [place] [id number] ED NOTEon 09-23-2020 ED NOTE HNO ID: [id number] Author: Stella McdonaldRn) WARD Wise Service: ? Author Type: Registered Nurse Type: ED Notes Filed: 09/23/2020 1:13 PM Note Text: Pt presents for edema to right side of forehead. Pt was admitted to [facility] since Tuesday evening but left AMA d/t poor patient experience. Pt received IV antibiotics during her admission. Pt states her edema has worsened since Tuesday. Respirations regular and unlabored, pt is able to maintain her own secretions. Normal [facility] ED PROV NOTEon 09-23-2020 ED PROV NOTE HNO ID: [id number] Author: Lorna Parker MD Service: ? Author Type: Physician Type: ED Provider Notes Filed: 09/23/2020 6:53 PM Note Text: ED Provider Note Patient Name: Sherlyn Amin SERVICE DATE: 09/23/20 History No chief complaint on file. Patient with h/o Hepatitis C, h/o heroin abuse, and Asthma who presents with swelling to her right face. She was admitted to [facility] Tuesday, 3 days ago for abscess to her right forehead and redness/rash to below right eye. She initially had an elevated WBC and fever but apparently that has resolved. She left the hospital admission AMA because the doctor told me I wasn't worth two minutes of his time. She report the swelling has gotten worse. Patient received IV vancomycin and zosyn during her hospital admission. The area under her eye is actually pruritic. The area on her forehead is painful. The ED placed a small incision to this area on Tuesday. PAST MEDICAL HISTORY Diagnosis Date - Anemia - Arthritis In both shoulders - Asthma - Chronic hepatitis C affecting , antepartum (HCC) 03/31/2017 - Hepatitis C treated - Heroin addiction (HCC) 11/18/2016 - Mental disorder PAST SURGICAL HISTORY Procedure Laterality Date - DELIVERY ONLY 09/18/2007 , low transverse - SUCTION D AND C 04/05/2017 FAMILY HISTORY Problem Relation Age of Onset - other (lupus) Father - Cancer Maternal Grandfather Lung-Greatgrandfather - Prostate Cancer Maternal Grandfather - Diabetes Maternal Grandmother Great Grandmother - Cancer Maternal Grandmother Brain - Stroke Paternal Grandmother - Cervical Cancer Maternal Aunt Social History Tobacco Use - Smoking status: Current Every Day Smoker Packs/day: 0.20 Years: 5.00 Pack years: 1.00 Types: Cigarettes - Smokeless tobacco: Never Used - Tobacco comment: 4-5 cigarettes per day Substance and Sexual Activity - Alcohol use: Yes Comment: social - Drug use: No - Sexual activity: Not Currently Partners: Male control/protection: None, Injection ALLERGIES Allergen Reactions - Bactrim [Sulfametho* Other: See Comments Sick to stomach, chest tightness, FLORES Review of Systems Constitutional: Negative for chills and fever. HENT: Negative for congestion, rhinorrhea, sinus pressure, sinus pain, sneezing and sore throat. Eyes: Negative for visual disturbance. Respiratory: Negative for cough and shortness of breath. Cardiovascular: Negative for chest pain, palpitations and leg swelling. Gastrointestinal: Negative for abdominal pain, diarrhea, nausea and vomiting. Genitourinary: Negative for difficulty urinating, dysuria, flank pain and hematuria. Musculoskeletal: Negative for back pain, myalgias and neck stiffness. Skin: Positive for wound. Negative for pallor. Neurological: Negative for dizziness, weakness, light-headedness and headaches. Psychiatric/Behavioral: Negative for confusion. All other systems reviewed and are negative. Physical Exam BP 112/64 Pulse 105 Temp (Src) 99 (Oral) Resp 20 Wt 108 lb (49.0kg) SpO2 100% LMP 09/06/2019 O2 Therapy: Room Air Physical Exam Vitals and nursing note reviewed. Constitutional: General: She is not in acute distress. Appearance: She is well-developed. HENT: Head: Atraumatic. Right Ear: External ear normal. Left Ear: External ear normal. Nose: Nose normal. Eyes: Conjunctiva/sclera: Conjunctivae normal. Pupils: Pupils are equal, round, and reactive to light. Cardiovascular: Rate and Rhythm: Normal rate and regular rhythm. Heart sounds: Normal heart sounds. No murmur. Pulmonary: Effort: Pulmonary effort is normal. No respiratory distress. Breath sounds: Normal breath sounds. No stridor. No wheezing or rales. Chest: Chest wall: No tenderness. Abdominal: General: Bowel sounds are normal. There is no distension. Palpations: Abdomen is soft. Tenderness: There is no abdominal tenderness. There is no rebound. Musculoskeletal: General: No tenderness. Normal range of motion. Cervical back: Normal range of motion and neck supple. Lymphadenopathy: Cervical: No cervical adenopathy. Skin: General: Skin is warm and dry. Findings: No erythema or rash. Neurological: Mental Status: She is alert and oriented to person, place, and time. Psychiatric: Behavior: Behavior normal. Thought Content: Thought content normal. Judgment: Judgment normal. Diagnostic Testing ED Labs Ordered and Reviewed - No data to display Results for orders placed or performed during the hospital encounter of 09/23/20 CBC + DIFF Result Value Ref Range WBC 10.65 3.70 - 11.00 k/uL RBC 3.99 3.90 - 5.20 m/uL Hemoglobin 11.3 (L) 11.5 - 15.5 g/dL Hematocrit 36.5 36.0 - 46.0 % MCV 91.5 80.0 - 100.0 fL MCH 28.3 26.0 - 34.0 pG MCHC 31.0 30.5 - 36.0 g/dL RDW-CV 13.9 11.5 - 15.0 % Platelet Count 411 (H) 150 - 400 k/uL MPV 9.3 9.0 - 12.7 fL Neut% 73.4 % Abs Neut (ANC) 7.82 (H) 1.45 - 7.50 k/uL Lymph% 19.8 % Abs Lymph 2.11 1.00 - 4.00 k/uL Kimble% 5.0 % Abs Kimble 0.53 <0.87 k/uL Eosin% 1.4 % Abs Eosin 0.15 <0.46 k/uL Baso% 0.4 % Abs Baso 0.04 <0.11 k/uL Nucleated Reds 0.0 0 /100 WBC Absolute nRBC <0.01 <0.01 k/uL Diff Type Auto Diff COMP METABOLIC PANEL Result Value Ref Range Protein, Total 7.0 6.3 - 8.0 g/dL Albumin 4.0 3.9 - 4.9 g/dL Calcium 9.3 8.5 - 10.2 mg/dL Bilirubin, Total 0.4 0.2 - 1.3 mg/dL Alkaline Phosphatase 65 34 - 123 U/L AST 15 13 - 35 U/L Glucose 90 74 - 99 mg/dL BUN 6 (L) 7 - 21 mg/dL Creatinine 0.61 0.58 - 0.96 mg/dL Sodium 138 136 - 144 mmol/L Potassium 4.0 3.7 - 5.1 mmol/L Chloride 103 97 - 105 mmol/L CO2 26 22 - 30 mmol/L Anion Gap 9 9 - 18 mmol/L ALT 7 7 - 38 U/L eGFR- >60 eGFR-All Other Races >60 . URINALYSIS Result Value Ref Range Color Yellow Yellow Appearance (U) Slightly Cloudy (A) Clear Glucose, Urine Negative Negative mg/dL Bilirubin, Urine Negative Negative Ketones, Urine Trace (A) Negative Specific Blackwell, Ur 1.020 1.005 - 1.030 Hemoglobin/Blood,Ur Negative Negative pH, Urine 7.5 5.0 - 8.0 Protein, Urine Negative Negative Urobilinogen 1.0 0.2 - 1.0 E.U./dL Nitrites Negative Negative Leukest Negative Negative CRITICAL CARE PROFILE VENOUS Result Value Ref Range Blood Gas Comment, Venous Date Drawn ([place]) 20200923 Time Drawn ([place]) Sample Type ([place]) Venous VBG Site RA Director Of Music ([place]) karla zuñiga Methemoglobin, Venous 0.8 0.4 - 1.5 % Carboxyhemoglobin, Venous 3.2 (H) % Lactate 1.1 0.5 - 2.2 mmol/L Oxyhemoglobin, Venous 53.2 (L) 60.0 - 85.0 % RHb ([place]) 42.8 % Base Excess, Venous 1.5 mmol/L Bicarbonate, Venous 27.1 mmol/L pCO2, Venous 48.3 42.0 - 55.0 mmHg pH, Venous 7.368 7.320 - 7.420 Venous Total Hemoglobin 16.0 g/dL Potassium, Whole Blood 4.0 3.5 - 5.0 mmol/L Cal Test ([place]) N/A Date/Time Analyzed ([place]) 16:18:00 Venous O2 Del Device RA Reported By ([place]) [place] Date/Time Reported ([place]) 16:23:00 Venous Drawn by: RAQUEL Notified By ([place]) [place] Date/Time Notified ([place]) 16:23:00 Notified Whom, Venous Dulle, E CT FACIAL BONES W IVCON Final Result IMPRESSION: Punctate air within the soft tissues lateral and superior to the right brow above the temporal region as discussed above which may be related to a small localized soft tissue laceration. Pattern of swelling visible on this exam can be seen in the setting of direct soft tissue contusion/laceration, with or without superimposed mild infection. There is no avid enhancement to suggest an aggressive infectious process. There is no evidence for drainable abscess. Ecommerce Marketing Manager: CELIA Transcribe Date/Time: Sep 23 2020 5:32P Dictated by : MONICA LIU MD This examination was interpreted and the report reviewed and electronically signed by: MONICA LIU MD on Sep 23 2020 5:39PM EST Procedures ED Course / Clinical Impression Clinical Impressions as of Sep 23 1839 Facial cellulitis Facial swelling MDM / Disposition / Plan Nurses notes and old chart reviewed Patient here for right facial swelling, redness, and tenderness, in [facility] on IV antibiotic for three days. Per pictures shown better although she thought worse. WBC normal and afebrile per patient. Ddx; abscess, cellulitis, periorbital cellulitis, ludwigs angina, shingles Work up in ED reveals WBC 10.65, HGB 11.3, PLT 411, CMP normal, facial CT shows punctate air within soft tissues lateral and superior to right brow (in area of IANDD done Tuesday and again today), no avid enhancement to suggest aggressive process While in ED, she was given IVF's and IV benadryl. The area of induration which is an oval 3 by 2 cm area was re IANDD in ED with very minimal drainage, wound culture sent. The erythema papular area under right eye appears more like allergic reaction. No evidence of shingles based on exam and no fluoroscein uptake. The swelling of right cheek area I feel is due to gravity pulling of soft tissue swelling that was apparent on pictures she took on Tuesday, 4 days ago. We discussed admission vs. Discharge since clinically she looks better and vitals are normal, Afebrile, WBC normal. She opted to go home. Will d/c with Rx clindamycin, probiotic, and medrol dose pack. Follow up in 24-48 hours. The patient was DISCHARGED: Counseled patient regarding lab results AND radiology results AND suspected diagnosis AND need for follow-up. Discharged home with verbal and written instructions. They were instructed to return as needed for persistent or worsening symptoms or any new concerns. Condition at time of disposition: stable SIGNATURE: MD Lorna Martin MD 09/23/20 1853 Normal [facility] Urinalysison 09-23-2020 Bilirubin, Urine Negative Normal Negative [facility] Comment on above: Performed By: #### U A #### [facility] [address] [place] [address] Clarity (U) Slightly Cloudy Critically abnormal Clear [facility] Comment on above: Performed By: #### U A #### [facility] [address] [place] [address] Color (U) Yellow Normal Yellow [facility] Comment on above: Performed By: #### U A #### [facility] [address] [place] [address] Glucose Ql (U) Negative Normal Negative [facility] Comment on above: Performed By: #### U A #### [facility] [facility] [address] [place] [address] Hemoglobin/Blood,Ur Negative Normal Negative [facility] Comment on above: Performed By: #### U A #### [facility] [address] [address] Ketones Ql (U) Trace Critically abnormal Negative [facility] Comment on above: Performed By: #### U A #### [facility] [address] [address] Leukest Negative Normal Negative [facility] Comment on above: Performed By: #### U A #### [facility] [address] [place] [address] Nitrite Ql (U) Negative Normal Negative [facility] Comment on above: Performed By: #### U A #### [facility] [address] [place] [address] pH (Bld) 7.5 Normal 5.0-8.0 [facility] Comment on above: Performed By: #### U A #### [facility] [address] [place], [place] [id number] Protein (U) [Mass/Vol] Negative Normal Negative [facility] Comment on above: Performed By: #### U A #### [facility] [address] [place], [place] [id number] Specific [place], Ur 1.020 Normal 1.005-1 .03 0 [facility] Comment on above: Performed By: #### U A #### [facility] [address] [facility] [phone] Urobilinogen Qn (U) 1.0 E.U./dL Normal 0.2-1.0 [facility] Comment on above: Performed By: #### U A #### [facility] [address] [facility] [phone] Wound Culture/Stainon 2020 Wound Culture/Stain Sp. Request/Comment: - Eswab Smear Result - Few Gram positive bacilli --> ABNORMAL ALERT Rare --> ABNORMAL ALERT Gram positive cocci --> ABNORMAL ALERT Rare --> ABNORMAL ALERT Gram negative bacilli --> ABNORMAL ALERT Rare Polymorphonuclear leukocytes Culture Result - Moderate Methicillin resistant Staphylococcus aureus --> ABNORMAL ALERT The discrepancy between culture and gram stain result may be due to nonviable organisms or the presence of anaerobes. ORGANISM: Methicillin resistant Staphylococcus aureus METHOD: Minimum inhibitory concentration([employer]itek) Antibiotic Interp SHIRIN Status Erythromycin RESISTANT >=8 F Clindamycin SUSCEPTIBLE 0.25 F Testing for inducible clindamycin resistance was performed. Tetracycline SUSCEPTIBLE <=1 F Vancomycin SUSCEPTIBLE 1 F Oxacillin RESISTANT >=4 F Oxacillin resistant staphylococci are resistant to all beta lactam antibiotics (except new cephalosporins with anti MRSA activity). Trimeth sulfameth SUSCEPTIBLE <=10 F Gentamicin SUSCEPTIBLE <=0.5 F Rifampin SUSCEPTIBLE <=0.5 F Rifampin should not be used alone for antimicrobial therapy. Daptomycin SUSCEPTIBLE 0.25 F Linezolid SUSCEPTIBLE 2 F Doxycycline SUSCEPTIBLE <=0.5 F Critically abnormal [facility] Comment on above: Performed By: #### W CUL #### [facility] [address] [address] Vital Signs Date Time Vital Sign Value Performing Clinician Facility 12-14-2024 14:16040 Body mass index (BMI) [Ratio] 22.93 kg/m2 Shaw Guevara MD Work Phone: [facility] 12-14-2024 14:16040 Body temperature 97.7 [degF] Shaw Guevara MD Work Phone: [facility] 12-14-2024 14:16040 Body weight 51.5 kg Shaw Guevara MD Work Phone: [facility] 12-14-2024 14:16-0400 Diastolic blood pressure 84 mm[Hg] Shaw Guevara MD Work Phone: [facility] 12-14-2024 14:16-0400 Heart rate 91 /min Shaw Guevara MD Work Phone: [facility] 12-14-2024 14:16-0400 Respiratory rate 18 /min Shaw Guevara MD Work Phone: [facility] 12-14-2024 14:16-0400 SaO2% (BldA) [Mass fraction] 100 % Shaw Guevara MD Work Phone: [facility] 12-14-2024 14:16-0400 Systolic blood pressure 112 mm[Hg] Shaw Guevara MD Work Phone: [facility] 12-12-2024 16:37-0400 Body mass index (BMI) [Ratio] 23.33 kg/m2 Shwa Guevara MD Work Phone: [facility] 12-12-2024 16:37-0400 Body temperature 98.6 [degF] Shaw Guevara MD Work Phone: [facility] 12-12-2024 16:37-0400 Body weight 52.4 kg Shaw Guevara MD Work Phone: [facility] 12-12-2024 16:37-0400 Diastolic blood pressure 74 mm[Hg] Shaw Guevara MD Work Phone: [facility] 12-12-2024 16:37-0400 Heart rate 92 /min Shaw Guevara MD Work Phone: [facility] 12-12-2024 16:37-0400 Respiratory rate 16 /min Shaw Guevara MD Work Phone: [facility] 12-12-2024 16:37-0400 Systolic blood pressure 118 mm[Hg] Shaw Guevara MD Work Phone: [facility] 12-10-2024 10:38-0400 Body mass index (BMI) [Ratio] 23.24 kg/m2 Chiqui Praisler-Wood SURGICAL INSTRUMENT MAKER.LINEN CLERK Work Phone: [facility] 12-10-2024 10:38-0400 Body temperature 100.9 [degF] Chiqui Praisler-Wood SURGICAL INSTRUMENT MAKER.LINEN CLERK Work Phone: [facility] 12-10-2024 10:38-0400 Body weight 52.2 kg Chqiui Praisler-Wood SURGICAL INSTRUMENT MAKER.LINEN CLERK Work Phone: [facility] 12-10-2024 10:38-0400 Diastolic blood pressure 78 mm[Hg] Chiqui Praisler-Wood SURGICAL INSTRUMENT MAKER.LINEN CLERK Work Phone: [facility] 12-10-2024 10:38-0400 Heart rate 127 /min Chiqui Praisler-Wood SURGICAL INSTRUMENT MAKER.LINEN CLERK Work Phone: [facility] 12-10-2024 10:38-0400 Respiratory rate 20 /min Chiqui Praisler-Wood SURGICAL INSTRUMENT MAKER.LINEN CLERK Work Phone: [facility] 12-10-2024 10:38-0400 SaO2% (BldA) [Mass fraction] 100 % Chiqui Praisler-Wood SURGICAL INSTRUMENT MAKER.LINEN CLERK Work Phone: [facility] 12-10-2024 10:38-0400 Systolic blood pressure 122 mm[Hg] Chiqui Praisler-Wood SURGICAL INSTRUMENT MAKER.LINEN CLERK Work Phone: [facility] 08-06-2024 19:06-0500 Body mass index (BMI) [Ratio] 22.53 kg/m2 Kevin Maya MD Work Phone: [facility] 08-06-2024 19:06-0500 Body weight 50.6 kg Kevin Maya MD Work Phone: [facility] 08-06-2024 19:06-0500 Diastolic blood pressure 82 mm[Hg] Kevin Maya MD Work Phone: [facility] 08-06-2024 19:06-0500 Heart rate 91 /min Kevin Maya MD Work Phone: [facility] 08-06-2024 19:06-0500 SaO2% (BldA) [Mass fraction] 100 % Kevin Maya MD Work Phone: [facility] 08-06-2024 19:06-0500 Systolic blood pressure 104 mm[Hg] Kevin Maya MD Work Phone: [facility] 11-21-2023 14:37-0400 Body weight 50.8 kg Ying Del Cid SURGICAL INSTRUMENT MAKER.LINEN CLERK Work Phone: [facility] 11-21-2023 14:37-0400 Diastolic blood pressure 62 mm[Hg] Ying Del Cid SURGICAL INSTRUMENT MAKER.LINEN CLERK Work Phone: [facility] 11-21-2023 14:37-0400 Heart rate 62 /min Ying Del Cid SURGICAL INSTRUMENT MAKER.LINEN CLERK Work Phone: [facility] 11-21-2023 14:37-0400 Respiratory rate 12 /min Ying Del Cid SURGICAL INSTRUMENT MAKER.LINEN CLERK Work Phone: [facility] 11-21-2023 14:37-0400 Systolic blood pressure 100 mm[Hg] Ying Del Cid SURGICAL INSTRUMENT MAKER.LINEN CLERK Work Phone: [facility] 11-18-2023 13:05-0400 Body temperature 99.3 [degF] Ying Del Cid SURGICAL INSTRUMENT MAKER.LINEN CLERK Work Phone: [facility] 11-18-2023 13:05-0400 Body weight 51.17 kg Ying Del Cid SURGICAL INSTRUMENT MAKER.LINEN CLERK Work Phone: [facility] 11-18-2023 13:05-0400 Diastolic blood pressure 60 mm[Hg] Ying Del Cid SURGICAL INSTRUMENT MAKER.LINEN CLERK Work Phone: [facility] 11-18-2023 13:05-0400 Heart rate 60 /min Ying Del Cid SURGICAL INSTRUMENT MAKER.LINEN CLERK Work Phone: [facility] 11-18-2023 13:05-0400 Respiratory rate 12 /min Ying Del Cid SURGICAL INSTRUMENT MAKER.LINEN CLERK Work Phone: [facility] 11-18-2023 13:05-0400 Systolic blood pressure 90 mm[Hg] Ying Del Cid SURGICAL INSTRUMENT MAKER.LINEN CLERK Work Phone: [facility] 11-08-2023 07:47-0500 Body weight 51.8 kg Marya Francois SURGICAL INSTRUMENT MAKER.LINEN CLERK Work Phone: [facility] 11-08-2023 07:47-0500 Diastolic blood pressure 64 mm[Hg] Marya Francois SURGICAL INSTRUMENT MAKER.LINEN CLERK Work Phone: [facility] 11-08-2023 07:47-0500 Heart rate 80 /min Marya Francois SURGICAL INSTRUMENT MAKER.LINEN CLERK Work Phone: [facility] 11-08-2023 07:47-0500 Respiratory rate 16 /min Marya Francois SURGICAL INSTRUMENT MAKER.LINEN CLERK Work Phone: [facility] 11-08-2023 07:47-0500 Systolic blood pressure 106 mm[Hg] Marya Francois SURGICAL INSTRUMENT MAKER.LINEN CLERK Work Phone: [facility] 10-15-2023 11:51-0500 Diastolic blood pressure 80 mm[Hg] [facility] 10-15-2023 11:51-0500 Heart rate 101 /min [facility] 10-15-2023 11:51-0500 Respiratory rate 16 /min [facility] 10-15-2023 11:51-0500 SaO2% (BldA) [Mass fraction] 99 % [facility] 10-15-2023 11:51-0500 Systolic blood pressure 115 mm[Hg] [facility] 10-15-2023 09:02-0500 Body height 149.86 cm [facility] 10-15-2023 09:02-0500 Body mass index (BMI) [Ratio] 21.8 kg/m2 [facility] 10-15-2023 09:02-0500 Body temperature 97.7 [degF] [facility] 10-15-2023 09:02-0500 Body weight 48.98 kg [facility] 05-14-2023 10:58-0400 Body height 149.86 cm [facility] 05-14-2023 10:58-0400 Body mass index (BMI) [Ratio] 20.9 kg/m2 [facility] 05-14-2023 10:58-0400 Body temperature 97.2 [degF] [facility] 05-14-2023 10:58-0400 Body weight 47.2 kg [facility] 05-14-2023 10:58-0400 Diastolic blood pressure 89 mm[Hg] [facility] 05-14-2023 10:58-0400 Heart rate 110 /min [facility] 05-14-2023 10:58-0400 Respiratory rate 16 /min [facility] 05-14-2023 10:58-0400 SaO2% (BldA) [Mass fraction] 100 % [facility] 05-14-2023 10:58-0400 Systolic blood pressure 137 mm[Hg] [facility] 05-05-2023 12:06-0400 Body weight 42.91 kg Marya 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.LINEN CLERK Work Phone: [facility] 05-05-2023 12:06-0400 Diastolic blood pressure 76 mm[Hg] Marya 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.LINEN CLERK Work Phone: [facility] 05-05-2023 12:06-0400 Heart rate 84 /min Marya 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.LINEN CLERK Work Phone: [facility] 05-05-2023 12:06-0400 Respiratory rate 16 /min Marya 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.LINEN CLERK Work Phone: [facility] 05-05-2023 12:06-0400 SaO2% (BldA) [Mass fraction] 98 % Marya 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.LINEN CLERK Work Phone: [facility] 05-05-2023 12:06-0400 Systolic blood pressure 102 mm[Hg] Marya 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.LINEN CLERK Work Phone: [facility] 02-27-2023 10:00-0400 Body height 149.86 cm [facility] 02-27-2023 10:00-0400 Body mass index (BMI) [Ratio] 20.7 kg/m2 [facility] 02-27-2023 10:00-0400 Body temperature 98.1 [degF] [facility] 02-27-2023 10:00-0400 Body weight 46.67 kg [facility] 02-27-2023 10:00-0400 Diastolic blood pressure 75 mm[Hg] [facility] 02-27-2023 10:00-0400 Heart rate 117 /min [facility] 02-27-2023 10:00-0400 Respiratory rate 16 /min [facility] 02-27-2023 10:00-0400 SaO2% (BldA) [Mass fraction] 100 % [facility] 02-27-2023 10:00-0400 Systolic blood pressure 112 mm[Hg] [facility] 02-01-2023 08:42-0400 Body temperature 98.4 [degF] Jeovanny Sonny SURGICAL INSTRUMENT MAKER.LINEN CLERK Work Phone: [facility] 02-01-2023 08:42-0400 Body weight 43.36 kg Jeovanny Sonny SURGICAL INSTRUMENT MAKER.LINEN CLERK Work Phone: [facility] 02-01-2023 08:42-0400 Diastolic blood pressure 76 mm[Hg] Jeovanny Sonny SURGICAL INSTRUMENT MAKER.LINEN CLERK Work Phone: [facility] 02-01-2023 08:42-0400 Heart rate 94 /min Jeovanny Sonny SURGICAL INSTRUMENT MAKER.LINEN CLERK Work Phone: [facility] 02-01-2023 08:42-0400 Respiratory rate 16 /min Jeovanny Sonny SURGICAL INSTRUMENT MAKER.LINEN CLERK Work Phone: [facility] 02-01-2023 08:42-0400 SaO2% (BldA) [Mass fraction] 99 % Jeovanny Sonny SURGICAL INSTRUMENT MAKER.LINEN CLERK Work Phone: [facility] 02-01-2023 08:42-0400 Systolic blood pressure 110 mm[Hg] Jeovanny Sonny SURGICAL INSTRUMENT MAKER.LINEN CLERK Work Phone: [facility] 11-18-2022 16:12-0400 Body height 149.9 cm Dilip Jones MD Work Phone: [facility] 11-18-2022 16:12-0400 Body temperature 98.01 [degF] Dilip Jones MD Work Phone: [facility] 11-18-2022 16:12-0400 Body weight 45.27 kg Dilip Jones MD Work Phone: [facility] 11-18-2022 16:12-0400 Diastolic blood pressure 60 mm[Hg] Dilip Jones MD Work Phone: [facility] 11-18-2022 16:12-0400 Heart rate 95 /min Dilip Jones MD Work Phone: [facility] 11-18-2022 16:12-0400 SaO2% (BldA) [Mass fraction] 98 % Dilip Jones MD Work Phone: [facility] 11-18-2022 16:12-0400 Systolic blood pressure 98 mm[Hg] Dilip Jones MD Work Phone: [facility] 08-31-2022 08:07-0500 Body temperature 100.6 [degF] Chiqui Praisler-Wood SURGICAL INSTRUMENT MAKER.LINEN CLERK Work Phone: [facility] 08-31-2022 08:07-0500 Body weight 47.45 kg Chiqui Praisler-Wood SURGICAL INSTRUMENT MAKER.LINEN CLERK Work Phone: [facility] 08-31-2022 08:07-0500 Diastolic blood pressure 64 mm[Hg] Chiqui Praisler-Wood SURGICAL INSTRUMENT MAKER.LINEN CLERK Work Phone: [facility] 08-31-2022 08:07-0500 Heart rate 108 /min Chiqui Praisler-Wood SURGICAL INSTRUMENT MAKER.LINEN CLERK Work Phone: [facility] 08-31-2022 08:07-0500 Respiratory rate 18 /min Chiqui Praisler-Wood SURGICAL INSTRUMENT MAKER.LINEN CLERK Work Phone: [facility] 08-31-2022 08:07-0500 SaO2% (BldA) [Mass fraction] 99 % Chiqui Praisler-Wood SURGICAL INSTRUMENT MAKER.LINEN CLERK Work Phone: [facility] 08-31-2022 08:07-0500 Systolic blood pressure 102 mm[Hg] Chiqui Praisler-Wood SURGICAL INSTRUMENT MAKER.LINEN CLERK Work Phone: [facility] 08-09-2022 16:29-0500 Body temperature 98.29 [degF] Ted Pendlebury SURGICAL INSTRUMENT MAKER.LINEN CLERK Work Phone: [facility] 08-09-2022 16:29-0500 Body weight 48.17 kg Ted Pendlebury SURGICAL INSTRUMENT MAKER.LINEN CLERK Work Phone: [facility] 08-09-2022 16:29-0500 Diastolic blood pressure 66 mm[Hg] Ted Pendlebury SURGICAL INSTRUMENT MAKER.LINEN CLERK Work Phone: [facility] 08-09-2022 16:29-0500 Heart rate 71 /min Ted Pendlebury SURGICAL INSTRUMENT MAKER.LINEN CLERK Work Phone: [facility] 08-09-2022 16:29-0500 Respiratory rate 18 /min Ted Pendlebury SURGICAL INSTRUMENT MAKER.LINEN CLERK Work Phone: [facility] 08-09-2022 16:29-0500 SaO2% (BldA) [Mass fraction] 99 % Ted Pendlebury SURGICAL INSTRUMENT MAKER.LINEN CLERK Work Phone: [facility] 08-09-2022 16:29-0500 Systolic blood pressure 102 mm[Hg] Ted Pendlebury SURGICAL INSTRUMENT MAKER.LINEN CLERK Work Phone: [facility] 07-07-2022 10:08-0400 Body weight 45.63 kg Ying Zurawick SURGICAL INSTRUMENT MAKER.LINEN CLERK Work Phone: [facility] 07-07-2022 10:08-0400 Diastolic blood pressure 60 mm[Hg] Ying Zurawick SURGICAL INSTRUMENT MAKER.LINEN CLERK Work Phone: [facility] 07-07-2022 10:08-0400 Heart rate 64 /min Ying Zurawick SURGICAL INSTRUMENT MAKER.LINEN CLERK Work Phone: [facility] 07-07-2022 10:08-0400 Respiratory rate 12 /min Ying Zurawick SURGICAL INSTRUMENT MAKER.LINEN CLERK Work Phone: [facility] 07-07-2022 10:08-0400 Systolic blood pressure 90 mm[Hg] Ying Zurawick SURGICAL INSTRUMENT MAKER.LINEN CLERK Work Phone: [facility] 03-22-2022 11:14-0400 Body weight 45.41 kg Ying Zurawick SURGICAL INSTRUMENT MAKER.LINEN CLERK Work Phone: [facility] 03-16-2022 14:02-0400 Body weight 46.27 kg No Podlogar SURGICAL INSTRUMENT MAKER.LINEN CLERK Work Phone: [facility] 03-16-2022 14:02-0400 Diastolic blood pressure 72 mm[Hg] No Podlogar SURGICAL INSTRUMENT MAKER.LINEN CLERK Work Phone: [facility] 03-16-2022 14:02-0400 Heart rate 89 /min No Podlogar SURGICAL INSTRUMENT MAKER.LINEN CLERK Work Phone: [facility] 03-16-2022 14:02-0400 Respiratory rate 18 /min No Podlogar SURGICAL INSTRUMENT MAKER.LINEN CLERK Work Phone: [facility] 03-16-2022 14:02-0400 SaO2% (BldA) [Mass fraction] 100 % No Podlogar SURGICAL INSTRUMENT MAKER.LINEN CLERK Work Phone: [facility] 03-16-2022 14:02-0400 Systolic blood pressure 100 mm[Hg] No Podlogar SURGICAL INSTRUMENT MAKER.LINEN CLERK Work Phone: [facility] 01-06-2022 08:06-0400 Body height 149.86 cm [facility] Work Phone: 01-06-2022 08:06-0400 Body mass index (BMI) [Ratio] 23.1 kg/m2 [facility] Work Phone: 01-06-2022 08:06-0400 Body temperature 96.9 [degF] [facility] Work Phone: 01-06-2022 08:06-0400 Body weight 52 kg [facility] Work Phone: 01-06-2022 08:06-0400 Diastolic blood pressure 97 mm[Hg] [facility] Work Phone: 01-06-2022 08:06-0400 Heart rate 114 /min [facility] Work Phone: 01-06-2022 08:06-0400 Respiratory rate 16 /min [facility] Work Phone: 01-06-2022 08:06-0400 SaO2% (BldA) [Mass fraction] 99 % [facility] Work Phone: 01-06-2022 08:06-0400 Systolic blood pressure 130 mm[Hg] [facility] Work Phone: 07-02-2021 16:51-0400 Body height 149.9 cm LOUIS ALEXANDER MD [facility] 07-02-2021 16:51-0400 Body weight 65.5 kg LOUIS ALEXANDER MD [facility] 07-02-2021 16:51-0400 Body weight 29.15 kg/m2 LOUIS ALEXANDER MD [facility] 07-02-2021 16:50-0400 Body temperature 97.88 [degF] LOUIS ALEXANDER MD [facility] 07-02-2021 16:50-0400 Diastolic blood pressure 85 mm[Hg] LOUIS ALEXANDER MD [facility] 07-02-2021 16:50-0400 Heart rate 106 /min LOUIS ALEXANDER MD [facility] 07-02-2021 16:50-0400 Mean blood pressure 100 mm[Hg] LOUIS ALEXANDER MD [facility] 07-02-2021 16:50-0400 Respiratory rate 18 /min LOUIS ALEXANDER MD [facility] 07-02-2021 16:50-0400 Systolic blood pressure 131 mm[Hg] LOUIS ALEXANDER MD [facility] Encounters Encounter Date Encounter Type Care Provider Facility Start: 12-27-2024 End: 12-31-2024 ambulatory Shaw Guevara MD Work Phone: [facility] [place] Comment on above: Pharmacy is having i ssues ruling the presrioriin Start: 12-26-2024 End: 12-26-2024 ambulatory ELLIS Luis Antonio MCMANUSARNETT Facility:[facility] Start: 12-20-2024 End: 12-24-2024 Telephone encounter Ellis L Arnett DO Work Phone: [facility] Comment on above: Patient Question Start: 12-19-2024 End: 12-19-2024 Telephone encounter Ellis L Arnett DO Work Phone: [facility] [place] Comment on above: Ear Problem Start: 12-18-2024 End: 12-18-2024 Emergency department patient visit ANTOINE VERAS MD Facility:[facility] Start: 12-18-2024 End: 12-18-2024 ambulatory Ellis L Arnett DO Work Phone: [facility] Comment on above: worsening symptoms Start: 12-14-2024 End: 12-14-2024 ambulatory SHAW GUEVARA Facility:[facility] Start: 12-14-2024 End: 12-14-2024 Patient encounter procedure Shaw Guevara MD Work Phone: [facility] [place] Comment on above: Right non-suppurativ e otitis media (Primary Dx); Hearing loss of right ear, unspecified hearing loss type Start: 12-12-2024 End: 12-12-2024 Patient encounter procedure Shaw Guevara MD Work Phone: [facility] Comment on above: Eustachian tube dysf unction, right (Primary Dx); Right non-suppurative otitis media Start: 12-12-2024 End: 12-12-2024 ambulatory SHAW GUEVARA Facility:[facility] Start: 12-12-2024 End: 12-12-2024 Telemedicine consultation with patient Kenisha Santos Carmen GONCALVES.LINEN CLERK Work Phone: Telemedicine Comment on above: Treatment not availa ble (Primary Dx) Start: 12-10-2024 End: 12-10-2024 ambulatory ELLIS ARNETT Facility:[facility] Start: 12-10-2024 End: 12-10-2024 Patient encounter procedure Chiqui Salvador APRN.LINEN CLERK Work Phone: [place] [facility] Comment on above: Other acute nonsuppu rative otitis media of right ear, recurrence not specified (Primary Dx); Flu-like symptoms Start: 11-05-2024 End: 11-05-2024 Refill Kevin Maya MD Work Phone: [facility] Comment on above: Refill Request Start: 10-01-2024 End: 10-02-2024 Refill Ellis Arnett DO Work Phone: Family [facility] Comment on above: Refill Request Start: 09-30-2024 End: 10-01-2024 Refill Kevin Maya MD Work Phone: [facility] [place] Comment on above: Refill Request Start: 08-08-2024 End: 08-08-2024 Telephone encounter Kevin aMya MD Work Phone: [facility] [place] Comment on above: Patient Update (Fail ed to provide urine specimen) Start: 08-06-2024 End: 08-06-2024 ambulatory KEVIN MAYA Facility:[facility] Start: 08-06-2024 End: 08-06-2024 Patient encounter procedure Kevin Maya MD Work Phone: [facility] Comment on above: Depression with anxi ety (Primary Dx); Medication management Start: 07-27-2024 End: 2024 Refill Ellis Arnett DO Work Phone: [facility] Comment on above: Refill Request Start: 06-01-2024 End: 06-01-2024 Refill Ellis Arnett DO Work Phone: [facility] Comment on above: Refill Request Start: 04-25-2024 End: 04-26-2024 Refill Marya Francois SURGICAL INSTRUMENT MAKER.LINEN CLERK Work Phone: [facility] Comment on above: Refill Request Start: 03-24-2024 Refill Marya Goel an SURGICAL INSTRUMENT MAKER.LINEN CLERK Work Phone: [facility] Comment on above: Refill Request Start: 02-23-2024 Refill Ying Del Cid SURGICAL INSTRUMENT MAKER.LINEN CLERK Work Phone: [facility] Comment on above: Refill Request Start: 02-07-2024 Refill Ellis Mcmanusri trip DO Work Phone: [facility] Comment on above: Refill Request; Herp es (cold sore) Start: 01-20-2024 Refill Ying Del Cid SURGICAL INSTRUMENT MAKER.LINEN CLERK Work Phone: [facility] Comment on above: Refill Request Start: 12-22-2023 Refill Ying Del Cid SURGICAL INSTRUMENT MAKER.LINEN CLERK Work Phone: [facility] Comment on above: Refill Request Start: 11-21-2023 End: 11-21-2023 Patient encounter procedure Ying Del Cid SURGICAL INSTRUMENT MAKER.LINEN CLERK Work Phone: [facility] Comment on above: Adult ADHD (Primary Dx); Cellulitis of face Start: 11-18-2023 End: 11-18-2023 Patient encounter procedure Ying Del Cid SURGICAL INSTRUMENT MAKER.LINEN CLERK Work Phone: [facility] Comment on above: Cellulitis of face ( Primary Dx) Start: 11-08-2023 End: 11-08-2023 Patient encounter procedure Marya Francois SURGICAL INSTRUMENT MAKER.LINEN CLERK Work Phone: [facility] Comment on above: Adult ADHD (Primary Dx) Start: 10-15-2023 End: 10-15-2023 Emergency department patient visit Martell Lopez Facility:[facility] Start: 10-15-2023 End: 10-15-2023 Emergency department patient visit [facility] Work Phone: Start: 05-14-2023 End: 05-14-2023 Emergency department patient visit Dilip Grey Facility:[facility] Start: 05-14-2023 End: 05-14-2023 Emergency department patient visit [facility] Work Phone: Start: 05-05-2023 End: 05-05-2023 Patient encounter procedure Marya Francois SURGICAL INSTRUMENT MAKER.LINEN CLERK Work Phone: [facility] Comment on above: Recurrent cold sores (Primary Dx); Need for emotional support Start: 03-18-2023 Refill Ellis Campos trip WILLIAMSON Work Phone: [facility] Comment on above: Refill Request Start: 02-27-2023 End: 02-27-2023 Emergency department patient visit Ellis Arnett Facility:[facility] Start: 02-27-2023 End: 02-27-2023 Emergency department patient visit [facility] Start: 02-17-2023 Refill Marya vines SURGICAL INSTRUMENT MAKER.LINEN CLERK Work Phone: [address] [place] [address] Comment on above: Refill Request Start: 02-01-2023 End: 02-01-2023 Patient encounter procedure Jeovanny Dennis SURGICAL INSTRUMENT MAKER.LINEN CLERK Work Phone: [facility] Comment on above: Conjunctivitis of le ft eye, unspecified conjunctivitis type (Primary Dx) Start: 01-07-2023 Refill Ying Del Cid SURGICAL INSTRUMENT MAKER.LINEN CLERK Work Phone: [facility] Comment on above: Refill Request Start: 11-30-2022 End: 11-30-2022 Patient encounter procedure Dilip Jones MD Work Phone: General Surgery Comment on above: Right arm numbness ( Primary Dx); Arm mass, right Start: 11-23-2022 Telephone encounter Yingconnor Major trip SURGICAL INSTRUMENT MAKER.LINEN CLERK Work Phone: [facility] Comment on above: Patient Question Start: 11-22-2022 End: 11-22-2022 ambulatory Ying Del Cdi SURGICAL INSTRUMENT MAKER.LINEN CLERK Work Phone: [facility] Comment on above: Anxiety and depressi on (Primary Dx); Shoulder impingement syndrome, right Start: 11-22-2022 End: 11-22-2022 Telemedicine consultation with patient Ying Del Cid SURGICAL INSTRUMENT MAKER.LINEN CLERK Work Phone: [facility] Start: 11-18-2022 End: 11-18-2022 Patient encounter procedure Dilip Jones MD Work Phone: General Surgery Comment on above: Localized swelling, mass, or lump of left upper extremity Start: 11-10-2022 Telephone encounter Aiden Clayton MD Work Phone: [facility] Comment on above: Results Start: 11-04-2022 ambulatory NO PODLOGAR Facility :[facility] Start: 11-04-2022 End: 11-04-2022 Subsequent hospital visit by physician [facility] (1.5t) [facility] Comment on above: Localized swelling, mass, or lump of left upper extremity [R22.32] Start: 10-24-2022 Refill Marya vines APRN.LINEN CLERK Work Phone: [facility] Comment on above: Refill Request Start: 10-04-2022 Refill Ellis Campos son DO Work Phone: [facility] Comment on above: Refill Request Start: 09-06-2022 Telephone encounter Marianne Levin jimmy SURGICAL INSTRUMENT MAKER.LINEN CLERK Work Phone: [facility] Comment on above: Results Start: 09-01-2022 Telephone encounter Ellis galvan DO Work Phone: [facility] Comment on above: Work Excuse Letter Start: 08-31-2022 End: 08-31-2022 Patient encounter procedure Chiqui Salvador SURGICAL INSTRUMENT MAKER.LINEN CLERK Work Phone: [facility] Comment on above: Sore throat (Primary Dx); Flu-like symptoms Start: 08-16-2022 Refill Marya vines SURGICAL INSTRUMENT MAKER.LINEN CLERK Work Phone: [facility] Comment on above: Refill Request Start: 08-09-2022 End: 08-09-2022 Patient encounter procedure Ted Taylor SURGICAL INSTRUMENT MAKER.LINEN CLERK Work Phone: [facility] Comment on above: Bacterial sinusitis (Primary Dx) Start: 08-04-2022 Refill Marya vines SURGICAL INSTRUMENT MAKER.LINEN CLERK Work Phone: [facility] Comment on above: Refill Request Start: 07-29-2022 Refill Ying bailon SURGICAL INSTRUMENT MAKER.LINEN CLERK Work Phone: [facility] Comment on above: Refill Request Start: 07-22-2022 Refill Ellis dominique DO Work Phone: [facility] Comment on above: Refill Request Start: 07-14-2022 Chart abstracting Carmen Goins [facility] Work Phone: Adult Psychology Comment on above: Behavioral Health So cial Work Start: 07-12-2022 Telephone encounter Marya Askew SURGICAL INSTRUMENT MAKER.LINEN CLERK Work Phone: [facility] Comment on above: Results; Appointment Results Start: 07-09-2022 ambulatory NO PODLOGAR Facility :[facility] Start: 07-09-2022 End: 07-09-2022 Subsequent hospital visit by physician [facility] Comment on above: Subcutaneous mass [R 22.9] Start: 07-07-2022 End: 07-07-2022 Patient encounter procedure Ying Coronel SURGICAL INSTRUMENT MAKER.LINEN CLERK Work Phone: [facility] Comment on above: Anxiety and depressi on (Primary Dx); Mild persistent asthma without complication; Iron deficiency anemia, unspecified iron deficiency anemia type; Fatigue, unspecified type; Wellness examination Start: 07-07-2022 End: 07-07-2022 Patient encounter status Ying Coronel SURGICAL INSTRUMENT MAKER.LINEN CLERK Work Phone: [facility] Start: 03-22-2022 End: 03-22-2022 Patient encounter procedure Ying Coronel SURGICAL INSTRUMENT MAKER.LINEN CLERK Work Phone: [facility] Comment on above: Encounter for initia l prescription of injectable contraceptive Start: 03-17-2022 Telephone encounter No ferrell SURGICAL INSTRUMENT MAKER.LINEN CLERK Work Phone: [facility] Comment on above: Orders Start: 03-16-2022 End: 03-16-2022 Patient encounter procedure No Lindsay SURGICAL INSTRUMENT MAKER.LINEN CLERK Work Phone: [facility] Comment on above: Encounter for contra ceptive management, unspecified type (Primary Dx); Initiation of Depo Provera; Subcutaneous mass Start: 01-06-2022 End: 01-06-2022 Emergency department patient visit [facility] Start: 07-02-2021 End: 07-02-2021 Patient encounter procedure LOUIS ALEXANDER MD [facility] Start: 06-15-2021 End: 06-19-2021 Outreach Lab JACKIE CONTRERAS MD [facility] Procedures Date Procedure Procedure Detail Performing Clinician Start: 05-14-2023 Computed tomography of abdomen and pelvis with intravenous contrast Start: 05-14-2023 CT angiography of ch est with contrast Start: 05-14-2023 CT angiography of ne ck vessels Start: 11-30-2022 Level iv surg pathol ogy gross&microscopic exam Dilip Jones MD Work Phone: Start: 08-31-2022 COVID WITH FLUA+B, ROUTINE Chiqui Salvador SURGICAL INSTRUMENT MAKER.LINEN CLERK Work Phone: Start: 08-31-2022 STREP A MOLECULAR (POC) Gina SOTELOC Work Phone: Start: 03-16-2022 Urine test visual color cmprsn jenifer Sarabia Podlogar SURGICAL INSTRUMENT MAKER.LINEN CLERK Work Phone: Start: 01-06-2022 Plain X-ray of shoulder Start: 03-31-2017 End: 03-31-2017 H/O: section Previous delivery affecting Ying Del Cid SURGICAL INSTRUMENT MAKER.LINEN CLERK Work Phone: Start: 09-18-2007 section JACKIE CONTRERAS MD H/O: section Previous c esarean delivery, antepartum( Confirmed ) JACKIE CONTRERAS MD Plan of Treatment Date Care Activity Detail Author Start: 04-27-2031 Urine microalbumin profile DTa P,Tdap,Td Vaccine (4 - Td or Tdap) [facility] Start: 09-23-2030 Urine microalbumin profile DTA P,TDAP,TD (3 - Td or Tdap) [facility] Start: 12-26-2025 Annual PCP Team Counseling Services Director jt Disease Visit Annual PCP Team Chronic Disease Visit [facility] Start: 12-14-2025 Annual PCP Team Counseling Services Director jt Disease Visit Annual PCP Team Chronic Disease Visit [facility] Start: 12-12-2025 Annual PCP Team Counseling Services Director jt Disease Visit Annual PCP Team Chronic Disease Visit [facility] Start: 08-06-2025 Annual PCP Team Counseling Services Director jt Disease Visit Annual PCP Team Chronic Disease Visit [facility] Start: 08-06-2025 Covid-19 Vaccine ( season) Covid-19 Vaccine ( season) [facility] Comment on above: Postponed from 05/06 (Declined at this time) Start: 03-04-2025 Influenza vaccination Influenza Vacc ine (#1) [facility] Comment on above: Postponed from 05/06 (Declined at this time) Start: 01-10-2025 End: 01-10-2025 Patient encounter procedure 01/10/2025 11:40 AM EDT Office Visit [facility] [address] [place] [address] Marya Francois APRN.LINEN CLERK [address] [place] [address] [facility] Comment on above: Na Start: 11-20-2024 Annual PCP Team Counseling Services Director jt Disease Visit Annual PCP Team Chronic Disease Visit [facility] Start: 11-17-2024 Annual PCP Team Counseling Services Director jt Disease Visit Annual PCP Team Chronic Disease Visit [facility] Start: 11-17-2024 Covid-19 Vaccine ( season) Covid-19 Vaccine () [facility] Comment on above: Postponed from 05/06 (Declined at this time) Start: 11-17-2024 Hepatitis A Vaccine (1 of 2 - Risk 2-dose series) Hepatitis A Vaccine (1 of 2 - Risk 2-dose series) [facility] Comment on above: Postponed from 07/30 (Declined at this time) Start: 11-17-2024 Pneumococcal vaccination Pneum ococcal Vaccine (1 of 2 - PCV) [facility] Comment on above: Postponed from 07/30 (Declined at this time) Postponed from 07/30 (Declined at this time) Start: 11-07-2024 Annual PCP Team Counseling Services Director jt Disease Visit Annual PCP Team Chronic Disease Visit [facility] Start: 11-01-2024 HPV TESTING HPV TESTING [facility] Start: 11-01-2024 PAP TESTING PAP TESTING [facility] Start: 11-01-2024 Screening for malign ant neoplasm of cervix [facility] Start: 10-03-2024 End: 10-03-2024 ambulatory 10/03/2024 9:45 AM EST Results Only [facility] Draw Station [address] [place] [address] [facility] Draw Station Start: 08-08-2024 End: 11-07-2024 TOXICOLOGY SCREEN, ROUTINE URINE TOXICOLOGY SCREEN, ROUTINE URINE Lab Routine Medication management Expected: 08/08/2024, Expires: 11/07/2024 [facility] Work Phone: Comment on above: Expected: 08/08/2024 , Expires: 11/07/2024 Start: 06-05-2024 End: 06-05-2024 Patient encounter procedure 06/05/2024 11:40 AM EDT Office Visit [facility] [address] [place], [place] [id number] Esther Archer PA-C [address] [place], [place] [id number] Tb shot and medications [facility] Comment on above: Tb shot and medicati ons Start: 05-06-2024 Covid-19 Vaccine ( season) Covid-19 Vaccine () [facility] Start: 05-06-2024 Influenza vaccination [facility] Start: 05-05-2024 ANNUAL PCP TEAM SAFETY TECHNICIAN JT DISEASE VISIT ANNUAL PCP TEAM CHRONIC DISEASE VISIT [facility] Start: 03-04-2024 Influenza vaccination Influenza Vacc ine (#1) [facility] Comment on above: Postponed from 05/06 (Declined at this time) Start: 11-23-2023 ANNUAL PCP TEAM SAFETY TECHNICIAN JT DISEASE VISIT ANNUAL PCP TEAM CHRONIC DISEASE VISIT [facility] Start: 11-21-2023 End: 02-20-2024 Bacteria identified in Wound by Culture ABSCESS AND WOUND CULTURE WITH GRAM STAIN Microbiology Routine Cellulitis of face Expected: 11/21/2023, Expires: 02/20/2024 [facility] Work Phone: Comment on above: Expected: 11/21/2023 , Expires: 02/20/2024 Start: 10-15-[address] [facility] Start: 08-04-2023 ANNUAL PCP TEAM SAFETY TECHNICIAN JT DISEASE VISIT ANNUAL PCP TEAM CHRONIC DISEASE VISIT [facility] Start: 08-04-2023 COVID-19 VACCINE (#1) COVID-19 VACCI NE (#1) [facility] Comment on above: Postponed from 01/27 (Declined at this time) Start: 07-07-2023 ANNUAL PCP TEAM SAFETY TECHNICIAN JT DISEASE VISIT ANNUAL PCP TEAM CHRONIC DISEASE VISIT [facility] Start: 07-07-2023 PNEUMOCOCCAL (1 - PCV) PNEUMOCOCCAL (1 - PCV) [facility] Comment on above: Postponed from 07/30 (Declined at this time) Start: 05-06-2023 Influenza vaccination [facility] Start: 03-22-2023 ANNUAL PCP TEAM SAFETY TECHNICIAN JT DISEASE VISIT ANNUAL PCP TEAM CHRONIC DISEASE VISIT [facility] Start: 03-16-2023 ANNUAL PCP TEAM SAFETY TECHNICIAN JT DISEASE VISIT ANNUAL PCP TEAM CHRONIC DISEASE VISIT [facility] Start: 03-04-2023 Influenza vaccination INFLUENZA (#1) [facility] Comment on above: Postponed from 05/06 (Declined at this time) Start: 10-07-2022 End: 12-07-2022 25-hydroxyvitamin D3 [Mass/volume] in Serum or Plasma VITAMIN D 25 HYDROXY Lab Routine Fatigue, unspecified type Expected: 10/07/2022, Expires: 12/07/2022 [facility] Work Phone: Comment on above: Expected: 10/07/2022 , Expires: 12/07/2022 Start: 07-07-2022 End: 09-06-2022 CBC panel - Blood by Automated count CBC Lab Routine Anxiety and depression Fatigue, unspecified type Expected: 07/07/2022, Expires: 09/06/2022 [facility] Work Phone: Comment on above: Expected: 07/07/2022 , Expires: 09/06/2022 Start: 07-07-2022 End: 09-06-2022 Cobalamin (Vitamin B12) [Mass/volume] in Serum or Plasma VITAMIN B12 BLOOD Lab Routine Fatigue, unspecified type Expected: 07/07/2022, Expires: 09/06/2022 [facility] Work Phone: Comment on above: Expected: 07/07/2022 , Expires: 09/06/2022 Start: 07-07-2022 End: 09-06-2022 Comprehensive metabolic 2000 panel - Serum or Plasma COMP METABOLIC PANEL Lab Routine Anxiety and depression Fatigue, unspecified type Expected: 07/07/2022, Expires: 09/06/2022 [facility] Work Phone: Comment on above: Expected: 07/07/2022 , Expires: 09/06/2022 Start: 07-07-2022 End: 09-06-2022 Ferritin [Mass/volume] in Serum or Plasma FERRITIN BLD Lab Routine Iron deficiency anemia, unspecified iron deficiency anemia type Fatigue, unspecified type Expected: 07/07/2022, Expires: 09/06/2022 [facility] Work Phone: Comment on above: Expected: 07/07/2022 , Expires: 09/06/2022 Start: 07-07-2022 End: 09-06-2022 Hemoglobin A1c in Blood HGB A1C Lab Routine Anxiety and depression Fatigue, unspecified type Expected: 07/07/2022, Expires: 09/06/2022 [facility] Work Phone: Comment on above: Expected: 07/07/2022 , Expires: 09/06/2022 Start: 07-07-2022 End: 09-06-2022 Iron and Iron binding capacity panel - Serum or Plasma IRON + TIBC Lab Routine Iron deficiency anemia, unspecified iron deficiency anemia type Fatigue, unspecified type Expected: 07/07/2022, Expires: 09/06/2022 [facility] Work Phone: Comment on above: Expected: 07/07/2022 , Expires: 09/06/2022 Start: 07-07-2022 End: 09-06-2022 Lipid 1996 panel - Serum or Plasma LIPID PANEL BASIC Lab Routine Anxiety and depression Fatigue, unspecified type Expected: 07/07/2022, Expires: 09/06/2022 [facility] Work Phone: Comment on above: Expected: 07/07/2022 , Expires: 09/06/2022 Start: 07-07-2022 End: 09-06-2022 Thyrotropin [Units/volume] in Serum or Plasma TSH BLD Lab Routine Anxiety and depression Fatigue, unspecified type Expected: 07/07/2022, Expires: 09/06/2022 [facility] Work Phone: Comment on above: Expected: 07/07/2022 , Expires: 09/06/2022 Start: 07-07-2022 End: 09-06-2022 Thyroxine (T4) free [Mass/volume] in Serum or Plasma T4 FREE/FREE THYROX Lab Routine Fatigue, unspecified type Expected: 07/07/2022, Expires: 09/06/2022 [facility] Work Phone: Comment on above: Expected: 07/07/2022 , Expires: 09/06/2022 Start: 07-07-2022 End: 09-06-2022 Triiodothyronine (T3) [Mass/volume] in Serum or Plasma T3 BLD Lab Routine Fatigue, unspecified type Expected: 07/07/2022, Expires: 09/06/2022 [facility] Work Phone: Comment on above: Expected: 07/07/2022 , Expires: 09/06/2022 Start: 05-06-2022 Influenza vaccination INFLUENZA (#1) [facility] Start: 2007 HEPATITIS A (1 of 2 - Risk 2-dose series) HEPATITIS A (1 of 2 - Risk 2-dose series) [facility] Start: 2007 Hepatitis A Vaccine (1 of 2 - Risk 2-dose series) Hepatitis A Vaccine (1 of 2 - Risk 2-dose series) [facility] Start: 2007 Pneumococcal vaccination Pneum ococcal Vaccine (1 of 2 - PCV) [facility] Start: 1994 PNEUMOCOCCAL (1 - PCV) PNEUMOCOCCAL (1 - PCV) [facility] Start: 1994 Pneumococcal vaccination Pneum ococcal Vaccine (1 of 2 - PCV) [facility] Start: 1989 HEPATITIS A (1 of 2 - Risk 2-dose series) HEPATITIS A (1 of 2 - Risk 2-dose series) [facility] Start: 01-27-1989 COVID-19 VACCINE (#1) COVID-19 VACCI NE (#1) [facility] End: 08-11-2023 Mri any jt upper extremity w/contrast matrl MRI LOWER ARM WO/W IVCON LT Radiology Routine Localized swelling, mass, or lump of left upper extremity 1 Occurrences starting 07/12/2022 until 08/11/2023 [facility] Work Phone: Comment on above: 1 Occurrences starti ng 07/12/2022 until 08/11/2023 End: 11-04-2022 Mri any jt upper extremity w/contrast matrl [facility] Work Phone: Comment on above: 1 Occurrences starti ng 11/04/2022 until 11/04/[address] [facility] Work Phone: Patient referral [facility] Work Phone: TOXICOLOGY SCREEN, R OUTINE URINE TOXICOLOGY SCREEN, ROUTINE URINE Lab Routine Medication management Ordered: 08/06/2024 [facility] Work Phone: Comment on above: Ordered: 08/06/2024 End: 04-15-2023 Us lmtd joint/oth nonvasc xtr strux r-t w/img US EXTREMITY MASS/FLUID COLLECTION LT Radiology Routine Subcutaneous mass 1 Occurrences starting 03/16/2022 until 04/15/2023 [facility] Work Phone: Comment on above: 1 Occurrences starti ng 03/16/2022 until 04/15/2023 End: 07-09-2022 Us lmtd joint/oth nonvasc xtr strux r-t w/img [facility] Work Phone: Comment on above: 1 Occurrences starti ng 07/09/2022 until 07/09/2022 [facility] Immunizations Immunization Date Immunization Notes Care Provider Ivone ramirez 04-27-2021 tetanus toxoid, redu mike diphtheria toxoid, and acellular pertussis vaccine, adsorbed; Translations: [Boostrix (Tdap)] JACKIE CONTRERAS MD [facility] Comment on above: Result Comment: [facility]# [id number] 09-23-2020 tetanus toxoid, redu mike diphtheria toxoid, and acellular pertussis vaccine, adsorbed No Podlogar SURGICAL INSTRUMENT MAKER.[facility] Work Phone: [facility] 07-04-2017 influenza, injectabl e, quadrivalent, contains preservative No Podlogar SURGICAL INSTRUMENT MAKER.[facility] Work Phone: [facility] 07-04-2017 influenza virus vaccine, unspecified formulation Marya 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.[facility] Work Phone: [facility] 08-02-2011 tuberculin skin test ; purified protein derivative solution, intradermal Marya 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.[facility] Work Phone: [facility] 07-23-2011 influenza virus vaccine, unspecified formulation No Podlogar SURGICAL INSTRUMENT MAKER.[facility] Work Phone: [facility] Work Phone: 07-23-2011 tuberculin skin test ; purified protein derivative solution, intradermal Marya 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.[facility] Work Phone: [facility] Work Phone: 05-17-2011 tetanus toxoid, redu imke diphtheria toxoid, and acellular pertussis vaccine, adsorbed No Podlogar 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 2021 Medicaid [id number] 2021 Unknown [id number] 1988 Unknown [id number] Unknown [id number] Unknown [id number] Unknown [id number] Unknown [id number] Social History Date Type Detail Facility Start: 11-14-2020 Light tobacco smoker (finding) [facility] Sex Assigned At [facility] Start: 01-06-2022 End: 10-15-2023 Tobacco smoking status [facility]VIS Unknown if ever smoked [facility] Start: 09-21-[address] [facility] Start: 1990 Sex Assigned At Female W [facility] Start: 07-07-2022 Tobacco smoking stat us WVIS Smokes tobacco daily [facility] Start: 01-04-2024 End: 09-05-2023 History of tobacco use Cigarette Smoker [facility] Work Phone: Start: 03-16-2022 End: 12-26-2024 Alcohol intake Current drinker of alcohol (finding) [facility] Start: 06-21-2018 History SDOH Alcohol Comment social [facility] Start: 11-01-2019 End: 11-22-2022 History SDOH Social Connections Phone 5 [facility] Start: 11-01-2019 History SDOH Social Connections Get Together 4 [facility] Start: 11-01-2019 End: 11-22-2022 History SDOH Social Connections Yarsani 1 [facility] Start: 11-01-2019 End: 11-22-2022 History SDOH Social Connections Membership 2 [facility] Start: 11-01-2019 End: 11-22-2022 History SDOH Physical Activity DPW 0 [facility] Start: 11-15-2013 End: 07-07-2022 Tobacco Comment 4-5 cigarettes per day [facility] Start: 1990 Sex Assigned At Not on file C [facility] Start: 03-06-2022 End: 08-04-2022 Exposure to SARS-CoV-2 (event) Not sure [facility] Start: 07-07-2022 End: 11-21-2023 Cigarettes smoked current (pack per day) - Reported 0.2 [facility] Start: 07-07-2022 End: 08-06-2024 Tobacco use and exposure Smokeless tobacco non-user [facility] Start: 11-22-2022 History SDOH Social Connections Living 7 [facility] Start: 11-22-2022 History SDOH Physica l Activity MPS 3 [facility] Start: 11-22-2022 End: 11-21-2023 Social connection and isolation panel [facility] Do you belong to any clubs or organizations such as rastafari groups, unions, fraternal or athletic groups, or school groups? No [facility] Are you now , , , , never or living with a partner? Never [facility] How often to you hav e a drink containing alcohol? Never [facility] How many standard dr inks containing alcohol do you have on a typical day? Patient does not drink [facility] How hard is it for y ou to pay for the very basics like food, housing, medical care, and heating Hard [facility] Do you feel stress - tense, restless, nervous, or anxious, or unable to sleep at night because your mind is troubled all the time - these days [OSQ] Very much [facility] (I/We) worried latisha er (my/our) food would run out before (I/we) got money to buy more. Sometimes true [facility] In the past 12 month s, was there a time when you were not able to pay the mortgage or rent on time? Yes [facility] How hard is it for y ou to pay for the very basics like food, housing, medical care, and heating Somewhat hard [facility] Do you feel stress - tense, restless, nervous, or anxious, or unable to sleep at night because your mind is troubled all the time - these days [OSQ] To some extent [facility] Start: 08-06-2024 Tobacco smoking stat us NHIS Ex-smoker [facility] Start: 01-04-2024 End: 09-05-2023 History of tobacco use Current smoker [facility] NEGATED: Highlighted row [facility] Functional Status Date Assessment Result Facility 07-11-2014 Are you deaf, or do you have serious difficulty hearing No 07/11/2014 3:24 PM Hoda Boykin MA No [facility] 07-11-2014 Are you blind, or do you have serious difficulty seeing, even when wearing glasses No 07/11/2014 3:24 PM Hoda Boykin MA No [facility] 07-11-2014 Do you have serious difficulty walking or climbing stairs No 07/11/2014 3:24 PM Hoda Boykin MA No [facility] 07-11-2014 Do you have difficul ty dressing or bathing Yes 07/11/2014 3:24 PM Hoda Boykin MA Yes [facility] 07-11-2014 Because of a physica l, mental, or emotional condition, do you have difficulty doing errands alone such as visiting a physician's office or shopping No 07/11/2014 3:24 PM Hoda Boykin MA No [facility] Mental Status Date Assessment Result Facility 07-11-2014 Because of a physica l, mental, or emotional condition, do you have serious difficulty concentrating, remembering, or making decisions No 07/11/2014 3:24 PM Hoda Boykin MA No [facility] Clinical Notes 03-31-2017 to 12-31-2024 Telephone Encounter - Shaw Guevara MD - 12/31/2024 6:27 PM EDTTelephone Encounter - Shaw Guevara MD - 12/31/2024 6:27 PM EDTShaw Guevara MD - 12/14/2024 2:20 PM EDT Note Date & Type Note Facility 12-31-2024 Telephone encounter Note One time Joffre prescription risks were reviewed with patient. She indicated she was off suboxone at this time. Okay to fill Joffre prescription. [facility] 12-31-2024 Miscellaneous Notes One time Joffre prescription risks were reviewed with patient. She indicated she was off suboxone at this time. Okay to fill Joffre prescription. documented in this encounter [facility] 12-26-2024 Note HNO ID: [id number] Author: SHAW GUEVARA MD Service: ? Author Type: Physician Type: Progress Notes Filed: 12/26/2024 15:10 Note Text: This note was created using [employer]. 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 Patient/authorized security systems sales representative agreed to proceed PCP Ellis Arnett DO Sherlyn is a 34-year-old female, with a history of anxiety, depression, and substance use disorder, presenting with otalgia and exacerbation of anxiety. Sherlyn reports severe otalgia and exacerbation of anxiety over the past 3-4 weeks. She describes the otalgia as a constant pain rated 7-8/10, with intermittent sharp pains radiating from the affected ear to the contralateral ear. She also notes tinnitus in the contralateral ear, which she attributes to her anxiety. Sherlyn has been evaluated by multiple healthcare providers here in the clinic, as well as the ER in [place], [facility] and now ENT in [place]. On 12/15/24 Dr. Bobby Hagen diagnosed her with Acute suppurative otitis media with spontaneous rupture, prescribed Cefdinir and prednisone, and planned to reexamine in 5 days. She was not happy with the care and did not return. She went to the ER 12/18 and was referred to [facility] where she was seen yesterday. That provider reportedly found no perforation but noted a severely retracted tympanic membrane. She was prescribed prednisone, which has not alleviated her pain. She is currently taking naproxen without relief. Sherlyn reports significant anxiety, aggravated by her otologic symptoms. She is currently taking Vistaril, which she reports is ineffective in managing her anxiety. She is also on venlafaxine and has been requesting an increase in dosage. She has a history of taking Xanax, which was discontinued at her request. She is in the process of finding a new counselor. Sherlyn reports a history of substance use disorder but has been sober since 2016. She was prescribed buprenorphine for shoulder pain by an online physician but has not taken it recently. She expresses a preference for pain management over anxiolytic medication at this time. ACTIVE PROBLEM LIST Depression With Anxiety Tobacco Use Disorder Right Arm Numbness Mild Persistent Asthma Without Complication (Hcc) Heroin Addiction (Hcc) Chronic Hepatitis C Without Hepatic Coma (Hcc) Current Outpatient Medications Medication Sig naproxen (NAPROSYN) 500 mg tablet Take 1 tablet by mouth two times a day as needed (FOR PAIN - TAKE WITH FOOD.). venlafaxine (EFFEXOR) 37.5 mg tablet Take 1 tablet by mouth once daily. dextroamphetamine-amphetamine (ADDERALL) 10 mg tablet Take 1 tablet by mouth once daily for 30 days. albuterol HFA (PROVENTIL HFA, VENTOLIN HFA) 90 mcg/actuation inhaler Inhale 2 Puffs as instructed every 4 hours as needed for wheezing/shortness of breath. hydrOXYzine HCl (ATARAX) 10 mg tablet Take 10 mg by mouth three times daily. cyclobenzaprine (FLEXERIL) 10 mg tablet Take 1 tablet by mouth three times daily as needed for muscle spasm. COMPOUNDED PRESCRIPTION AIR CONDITIONER DX ASTHMA J45.909 No current facility-administered medications for this visit. Review of Systems Per HPI. Objective BP 90/76 Pulse (!) 133 Ht 149.9 cm (4' 11) Wt 49.5 kg (109 lb 2 oz) LMP 02/14/2022 SpO2 98% BMI 22.04 kg/m? Physical Exam Constitutional: General: She is not in acute distress. Appearance: She is not ill-appearing. HENT: Right Ear: No drainage. Ears: Comments: Right ear canal sensitive. Tympanic membrane less erythematous and less retracted. No hemorrhage, perforation or fissure seen. Residual debris noted. Neurological: Mental Status: She is alert. Assessment and Plan 1. Depression with anxiety - ICD9: 300.4, ICD10: F41.8 (primary diagnosis) Worse. Dose increased. Discussed medication dosage, usage, goals of therapy, and side effects. - VENLAFAXINE ER 75 MG CAPSULE,EXTENDED RELEASE 24 HR 2. Otalgia, right ear - ICD9: 388.70, ICD10: H92.01 Shared medical decision making was done. She is aware of her increased risk of addiction and abuse. She specifically asked for Percocet, which I declined. She understood this is a one time prescription only. - HYDROCODONE 5 MG-ACETAMINOPHEN 325 MG TABLET 3. Right non-suppurative otitis media - ICD9: 381.4, ICD10: H65.91 Improving on exam. She will follow up with [facility]. - HYDROCODONE 5 MG-ACETAMINOPHEN 325 MG TABLET 4. History of substance use - ICD9: V15.89, ICD10: Z87.898 - We reviewed recent prescriptions for BUPRENORPHINE/NALOXONE. She reported she was not taking this medication at this time. Shaw Guevara MD [facility] 12-24-2024 Telephone encounter Note My Chart message sent to patient regarding provider's message. Lidia Ayers RN [facility] 12-24-2024 Miscellaneous Notes My Chart message sent to patient regarding provider's message. Lidia Ayers RN TC patient, left message for patient to call back and speak with a triage nurse regarding provider instructions. Lidia Ayers RN I can send prn naproxen for the pain. Otherwise there is nothing else we can do from our standpoint. She could try heat to her ear like a hot water bottle or rice sock for relief. The following approved medication requests have been transmitted electronically. Requested Prescriptions Signed Prescriptions Disp Refills naproxen (NAPROSYN) 500 mg tablet 20 tablet 0 Sig: Take 1 tablet by mouth two times a day as needed (FOR PAIN - TAKE WITH FOOD.). Authorizing Provider: ELLIS ARNETT Ordering User: MARYA FRANCOIS APRN.CNP Patient calls and states that she continues to have right ear pain. Patient was previously prescribed antibiotics and prednisone by [facility]. Patient is not happy with [facility] and now has an appointment with [facility] on Tuesday12/25/2024. Patient reports that she went to [facility] ER and was told that her ear drum was perforated. ER took her off of antibiotic and prednisone because they had told her that medication would not work for problem. Patient was then referred to ENT again. Patient has ringing in her ear and cracking/popping sounds. Patient has a lot of pain in Right ear. Patient asking if there is anything provider would recommend to get her to appointment on Tuesday when she sees ENT? Patient is using Flonase nasal spray and Ibuprofen. Please review and advise, Lidia Ayers RN documented in this encounter [facility] 12-21-2024 Telephone encounter Note TC patient, left message for patient to call back and speak with a triage nurse regarding provider instructions. Lidia Ayers RN [facility] 12-21-2024 Telephone encounter Note I can send prn naproxen for the pain. Otherwise there is nothing else we can do from our standpoint. She could try heat to her ear like a hot water bottle or rice sock for relief. The following approved medication requests have been transmitted electronically. Requested Prescriptions Signed Prescriptions Disp Refills naproxen (NAPROSYN) 500 mg tablet 20 tablet 0 Sig: Take 1 tablet by mouth two times a day as needed (FOR PAIN - TAKE WITH FOOD.). Authorizing Provider: ELLIS ARNETT Ordering User: MARYA FRANCOIS APRN.LINEN CLERK T [facility] 12-20-2024 Telephone encounter Note Patient calls and states that she continues to have right ear pain. Patient was previously prescribed antibiotics and prednisone by [facility]. Patient is not happy with [facility] and now has an appointment with [facility] on Tuesday12/25/2024. Patient reports that she went to [facility] ER and was told that her ear drum was perforated. ER took her off of antibiotic and prednisone because they had told her that medication would not work for problem. Patient was then referred to ENT again. Patient has ringing in her ear and cracking/popping sounds. Patient has a lot of pain in Right ear. Patient asking if there is anything provider would recommend to get her to appointment on Tuesday when she sees ENT? Patient is using Flonase nasal spray and Ibuprofen. Please review and advise, Lidia Ayers RN [facility] 12-19-2024 Telephone encounter Note Patient did call regarding right ear issue. Was not at all happy with [facility] evaluation. States she was told that she was impatient that she needed to give the flonase more time to work and more prednisone. Did go to [facility] 12/18/24 and was told that she did not have an infection and that she had a perforated eardrum. Question what she should do? Did tell her that she needed to see ENT and could try a different ENT. Call was transferred to scheduling office. [facility] 12-19-2024 Miscellaneous Notes Patient did call regarding right ear issue. Was not at all happy with [facility] evaluation. States she was told that she was impatient that she needed to give the flonase more time to work and more prednisone. Did go to [facility] 12/18/24 and was told that she did not have an infection and that she had a perforated eardrum. Question what she should do? Did tell her that she needed to see ENT and could try a different ENT. Call was transferred to scheduling office. documented in this encounter [facility] 12-18-2024 Telephone encounter Note Triage protocol advised: ER. Pt agreeable. Reason for Disposition [1] Redness or swelling on the cheek, forehead or around the eye AND [2] fever Answer Assessment - Initial Assessment Questions She was treated for right sided acute otitis media at 12/10 with amoxicillin. Then follow up 12/12 and gave her prednisone x 3 days for eustachian tube dysfunction. Continued with ear pain and tinnitus. Saw ENT and more antibiotics and steroid ordered. Pt calling with worsening sx's today. 1. ANTIBIOTIC: amoxicillin and prednisone 2. ONSET: > 1 week 3. PAIN: yes, moderate 4. FEVER: not measured but having hot flashes and chills 5. SYMPTOMS: -nasal congestion -NEW: tenderness to right jew area, right ear and below right ear -NEW: hot flashes -NEW: chills -tinnitus -sharp pain in right ear -hearing changes -right ear crackling, popping, echoing -NEW: right eye vision changes -NEW: pressure behind right eye Protocols used: Sinus Infection on Antibiotic Follow-up [id number] [facility] 12-18-2024 Miscellaneous Notes Triage protocol advised: ER. Pt agreeable. Reason for Disposition [1] Redness or swelling on the cheek, forehead or around the eye AND [2] fever Answer Assessment - Initial Assessment Questions She was treated for right sided acute otitis media at [facility] 4/7 with amoxicillin. Then follow up 12/12 and gave her prednisone x 3 days for eustachian tube dysfunction. Continued with ear pain and tinnitus. Saw ENT and more antibiotics and steroid ordered. Pt calling with worsening sx's today. 1. ANTIBIOTIC: amoxicillin and prednisone 2. ONSET: > 1 week 3. PAIN: yes, moderate 4. FEVER: not measured but having hot flashes and chills 5. SYMPTOMS: -nasal congestion -NEW: tenderness to right jew area, right ear and below right ear -NEW: hot flashes -NEW: chills -tinnitus -sharp pain in right ear -hearing changes -right ear crackling, popping, echoing -NEW: right eye vision changes -NEW: pressure behind right eye Protocols used: Sinus Infection on Antibiotic Follow-up [id number] documented in this encounter [facility] 12-14-2024 Note HNO ID: [id number] Author: SHAW GUEVARA MD Service: ? Author Type: Physician Type: Progress Notes Filed: 12/14/2024 14:39 Note Text: This note was created using [employer]. Subjective Patient presents with: Ear Problem: Right ear not improving, having trouble hearing PCP DO Sherlyn Lyman Eloisa is a 34 year old female. She was treated for right sided acute otitis media at [facility] 4/7 with amoxicillin. I saw her for follow up 12/12 and gave her prednisone x 3 days for eustachian tube dysfunction. Her hearing loss was not better. Ear drainage resolved but she continued with ear pain and tinnitus. . Review of Systems HENT: Positive for ear pain, hearing loss and tinnitus. Negative for congestion, ear discharge and sore throat. Respiratory: Negative. ACTIVE PROBLEM LIST Depression With Anxiety Tobacco Use Disorder Right Arm Numbness Mild Persistent Asthma Without Complication (Hcc) Heroin Addiction (Hcc) Chronic Hepatitis C Without Hepatic Coma (Hcc) Social History Tobacco Use Smoking status: Former Average packs/day: 0.2 packs/day for 5.0 years (1.0 ttl pk-yrs) Types: Cigarettes Start date: 01/04/2024 Quit date: 2023 Years since quittin.2 Smokeless tobacco: Never Tobacco comments: 4-5 cigarettes per day Vaping Use Vaping status: Never Used Substance Use Topics Alcohol use: Yes Comment: social Drug use: No Current Outpatient Medications Medication Sig predniSONE (DELTASONE) 20 mg tablet Take 1 tablet by mouth once daily for 3 days. amoxicillin (AMOXIL) 875 mg tablet Take 1 tablet by mouth two times a day for 7 days. venlafaxine (EFFEXOR) 37.5 mg tablet Take 1 tablet by mouth once daily. dextroamphetamine-amphetamine (ADDERALL) 10 mg tablet Take 1 tablet by mouth once daily for 30 days. albuterol HFA (PROVENTIL HFA, VENTOLIN HFA) 90 mcg/actuation inhaler Inhale 2 Puffs as instructed every 4 hours as needed for wheezing/shortness of breath. hydrOXYzine HCl (ATARAX) 10 mg tablet Take 10 mg by mouth three times daily. cyclobenzaprine (FLEXERIL) 10 mg tablet Take 1 tablet by mouth three times daily as needed for muscle spasm. COMPOUNDED PRESCRIPTION AIR CONDITIONER DX ASTHMA J45.909 No current facility-administered medications for this visit. Objective BP 112/84 (BP Site: Left Arm, BP Position: Sitting, BP Cuff Size: Regular Adult) Pulse 91 Temp 36.5 ?C (97.7 ?F) Resp 18 Wt 51.5 kg (113 lb 8.6 oz) LMP 02/14/2022 SpO2 100% BMI 22.93 kg/m? Physical Exam Constitutional: General: She is not in acute distress. Appearance: She is not ill-appearing. HENT: Right Ear: Decreased hearing noted. No drainage. There is hemotympanum. Tympanic membrane is perforated and retracted. Left Ear: Tympanic membrane normal. Ears: Comments: Tympanic membrane less erythematous. Fissure or linear perforation and small area of hemorrhage inferiorly. Nose: Congestion present. No rhinorrhea. Mouth/Throat: Pharynx: Oropharynx is clear. Assessment and Plan 1. Right non-suppurative otitis media - ICD9: 381.4, ICD10: H65.91 (primary diagnosis) - CONSULT TO ENT 2. Hearing loss of right ear, unspecified hearing loss type - ICD9: 389.9, ICD10: H91.91 - CONSULT TO ENT Referral to [facility]. Patient indicated understanding and willingness to follow recommendations. Shaw Guevara MD [facility] 12-14-2024 History of Present illness Narrative This note was created using [employer]. Subjective Patient presents with: Ear Problem: Right ear not improving, having trouble hearing PCP DO Sherlyn Lyman Matthieu Amin is a 34 year old female. She was treated for right sided acute otitis media at 12/10 with amoxicillin. I saw her for follow up 12/12 and gave her prednisone x 3 days for eustachian tube dysfunction. Her hearing loss was not better. Ear drainage resolved but she continued with ear pain and tinnitus. . Review of Systems HENT: Positive for ear pain, hearing loss and tinnitus. Negative for congestion, ear discharge and sore throat. Respiratory: Negative. ACTIVE PROBLEM LIST Depression With Anxiety Tobacco Use Disorder Right Arm Numbness Mild Persistent Asthma Without Complication (Hcc) Heroin Addiction (Hcc) Chronic Hepatitis C Without Hepatic Coma (Hcc) Social History Tobacco Use Smoking status: Former Average packs/day: 0.2 packs/day for 5.0 years (1.0 ttl pk-yrs) Types: Cigarettes Start date: 01/04/2024 Quit date: 2023 Years since quittin.2 Smokeless tobacco: Never Tobacco comments: 4-5 cigarettes per day Vaping Use Vaping status: Never Used Substance Use Topics Alcohol use: Yes Comment: social Drug use: No Current Outpatient Medications Medication Sig predniSONE (DELTASONE) 20 mg tablet Take 1 tablet by mouth once daily for 3 days. amoxicillin (AMOXIL) 875 mg tablet Take 1 tablet by mouth two times a day for 7 days. venlafaxine (EFFEXOR) 37.5 mg tablet Take 1 tablet by mouth once daily. dextroamphetamine-amphetamine (ADDERALL) 10 mg tablet Take 1 tablet by mouth once daily for 30 days. albuterol HFA (PROVENTIL HFA, VENTOLIN HFA) 90 mcg/actuation inhaler Inhale 2 Puffs as instructed every 4 hours as needed for wheezing/shortness of breath. hydrOXYzine HCl (ATARAX) 10 mg tablet Take 10 mg by mouth three times daily. cyclobenzaprine (FLEXERIL) 10 mg tablet Take 1 tablet by mouth three times daily as needed for muscle spasm. COMPOUNDED PRESCRIPTION AIR CONDITIONER DX ASTHMA J45.909 No current facility-administered medications for this visit. Objective BP 112/84 (BP Site: Left Arm, BP Position: Sitting, BP Cuff Size: Regular Adult) Pulse 91 Temp 36.5 C (97.7 F) Resp 18 Wt 51.5 kg (113 lb 8.6 oz) LMP 02/14/2022 SpO2 100% BMI 22.93 kg/m Physical Exam Constitutional: General: She is not in acute distress. Appearance: She is not ill-appearing. HENT: Right Ear: Decreased hearing noted. No drainage. There is hemotympanum. Tympanic membrane is perforated and retracted. Left Ear: Tympanic membrane normal. Ears: Comments: Tympanic membrane less erythematous. Fissure or linear perforation and small area of hemorrhage inferiorly. Nose: Congestion present. No rhinorrhea. Mouth/Throat: Pharynx: Oropharynx is clear. Assessment and Plan 1. Right non-suppurative otitis media - ICD9: 381.4, ICD10: H65.91 (primary diagnosis) - CONSULT TO ENT 2. Hearing loss of right ear, unspecified hearing loss type - ICD9: 389.9, ICD10: H91.91 - CONSULT TO ENT Referral to [facility]. Patient indicated understanding and willingness to follow recommendations. Shaw Guevara MD documented in this encounter [facility] 12-12-2024 Instructions Shaw Guevara MD - 12/12/2024 5:05 PM EDT We discussed your ear pain, hearing changes, and drainage: - You are experiencing eustachian tube dysfunction, which is causing your eardrum to be retracted due to uneven pressure. This is likely related to swelling in your nasal passages and throat. - I prescribed prednisone (a steroid) for 3 days to reduce the swelling and help open your eustachian tubes. This prescription has been sent to your preferred pharmacy, [facility]. - You may also use Afrin (an [id number]-[id number] nasal spray) for up to 1 week to help with decongestion. Do not use Afrin for longer than 1 week, as it can cause rebound congestion. - Continue taking your current antibiotic (amoxicillin) as prescribed to complete the course. - You may continue taking ibuprofen 600 mg as needed for pain relief. If your symptoms do not improve after completing the prednisone or if they worsen, please contact our office for further evaluation. documented in this encounter [facility] 12-12-2024 Note HNO ID: [id number] Author: SHAW GUEVARA MD Service: ? Author Type: Physician Type: Progress Notes Filed: 12/12/2024 17:15 Note Text: This note was created using [employer]. Subjective Sherlyn Amin is a 34 year old female. PCP Ellis Arnett, DO The patient consented to the use of Tradono software for draft documentation of the visit consistent with [facility]?s Notice of Privacy Practices. Patient presents with: Ear Problem Sherlyn is a 34-year-old female presenting with concerns about her ear not healing. Sherlyn was seen at urgent care on Tuesday for an ear infection and sinusitis and was prescribed amoxicillin. She reports that her ear feels the same or worse since then, with persistent pain and drainage. She also notes a difference in hearing, describing it as ringy and hollow. She denies any previous ear problems except for one ear infection earlier this year. She also reports swelling inside her mouth and around her ear. She denies fever today but had one on Tuesday. She is still taking amoxicillin and ibuprofen 600 mg. She also reports that her sinus infection is improving, and her congestion is getting better. She denies being diabetic. Review of Systems Constitutional: (-) fever, (+) generalized discomfort Ears/Nose/Mouth/Throat: (+) ear pain, (+) hearing changes, (+) ear discharge, (+) congestion, (+) mouth swelling, (+) tinnitus ACTIVE PROBLEM LIST Depression With Anxiety Tobacco Use Disorder Right Arm Numbness Mild Persistent Asthma Without Complication (Hcc) Heroin Addiction (Hcc) Chronic Hepatitis C Without Hepatic Coma (Hcc) Social History Tobacco Use Smoking status: Former Average packs/day: 0.2 packs/day for 5.0 years (1.0 ttl pk-yrs) Types: Cigarettes Start date: 01/04/2024 Quit date: 2023 Years since quittin.2 Smokeless tobacco: Never Tobacco comments: 4-5 cigarettes per day Vaping Use Vaping status: Never Used Substance Use Topics Alcohol use: Yes Comment: social Drug use: No Current Outpatient Medications Medication Sig amoxicillin (AMOXIL) 875 mg tablet Take 1 tablet by mouth two times a day for 7 days. venlafaxine (EFFEXOR) 37.5 mg tablet Take 1 tablet by mouth once daily. albuterol HFA (PROVENTIL HFA, VENTOLIN HFA) 90 mcg/actuation inhaler Inhale 2 Puffs as instructed every 4 hours as needed for wheezing/shortness of breath. hydrOXYzine HCl (ATARAX) 10 mg tablet Take 10 mg by mouth three times daily. cyclobenzaprine (FLEXERIL) 10 mg tablet Take 1 tablet by mouth three times daily as needed for muscle spasm. COMPOUNDED PRESCRIPTION AIR CONDITIONER DX ASTHMA J45.909 dextroamphetamine-amphetamine (ADDERALL) 10 mg tablet Take 1 tablet by mouth once daily for 30 days. No current facility-administered medications for this visit. Objective BP 118/74 (BP Site: Left Arm, BP Position: Sitting, BP Cuff Size: Large Adult) Pulse 92 Temp 37 ?C (98.6 ?F) (Temporal) Resp 16 Wt 52.4 kg (115 lb 8.3 oz) LMP 02/14/2022 BMI 23.33 kg/m? Physical Exam Constitutional: General: She is not in acute distress. Appearance: She is not ill-appearing. HENT: Right Ear: External ear normal. Decreased hearing noted. No drainage or tenderness. No middle ear effusion. Tympanic membrane is erythematous and retracted. Tympanic membrane is not perforated. Left Ear: Tympanic membrane and external ear normal. Nose: Congestion and rhinorrhea present. Rhinorrhea is purulent. Right Turbinates: Swollen. Left Turbinates: Swollen. Mouth/Throat: Pharynx: Posterior oropharyngeal erythema present. No oropharyngeal exudate. Lymphadenopathy: Cervical: No cervical adenopathy. Assessment and Plan 1. Eustachian tube dysfunction, right - ICD9: 381.81, ICD10: H69.91 (primary diagnosis) Findings discussed. See printed instructions or information. - PREDNISONE 20 MG TABLET. Daily x 3 days. 2. Right non-suppurative otitis media - ICD9: 381.4, ICD10: H65.91 - Supportive care with plenty of fluids, rest, and analgesia prn. - Finish Amoxicillin. Shaw Guevara MD [facility] 12-12-2024 History of Present illness Narrative This note was created using [employer]. Subjective Sherlyn Amin is a 34 year old female. PCP Ellis Arnett DO The patient consented to the use of [employer] software for draft documentation of the visit consistent with [facility] s Notice of Privacy Practices. Patient presents with: Ear Problem Sherlyn is a 34-year-old female presenting with concerns about her ear not healing. Sherlyn was seen at urgent care on Tuesday for an ear infection and sinusitis and was prescribed amoxicillin. She reports that her ear feels the same or worse since then, with persistent pain and drainage. She also notes a difference in hearing, describing it as ringy and hollow. She denies any previous ear problems except for one ear infection earlier this year. She also reports swelling inside her mouth and around her ear. She denies fever today but had one on Tuesday. She is still taking amoxicillin and ibuprofen 600 mg. She also reports that her sinus infection is improving, and her congestion is getting better. She denies being diabetic. Review of Systems Constitutional: (-) fever, (+) generalized discomfort Ears/Nose/Mouth/Throat: (+) ear pain, (+) hearing changes, (+) ear discharge, (+) congestion, (+) mouth swelling, (+) tinnitus ACTIVE PROBLEM LIST Depression With Anxiety Tobacco Use Disorder Right Arm Numbness Mild Persistent Asthma Without Complication (Hcc) Heroin Addiction (Hcc) Chronic Hepatitis C Without Hepatic Coma (Hcc) Social History Tobacco Use Smoking status: Former Average packs/day: 0.2 packs/day for 5.0 years (1.0 ttl pk-yrs) Types: Cigarettes Start date: 01/04/2024 Quit date: 2023 Years since quittin.2 Smokeless tobacco: Never Tobacco comments: 4-5 cigarettes per day Vaping Use Vaping status: Never Used Substance Use Topics Alcohol use: Yes Comment: social Drug use: No Current Outpatient Medications Medication Sig amoxicillin (AMOXIL) 875 mg tablet Take 1 tablet by mouth two times a day for 7 days. venlafaxine (EFFEXOR) 37.5 mg tablet Take 1 tablet by mouth once daily. albuterol HFA (PROVENTIL HFA, VENTOLIN HFA) 90 mcg/actuation inhaler Inhale 2 Puffs as instructed every 4 hours as needed for wheezing/shortness of breath. hydrOXYzine HCl (ATARAX) 10 mg tablet Take 10 mg by mouth three times daily. cyclobenzaprine (FLEXERIL) 10 mg tablet Take 1 tablet by mouth three times daily as needed for muscle spasm. COMPOUNDED PRESCRIPTION AIR CONDITIONER DX ASTHMA J45.909 dextroamphetamine-amphetamine (ADDERALL) 10 mg tablet Take 1 tablet by mouth once daily for 30 days. No current facility-administered medications for this visit. Objective BP 118/74 (BP Site: Left Arm, BP Position: Sitting, BP Cuff Size: Large Adult) Pulse 92 Temp 37 C (98.6 F) (Temporal) Resp 16 Wt 52.4 kg (115 lb 8.3 oz) LMP 02/14/2022 BMI 23.33 kg/m Physical Exam Constitutional: General: She is not in acute distress. Appearance: She is not ill-appearing. HENT: Right Ear: External ear normal. Decreased hearing noted. No drainage or tenderness. No middle ear effusion. Tympanic membrane is erythematous and retracted. Tympanic membrane is not perforated. Left Ear: Tympanic membrane and external ear normal. Nose: Congestion and rhinorrhea present. Rhinorrhea is purulent. Right Turbinates: Swollen. Left Turbinates: Swollen. Mouth/Throat: Pharynx: Posterior oropharyngeal erythema present. No oropharyngeal exudate. Lymphadenopathy: Cervical: No cervical adenopathy. Assessment and Plan 1. Eustachian tube dysfunction, right - ICD9: 381.81, ICD10: H69.91 (primary diagnosis) Findings discussed. See printed instructions or information. - PREDNISONE 20 MG TABLET. Daily x 3 days. 2. Right non-suppurative otitis media - ICD9: 381.4, ICD10: H65.91 - Supportive care with plenty of fluids, rest, and analgesia prn. - Finish Amoxicillin. Shaw Guevara MD documented in this encounter [facility] 12-12-2024 Note HNO ID: [id number] Author: KENISHA SOL APRN.CNP Service: ? Author Type: Nurse Practitioner Type: Progress Notes Filed: 12/12/2024 15:08 Note Text: Patient with ongoing ear pain, referred for in person evaluation. [facility] 12-12-2024 History of Present illness Narrative Patient with ongoing ear pain, referred for in person evaluation. documented in this encounter [facility] 12-10-2024 Instructions Chiqui Salvador APRN.CNP - 12/10/2024 11:21 AM EDT ASSESSMENT/PLAN: 1. Other acute nonsuppurative otitis media of right ear, recurrence not specified - ICD9: 381.00, ICD10: H65.191 - Will begin treatment with as per antibiotic as written, see orders - Supportive care with plenty of fluids, rest, and analgesia prn. - AMOXICILLIN 875 MG TABLET 2. Flu-like symptoms - ICD9: 780.99, ICD10: R68.89 - offered viral URI testing, patient declined. - Follow-up with your PCP in 3-5 days if symptoms have not improved or sooner if symptoms worsen - Discussed red flags and need for immediate medical evaluation if any occur. - Discussed supportive care treatment with fluids, rest and analgesia. - Discussed expected course of illness Chiqui Salvador APRN.CNP Treatment for Viral Upper Respiratory Tract Infections Your body will kill off the virus by itself. Additionally, you can prime your body's immune system. This may help you get better more quickly. Drink lots of fluids Make sure you are eating well Get plenty of rest We do not have any medications that kill off these viruses. Antibiotics are used to treat bacterial infections; however, they are not active against viral infections. There are some things that might help you feel better, though. Vaporizers, humidifiers, hot showers, and hot fluids help open respiratory and sinus passages Roberts Nasal [place] may offer relief of nasal and head congestion Bryson's Vapor Rub may relieve congestion Tylenol and Advil help control fevers and headaches Salt water gargles help relieve sore throats Chloraceptic spray or throat lozenges may also help relieve sore throat symptoms Occasionally, viral infections turn into something more serious. You should see your doctor or return to the Urgent Care if: You have fevers for longer than five days You have fevers above 102 degrees You are still sick after 10 days You have shortness of breath or wheezing After several days you are getting worse rather than better OTITIS MEDIA GENERAL INFORMATION: Otitis media is an infection of the middle ear. The middle ear sits behind the eardrum. This infection may be caused by a virus or bacteria and often follows a cold. Children often have repeat ear infections. Otitis media is not contagious. INSTRUCTIONS: 1. An antibiotic has been prescribed. It should be taken exactly as prescribed. Do not stop the medicine even if the symptoms go away. 2. [id number] pain medication may be taken or other pain medication as prescribed by the doctor. 3. Nothing should be placed in the ear unless instructed by your doctor. 4. The patient may return to school/daycare or work when the temperature is normal (98.6 F or 37 C). 5. The patient should not swim while the ear is infected. CONTACT YOUR DOCTOR IF YOU OR YOUR CHILD: 1. Does not feel better within 36 hours. 2. Develops a temperature over 102E F (39E C). 3. Starts vomiting or has diarrhea. 4. Develops drainage from the affected ear. 5. Has any new problem that may be related to the medicine prescribed. RETURN TO THE ED IF: 1. You or your child has a severe headache or pain around the ear. 2. You or your child notice swelling around the ear. 3. You or your child has a seizure (convulsion), twitching of the facial muscles, or passes out. 4. You or your child is dizzy, has a stiff neck, or cannot walk or talk normally. 5. Your child becomes more irritable or listless (not interested in his or her surroundings, does not get soothed by you holding him or her). documented in this encounter [facility] 12-10-2024 Note HNO ID: [id number] Author: CHIQUI SALVADOR APRN.LINEN CLERK Service: ? Author Type: Nurse Practitioner Type: Progress Notes Filed: 12/10/2024 11:22 Note Text: [facility] Subjective Sherlyn Amin is a 34 year old female. Patient presents with: Ear Pain: Right ear pain x 1 day and sinus, cough and FLORES x 1 week Ear Pain Associated symptoms include congestion, coughing, a fever and headaches. Pertinent negatives include no sore throat. Sherlyn Amin is a 34 year old female who presents with sinus congestion and drainage, cough, headache x 2 days. She started having right ear pain and popping in her ear today. She has a fever today of 100.2 degrees F. She took Mucinex DM and ibuprofen at home. Review of Systems Constitutional: Positive for fever. HENT: Positive for congestion, ear discharge, ear pain and rhinorrhea. Negative for sore throat. Respiratory: Positive for cough. Cardiovascular: Negative. Neurological: Positive for headaches. Objective BP 122/78 Pulse (!) 127 Temp (!) 38.3 ?C (100.9 ?F) (Tympanic) Resp 20 Wt 52.2 kg (115 lb 1.3 oz) LMP 02/14/2022 SpO2 100% BMI 23.24 kg/m? PAST MEDICAL HISTORY Diagnosis Date - Anemia - Arthritis In both shoulders - Asthma (HCC) - Chronic hepatitis C affecting , antepartum (HCC) 03/31/2017 - Hepatitis C treated - Heroin addiction (HCC) 11/18/2016 - Mental disorder PAST SURGICAL HISTORY Procedure Laterality Date - DELIVERY ONLY 09/18/2007 , low transverse - SUCTION D AND C 04/05/2017 ALLERGIES Bactrim [Sulfamethoxazole-Trimethoprim] MEDICATIONS - venlafaxine (EFFEXOR) 37.5 mg tablet Take 1 tablet by mouth once daily. - albuterol HFA (PROVENTIL HFA, VENTOLIN HFA) 90 mcg/actuation inhaler Inhale 2 Puffs as instructed every 4 hours as needed for wheezing/shortness of breath. - hydrOXYzine HCl (ATARAX) 10 mg tablet Take 10 mg by mouth three times daily. - cyclobenzaprine (FLEXERIL) 10 mg tablet Take 1 tablet by mouth three times daily as needed for muscle spasm. - COMPOUNDED PRESCRIPTION AIR CONDITIONER DX ASTHMA J45.909 - amoxicillin (AMOXIL) 875 mg tablet Take 1 tablet by mouth two times a day for 7 days. - dextroamphetamine-amphetamine (ADDERALL) 10 mg tablet Take 1 tablet by mouth once daily for 30 days. FAMILY HISTORY Problem Relation Age of Onset - Colon Cancer Mother - other (lupus) Father - Diabetes Maternal Grandmother Great Grandmother - Cancer Maternal Grandmother Brain - Cancer Maternal Grandfather Lung-Greatgrandfather - Prostate Cancer Maternal Grandfather - Stroke Paternal Grandmother - Cervical Cancer Maternal Aunt Social History Tobacco Use - Smoking status: Former Average packs/day: 0.2 packs/day for 5.0 years (1.0 ttl pk-yrs) Types: Cigarettes Start date: 01/04/2024 Quit date: 2023 Years since quittin.2 - Smokeless tobacco: Never - Tobacco comments: 4-5 cigarettes per day Vaping Use - Vaping status: Never Used Substance Use Topics - Alcohol use: Yes Comment: social - Drug use: No Physical Exam Vitals and nursing note reviewed. Constitutional: General: She is not in acute distress. Appearance: Normal appearance. She is not ill-appearing. HENT: Right Ear: Ear canal and external ear normal. Drainage present. Tympanic membrane is erythematous. Left Ear: Tympanic membrane, ear canal and external ear normal. Nose: Nose normal. Mouth/Throat: Mouth: Mucous membranes are moist. Pharynx: Oropharynx is clear. No oropharyngeal exudate or posterior oropharyngeal erythema. Cardiovascular: Rate and Rhythm: Regular rhythm. Tachycardia present. Heart sounds: Normal heart sounds. Pulmonary: Effort: Pulmonary effort is normal. No respiratory distress. Breath sounds: Normal breath sounds. No wheezing or rales. Lymphadenopathy: Cervical: No cervical adenopathy. Skin: General: Skin is warm and dry. Findings: No erythema or rash. Neurological: Mental Status: She is alert. {ASSESSMENT/PLAN: 1. Other acute nonsuppurative otitis media of right ear, recurrence not specified - ICD9: 381.00, ICD10: H65.191 - Will begin treatment with as per antibiotic as written, see orders - Supportive care with plenty of fluids, rest, and analgesia prn. - AMOXICILLIN 875 MG TABLET 2. Flu-like symptoms - ICD9: 780.99, ICD10: R68.89 - offered viral URI testing, patient declined. - Follow-up with your PCP in 3-5 days if symptoms have not improved or sooner if symptoms worsen - Discussed red flags and need for immediate medical evaluation if any occur. - Discussed supportive care treatment with fluids, rest and analgesia. - Discussed expected course of illness Chiqui Salvador APRN.CNP History and Record Review Systemic symptoms present included: fever Differential Diagnoses - flu like illness is more likely for the following reason(s): suggested by HANDP - right otitis media is mor (more content not included)... [facility] 12-10-2024 History of Present illness Narrative [facility] Subjective Sherlyn Amin is a 34 year old female. Patient presents with: Ear Pain: Right ear pain x 1 day and sinus, cough and FLORES x 1 week Ear Pain Associated symptoms include congestion, coughing, a fever and headaches. Pertinent negatives include no sore throat. Sherlyn Amin is a 34 year old female who presents with sinus congestion and drainage, cough, headache x 2 days. She started having right ear pain and popping in her ear today. She has a fever today of 100.2 degrees F. She took Mucinex DM and ibuprofen at home. Review of Systems Constitutional: Positive for fever. HENT: Positive for congestion, ear discharge, ear pain and rhinorrhea. Negative for sore throat. Respiratory: Positive for cough. Cardiovascular: Negative. Neurological: Positive for headaches. Objective BP 122/78 Pulse (!) 127 Temp (!) 38.3 C (100.9 F) (Tympanic) Resp 20 Wt 52.2 kg (115 lb 1.3 oz) LMP 02/14/2022 SpO2 100% BMI 23.24 kg/m PAST MEDICAL HISTORY Diagnosis Date Anemia Arthritis In both shoulders Asthma (HCC) Chronic hepatitis C affecting , antepartum (HCC) 03/31/2017 Hepatitis C treated Heroin addiction (HCC) 11/18/2016 Mental disorder PAST SURGICAL HISTORY Procedure Laterality Date DELIVERY ONLY 09/18/2007 , low transverse SUCTION D & C 04/05/2017 ALLERGIES Bactrim [Sulfamethoxazole-Trimethoprim] MEDICATIONS venlafaxine (EFFEXOR) 37.5 mg tablet Take 1 tablet by mouth once daily. albuterol HFA (PROVENTIL HFA, VENTOLIN HFA) 90 mcg/actuation inhaler Inhale 2 Puffs as instructed every 4 hours as needed for wheezing/shortness of breath. hydrOXYzine HCl (ATARAX) 10 mg tablet Take 10 mg by mouth three times daily. cyclobenzaprine (FLEXERIL) 10 mg tablet Take 1 tablet by mouth three times daily as needed for muscle spasm. COMPOUNDED PRESCRIPTION AIR CONDITIONER DX ASTHMA J45.909 amoxicillin (AMOXIL) 875 mg tablet Take 1 tablet by mouth two times a day for 7 days. dextroamphetamine-amphetamine (ADDERALL) 10 mg tablet Take 1 tablet by mouth once daily for 30 days. FAMILY HISTORY Problem Relation Age of Onset Colon Cancer Mother other (lupus) Father Diabetes Maternal Grandmother Great Grandmother Cancer Maternal Grandmother Brain Cancer Maternal Grandfather Lung-Greatgrandfather Prostate Cancer Maternal Grandfather Stroke Paternal Grandmother Cervical Cancer Maternal Aunt Social History Tobacco Use Smoking status: Former Average packs/day: 0.2 packs/day for 5.0 years (1.0 ttl pk-yrs) Types: Cigarettes Start date: 01/04/2024 Quit date: 2023 Years since quittin.2 Smokeless tobacco: Never Tobacco comments: 4-5 cigarettes per day Vaping Use Vaping status: Never Used Substance Use Topics Alcohol use: Yes Comment: social Drug use: No Physical Exam Vitals and nursing note reviewed. Constitutional: General: She is not in acute distress. Appearance: Normal appearance. She is not ill-appearing. HENT: Right Ear: Ear canal and external ear normal. Drainage present. Tympanic membrane is erythematous. Left Ear: Tympanic membrane, ear canal and external ear normal. Nose: Nose normal. Mouth/Throat: Mouth: Mucous membranes are moist. Pharynx: Oropharynx is clear. No oropharyngeal exudate or posterior oropharyngeal erythema. Cardiovascular: Rate and Rhythm: Regular rhythm. Tachycardia present. Heart sounds: Normal heart sounds. Pulmonary: Effort: Pulmonary effort is normal. No respiratory distress. Breath sounds: Normal breath sounds. No wheezing or rales. Lymphadenopathy: Cervical: No cervical adenopathy. Skin: General: Skin is warm and dry. Findings: No erythema or rash. Neurological: Mental Status: She is alert. {ASSESSMENT/PLAN: 1. Other acute nonsuppurative otitis media of right ear, recurrence not specified - ICD9: 381.00, ICD10: H65.191 - Will begin treatment with as per antibiotic as written, see orders - Supportive care with plenty of fluids, rest, and analgesia prn. - AMOXICILLIN 875 MG TABLET 2. Flu-like symptoms - ICD9: 780.99, ICD10: R68.89 - offered viral URI testing, patient declined. - Follow-up with your PCP in 3-5 days if symptoms have not improved or sooner if symptoms worsen - Discussed red flags and need for immediate medical evaluation if any occur. - Discussed supportive care treatment with fluids, rest and analgesia. - Discussed expected course of illness Chiqui Salvador APRN.NAVIN History and Record Review Systemic symptoms present included: fever Differential Diagnoses - flu like illness is more likely for the following reason(s): suggested by H&P - right otitis media is more likely for the following reason(s): suggested by H&P Additional Tests or Interventions The following testing was considered but ultimately not selected after discussion with patient/family: viral uri testing-patient refused The following medication(s) were considered but not ordered: tamiflu Disposition The patient was discharged. OTC Medications were advised: Tylenol and ibuprofen Procedures documented in this encounter [facility] 11-05-2024 Telephone encounter Note Prescription Refill Information The patient has been identified by name and date of : Yes Caregiver verified no other encounters exist for this prescription request: Yes Caregiver confirmed with patient/requestor that no other refills are due, in the near future, with this provider at this time: Yes The last office visit in the department: 08/06/24 Does the patient have a future office visit with this provider/department: No Requested Prescriptions Pending Prescriptions Disp Refills venlafaxine (EFFEXOR) 37.5 mg tablet 30 tablet 5 Sig: Take 1 tablet by mouth once daily. Bel Kaye LPN November 05, 2024 9:26 AM [facility] 11-05-2024 Miscellaneous Notes Prescription Refill Information The patient has been identified by name and date of : Yes Caregiver verified no other encounters exist for this prescription request: Yes Caregiver confirmed with patient/requestor that no other refills are due, in the near future, with this provider at this time: Yes The last office visit in the department: 08/06/24 Does the patient have a future office visit with this provider/department: No Requested Prescriptions Pending Prescriptions Disp Refills venlafaxine (EFFEXOR) 37.5 mg tablet 30 tablet 5 Sig: Take 1 tablet by mouth once daily. Bel Kaye LPN November 05, 2024 9:26 AM documented in this encounter [facility] 10-01-2024 Telephone encounter Note Patient has been identified by name and date of : Patient phones for refill(s): Requested Prescriptions Pending Prescriptions Disp Refills dextroamphetamine-amphetamine (ADDERALL) 10 mg tablet 30 tablet 0 Sig: Take 1 tablet by mouth once daily for 30 days. Date of last office visit in primary care: Visit 08/06/24 Date of next office visit in primary care: Visit date not found Please advise. Thank you. Iftikhar Allred LPN. [facility] Work Phone: 10-01-2024 Miscellaneous Notes Patient has been identified by name and date of : Patient phones for refill(s): Requested Prescriptions Pending Prescriptions Disp Refills dextroamphetamine-amphetamine (ADDERALL) 10 mg tablet 30 tablet 0 Sig: Take 1 tablet by mouth once daily for 30 days. Date of last office visit in primary care: Visit 08/06/24 Date of next office visit in primary care: Visit date not found Please advise. Thank you. Iftikhar Allred LPN. documented in this encounter [facility] 10-01-2024 Telephone encounter Note Prescription Refill Information The patient has been identified by name and date of : Yes Caregiver verified no other encounters exist for this prescription request: Yes Caregiver confirmed with patient/requestor that no other refills are due, in the near future, with this provider at this time: Yes The last office visit in the department: 08/06/24 Does the patient have a future office visit with this provider/department: No Requested Prescriptions Pending Prescriptions Disp Refills albuterol HFA (PROVENTIL HFA, VENTOLIN HFA) 90 mcg/actuation inhaler 8 g 4 Sig: Inhale 2 Puffs as instructed every 4 hours as needed for wheezing/shortness of breath. Eileen Thompson LPN October 01, 2024 10:29 AM [facility] 10-01-2024 Miscellaneous Notes Prescription Refill Information The patient has been identified by name and date of : Yes Caregiver verified no other encounters exist for this prescription request: Yes Caregiver confirmed with patient/requestor that no other refills are due, in the near future, with this provider at this time: Yes The last office visit in the department: 08/06/24 Does the patient have a future office visit with this provider/department: No Requested Prescriptions Pending Prescriptions Disp Refills albuterol HFA (PROVENTIL HFA, VENTOLIN HFA) 90 mcg/actuation inhaler 8 g 4 Sig: Inhale 2 Puffs as instructed every 4 hours as needed for wheezing/shortness of breath. Eileen Thompson LPN October 01, 2024 10:29 AM documented in this encounter [facility] 08-08-2024 Telephone encounter Note Patient states that she woke up sick and wasn't able to make it in. She promises she will make it in this week. Will need a lab collect order filed please. [facility] 08-08-2024 Miscellaneous Notes Patient states that she woke up sick and wasn't able to make it in. She promises she will make it in this week. Will need a lab collect order filed please. Let her know I held on adderall scripts. If she does a urine this week then I can write them if not, I would not write scripts When patient was in office was unable to give urine. Was given 24 hours to come back to provide urine specimen. Patient failed to come back and do urine tox screen. documented in this encounter [facility] 08-08-2024 Telephone encounter Note Let her know I held on adderall scripts. If she does a urine this week then I can write them if not, I would not write scripts [facility] 08-08-2024 Telephone encounter Note When patient was in office was unable to give urine. Was given 24 hours to come back to provide urine specimen. Patient failed to come back and do urine tox screen. [facility] 08-06-2024 Instructions Kevin Maya MD - 08/06/2024 7:17 PM EST [facility] [address] [place] [address] [facility] [address] [place] [id number] [facility] [address] [place] [id number] [facility] [address] [place], [place] [address] [facility] [address] [place] [address], [address] documented in this encounter [facility] 08-06-2024 Note HNO ID: [id number] Author: KEVIN MAYA MD Service: ? Author Type: Physician Type: Progress Notes Filed: 08/06/2024 19:33 Note Text: Patient presents with: Follow Up HPI: Patient presents today for office visit for follow up. Asking for refill on Effexor today. Has been off for about 1 month. Was getting this from psych but needs to find new provider. Also needing refill on Adderall today. Has been out for just a couple of days. ADD: Current Treatment:adderall Feels treatment is working well: Yes. Weight loss: No. Insomnia: sleeping well. GASTROENTEROLOGY complaints: No. Tremor: No. Mood disorder: see above. Needs new psych. Chest pain/Palpitations: Yes. Aware of risks associated with controlled substance use: Yes. Hx of misuse/abuse/diversion of meds: not currently. Oarrs done. MEDICATIONS: Current Outpatient Medications Medication Sig dextroamphetamine-amphetamine (ADDERALL) 10 mg tablet Take 1 tablet by mouth once daily for 30 days. albuterol HFA (PROVENTIL HFA, VENTOLIN HFA) 90 mcg/actuation inhaler Inhale 2 Puffs as instructed every 4 hours as needed for wheezing/shortness of breath. venlafaxine (EFFEXOR) 37.5 mg tablet Take 1/4 tablet by mouth for 4 days, then 1/2 tablet daily x4 days, then 1 tablet daily after dinner. hydrOXYzine HCl (ATARAX) 10 mg tablet Take 10 mg by mouth three times daily. cyclobenzaprine (FLEXERIL) 10 mg tablet Take 1 tablet by mouth three times daily as needed for muscle spasm. COMPOUNDED PRESCRIPTION AIR CONDITIONER DX ASTHMA J45.909 No current facility-administered medications for this visit. ALLERGIES: ALLERGIES Allergen Reactions Bactrim [Sulfametho* Other: See Comments Sick to stomach, chest tightness, FLORES PAST MEDICAL HISTORY Diagnosis Date Anemia Arthritis In both shoulders Asthma Chronic hepatitis C affecting , antepartum (HCC) 03/31/2017 Hepatitis C treated Heroin addiction (HCC) 11/18/2016 Mental disorder PAST SURGICAL HISTORY Procedure Laterality Date DELIVERY ONLY 09/18/2007 , low transverse SUCTION D AND C 04/05/2017 FAMILY HISTORY Problem Relation Age of Onset Colon Cancer Mother other (lupus) Father Diabetes Maternal Grandmother Great Grandmother Cancer Maternal Grandmother Brain Cancer Maternal Grandfather Lung-Greatgrandfather Prostate Cancer Maternal Grandfather Stroke Paternal Grandmother Cervical Cancer Maternal Aunt Social History Tobacco Use Smoking status: Every Day Current packs/day: 0.20 Average packs/day: 0.2 packs/day for 5.0 years (1.0 ttl pk-yrs) Types: Cigarettes Smokeless tobacco: Never Tobacco comments: 4-5 cigarettes per day Vaping Use Vaping status: Never Used Substance Use Topics Alcohol use: Yes Comment: social Drug use: No Reviewed current medications, allergies, past medical history, surgical history, family history and social history today. REVIEW OF SYSTEMS All other reviewed and negative other than HPI. VITALS: BP 104/82 Pulse 91 Wt 50.6 kg (111 lb 8.8 oz) LMP 02/14/2022 SpO2 100% BMI 22.53 kg/m? Last 4 Encounter Wt Readings: Date: Wt: 11/21/2023 50.8 kg (112 lb) 11/18/2023 51.2 kg (112 lb 12.8 oz) 11/08/2023 51.8 kg (114 lb 3.2 oz) 05/05/2023 42.9 kg (94 lb 9.6 oz) PHYSICAL EXAMINATION: General appearance: Well appearing, alert, in no acute distress, well-hydrated, well nourished. Skin: Skin color, texture, turgor normal, no suspicious rashes or lesions Head: Normocephalic, no masses, lesions, tenderness or abnormalities Lungs: Lungs clear to auscultation. No wheezing, rhonchi, rales Heart: RRR without murmur, gallop, or rubs. No ectopy Abdomen: Normal abdominal exam, Abdomen soft, non-tender. Bowel sounds normal. No masses, organomegaly Extremities: No deformities, edema, skin discoloration, clubbing or cyanosis. Good capillary refill. Musculoskeletal: No joint swelling, deformity, or tenderness ASSESSMENT/PLAN: 1. Depression with anxiety - ICD9: 300.4, ICD10: F41.8 (primary diagnosis) - get set up with psychiatry. Controlled prescriptions were written during the office visit. Sequential fill dates were listed on each. Patient is instructed that no additional scripts will be written until their next follow up visit. - VENLAFAXINE 37.5 MG TABLET - CONSULT TO [facility] - DEXTROAMPHETAMINE-AMPHETAMINE 10 MG TABLET - DEXTROAMPHETAMINE-AMPHETAMINE 10 MG TABLET - DEXTROAMPHETAMINE-AMPHETAMINE 10 MG TABLET 2. Medication management - ICD9: V58.69, ICD10: Z79.899 - TOXICOLOGY SCREEN, ROUTINE URINE - DEXTROAMPHETAMINE-AMPHETAMINE 10 MG TABLET - DEXTROAMPHETAMINE-AMPHETAMINE 10 MG TABLET - DEXTROAMPHETAMINE-AMPHETAMINE 10 MG TABLET Kevin Maya MD [facility] 08-06-2024 History of Present illness Narrative Patient presents with: Follow Up HPI: Patient presents today for office visit for follow up. Asking for refill on Effexor today. Has been off for about 1 month. Was getting this from psych but needs to find new provider. Also needing refill on Adderall today. Has been out for just a couple of days. ADD: Current Treatment:adderall Feels treatment is working well: Yes. Weight loss: No. Insomnia: sleeping well. GASTROENTEROLOGY complaints: No. Tremor: No. Mood disorder: see above. Needs new psych. Chest pain/Palpitations: Yes. Aware of risks associated with controlled substance use: Yes. Hx of misuse/abuse/diversion of meds: not currently. Oarrs done. MEDICATIONS: Current Outpatient Medications Medication Sig dextroamphetamine-amphetamine (ADDERALL) 10 mg tablet Take 1 tablet by mouth once daily for 30 days. albuterol HFA (PROVENTIL HFA, VENTOLIN HFA) 90 mcg/actuation inhaler Inhale 2 Puffs as instructed every 4 hours as needed for wheezing/shortness of breath. venlafaxine (EFFEXOR) 37.5 mg tablet Take 1/4 tablet by mouth for 4 days, then 1/2 tablet daily x4 days, then 1 tablet daily after dinner. hydrOXYzine HCl (ATARAX) 10 mg tablet Take 10 mg by mouth three times daily. cyclobenzaprine (FLEXERIL) 10 mg tablet Take 1 tablet by mouth three times daily as needed for muscle spasm. COMPOUNDED PRESCRIPTION AIR CONDITIONER DX ASTHMA J45.909 No current facility-administered medications for this visit. ALLERGIES: ALLERGIES Allergen Reactions Bactrim [Sulfametho* Other: See Comments Sick to stomach, chest tightness, FLORES PAST MEDICAL HISTORY Diagnosis Date Anemia Arthritis In both shoulders Asthma Chronic hepatitis C affecting , antepartum (HCC) 03/31/2017 Hepatitis C treated Heroin addiction ([facility]) 11/18/2016 Mental disorder PAST SURGICAL HISTORY Procedure Laterality Date DELIVERY ONLY 09/18/2007 , low transverse SUCTION D & C 04/05/2017 FAMILY HISTORY Problem Relation Age of Onset Colon Cancer Mother other (lupus) Father Diabetes Maternal Grandmother Great Grandmother Cancer Maternal Grandmother Brain Cancer Maternal Grandfather Lung-Greatgrandfather Prostate Cancer Maternal Grandfather Stroke Paternal Grandmother Cervical Cancer Maternal Aunt Social History Tobacco Use Smoking status: Every Day Current packs/day: 0.20 Average packs/day: 0.2 packs/day for 5.0 years (1.0 ttl pk-yrs) Types: Cigarettes Smokeless tobacco: Never Tobacco comments: 4-5 cigarettes per day Vaping Use Vaping status: Never Used Substance Use Topics Alcohol use: Yes Comment: social Drug use: No Reviewed current medications, allergies, past medical history, surgical history, family history and social history today. REVIEW OF SYSTEMS All other reviewed and negative other than HPI. VITALS: BP 104/82 Pulse 91 Wt 50.6 kg (111 lb 8.8 oz) LMP 02/14/2022 SpO2 100% BMI 22.53 kg/m Last 4 Encounter Wt Readings: Date: Wt: 11/21/2023 50.8 kg (112 lb) 11/18/2023 51.2 kg (112 lb 12.8 oz) 11/08/2023 51.8 kg (114 lb 3.2 oz) 05/05/2023 42.9 kg (94 lb 9.6 oz) PHYSICAL EXAMINATION: General appearance: Well appearing, alert, in no acute distress, well-hydrated, well nourished. Skin: Skin color, texture, turgor normal, no suspicious rashes or lesions Head: Normocephalic, no masses, lesions, tenderness or abnormalities Lungs: Lungs clear to auscultation. No wheezing, rhonchi, rales Heart: RRR without murmur, gallop, or rubs. No ectopy Abdomen: Normal abdominal exam, Abdomen soft, non-tender. Bowel sounds normal. No masses, organomegaly Extremities: No deformities, edema, skin discoloration, clubbing or cyanosis. Good capillary refill. Musculoskeletal: No joint swelling, deformity, or tenderness ASSESSMENT/PLAN: 1. Depression with anxiety - ICD9: 300.4, ICD10: F41.8 (primary diagnosis) - get set up with psychiatry. Controlled prescriptions were written during the office visit. Sequential fill dates were listed on each. Patient is instructed that no additional scripts will be written until their next follow up visit. - VENLAFAXINE 37.5 MG TABLET - CONSULT TO [facility] - DEXTROAMPHETAMINE-AMPHETAMINE 10 MG TABLET - DEXTROAMPHETAMINE-AMPHETAMINE 10 MG TABLET - DEXTROAMPHETAMINE-AMPHETAMINE 10 MG TABLET 2. Medication management - ICD9: V58.69, ICD10: Z79.899 - TOXICOLOGY SCREEN, ROUTINE URINE - DEXTROAMPHETAMINE-AMPHETAMINE 10 MG TABLET - DEXTROAMPHETAMINE-AMPHETAMINE 10 MG TABLET - DEXTROAMPHETAMINE-AMPHETAMINE 10 MG TABLET Kevin Maya MD documented in this encounter [facility] 06-01-2024 Telephone encounter Note The following approved medication requests have been transmitted electronically. Requested Prescriptions Signed Prescriptions Disp Refills dextroamphetamine-amphetamine (ADDERALL) 10 mg tablet 30 tablet 0 Sig: Take 1 tablet by mouth once daily for 30 days. Authorizing Provider: MARYA FRANCOIS APRN.CNP PDMP website checked and validated. All prescriptions have been APPROPRIATELY filled. No suspicious activity was identified. 06/01/2024 by Marya Francois CNP. [facility] 06-01-2024 Miscellaneous Notes The following approved medication requests have been transmitted electronically. Requested Prescriptions Signed Prescriptions Disp Refills dextroamphetamine-amphetamine (ADDERALL) 10 mg tablet 30 tablet 0 Sig: Take 1 tablet by mouth once daily for 30 days. Authorizing Provider: MARYA FRANCOIS APRN.CNP PDMP website checked and validated. All prescriptions have been APPROPRIATELY filled. No suspicious activity was identified. 06/01/2024 by Marya Francois CNP. Prescription Refill Information The patient has been identified by name and date of : Yes Caregiver verified no other encounters exist for this prescription request: Yes Caregiver confirmed with patient/requestor that no other refills are due, in the near future, with this provider at this time: Yes The last office visit in the department: 11/18/2023 Does the patient have a future office visit with this provider/department: No Requested Prescriptions Pending Prescriptions Disp Refills dextroamphetamine-amphetamine (ADDERALL) 10 mg tablet 30 tablet 0 Sig: Take 1 tablet by mouth once daily for 30 days. Evelyn Redmond June 01, 2024 9:26 AM documented in this encounter [facility] 06-01-2024 Telephone encounter Note Prescription Refill Information The patient has been identified by name and date of : Yes Caregiver verified no other encounters exist for this prescription request: Yes Caregiver confirmed with patient/requestor that no other refills are due, in the near future, with this provider at this time: Yes The last office visit in the department: 11/18/2023 Does the patient have a future office visit with this provider/department: No Requested Prescriptions Pending Prescriptions Disp Refills dextroamphetamine-amphetamine (ADDERALL) 10 mg tablet 30 tablet 0 Sig: Take 1 tablet by mouth once daily for 30 days. Evelyn Redmond June 01, 2024 9:26 AM [facility] 04-25-2024 Telephone encounter Note Patient has been identified by name and date of : Patient phones for refill(s): Requested Prescriptions Pending Prescriptions Disp Refills dextroamphetamine-amphetamine (ADDERALL) 10 mg tablet 30 tablet 0 Sig: Take 1 tablet by mouth once daily for 30 days. Date of last office visit in primary care: 11/21/2023 Date of next office visit in primary care: Visit date not found Please advise. Thank you. Iftikhar Allred LPN. [facility] Work Phone: 04-25-2024 Miscellaneous Notes Patient has been identified by name and date of : Patient phones for refill(s): Requested Prescriptions Pending Prescriptions Disp Refills dextroamphetamine-amphetamine (ADDERALL) 10 mg tablet 30 tablet 0 Sig: Take 1 tablet by mouth once daily for 30 days. Date of last office visit in primary care: 11/21/2023 Date of next office visit in primary care: Visit date not found Please advise. Thank you. Iftikhar Allred LPN. documented in this encounter [facility] 03-27-2024 Telephone encounter Note The following approved medication requests have been transmitted electronically. Requested Prescriptions Signed Prescriptions Disp Refills dextroamphetamine-amphetamine (ADDERALL) 10 mg tablet 30 tablet 0 Sig: Take 1 tablet by mouth once daily for 30 days. Authorizing Provider: MARYA FRANCOIS APRN.CNP PDMP website checked and validated. All prescriptions have been APPROPRIATELY filled. No suspicious activity was identified. 03/27/2024 by Marya Francois CNP. [facility] 03-27-2024 Miscellaneous Notes The following approved medication requests have been transmitted electronically. Requested Prescriptions Signed Prescriptions Disp Refills dextroamphetamine-amphetamine (ADDERALL) 10 mg tablet 30 tablet 0 Sig: Take 1 tablet by mouth once daily for 30 days. Authorizing Provider: MARYA FRANCOIS APRN.CNP PDMP website checked and validated. All prescriptions have been APPROPRIATELY filled. No suspicious activity was identified. 03/27/2024 by Marya Francois CNP. Patient is calling to check on status due to she is out of the medication, please send today. Prescription Refill Information The patient has been identified by name and date of : Yes Caregiver verified no other encounters exist for this prescription request: Yes Caregiver confirmed with patient/requestor that no other refills are due, in the near future, with this provider at this time: Yes The last office visit in the department: 11/21/2023 Does the patient have a future office visit with this provider/department: No Requested Prescriptions Pending Prescriptions Disp Refills dextroamphetamine-amphetamine (ADDERALL) 10 mg tablet 30 tablet 0 Sig: Take 1 tablet by mouth once daily for 30 days. Paola Villarreal LPN March 26, 2024 10:11 AM documented in this encounter [facility] 03-27-2024 Telephone encounter Note Patient is calling to check on status due to she is out of the medication, please send today. [facility] 03-26-2024 Telephone encounter Note Prescription Refill Information The patient has been identified by name and date of : Yes Caregiver verified no other encounters exist for this prescription request: Yes Caregiver confirmed with patient/requestor that no other refills are due, in the near future, with this provider at this time: Yes The last office visit in the department: 11/21/2023 Does the patient have a future office visit with this provider/department: No Requested Prescriptions Pending Prescriptions Disp Refills dextroamphetamine-amphetamine (ADDERALL) 10 mg tablet 30 tablet 0 Sig: Take 1 tablet by mouth once daily for 30 days. Paola Villarreal LPN March 26, 2024 10:11 AM [facility] 02-24-2024 Telephone encounter Note The following approved medication requests have been transmitted electronically. Requested Prescriptions Signed Prescriptions Disp Refills dextroamphetamine-amphetamine (ADDERALL) 10 mg tablet 30 tablet 0 Sig: Take 1 tablet by mouth once daily for 30 days. Authorizing Provider: MARYA FRANCOIS APRN.CNP PDMP website checked and validated. All prescriptions have been APPROPRIATELY filled. No suspicious activity was identified. 02/24/2024 by Marya Francois CNP. [facility] 02-24-2024 Miscellaneous Notes The following approved medication requests have been transmitted electronically. Requested Prescriptions Signed Prescriptions Disp Refills dextroamphetamine-amphetamine (ADDERALL) 10 mg tablet 30 tablet 0 Sig: Take 1 tablet by mouth once daily for 30 days. Authorizing Provider: MARYA FRANCOIS APRN.CNP PDMP website checked and validated. All prescriptions have been APPROPRIATELY filled. No suspicious activity was identified. 02/24/2024 by Marya Francois CNP. Patient MyChart message requesting the following refill Refill(s) Requested: Requested Prescriptions Pending Prescriptions Disp Refills dextroamphetamine-amphetamine (ADDERALL) 10 mg tablet 30 tablet 0 Sig: Take 1 tablet by mouth once daily for 30 days. ALLERGIES Allergen Reactions Bactrim [Sulfametho* Other: See Comments Sick to stomach, chest tightness, [place]ORES (home) [phone] (cell) Last Office Visit Date: 11/21/2023 Last Distance Health Visit: Visit date not found Future Appointment: Visit date not found The patients preferred pharmacy has been captured for this encounter? yes Request is for script(s) to be escript to pharmacy. Maeve Terrazas LPN documented in this encounter [facility] 02-24-2024 Telephone encounter Note Patient [employer] message requesting the following refill Refill(s) Requested: Requested Prescriptions Pending Prescriptions Disp Refills dextroamphetamine-amphetamine (ADDERALL) 10 mg tablet 30 tablet 0 Sig: Take 1 tablet by mouth once daily for 30 days. ALLERGIES Allergen Reactions Bactrim [Sulfametho* Other: See Comments Sick to stomach, chest tightness, [place]OR[place] (home) [phone] (cell) Last Office Visit Date: 11/21/2023 Last Distance Health Visit: Visit date not found Future Appointment: Visit date not found The patients preferred pharmacy has been captured for this encounter? yes Request is for script(s) to be escript to pharmacy. Maeve Terrazas LPN [facility] 02-07-2024 Telephone encounter Note Patient calls today stating that she woke up with a cold sore today that is by her lip and requesting treatment with valacyclovir. [facility] 02-07-2024 Miscellaneous Notes Patient calls today stating that she woke up with a cold sore today that is by her lip and requesting treatment with valacyclovir. documented in this encounter [facility] 01-20-2024 Telephone encounter Note [facility] website checked and validated. All prescriptions have been APPROPRIATELY filled. No suspicious activity was identified. 01/20/2024 by Ying Del Cid APRN.CNP The following approved medication requests have been transmitted electronically. Requested Prescriptions Signed Prescriptions Disp Refills dextroamphetamine-amphetamine (ADDERALL) 10 mg tablet 30 tablet 0 Sig: Take 1 tablet by mouth once daily for 30 days. Authorizing Provider: YING DEL CID APRN.CNP [facility] 01-20-2024 Miscellaneous Notes [facility] website checked and validated. All prescriptions have been APPROPRIATELY filled. No suspicious activity was identified. 01/20/2024 by Ying Del Cid APRN.CNP The following approved medication requests have been transmitted electronically. Requested Prescriptions Signed Prescriptions Disp Refills dextroamphetamine-amphetamine (ADDERALL) 10 mg tablet 30 tablet 0 Sig: Take 1 tablet by mouth once daily for 30 days. Authorizing Provider: YING DEL CID APRN.CNP Pt calling in as [facility] in [place] does not have her Adderall and won't have til Tuesday. Pt needs before then. She called around and [facility] in [place] has it. Asking if it can be sent there instead. Call only if problem. Needs VV if wanting to change dosage to discuss this. [facility] website checked and validated. All prescriptions have been APPROPRIATELY filled. No suspicious activity was identified. 01/20/2024 by Ying Del Cid APRN.CNP The following approved medication requests have been transmitted electronically. Requested Prescriptions Signed Prescriptions Disp Refills dextroamphetamine-amphetamine (ADDERALL) 10 mg tablet 30 tablet 0 Sig: Take 1 tablet by mouth once daily for 30 days. Authorizing Provider: YING DEL CID APRN.CNP Patient has been identified by name and date of : Yes, Provider Dr. Arnett Date Time 12:52 Patient phones for refill(s): Requested Prescriptions Pending Prescriptions Disp Refills dextroamphetamine-amphetamine (ADDERALL) 10 mg tablet 30 tablet 0 Sig: Take 1 tablet by mouth once daily for 30 days. Date of last office visit in primary care: 11/21/2023 Date of next office visit in primary care: Visit date not found Please advise. Thank you. Eileen Thompson LPN. documented in this encounter [facility] 01-20-2024 Telephone encounter Note Pt calling in as [facility] in [place] does not have her Adderall and won't have til Tuesday. Pt needs before then. She called around and [facility] in [place] has it. Asking if it can be sent there instead. Call only if problem. [facility] 01-20-2024 Telephone encounter Note Needs VV if wanting to change dosage to discuss this. PDMP website checked and validated. All prescriptions have been APPROPRIATELY filled. No suspicious activity was identified. 01/20/2024 by Ying Del Cid APRN.CNP The following approved medication requests have been transmitted electronically. Requested Prescriptions Signed Prescriptions Disp Refills dextroamphetamine-amphetamine (ADDERALL) 10 mg tablet 30 tablet 0 Sig: Take 1 tablet by mouth once daily for 30 days. Authorizing Provider: YING DEL CID APRN.CNP [facility] 01-20-2024 Telephone encounter Note Patient has been identified by name and date of : Yes, Provider Dr. Arnett Date Time 12:52 Patient phones for refill(s): Requested Prescriptions Pending Prescriptions Disp Refills dextroamphetamine-amphetamine (ADDERALL) 10 mg tablet 30 tablet 0 Sig: Take 1 tablet by mouth once daily for 30 days. Date of last office visit in primary care: 11/21/2023 Date of next office visit in primary care: Visit date not found Please advise. Thank you. Eileen Thompson LPN. [facility] 12-22-2023 Miscellaneous Notes Spoke with pt and information listed below given. Pt verbalizes understanding. Yudi Casiano LPN PDMP website checked and validated. All prescriptions have been APPROPRIATELY filled. No suspicious activity was identified. 12/22/2023 by Ying Del Cid APRN.CNP The following approved medication requests have been transmitted electronically. Requested Prescriptions Signed Prescriptions Disp Refills dextroamphetamine-amphetamine (ADDERALL) 10 mg tablet 30 tablet 0 Sig: Take 1 tablet by mouth once daily for 30 days. Authorizing Provider: YING DEL CID APRN.CNP Patient has been identified by name and date of : Yes, Provider Dr. Arnett Date 12/22/23 Time 9:28 Patient phones for refill(s): 12/22/23 Requested Prescriptions Pending Prescriptions Disp Refills dextroamphetamine-amphetamine (ADDERALL) 10 mg tablet 30 tablet 0 Sig: Take 1 tablet by mouth once daily for 30 days. Date of last office visit in primary care: 11/21/2023 Date of next office visit in primary care: Visit date not found Please advise. Thank you. Eileen Thompson LPN. documented in this encounter [facility] 11-21-2023 History of Present illness Narrative Chief Complaint Patient presents with: f/up n facial swelling HPI Sherlyn Amin is a 33 year old female who presents here today for Above Complaints. Sherlyn is an established patient of Dr. Arnett, and myself. Concerns today.. 11/17 appointment with me: ASSESSMENT/PLAN: 1. Cellulitis of face - ICD9: 682.0, ICD10: L03.211 - Begin treatment with doxycycline BID x 10 days and prednisone burst x 5 days ( 20 mg) due to location. - RTO on Tuesday (3 days) to reassess. - If symptoms worsen at all or start to effect vision, pt needs to be evaluated in ER. Pt agreeable and aware. - No lymphangetic streaking, this was defined for patient to watch for and to seek medical care immediately if appears - Area of cellulitis defined with pen, seek further attention if this area continues to enlarge - Follow up for recheck in three days - DOXYCYCLINE HYCLATE 100 MG TABLET - PREDNISONE 20 MG TABLET RTO in 3 days, sooner if needed. In office today... Cellulitis -- Greatly improved. Swelling improved. Redness and warmth completely resolved. Site is now draining white liquid frequently per pt. Pt is keeping open wound covered with band aid while at work. Open to air at home. Still some swelling but pinpoint to location of open abrasion vs entire side of face. ADHD -- Was prescribed adderall 5 mg by Marya Francois CNP on 11/07. Reports noticing a huge difference with her fidgeting and poor concentration but does feel like it wears off quickly around 2pm daily. Wondering if this could be increased. No other concerns or complaints. Past medical history, appointments, medications, allergies reviewed. [...] on File Prior to Visit Medication Sig doxycycline (VIBRA-TABS) 100 mg tablet Take 1 tablet by mouth two times a day for 10 days. predniSONE (DELTASONE) 20 mg tablet Take 1 tablet by mouth once daily. X 5 days. dextroamphetamine-amphetamine (ADDERALL) 5 mg tablet Take 1 tablet by mouth once daily for 30 days. ARIPiprazole (ABILIFY) 2 mg tablet TAKE 1/2 (ONE-HALF) OF A TABLET BY MOUTH EVERY MORNING (Patient not taking: Reported on 11/08/2023) venlafaxine (EFFEXOR) 37.5 mg tablet Take 1/4 tablet by mouth for 4 days, then 1/2 tablet daily x4 days, then 1 tablet daily after dinner. QUEtiapine (SEROQUEL) 100 mg tablet Take 100 mg by mouth daily at bedtime. (Patient not taking: Reported on 11/18/2023) hydrOXYzine HCl (ATARAX) 10 mg tablet Take 10 mg by mouth three times daily. cyclobenzaprine (FLEXERIL) 10 mg tablet Take 1 tablet by mouth three times daily as needed for muscle spasm. albuterol HFA (PROVENTIL HFA, VENTOLIN HFA) 90 mcg/actuation inhaler Inhale 2 Puffs as instructed every 4 hours as needed for wheezing/shortness of breath. ciprofloxacin HCl (CILOXAN) 0.3 % ophthalmic solution [...] meals. (Patient not taking: Reported on 02/01/2023) albuterol HFA (VENTOLIN HFA) 90 mcg/actuation inhaler Inhale 2 Puffs as instructed every 4 hours as needed for wheezing/shortness of breath. COMPOUNDED PRESCRIPTION AIR CONDITIONER DX ASTHMA J45.909 No current facility-administered medications on file prior to visit. Social History Social History Tobacco Use Smoking status: Every Day Packs/day: 0.20 Years: 5.00 Additional pack years: 0.00 Total pack years: 1.00 Types: Cigarettes Smokeless tobacco: Never Tobacco comments: 4-5 cigarettes per day Vaping Use Vaping Use: Never used Substance Use Topics Alcohol use: Yes Comment: social Drug use: No REVIEW OF SYSTEMS: as above Reviewed relevant PMHx, PSHx, Social Hx, current medications and allergies. Review of Symptoms REVIEW OF SYSTEMS See HPI. EXAM: BP 100/62 (BP Site: Left Arm, BP Position: Sitting, BP Cuff Size: Regular Adult) Pulse 62 Resp 12 Wt 50.8 kg (112 lb) LMP 02/14/2022 BMI 22.62 kg/m General Appearance: Well appearing, alert, in no acute distress, well-hydrated, well nourished.. Skin: Skin color, texture, turgor normal, no suspicious rashes or lesions. Abrasion to L side of face: localized swelling with active clear drainage from site. No redness or warmth as prior. Head: Normocephalic, no masses, lesions, tenderness or abnormalities. Lungs: Lungs clear to auscultation. No wheezing, rhonchi, rales.. Heart: RRR without murmur, gallop, or rubs. No ectopy. Health Maintenance List Influenza Vaccine(1) due on 03/04/2024 Hepatitis A Vaccine(1 of 2 - Risk 2-dose series) due on 11/17/2024 Covid-19 Vaccine(1 - 2022- season) due on 11/17/2024 Pneumococcal Vaccine(1 of 2 - PCV) due on 11/17/2024 Pap Testing due on 11/01/2024 HPV Testing due on 11/01/2024 Annual PCP Team Chronic Disease Visit due on 11/17/2024 DTaP,Tdap,Td Vaccine(4 - Td or Tdap) due on 04/27/2031 Spirometry Completed Hepatitis C Screening Completed HIV Screening Completed HPV Vaccine Aged Out ASSESSMENT/PLAN: 1. Adult ADHD - ICD9: 314.01, ICD10: F90.9 (primary diagnosis) Increase adderall regimen to 10 mg daily as instructed from Marya's last note on 11/07. RTO in 4 weeks if no improvement. - DEXTROAMPHETAMINE-AMPHETAMINE 10 MG TABLET 2. Cellulitis of face - ICD9: 682.0, ICD10: L03.211 Greatly improved. - Continue treatment with doxycycline --- complete entire regimen. Pt agreeable. - Wound culture collected today. RTO if symptoms worsen again. - ABSCESS AND WOUND CULTURE WITH GRAM STAIN RTO as needed. Prescription instructions reviewed with patient as applicable. Potential red flag symptoms discussed with the patient. Reviewed appropriate action plan to take if red flag symptoms occur. Patient agreeable to treatment plan. Ying Coronel APRN.NAVIN [address] [place] [address] documented in this encounter [facility] 11-18-2023 History of Present illness Narrative Chief Complaint Patient presents with: lft side o prabha y teple and eye swollen: Started with swelling yesterday after trying to squeeze it , believes maybe just a pimple. HPI Sherlyn Amin is a 33 year old female who presents here today for Above Complaints. Sherlyn is an established patient of Dr. Arnett, and myself. Concerns today.. Swollen face -- Pt reports pimple to side of face (near L jew area) and tried to pop it yesterday. Was able to pop it and get pus drainage. Then today started with swelling, warmth, and redness to entire L side of face/cheek/forehead. Pt reports low grade fever as well -- 99F. Very tender and painful. Pt reports very similar incident happened a few years ago that ended in hospitalization for cellulitis and IV antibiotics. Pt reports coming in much sooner this time than last time, trying to prevent hospital admission. Pt denies any vision changes currently besides one short episode of blurred vision that quickly resolved. No drainage today from site. No other concerns or complaints. Past medical history, appointments, medications, allergies reviewed. [...] on File Prior to Visit Medication Sig dextroamphetamine-amphetamine (ADDERALL) 5 mg tablet Take 1 tablet by mouth once daily for 30 days. ARIPiprazole (ABILIFY) 2 mg tablet TAKE 1/2 (ONE-HALF) OF A TABLET BY MOUTH EVERY MORNING (Patient not taking: Reported on 11/08/2023) venlafaxine (EFFEXOR) 37.5 mg tablet Take 1/4 [...] hours as needed for wheezing/shortness of breath. ciprofloxacin HCl (CILOXAN) 0.3 % ophthalmic solution [...] DAY (Patient not taking: Reported on 02/01/2023) albuterol HFA (VENTOLIN HFA) 90 mcg/actuation inhaler Inhale 2 Puffs as instructed every 4 hours as needed for wheezing/shortness of breath. COMPOUNDED PRESCRIPTION AIR CONDITIONER DX ASTHMA J45.909 No current facility-administered medications on file prior to visit. Social History Social History Tobacco Use Smoking status: Every Day Packs/day: 0.20 Years: 5.00 Additional pack years: 0.00 Total pack years: 1.00 Types: Cigarettes Smokeless tobacco: Never Tobacco comments: 4-5 cigarettes per day Vaping Use Vaping Use: Never used Substance Use Topics Alcohol use: Yes Comment: social Drug use: No REVIEW OF SYSTEMS: as above Reviewed relevant PMHx, PSHx, Social Hx, current medications and allergies. Review of Symptoms REVIEW OF SYSTEMS See HPI. EXAM: BP 90/60 (BP Site: Left Arm, BP Position: Sitting, BP Cuff Size: Regular Adult) Pulse 60 Temp 37.4 C (99.3 F) Resp 12 Wt 51.2 kg (112 lb 12.8 oz) LMP 02/14/2022 BMI 22.78 kg/m General Appearance: Well appearing, alert, in no acute distress, well-hydrated, well nourished.. Skin: Skin color, texture, turgor normal, no suspicious rashes or lesions, Significant swelling to L side of face including: jew, forehead, cheek and eyelid. Small wound/abrasion from where pt popped pimple. Surrounding erythema, warmth, and swelling. Head: Normocephalic, no masses, lesions, tenderness or abnormalities. Eyes: Anicteric sclera. Pupils are equally round and reactive to light. Extraocular movements are intact. . Ears: External ears normal, canals clear. Nose/Sinuses: Nares normal, septum midline, mucosa normal, no drainage or sinus tenderness. Oropharynx: Lips, mucosa, and tongue normal, teeth and gums normal, oropharynx normal. Health Maintenance List Influenza Vaccine(1) due on 03/04/2024 Hepatitis A Vaccine(1 of 2 - Risk 2-dose series) due on 11/17/2024 Covid-19 Vaccine(1 - 2022-24 season) due on 11/17/2024 Pneumococcal Vaccine(1 of 2 - PCV) due on 11/17/2024 Pap Testing due on 11/01/2024 HPV Testing due on 11/01/2024 Annual PCP Team Chronic Disease Visit due on 11/07/2024 DTaP,Tdap,Td Vaccine(4 - Td or Tdap) due on 04/27/2031 Spirometry Completed Hepatitis C Screening Completed HIV Screening Completed HPV Vaccine Aged Out ASSESSMENT/PLAN: 1. Cellulitis of face - ICD9: 682.0, ICD10: L03.211 - Begin treatment with doxycycline BID x 10 days and prednisone burst x 5 days ( 20 mg) due to location. - RTO on Tuesday (3 days) to reassess. - If symptoms worsen at all or start to effect vision, pt needs to be evaluated in ER. Pt agreeable and aware. - No lymphangetic streaking, this was defined for patient to watch for and to seek medical care immediately if appears - Area of cellulitis defined with pen, seek further attention if this area continues to enlarge - Follow up for recheck in three days - DOXYCYCLINE HYCLATE 100 MG TABLET - PREDNISONE 20 MG TABLET RTO in 3 days, sooner if needed. Prescription instructions reviewed with patient as applicable. Potential red flag symptoms discussed with the patient. Reviewed appropriate action plan to take if red flag symptoms occur. Patient agreeable to treatment plan. Ying Coronel APRN.CNP [address] [place] [address] documented in this encounter [facility] 11-08-2023 Instructions Marya Francois APRN.CNP - 11/08/2023 8:18 AM EST Send me a [employer] message in 2 weeks with an update on the Adderall. If necessary at that point can increase the Adderall if you would like-then we would follow up in the office in 4 weeks from that increase. documented in this encounter [facility] 11-08-2023 History of Present illness Narrative Chief Complaint Patient presents with: ADD/ADHD HPI Sherlyn Amin is a 33 year old female who presents here today for Above Complaints. Currently: Has been dx with depression and anxiety her entire life-has been on lots of medications for it but nothing is helping. Can't stick with a job or a task, cannot focus. Fidgeting, forgetful, interrupts others. Questioning if she has ADD/ADHD. Strong family hx of ADD/ADHD. Anxiety is through the roof most of the time. Past medical history, appointments, medications, allergies reviewed. [...] on File Prior to Visit Medication Sig venlafaxine (EFFEXOR) 37.5 mg tablet Take 1/4 [...] COMPOUNDED PRESCRIPTION AIR CONDITIONER DX ASTHMA J45.909 ARIPiprazole (ABILIFY) 2 mg tablet TAKE 1/2 (ONE-HALF) OF A TABLET BY MOUTH EVERY MORNING (Patient not taking: Reported on 11/08/2023) ciprofloxacin HCl (CILOXAN) 0.3 % ophthalmic solution [...] SYSTEMS See HPI, otherwise negative EXAM: BP 106/64 (BP Site: Left Arm, BP Position: Sitting, BP Cuff Size: Regular Adult) Pulse 80 Resp 16 Wt 51.8 kg (114 lb 3.2 oz) LMP 02/14/2022 BMI 23.07 kg/m General Appearance: Well appearing, alert, in no acute distress, well-hydrated, well nourished.. Lungs: Lungs clear to auscultation. No wheezing, rhonchi, rales.. Heart: RRR without murmur, gallop, or rubs. No ectopy. Psychiatric: pleasant, cooperative, no SI/HI. Health Maintenance List Covid-19 Vaccine(1) Never done Pneumococcal Vaccine(1 of 2 - PCV) Never done Hepatitis A Vaccine(1 of 2 - Risk 2-dose series) Never done Influenza Vaccine(1) due on 05/06/2023 Annual PCP Team Chronic Disease Visit due on 05/05/2024 Pap Testing due on 11/01/2024 HPV Testing due on 11/01/2024 DTaP,Tdap,Td Vaccine(4 - Td or Tdap) due on 04/27/2031 Spirometry Completed Hepatitis C Screening Completed HIV Screening Completed HPV Vaccine Aged Out Data reviewed Previous records, office notes, [facility] report PDMP website checked and validated. All prescriptions have been APPROPRIATELY filled. No suspicious activity was identified. 11/08/2023 by Marya Francois CNP. ASSESSMENT/PLAN: 1. Adult ADHD - ICD9: 314.01, ICD10: F90.9 Begin Adderall 5mg daily. To send [employer] message in 2 weeks with update. At that point ok to increase to 10mg if necessary. Will then follow up in 4 weeks from this possible increase. - DEXTROAMPHETAMINE-AMPHETAMINE 5 MG TABLET Marya Francois APRN.NAVIN documented in this encounter [facility] 05-05-2023 History of Present illness Narrative Chief Complaint Patient presents with: [...] given for [place] for apartment complex. Marya Francois APRN.LINEN CLERK documented in this encounter [facility] 03-18-2023 Miscellaneous Notes Oarrs done. Filled in pcp absence Patient phones requesting refills as follows: Requested Prescriptions Pending Prescriptions Disp Refills ALPRAZolam (XANAX) 0.25 mg tablet 30 tablet 0 Sig: Take 1 tablet by mouth once daily as needed for up to 30 days. [facility]-08/04/22 Labs-07/09/22Jul-04/11/23 Please review and advise. Muriel Zhu LPN documented in this encounter [facility] 03-18-2023 Miscellaneous Notes The following approved medication requests have been transmitted electronically. Requested Prescriptions Pending Prescriptions Disp Refills cyclobenzaprine (FLEXERIL) 10 mg tablet 30 tablet 0 Sig: Take 1 tablet by mouth three times daily as needed for muscle spasm. Sawyer Gordon APRN.LINEN CLERK Patient phones requesting refills as follows: Requested Prescriptions Pending Prescriptions Disp Refills cyclobenzaprine (FLEXERIL) 10 mg tablet 30 tablet 0 Sig: Take 1 tablet by mouth three times daily as needed for muscle spasm. [facility]-08/04/22 Labs-07/09/22Jul-04/11/23 Please review and advise. Muriel Zhu LPN documented in this encounter [facility] 03-18-2023 Miscellaneous Notes Spacer included. The following approved medication requests have been transmitted electronically. Requested Prescriptions Signed Prescriptions Disp Refills albuterol HFA (PROVENTIL HFA, VENTOLIN HFA) 90 mcg/actuation inhaler 8 g 4 Sig: Inhale 2 Puffs as instructed every 4 hours as needed for wheezing/shortness of breath. Authorizing Provider: ELLIS ARNETT Ordering User: SAWYER GORDON Inhalational Spacing Device 1 Each 0 Si Device one time only for 1 dose. Authorizing Provider: ELLIS ARNETT Ordering User: SAWYER GORDON APRN.NAVIN Patient phones requesting refills as follows: Patient comment: Can i also get a spacer for my inhaler to please Requested Prescriptions Pending Prescriptions Disp Refills albuterol HFA (VENTOLIN HFA) 90 mcg/actuation inhaler 8 g 0 Sig: Inhale 2 Puffs as instructed every 4 hours as needed for wheezing/shortness of breath. [facility]-08/04/22 Labs-07/09/22 NOV-04/11/23 Please review and advise. Muriel Zhu LPN documented in this encounter [facility] 02-17-2023 Miscellaneous Notes OK to refill as [...] patient. Ivanna Dexter documented in this encounter [facility] 02-01-2023 Instructions Jeovanny Dennis APRN.NAVIN - 02/01/2023 9:02 AM EDT Try patanol first, antibiotics second. If no improvement see eye dr in 3-4 days. Urgent f/u for severe/worsening s/s. [facility] PATIENT INFO CONJUNCTIVITIS OVERVIEW Conjunctivitis, also called pinkeye, is defined as an inflammation of the [...] the person should be evaluated by an line production cook. Contact lens wearers -- People who wear [...] within two weeks, an examination with an line production cook may be recommended. CONJUNCTIVITIS PREVENTION Bacterial and [...] loss of effectiveness. documented in this encounter [facility] 02-01-2023 History of Present illness Narrative Subjective HPI HPI Sherlyn Amin [...] CIPROFLOXACIN 0.3 % EYE DROPS Jeovanny Dennis APRN.LINEN CLERK documented in this encounter [facility] 01-07-2023 Miscellaneous Notes This is being addressed in another encounter. Isaias Roberson LPN documented in this encounter [facility] 01-07-2023 Miscellaneous Notes Last refill 11/24/22 Qty: 30 with 0 refills [facility] 11/22/22 NOV pt had appointment schedule 01/05/23. Looks like she did not complete appointment. No other appointment scheduled. Isaias Roberson LPN documented in this encounter [facility] 11-30-2022 History of Present illness Narrative Preoperative diagnosis: 1.5 cm subcutaneous [...] Maeve Terrazas LPN documented in this encounter [facility] 11-30-2022 Instructions Maeve Terrazas LPN - 11/30/2022 8:52 AM EDT The following instructions are important for you related to your office visit today with the [facility] General Surgeons. Instructions After SKIN [...] you should contact our office immediately @ [phone] and ask to be transferred to the General Surgery department. documented in this encounter [facility] 11-24-2022 Miscellaneous Notes PDMP website checked and validated. All prescriptions have been APPROPRIATELY filled. No suspicious activity was identified. 11/24/2022 by iYng Del Cid APRN.LINEN CLERK The following approved medication requests have been transmitted electronically. Requested Prescriptions Signed Prescriptions Disp Refills ALPRAZolam (XANAX) 0.25 mg tablet 30 tablet 0 Sig: Take 1 tablet by mouth once daily as needed for up to 30 days. Authorizing Provider: YING DEL CID APRN.NAVIN Patient calls to ask why alprazolam prescription is not able to be ordered. Noted discontinued on 11/22/2022 but not certain of specific reason to relay to patient. Patient asking if provider would send prescription to [facility]. Patient is aware provider is out of office today. Please review and advise, Pema Moser RN documented in this encounter [facility] 11-22-2022 History of Present illness Narrative This Team Access Model visit is a virtual encounter. It required patient-provider interaction for the medical decision making as documented below. Patient agrees to the visit: Yes Patient Location: [place] CC: Patient presents with: Anxiety HPI Sherlyn Amin is a 32 year old female who is contacted today for a virtual visit. This is an established patient of Dr. Ellis Arnett, DO and myself. Concerns today.. Anxiety/depression --- [...] treatment options and medications. Ying Del Cid APRN.LINEN CLERK Spoke to Sherlyn Amin, confirmed patient is registered on [employer] and is prepared for their appointment. Confirmed the patient will update medications, allergies, and questionnaires via [employer]. Informed patient if there is an issue with the connection, provider will send the patient a secure link. If provider is running late, patient should remain connected to the visit. Patient verbalized understanding. documented in this encounter [facility] 11-19-2022 History of Present illness Narrative HISTORY AND PHYSICAL Sherlyn Amin 1990 REFERRING PHYSICIAN: Saravanan Clayton,* CHIEF COMPLAINT: Consult (Mass or lump [...] entered by the nurse and reviewed by in Nursing Notes: Lauren Vasquez RN 11/18/2022 4:12 [...] C (98 F), height 149.9 cm (4' 11), weight 45.3 kg (99 lb 12.8 oz), [...] note will be forwarded to Dr. Ellis Arnett DO. Return to Clinic: The patient is instructed to follow-up with me 1 week post operatively. Dilip Jones III, MD documented in this encounter [facility] 11-18-2022 Nurse Note REVIEW OF SYSTEMS: General: [...] Lauren Vasquez RN documented in this encounter [facility] 11-10-2022 Miscellaneous Notes Patient calls and notified [...] for follow up. documented in this encounter [facility] 11-04-2022 Note HNO ID: [id number] Author: RT Vanessa(R) Service: ? Author Type: [...] DATE: November 04, 2022 TIME: 3:40 PM [facility] 11-04-2022 History of Present illness Narrative Radiology Service Progress Note DATE [...] TIME: 3:40 PM documented in this encounter [facility] 02-20-2023 Miscellaneous Notes Patient phones requesting refills as follows: Requested Prescriptions Pending Prescriptions Disp Refills Ferrous Sulfate (SLOW FE) 142 mg (45 mg iron) TbER 60 tablet 5 Sig: Take 1 tablet by mouth twice daily with meals. ALPRAZolam (XANAX) 0.25 mg tablet 60 tablet 0 Sig: Take 2 tablets by mouth twice daily as needed for up to 30 days. [facility]-07/07/22 Labs-07/09/22 NOV-none Please review and advise. Muriel Zhu LPN documented in this encounter [facility] 10-04-2022 Miscellaneous Notes The following approved medication requests have been transmitted electronically. Requested Prescriptions Signed Prescriptions Disp Refills ALPRAZolam (XANAX) 0.25 mg tablet 60 tablet 0 Sig: Take 2 tablets by mouth twice daily as needed for up to 30 days. Authorizing Provider: MARYA FRANCOIS APRN.LINEN CLERK PDMP website checked and validated. All prescriptions have been APPROPRIATELY filled. No suspicious activity was identified. 10/04/2022 by Marya Francois CNP. Patient has been identified by name [...] Pema Moser RN documented in this encounter [facility] 09-06-2022 Miscellaneous Notes Pt notified of below. Tara Toussaint LPN Left message for patient to return call. Shonda Horton This message is to inform you that the patient has not yet read the following message. (Notification date: September 02, 2022) Results From Marianne Bae APRN.CNP To Sherlyn Matthieu Amin Sent and Delivered 09/01/2022 2:52 PM Hi Sherlyn, You can return to work when you are feeling better, and have gone 48 hours with no fever or fever reducing medicine. I will place a letter for you to return September 06, 2022. [facility] [place] MyChart User Last Read On Sherlyn Amin Not Read documented in this encounter [facility] 09-01-2022 Miscellaneous Notes [employer] message sent. Work letter provided, with return date of 09/06/22 Patient calling to request work excuse letter for yesterday 08/31 and for the recommended number of days she should be off work after testing positive for influenza A. She was seen in [facility] on 08/31 and received results this AM. Please send letter to My Chart. Ora Figueroa RN documented in this encounter [facility] 08-31-2022 History of Present illness Narrative Subjective Sinus Problem Associated symptoms include congestion, coughing and a sore throat. Pertinent negatives include no chills, fever, nausea or vomiting. Sherlyn Amin is a 32 year old female who presents with cough, sore throat, sinus congestion for the past 2 days. She has been taking Nyquil at home. States she had a fever at home but never kept track of it. Temp here today is 100.6. Her daughter is also currently ill with viral URI symptoms. Review of Systems Constitutional: Negative for chills and fever. HENT: Positive for congestion and sore throat. Respiratory: Positive for cough. Cardiovascular: Negative. Gastrointestinal: Negative for diarrhea, nausea and vomiting. Skin: Negative. BP 102/64 Pulse 108 Temp (!) 38.1 C (100.6 F) Resp 18 Wt 47.4 kg (104 lb 9.6 oz) LMP 02/14/2022 SpO2 99% BMI 20.43 kg/m PAST MEDICAL HISTORY Diagnosis Date Anemia Arthritis In both shoulders Asthma Chronic hepatitis C affecting , antepartum (HCC) 03/31/2017 Hepatitis C treated Heroin addiction (HCC) 11/18/2016 Mental disorder PAST SURGICAL HISTORY Procedure Laterality Date DELIVERY ONLY 09/18/2007 , low transverse SUCTION D & C 04/05/2017 ALLERGIES Bactrim [Sulfamethoxazole-Trimethoprim] MEDICATIONS ALPRAZolam (XANAX) 0.25 mg tablet^Take 2 tablets by mouth twice daily as needed for up to 30 days.^Disp: 60 tablet^Rfl: 0 SLOW FE 142 mg (45 mg iron) TbER^TAKE 1 TABLET BY MOUTH TWICE A DAY WITH MEALS^Disp: 60 tablet^Rfl: 5 Ascorbic Acid 1,000 mg tablet^TAKE 1 TABLET BY MOUTH EVERY DAY^Disp: 30 tablet^Rfl: 5 PARoxetine (PAXIL) 10 mg tablet^Take 1 tablet by mouth once daily.^Disp: 90 tablet^Rfl: 0 albuterol HFA (VENTOLIN HFA) 90 mcg/actuation inhaler^Inhale 2 Puffs as instructed every 4 hours as needed for wheezing/shortness of breath.^Disp: 8 g^Rfl: 5 oseltamivir (TAMIFLU) 75 mg capsule^Take 1 capsule by mouth twice daily for 5 days.^Disp: 10 capsule^Rfl: 0 COMPOUNDED PRESCRIPTION^AIR CONDITIONER DX ASTHMA J45.909^Disp: 1 Each^Rfl: 0 FAMILY HISTORY Problem Relation Age of Onset other (lupus) Father Cancer Maternal Grandfather Lung-Greatgrandfather Prostate Cancer Maternal Grandfather Diabetes Maternal Grandmother Great Grandmother Cancer Maternal Grandmother Brain Stroke Paternal Grandmother Cervical Cancer Maternal Aunt Social History Tobacco Use Smoking status: Every Day Packs/day: 0.20 Years: 5.00 Pack years: 1.00 Types: Cigarettes Smokeless tobacco: Never Tobacco comments: 4-5 cigarettes per day Vaping Use Vaping Use: Never used Substance Use Topics Alcohol use: Yes Comment: social Drug use: No Objective Physical Exam Vitals and nursing note reviewed. Constitutional: General: She is not in acute distress. Appearance: She is ill-appearing. She is not toxic-appearing. HENT: Right Ear: Tympanic membrane, ear canal and external ear normal. Left Ear: Tympanic membrane, ear canal and external ear normal. Nose: Congestion present. Mouth/Throat: Mouth: Mucous membranes are moist. Pharynx: Oropharynx is clear. Uvula midline. No oropharyngeal exudate or posterior oropharyngeal erythema. Cardiovascular: Rate and Rhythm: Normal rate and regular rhythm. Heart sounds: Normal heart sounds. Pulmonary: Effort: Pulmonary effort is normal. No respiratory distress. Breath sounds: Normal breath sounds. No wheezing or rales. Musculoskeletal: Cervical back: Neck supple. Lymphadenopathy: Cervical: No cervical adenopathy. Skin: General: Skin is warm and dry. Findings: No erythema or rash. Neurological: Mental Status: She is alert. ASSESSMENT/PLAN: 1. Sore throat - ICD9: 462, ICD10: J02.9 (primary diagnosis) - suspect viral - Alere Strep Test NEGATIVE, no culture pending - Discussed supportive care treatment with fluids, rest and analgesia. - STREP A MOLECULAR (POC) 2. Flu-like symptoms - ICD9: 780.99, ICD10: R68.89 - OSELTAMIVIR 75 MG CAPSULE- may begin medication, if Flu test is negative please stop this medication. - COVID WITH FLUA+B, ROUTINE - Follow-up with your PCP in 3-5 days if symptoms have not improved or sooner if symptoms worsen - Discussed red flags and need for immediate medical evaluation if any occur. - Discussed supportive care treatment with fluids, rest and analgesia. - Discussed expected course of illness Chiqui Salvador APRN.CNP documented in this encounter [facility] 08-31-2022 Instructions Chiqui Salvador APRN.CNP - 08/31/2022 8:49 AM EST ASSESSMENT/PLAN: 1. Sore throat - ICD9: 462, ICD10: J02.9 (primary diagnosis) - suspect viral - Alere Strep Test NEGATIVE, no culture pending - Discussed supportive care treatment with fluids, rest and analgesia. - STREP A MOLECULAR (POC) 2. Flu-like symptoms - ICD9: 780.99, ICD10: R68.89 - OSELTAMIVIR 75 MG CAPSULE- may begin medication, if Flu test is negative please stop this medication. - COVID WITH FLUA+B, ROUTINE - Follow-up with your PCP in 3-5 days if symptoms have not improved or sooner if symptoms worsen - Discussed red flags and need for immediate medical evaluation if any occur. - Discussed supportive care treatment with fluids, rest and analgesia. - Discussed expected course of illness Chiqui Salvador APRN.CNP [facility] PATIENT INFO INFLUENZA INTRODUCTION Influenza (commonly called the flu) is a highly contagious illness that can occur in children or adults of any age. It occurs more often in the winter months because people spend more time in close contact with one another. The flu is spread easily from [id number]-[id number] by coughing, sneezing, or touching surfaces. Every year, complications of the flu require more than 200,000 people in the [place] to be hospitalized. Serious illness is more likely in the very young, older adults, women, and people who have certain health problems such as asthma or other forms of lung disease. There have been several widespread flu outbreaks (called pandemics), which led to the deaths of many people worldwide. These outbreaks occurred when new strains of influenza viruses formed (often from pigs or birds) and humans became infected because they had no immunity to these viruses. FLU SYMPTOMS Symptoms of seasonal flu can vary from person to person, but usually include: Fever (temperature higher than 100 F or 37.8 C) Headache and muscle aches Fatigue Cough and sore throat may also be present People with the flu usually have a fever for two to five days. This is different than fever caused by other upper respiratory viruses, which usually resolve after 24 to 48 hours. Some people have cold-like symptoms (runny nose, sore throat) during the flu while others have fever and muscle aches. Flu symptoms usually improve over two to five days, although the illness may last for a week or more. Weakness and fatigue may persist for several weeks Flu complications -- Complications of influenza occur in some people; pneumonia is the most common complication. Pneumonia is a serious infection of the lungs, and is more likely to occur in people over the age of 65, people who live in skilled nursing care facilities (nursing homes), and those with other illnesses such as diabetes or conditions affecting the heart or lungs. FLU DIAGNOSIS Influenza is usually diagnosed based on symptoms (fever, cough and muscle aches). Lab testing for influenza is performed in certain cases, such as during a new influenza outbreak in a community. FLU TREATMENT When to seek help -- Most people with the flu recover within one to two weeks without treatment. However, serious complications of the flu can occur. Call your doctor or nurse immediately if: You feel short of breath or have trouble breathing You have pain or pressure in your chest or stomach You have signs of being dehydrated, such as dizziness when standing or not passing urine You feel confused You cannot stop vomiting or you cannot drink enough fluids There are several groups of people who are at increased risk for flu complications. These include women, young children (<5 years of age, and especially <2 years of age), people ?65 years of age, and people with certain diseases such as chronic lung disease (such as asthma), heart disease, diabetes, immunosuppressing conditions (such as HIV infection or transplantation), and some other diseases. If you or your child has flu symptoms and is at increased risk of flu complications, you should call your healthcare provider. Treat symptoms -- Treating the symptoms of influenza can help you to feel better, but will not make the flu go away faster. Rest until the flu is fully resolved, especially if the illness has been severe Fluids -- Drink enough fluids so that you do not become dehydrated. One way to coffee roaster if you are drinking enough is to look at the color of your urine. Normally, urine should be light yellow to nearly colorless. If you are drinking enough, you should pass urine every three to five hours. Acetaminophen (such as Tylenol and other brands) can relieve fever, headache, and muscle aches. Aspirin, and medicines that include aspirin (eg, bismuth subsalicylate; PeptoBismol), are not recommended for children under 18 because aspirin can lead to a serious disease called Rosendo syndrome. Cough medicines are not usually helpful; cough usually resolves without treatment. We do not recommend cough or cold medicine for children under age six years. Antiviral treatment -- Antiviral medicines can be used to treat or prevent influenza. When used as a treatment, the medicine does not eliminate flu symptoms, although it can reduce the severity and duration of symptoms by about one day. Not every person with influenza needs an antiviral medicine; the decision is based upon your risk of developing complications of influenza. Antiviral treatment is most effective for seasonal influenza when it is taken within the first 48 hours of flu symptoms. Side effects -- Zanamivir and oseltamivir can cause mild side effects, including nausea and vomiting; zanamivir, which is inhaled, can cause difficulty breathing in some cases. Most people are able to continue the medicine despite the side effects. Antibiotics -- Antibiotics are NOT useful for treating viral illnesses such as influenza. Antibiotics should only used if there is a bacterial complication of the flu such as bacterial pneumonia, ear infection, or sinusitis. Antibiotics can cause side effects and lead to development of antibiotic resistance. documented in this encounter [facility] 08-16-2022 Miscellaneous Notes The following approved medication requests have been transmitted electronically. Requested Prescriptions Signed Prescriptions Disp Refills ALPRAZolam (XANAX) 0.25 mg tablet 60 tablet 0 Sig: Take 2 tablets by mouth twice daily as needed for up to 30 days. Authorizing Provider: MARYA FRANCOIS SURGICAL INSTRUMENT MAKER.NAVIN PDMP website checked and validated. All prescriptions have been APPROPRIATELY filled. No suspicious activity was identified. 08/16/2022 by Marya Francois CNP. Josse--08/04/22 Nov--nothing scheduled 07/22/22 60 with 0 refills Last labs--07/09/22 documented in this encounter [facility] 08-09-2022 History of Present illness Narrative Subjective HPI Nontoxic-appearing female presents urgent care chief complaint sinus pressure and right ear pain. Duration of symptoms 8 days. Associated symptoms listed above. Patient states ear pain has worsened in the last few days. States pain first started with maxillary sinus pressure on the right side only. No known sick contacts. No OTC medication use. Denies any fever body aches chills productive cough chest pain shortness of breath pleuritic pain hemoptysis nausea vomiting abdominal pain change in bowel or bladder habits. Past medical history prescription medication use and allergies reviewed. Denies chance of is not breast-feeding. .Patient presents with: Ear Pain: R ear pain x1 week PAST MEDICAL HISTORY Diagnosis Date Anemia Arthritis In both shoulders Asthma Chronic hepatitis C affecting , antepartum (HCC) 03/31/2017 Hepatitis C treated Heroin addiction (HCC) 11/18/2016 Mental disorder PAST SURGICAL HISTORY Procedure Laterality Date DELIVERY ONLY 09/18/2007 , low transverse SUCTION D & C 04/05/2017 ALLERGIES Bactrim [Sulfamethoxazole-Trimethoprim] MEDICATIONS SLOW FE 142 mg (45 mg iron) TbER^TAKE 1 TABLET BY MOUTH TWICE A DAY WITH MEALS^Disp: 60 tablet^Rfl: 5 Ascorbic Acid 1,000 mg tablet^TAKE 1 TABLET BY MOUTH EVERY DAY^Disp: 30 tablet^Rfl: 5 PARoxetine (PAXIL) 10 mg tablet^Take 1 tablet by mouth once daily.^Disp: 90 tablet^Rfl: 0 ALPRAZolam (XANAX) 0.25 mg tablet^Take 2 tablets by mouth twice daily as needed for up to 30 days.^Disp: 60 tablet^Rfl: 0 albuterol HFA (VENTOLIN HFA) 90 mcg/actuation inhaler^Inhale 2 Puffs as instructed every 4 hours as needed for wheezing/shortness of breath.^Disp: 8 g^Rfl: 5 COMPOUNDED PRESCRIPTION^AIR CONDITIONER DX ASTHMA J45.909^Disp: 1 Each^Rfl: 0 FAMILY HISTORY Problem Relation Age of Onset other (lupus) Father Cancer Maternal Grandfather Lung-Greatgrandfather Prostate Cancer Maternal Grandfather Diabetes Maternal Grandmother Great Grandmother Cancer Maternal Grandmother Brain Stroke Paternal Grandmother Cervical Cancer Maternal Aunt Social History Tobacco Use Smoking status: Every Day Packs/day: 0.20 Years: 5.00 Pack years: 1.00 Types: Cigarettes Smokeless tobacco: Never Tobacco comments: 4-5 cigarettes per day Vaping Use Vaping Use: Never used Substance Use Topics Alcohol use: Yes Comment: social Drug use: No BP 102/66 Pulse 71 Temp 36.8 C (98.3 F) Resp 18 Wt 48.2 kg (106 lb 3.2 oz) LMP 02/14/2022 SpO2 99% BMI 20.74 kg/m Review of Systems Constitutional: Negative for chills, fever and malaise/fatigue. HENT: Positive for congestion, ear pain and sinus pain. Negative for ear discharge and sore throat. Eyes: Negative for blurred vision, pain, discharge and redness. Respiratory: Negative for cough, hemoptysis, sputum production, shortness of breath, wheezing and stridor. Cardiovascular: Negative for chest pain. Gastrointestinal: Negative for abdominal pain, diarrhea, nausea and vomiting. Musculoskeletal: Negative for myalgias. Skin: Negative for itching and rash. Neurological: Negative for dizziness and headaches. Objective Physical Exam Constitutional: General: She is not in acute distress. Appearance: She is not diaphoretic. HENT: Head: Normocephalic. Jaw: No trismus, tenderness, swelling or pain on movement. Right Ear: Hearing, ear canal and external ear normal. Tympanic membrane is erythematous. Tympanic membrane is not perforated or bulging. Left Ear: Hearing, tympanic membrane, ear canal and external ear normal. Nose: Congestion present. Right Sinus: Maxillary sinus tenderness present. Mouth/Throat: Mouth: Mucous membranes are moist. Pharynx: Oropharynx is clear. No oropharyngeal exudate or posterior oropharyngeal erythema. Eyes: Conjunctiva/sclera: Conjunctivae normal. Pupils: Pupils are equal, round, and reactive to light. Cardiovascular: Rate and Rhythm: Normal rate and regular rhythm. Heart sounds: Normal heart sounds. Pulmonary: Effort: Pulmonary effort is normal. No tachypnea, accessory muscle usage or respiratory distress. Breath sounds: Normal breath sounds. No stridor. No wheezing, rhonchi or rales. Abdominal: General: There is no distension. Palpations: Abdomen is soft. Tenderness: There is no abdominal tenderness. There is no guarding or rebound. Musculoskeletal: Cervical back: Normal range of motion and neck supple. No rigidity or tenderness. Lymphadenopathy: Cervical: No cervical adenopathy. Skin: General: Skin is warm and dry. Neurological: Mental Status: She is alert and oriented to person, place, and time. ASSESSMENT/PLAN: 1. Bacterial sinusitis - ICD9: 473.9, 041.9, ICD10: J32.9, B96.89 Patient diagnosed with bacterial sinusitis. Will be placed on Augmentin. Patient was educated on supportive therapies. Patient will follow up with primary care provider as needed. Patient was instructed to immediately proceed to emergency room for any new, worsening, or symptoms lasting longer than anticipated. The patient's clinical presentation is otherwise unremarkable at this time. Based on exam and clinical finding, the patient is stable for discharge. Plan of care was discussed with patient. Patient verbalizes understanding and agrees to plan of care. This note was generated using [employer] software. It may contain errors in wording, punctuation, or spelling. Ted Taylor APRN.NAVIN documented in this encounter [facility] 07-22-2022 Miscellaneous Notes Patient calling to say pharmacy tells her they need provider call to okay early refill due to original script on 07/07 was written for up to 30 days. They are telling her she cannot fill new script until 08/03. Ora Figueroa RN The following approved medication requests have been transmitted electronically. Requested Prescriptions Signed Prescriptions Disp Refills ALPRAZolam (XANAX) 0.25 mg tablet 60 tablet 0 Sig: Take 2 tablets by mouth twice daily as needed for up to 30 days. Authorizing Provider: MARYA FRANCOIS APRN.CNP PDMP website checked and validated. All prescriptions have been APPROPRIATELY filled. No suspicious activity was identified. 07/22/2022 by Marya Francois CNP. Patient calls because xanax refill request was declined. TE from 07/14/2022 says ok to take 2 tablets as needed until Prozac kicks in. Patient scheduled a follow up with [facility] for 2022 to discuss Prozac as she doesn't feel like it is helping her at all. Pended xanax 0.25 mg twice daily as needed per TE from [facility]. Patient has enough medication to get through tomorrow. Last OV: 07/07/2022 Next OV: 06/29/2022 Pema Moser RN documented in this encounter [facility] 07-14-2022 History of Present illness Narrative Behavioral Health Social Work Progress Note Patient identified for [facility] from: PCP Reason for referral: Resources Behavioral Health Resources: Psychology - talk therapy [facility] encounter type: [employer] Message Attempts to Outreach: 3 attempts Referral made: Psychology - Internal;Psychology - External Psychology-Internal referral type: Therapy Psychology-External referral type: Therapy Reason for external referral: Wait times at [facility] too long Final Disposition: Resources given Patient Discharged?: Yes Patient reported that caregiver was able to meet their needs today?: N/A Patient read [employer] message with requested resources by PCP. SW sent follow-up message to see if any additional questions or concerns exist. ROSELIA Talbert July 14, 2022 documented in this encounter [facility] 07-13-2022 Miscellaneous Notes Pt called and is notified of providers results and instructions. Pt voices understanding. Pt put through to scheduling to set up MRI. Fernanda Castro RN Message left for patient to call back for update. Tika Mo LPN Please call patient and let her know her US of arm was inconclusive- showed either a complex cyst vs solid mass. Recommended we could get MRI. I have placed order for this if she would like to schedule. Thanks, No Lindsay APRN.NAVIN documented in this encounter [facility] 07-12-2022 Miscellaneous Notes Patient calls and notified of results and providers instructions. Patient verbalizes understanding. Patient has developed several small red non-raised red areas to chest and abdomen that are not painful or itchy. She reports that they have been there for sometime. Prior to and developed more during. (Possibly angiomas from description). Patient to look at schedule and call back for appointment. Pema Moser RN Please let Sherlyn know that we received her lab results. Her hemoglobin level is low as well as her iron. I suspect the iron is the cause of the lower hemoglobin. I recommend she begin a twice daily iron supplement as well as vitamin C, which is helpful for the iron to absorb well. These have been sent to the pharmacy. No other concerns. The following approved medication requests have been transmitted electronically. Requested Prescriptions Signed Prescriptions Disp Refills ferrous sulfate (SLOW FE) 140 mg (45 mg iron) TbER 60 tablet 5 Sig: Take 1 tablet by mouth twice daily with meals. Authorizing Provider: MARYA FRANCOIS Ascorbic Acid (VITAMIN C) 1,000 mg tablet 30 tablet 5 Sig: Take 1 tablet by mouth once daily. Authorizing Provider: MARYA FRANCOIS APRN.LINEN CLERK documented in this encounter [facility] 07-07-2022 History of Present illness Narrative Chief Complaint Patient presents with: Depression: And anxiety, started when had to come off meds so its been there since pregnacy baby will be a year old Tuesday. HPI Sherlyn Amin is a 31 year old female who presents here today for Above Complaints. Sherlyn is an established patient of Dr. Melquiades DO. Sherlyn is a new patient to me today. Concerns today.. Anxiety/depression --- Anxiety and depression x 1 year, maybe longer. Had DAVID and depression in the past that was well controlled until when with daughter, got off of all medication. Was so never started back on it. Now is done and pt feels like mood is out of control -- she needs help. Does not want to leave house. Hard time holding job down. Daily anxiety. Unable to leave house due to anxiousness. Unable to get out of bed due to no motivation. Random episodes of overpowering shame and guilt for unknown reason. Has been on trazodone, Zoloft, Effexor, Seroquel, buspar, and clonopin. Unsure what worked well and what did not. Single parent with 1 year old toddler and 14 year old daughter -- numerous daily stressors. Would like to see behavioral health for counseling/therapy aspect as well as prescribing ability. Contraceptive -- None currently. Tried Depo shot but did not like it. No concerns for contraception currently. Does not want to start anything else. Asthma --- Albuterol as needed. Stable. Well controlled. Reports hx of anemia, iron deficiency. Willing to have lab work today to recheck this. No iron supplement currently. Concerned about thyroid dysfunction due to some weight loss and borderline thyroid labs during . No intervention during besides monitoring due to borderline nature. Has not checked since labor/delivery. Denies any other symptoms or hypo-hyperthyroidism. Past medical history, appointments, medications, allergies reviewed. [...] FAMILY HISTORY Problem Relation Age of Onset other (lupus) Father Cancer Maternal Grandfather Lung-Greatgrandfather Prostate Cancer Maternal Grandfather Diabetes Maternal Grandmother Great Grandmother Cancer Maternal Grandmother Brain Stroke Paternal Grandmother Cervical Cancer Maternal Aunt Patient Allergies ALLERGIES Allergen Reactions Bactrim [Sulfametho* Other: See Comments Sick to stomach, chest tightness, FLORES Current Medications Current Outpatient Medications on File Prior to Visit Medication Sig medroxyPROGESTERone (DEPO-PROVERA) 150 mg/mL injection Inject 1 mL intramuscularly every 12 weeks. albuterol HFA (VENTOLIN HFA) 90 mcg/actuation inhaler Inhale 2 Puffs as instructed every 4 hours as needed for wheezing/shortness of breath. COMPOUNDED PRESCRIPTION AIR CONDITIONER DX ASTHMA J45.909 Current Facility-Administered Medications on File Prior to Visit Medication medroxyPROGESTERone 150 mg injection (DEPO-PROVERA) Social History Social History Tobacco Use Smoking status: Every Day Packs/day: 0.20 Years: 5.00 Pack years: 1.00 Types: Cigarettes Smokeless tobacco: Never Tobacco comments: 4-5 cigarettes per day Vaping Use Vaping Use: Never used Substance Use Topics Alcohol use: Yes Comment: social Drug use: No REVIEW OF SYSTEMS: as above Reviewed relevant PMHx, PSHx, Social Hx, current medications and allergies. Review of Symptoms REVIEW OF SYSTEMS See HPI. All other systems are negative. EXAM: BP 90/60 (BP Site: Right Arm, BP Position: Sitting, BP Cuff Size: Regular Adult) Pulse 64 Resp 12 Wt 45.6 kg (100 lb 9.6 oz) LMP 02/14/2022 BMI 19.65 kg/m General Appearance: Well appearing, alert, in no acute distress, well-hydrated, well nourished.. Skin: Skin color, texture, turgor normal, no suspicious rashes or lesions. Head: Normocephalic, no masses, lesions, tenderness or abnormalities. Lungs: Lungs clear to auscultation. No wheezing, rhonchi, rales.. Heart: RRR without murmur, gallop, or rubs. No ectopy. Neurologic: Gait normal. Reflexes normal and symmetric. Sensation grossly intact.. Health Maintenance List COVID-19 VACCINE(1) Never done HEPATITIS A(1 of 2 - Risk 2-dose series) Never done PNEUMOCOCCAL(1 - PCV) Never done INFLUENZA(1) due on 05/06/2022 ANNUAL PCP TEAM CHRONIC DISEASE VISIT due on 03/22/2023 PAP TESTING due on 11/01/2024 HPV TESTING due on 11/01/2024 DTAP,TDAP,TD(3 - Td or Tdap) due on 09/23/2030 SPIROMETRY Completed HEPATITIS C SCREENING Completed HIV SCREENING Completed ASSESSMENT/PLAN: 1. Anxiety and depression - ICD9: 300.00, 311, ICD10: F41.9, F32.A (primary diagnosis) depression versus acute on chronic DAVID and depression from prior diagnosis. Likely mixture of both. Start prozac 10 mg daily -- discussed importance of taking daily and the 4-6 week window before peak effectiveness. Pt agreeable. Xanax daily as needed for overwhelming anxiety episodes. Likely may need more frequently now until Prozac stabilizing in system. RTO in 6 weeks to reassess -- if able to get in with behavioral health prior, can cancel this appointment. Behavioral health consult as requested. - COMP METABOLIC PANEL - CBC - LIPID PANEL BASIC - HGB A1C - TSH BLD - CONSULT TO PRIMARY CARE BEHAVIORAL HEALTH ADULT - ALPRAZOLAM 0.25 MG TABLET - FLUOXETINE 10 MG CAPSULE 2. Mild persistent asthma without complication - ICD9: 493.90, ICD10: J45.30 Mild intermittent Asthma stable - Continue current meds - Avoidance of triggers recommended - Flu shot recommended today -- pt declined. - ALBUTEROL SULFATE HFA 90 MCG/ACTUATION AEROSOL INHALER 3. Iron deficiency anemia, unspecified iron deficiency anemia type - ICD9: 280.9, ICD10: D50.9 - IRON + TIBC - FERRITIN BLD 4. Fatigue, unspecified type - ICD9: 780.79, ICD10: R53.83 Rule out physiological cause of fatigue versus depression trigger. Rule out vitamin deficiency, thyroid dysfunction, or anemia. - COMP METABOLIC PANEL - CBC - LIPID PANEL BASIC - HGB A1C - TSH BLD - T3 BLD - T4 FREE/FREE THYROX - VITAMIN D 25 HYDROXY - IRON + TIBC - FERRITIN BLD - VITAMIN B12 BLOOD 5. Wellness examination - ICD9: V70.0, ICD10: Z00.00 - Counseled on healthy diet and regular exercise - Recommend vitamin containing 0.4 mg of folic acid - Calcium intake with supplements or by diet of 1000 mg/day for under 50, 5663-4059 mg/day for 50+ - Counseled patient on limiting alcohol intake to 1 drink per day - Depression screening tool completed and reviewed with patient. Based on score and interview, patient is already diagnosed with depression and recommended counseling/psychology referral, psychiatry referral, starting medication, and behavioral health oncology social worker consult to help facilitate this treatment. - Follow up for annual exam in one year RTO in 6 weeks, sooner if needed. Prescription instructions reviewed with patient as applicable. Potential red flag symptoms discussed with the patient. Reviewed appropriate action plan to take if red flag symptoms occur. Patient agreeable to treatment plan. Ying Coronel APRN.CNP [address] [place] [address] documented in this encounter [facility] 03-22-2022 History of Present illness Narrative Pt was given her depo provera injection in office today as ordered .Tolerated well. documented in this encounter [facility] 03-17-2022 Miscellaneous Notes Order for depo injection placed. No Lindsay APRN.CNP Patient scheduled for nurse visit 03/17/22 to receive Depo-provera. Please place administration order at this time. Ramandeep Garcia LPN documented in this encounter [facility] 03-16-2022 History of Present illness Narrative 03/16/2022 Patient presents with: Contraception: requesting Depo shot Derm Problem: lump to left forearm x a few years; increasing in size, painful SUBJECTIVE: This is a 31 year old that is here today for Above Complaints.. Wanting to restart depo shot for control. Tolerated in the past. Has a 14 year old son and a 8 month old. Last period was a month ago and thinks she is supposed to start today. Took three tests lat week and one said she was but the other two said no. Periods are regular and sometimes can be crampy and heavy. Lump to left forearm for years. Reports it has always bothered her. Shooting pain through arm. Has never had area trearted or used OTC treatment for it. Thinks it has grown some over the years. Denies redness, excess warmth or drainage from area. Component Latest Ref Rng & Units 03/16/2022 , Urine neg - pos negative Quality Check yes/no Yes PAST MEDICAL HISTORY Diagnosis Date Anemia Arthritis In both shoulders Asthma Chronic hepatitis C affecting , antepartum (HCC) 03/31/2017 Hepatitis C treated Heroin addiction ([facility]) 11/18/2016 Mental disorder ALLERGIES Bactrim [Sulfamethoxazole-Trimethoprim] MEDICATIONS Current Outpatient Medications Medication Sig albuterol HFA (VENTOLIN HFA) 90 mcg/actuation inhaler Inhale 2 Puffs as instructed every 4 hours as needed for wheezing/shortness of breath. methylPREDNISolone (MEDROL, MADDIE,) 4 mg Dose-Pack Take by mouth. As directed on package lactobacillus rhamnosus (CULTURELLE) 10 billion cell capsule Take 1 capsule by mouth once daily for 10 days. medroxyPROGESTERone (DEPO-PROVERA) 150 mg/mL injection Inject 1 mL intramuscularly every 12 weeks. COMPOUNDED PRESCRIPTION AIR CONDITIONER DX ASTHMA J45.909 No current facility-administered medications for this visit. Medications and allergies reviewed by this provider. SOCIAL HISTORY Social History Tobacco Use Smoking status: Current Every Day Smoker Packs/day: 0.20 Years: 5.00 Pack years: 1.00 Types: Cigarettes Smokeless tobacco: Never Used Tobacco comment: 4-5 cigarettes per day Vaping Use Vaping Use: Never used Substance Use Topics Alcohol use: Yes Comment: social Drug use: No REVIEW OF SYSTEMS All other reviewed and negative other than HPI. OBJECTIVE: BP 100/72 Pulse 89 Resp 18 Wt 46.3 kg (102 lb) LMP 02/14/2022 SpO2 100% BMI 19.92 kg/m . Vital signs reviewed by this provider. APPEARANCE Well appearing, alert, in no acute distress, well-hydrated, well nourished. EYES conjunctiva and sclera normal. HEART RRR with normal S1 and S2, no murmurs, no gallops, no JVD appreciated LUNG clear to auscultation. No wheezes, rhonchi, or rales SKIN Left dorsal forearm ulnar side with marble sized mobile nan-firm lump. TTP, otherwise skin color, texture, turgor normal, no suspicious rashes or lesions COVID-19 VACCINE(1) Never done HEPATITIS A(1 of 2 - Risk 2-dose series) Never done PNEUMOCOCCAL(1 - PCV) Never done INFLUENZA(1) due on 05/06/2022 ANNUAL PCP TEAM CHRONIC DISEASE VISIT due on 03/16/2023 PAP TESTING due on 11/01/2024 HPV TESTING due on 11/01/2024 DTAP,TDAP,TD(3 - Td or Tdap) due on 09/23/2030 SPIROMETRY Completed HEPATITIS C SCREENING Completed HIV SCREENING Completed ASSESSMENT/PLAN: 1. Encounter for contraceptive management, unspecified type - ICD9: V25.9, ICD10: Z30.9 (primary diagnosis) - RX for depoprovera given today- potential side effects discussed, verbalizes understanding. Will need to schedule nurse visit for injection, verbalizes understanding - discussed need to use Condoms to help to prevent STD's including HIV etc. - negative HCG in office today - HCG QUAL UR B/O - follow-up with nurse visit for depo, then repeat every 12 weeks thereafter 2. Initiation of Depo Provera - ICD9: V25.02, ICD10: Z30.013 - plan as in #1 - HCG QUAL UR B/O - MEDROXYPROGESTERONE 150 MG/ML INTRAMUSCULAR SUSPENSION 3. Subcutaneous mass - ICD9: 782.2, ICD10: R22.9 - possible lipo vs cyst - no red flag symptoms or exam findings - red flag symptoms discussed, verbalizes understanding - US EXTREMITY MASS/FLUID COLLECTION LT - follow-up pending results, to ER with red flag symptoms No Lindsay APRN.NAVIN Prescription instructions reviewed with patient as applicable. Patient advised if symptoms do not improve or if symptoms worsen sooner, to contact their primary care physician. Potential red flag symptoms discussed with the patient. Reviewed appropriate action plan to take if red flag symptoms occur. Patient agreeable to treatment plan. documented in this encounter [facility] 07-02-2021 Hospital Discharge instructions Patient Education 07/02/2021 17:17:14 7 - Labor and Delivery Outpatient Instructions(CUSTOM) [facility] OUTPATIENT HOME-GOING INSTRUCTIONS _X_ You are to follow up with your physician in _4__ days/weeks. ACTIVITY ___ Bedrest _X__Activity as tolerated ___ No work/school for ___ days. ___Other PRESCRIPTION GIVEN ___Yes NAUSEA/VOMITING ___ Take small, frequent amounts of clear liquids. Avoid fruit juices and milk. ___ Increase fluid intake to a minimum of 8 ounces of fluid every hour while awake. ___ Soft diet. Rice, crackers, bananas, Jell-O, cooked carrots, applesauce. ___ [place] diet. Avoid caffeine, chocolate, alcohol, spiced/greasy foods. URINARY TRACT INFECTION ___ Drink 8-12 glasses of water every day. ___ Urinate frequently; do not limit fluids to reduce frequency of urination. ___ Call your physician if burning and frequency with urination returns after taking all your medication. ___ Call your physician if you have a temperature of 100.4 degrees Fahrenheit or higher. ___ Wipe from front to back. SIGNS OF PRE-ECLAMPSIA ___ Severe heartburn. ___ Persistent headache not relieved by Tylenol. ___ Increased in swelling of face, hands and feet. ___ Blurred vision, double vision, or spots in the eyes. ___ Persistent vomiting. ___ *Convulsions or seizures. LABOR ___ Restrict activity. _X__ Drink 8-12 glasses of water every day. _X__ Urinate frequently ___ Pelvic rest. No sexual intercourse/ Call your physician if you experience: _X__ Increase in vaginal discharge, leaking fluid, or vaginal bleeding. _X__ More than 4, 5, or 6 contractions in one hour. _X__ Burning and frequency with urination. DECREASED MOVEMENT _X__ Lie down on your left side, drink some fluids and relax. Count the movements. You need to have 10 movements in 2 hours. _X__ If you do not feel the 10 movements, call your physician. OTHER _X__ After an exam you may experience some spotting or discharge. As long as it is not bright red and heavy like a period or continues to leak as if your water broke, it is to be expected. ___ LABOR Call your physician if you experience: _X__ Painful uterine contractions every _5__ minutes for _1__ hours. _X__A gush or continuous trickle of watery discharge. COME TO THE HOSPITAL AND CALL PHYSICIAN IF: _X__ Your abdomen feels continually firm. _X__ *Bleeding is bright red and enough to saturate a pad in one hour or less. *Call 911 or go to the nearest Emergency Room for assistance. Form [id number] D: 08/13 Document Released: 08/22/2006 Document Revised: 08/10/2012 Document Reviewed: 08/22/2006 ExitCare Patient Information 2012 [employer]. Follow Up Care 07/02/2021 16:41:37 With:BENJAMIN SANTILLAN, LOUIS Sommers Address: [phone] When:07/06/2021 17:15:00 [facility] 06-17-2021 Note . MICRO - Microbiology PROCEDURE: Group B Strep PCR [*1] SOURCE: Vaginal Rectal BODY SITE: COLLECTED DATE/TIME: 06/15/2021 10:13 EDT RECEIVED DATE/TIME: 06/15/2021 21:19 EDT START DATE/TIME: 06/15/2021 21:19 EDT FREE TEXT SOURCE: FINAL REPORTS Final Report [] Verified Date/Time/Personnel: 06/17/2021 14:57 EDT GBS NEGATIVE. Group B Streptococcus DNA not detected by Real-Time. Polymerase Chain Reaction (PCR). A negative result does not rule out the possibility of Group B Streptococcus False negative results may occur when Group B Streptococcus concentration is below the level of detection of 200 CFU/mL of sample preparation reagent. If the patient has signs or symptoms of infection, other laboratory tests and clinical information should be used to confirm the negative result. This test is not intended to differentiate carriers of Group B Streptococcus from those with Streptococcus disease. Performing Locations *1: This test was performed at: [facility], [address] [place] [address], [address] [place] [address] ([place]) Comment on above: Performed By: #### C BC, ADIFF, ANEU, ABOG, HIVRP, ANSG #### [address] [address] #### HBSAG, RUBIS, RPR #### [place] [id number] 05-07-2021 Note . MICRO - Microbiology PROCEDURE: Stool Culture [^1 *1] SOURCE: Stool BODY SITE: COLLECTED DATE/TIME: 05/04/2021 09:25 EDT RECEIVED DATE/TIME: 05/04/2021 16:34 EDT START DATE/TIME: 05/04/2021 16:35 EDT FREE TEXT SOURCE: FINAL REPORTS Final Report [] Verified Date/Time/Personnel: 05/07/2021 12:08 EDT Normal stool kevyn present. Salmonella: Negative Shigella: Negative Campylobacter: Negative PRELIMINARY REPORTS Preliminary Report [] Verified Date/Time/Personnel: 05/06/2021 13:42 EDT Normal stool kevyn present. Negative for stool pathogens at 48 hours. Final report to follow. Interpretive Data ^1: Culture Stool Requests for alternative pathogens including Yersinia, E. coli 0157, C. difficile toxin, Rotavirus, Giardia and parasites require specific requests. Performing Locations *1: This test was performed at: [address], [address] [place] [address] ([place]) Comment on above: Performed By: #### G YCR #### [place] [address] 05-06-2021 Note . MICRO - Microbiology PROCEDURE: Shiga Toxins 1 and 2 [[id number]: [id number] ^1 *1] SOURCE: Stool BODY SITE: COLLECTED DATE/TIME: 05/04/2021 16:35 EDT RECEIVED DATE/TIME: 05/04/2021 16:35 EDT START DATE/TIME: 05/04/2021 16:35 EDT FREE TEXT SOURCE: FINAL REPORTS Final Report [] Verified Date/Time/Personnel: 05/06/2021 09:51 EDT Absence of Shiga toxin 1 Absence of Shiga toxin 2 Order Comments O1: Shiga Toxins 1 and 2 ordered by lab as part of Culture Stool Panel Interpretive Data ^1: Shiga Toxins 1 and 2 Testing performed by immunochromatography. Performing Locations *1: This test was performed at: [address], [address] [place] [address] ([place]) Comment on above: Performed By: #### G YCR #### [place] [id number] 05-06-2021 Note . MICRO - Microbiology PROCEDURE: Urine Culture [*1] SOURCE: Urine, Clean Catch BODY SITE: COLLECTED DATE/TIME: 05/04/2021 09:25 EDT RECEIVED DATE/TIME: 05/04/2021 16:11 EDT START DATE/TIME: 05/04/2021 16:11 EDT FREE TEXT SOURCE: FINAL REPORTS Final Report [] Verified Date/Time/Personnel: 05/06/2021 08:46 EDT 50,000 - 100,000 cfu/ml Mixed growth consistent with normal urogenital kevyn. PRELIMINARY REPORTS Preliminary Report [] Verified Date/Time/Personnel: 05/05/2021 10:56 EDT No growth to date Performing Locations *1: This test was performed at: [address], [facility] , [facility] ([place]) Comment on above: Performed By: #### G YCR #### [place] [id number] 01-14-2021 Note . MICRO - Microbiology PROCEDURE: Urine Culture [*1] SOURCE: Urine, Clean Catch BODY SITE: COLLECTED DATE/TIME: 01/12/2021 11:54 EDT RECEIVED DATE/TIME: 01/12/2021 20:36 EDT START DATE/TIME: 01/12/2021 20:36 EDT FREE TEXT SOURCE: FINAL REPORTS Final Report [] Verified Date/Time/Personnel: 01/14/2021 07:33 EDT No growth at 48 hours. PRELIMINARY REPORTS Preliminary Report [] Verified Date/Time/Personnel: 01/13/2021 10:28 EDT No growth to date Performing Locations *1: This test was performed at: [facility], [address] [place] [address], [address] [place] [address] ([place]) Comment on above: Performed By: #### N GPCR1 #### [place] [address] 03-31-2017 History of Past i llness Narrative Problem Noted Date Resolved Date Chronic hepatitis [...] calculate rate of success using pre-labor factors: http://www.bs.[facility]/mfmu/vagbirth.html Predicted chance of vaginal after : 76% Patient's plan for delivery mode: patient unsure, await operative report Eloise Randall MD documented as of this encounter (statuses as of 03/16/2022) [facility] History of Past illness Narrative* Problem Noted [...] calculate rate of success using pre-labor factors: http://www.bsc.[facility]/mfmu/vagbirth.html Predicted chance of vaginal after : 76% Patient's plan for delivery mode: patient unsure, await operative report Eloise Randall MD documented as of this encounter (statuses as of 03/17/2022) [facility] History of Past illness Narrative* Problem Noted [...] calculate rate of success using pre-labor factors: http://www[facility]/mf[facility]/vagbirth.html Predicted chance of vaginal after : 76% Patient's plan for delivery mode: patient unsure, await operative report Eloise Randall MD documented as of this encounter (statuses as of 03/22/2022) [facility] History of Past illness Narrative* Problem Noted [...] calculate rate of success using pre-labor factors: http://www[facility]/vagbirth.html Predicted chance of vaginal after : 76% Patient's plan for delivery mode: patient unsure, await operative report Eloise Randall MD documented as of this encounter (statuses as of 07/07/2022) [facility] History of Past illness Narrative* Problem Noted [...] calculate rate of success using pre-labor factors: http://[email or web address].[email or web address] Predicted chance of vaginal after : 76% Patient's plan for delivery mode: patient unsure, await operative report Eloise Randall MD documented as of this encounter (statuses as of 07/10/2022) [facility] History of Past illness Narrative* Problem Noted [...] calculate rate of success using pre-labor factors: http://[email or web address].[email or web address] Predicted chance of vaginal after : 76% Patient's plan for delivery mode: patient unsure, await operative report Eloise Randall MD documented as of this encounter (statuses as of 07/12/2022) [facility] History of Past illness Narrative* Problem Noted [...] calculate rate of success using pre-labor factors: http://www[facility]/vagbirth.html Predicted chance of vaginal after : 76% Patient's plan for delivery mode: patient unsure, await operative report Eloise Randall MD documented as of this encounter (statuses as of 07/13/2022) [facility] History of Past illness Narrative* Problem Noted [...] calculate rate of success using pre-labor factors: http://www.bsc.[facility]/mf[facility]/vagbirth.html Predicted chance of vaginal after : 76% Patient's plan for delivery mode: patient unsure, await operative report Eloise Randall MD documented as of this encounter (statuses as of 07/14/2022) [facility] History of Past illness Narrative* Problem Noted [...] calculate rate of success using pre-labor factors: http://www[facility]/vagbirth.html Predicted chance of vaginal after : 76% Patient's plan for delivery mode: patient unsure, await operative report Eloise Randall MD documented as of this encounter (statuses as of 07/22/2022) [facility] History of Past illness Narrative* Problem Noted [...] calculate rate of success using pre-labor factors: http://www[facility] [place]/vagbirth.html Predicted chance of vaginal after : 76% Patient's plan for delivery mode: patient unsure, await operative report Eloise Randall MD documented as of this encounter (statuses as of 2022) [facility] History of Past illness Narrative* Problem Noted [...] calculate rate of success using pre-labor factors: http://[email or web address]/[email or web address].[email or web address] Predicted chance of vaginal after : 76% Patient's plan for delivery mode: patient unsure, await operative report Eloise Randall MD documented as of this encounter (statuses as of 08/04/2022) [facility] History of Past illness Narrative* Problem Noted [...] calculate rate of success using pre-labor factors: http://[email or web address]/vagbirth.[email or web address] Predicted chance of vaginal after : 76% Patient's plan for delivery mode: patient unsure, await operative report Eloise Randall MD documented as of this encounter (statuses as of 08/09/2022) [facility] History of Past illness Narrative* Problem Noted [...] calculate rate of success using pre-labor factors: http://www.bs.[facility]/mf[facility]/vagbirth.html Predicted chance of vaginal after : 76% Patient's plan for delivery mode: patient unsure, await operative report Eloise Randall MD documented as of this encounter (statuses as of 08/16/2022) [facility] History of Past illness Narrative* Problem Noted [...] calculate rate of success using pre-labor factors: http://www.bs.[facility]/mf[facility]/vagbirth.html Predicted chance of vaginal after : 76% Patient's plan for delivery mode: patient unsure, await operative report Eloise Randall MD documented as of this encounter (statuses as of 09/05/2022) [facility] History of Past illness Narrative* Problem Noted [...] calculate rate of success using pre-labor factors: http://www[facility]/vagbirth.html Predicted chance of vaginal after : 76% Patient's plan for delivery mode: patient unsure, await operative report Eloise Randall MD documented as of this encounter (statuses as of 09/08/2022) [facility] History of Past illness Narrative* Problem Noted [...] calculate rate of success using pre-labor factors: http://www[facility] [place]/vagbirth.html Predicted chance of vaginal after : 76% Patient's plan for delivery mode: patient unsure, await operative report Eloise Randall MD documented as of this encounter (statuses as of 09/09/2022) [facility] History of Past illness Narrative* Problem Noted [...] calculate rate of success using pre-labor factors: http://[email or web address]/[email or web address].[email or web address] Predicted chance of vaginal after : 76% Patient's plan for delivery mode: patient unsure, await operative report Eloise Randall MD documented as of this encounter (statuses as of 10/04/2022) [facility] History of Past illness Narrative* Problem Noted [...] calculate rate of success using pre-labor factors: http://[email or web address]/[email or web address].[email or web address] Predicted chance of vaginal after : 76% Patient's plan for delivery mode: patient unsure, await operative report Eloise Randall MD documented as of this encounter (statuses as of 10/26/2022) [facility] History of Past illness Narrative* Problem Noted [...] calculate rate of success using pre-labor factors: http://[email or web address]/vagbirth.[email or web address] Predicted chance of vaginal after : 76% Patient's plan for delivery mode: patient unsure, await operative report Eloise Randall MD documented as of this encounter (statuses as of 11/05/2022) [facility] History of Past illness Narrative* Problem Noted [...] calculate rate of success using pre-labor factors: http://www[facility] [place]/vagbirth.html Predicted chance of vaginal after : 76% Patient's plan for delivery mode: patient unsure, await operative report Eloise Randall MD documented as of this encounter (statuses as of 11/11/2022) [facility] History of Past illness Narrative* Problem Noted [...] calculate rate of success using pre-labor factors: http://www[facility]/vagbirth.html Predicted chance of vaginal after : 76% Patient's plan for delivery mode: patient unsure, await operative report Eloise Randall MD documented as of this encounter (statuses as of 11/19/2022) [facility] History of Past illness Narrative* Problem Noted [...] calculate rate of success using pre-labor factors: http://[email or web address]/[email or web address].[email or web address] Predicted chance of vaginal after : 76% Patient's plan for delivery mode: patient unsure, await operative report Eloise Randall MD documented as of this encounter (statuses as of 11/23/2022) [facility] History of Past illness Narrative* Problem Noted [...] calculate rate of success using pre-labor factors: http://[email or web address].[email or web address] Predicted chance of vaginal after : 76% Patient's plan for delivery mode: patient unsure, await operative report Eloise Randall MD documented as of this encounter (statuses as of 11/24/2022) [facility] History of Past illness Narrative* Problem Noted [...] calculate rate of success using pre-labor factors: http://www.bs.[facility]/vagbirth.html Predicted chance of vaginal after : 76% Patient's plan for delivery mode: patient unsure, await operative report Eloise Randall MD documented as of this encounter (statuses as of 12/20/2022) [facility] History of Past illness Narrative* Problem Noted [...] calculate rate of success using pre-labor factors: http://www.bsc.[facility]/vagbirth.html Predicted chance of vaginal after : 76% Patient's plan for delivery mode: patient unsure, await operative report Eloise Randall MD documented as of this encounter (statuses as of 01/07/2023) [facility] History of Past illness Narrative* Problem Noted [...] calculate rate of success using pre-labor factors: http://www[facility] [place]/vagbirth.html Predicted chance of vaginal after : 76% Patient's plan for delivery mode: patient unsure, await operative report Eloise Randall MD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 Alcohol and Drug Abuse Patient Records regulations: The Federal rules restrict any use of the information to criminally investigate or prosecute any alcohol or drug abuse patient.[facility] HospitalIn the event this information is protected by the Federal Confidentiality of Alcohol and Drug Abuse Patient Records regulations: The Federal rules restrict any use of the information to criminally investigate or prosecute any alcohol or drug abuse patient.[facility] HospitalIn the event this information is protected by the Federal Confidentiality of Alcohol and Drug Abuse Patient Records regulations: The Federal rules restrict any use of the information to criminally investigate or prosecute any alcohol or drug abuse patient.[facility] HospitalIn the event this information is protected by the Federal Confidentiality of Alcohol and Drug Abuse Patient Records regulations: The Federal rules restrict any use of the information to criminally investigate or prosecute any alcohol or drug abuse patient.[facility] HospitalIn the event this information is protected by the Federal Confidentiality of Alcohol and Drug Abuse Patient Records regulations: The Federal rules restrict any use of the information to criminally investigate or prosecute any alcohol or drug abuse patient.[facility] HospitalIn the event this information is protected by the Federal Confidentiality of Alcohol and Drug Abuse Patient Records regulations: The Federal rules restrict any use of the information to criminally investigate or prosecute any alcohol or drug abuse patient.[facility] HospitalIn the event this information is protected by the Federal Confidentiality of Alcohol and Drug Abuse Patient Records regulations: The Federal rules restrict any use of the information to criminally investigate or prosecute any alcohol or drug abuse patient.[facility] HospitalIn the event this information is protected by the Federal Confidentiality of Alcohol and Drug Abuse Patient Records regulations: The Federal rules restrict any use of the information to criminally investigate or prosecute any alcohol or drug abuse patient.[facility] HospitalIn the event this information is protected by the Federal Confidentiality of Alcohol and Drug Abuse Patient Records regulations: The Federal rules restrict any use of the information to criminally investigate or prosecute any alcohol or drug abuse patient.[facility] HospitalIn the event this information is protected by the Federal Confidentiality of Alcohol and Drug Abuse Patient Records regulations: The Federal rules restrict any use of the information to criminally investigate or prosecute any alcohol or drug abuse patient.[facility] HospitalIn the event this information is protected by the Federal Confidentiality of Alcohol and Drug Abuse Patient Records regulations: The Federal rules restrict any use of the information to criminally investigate or prosecute any alcohol or drug abuse patient.[facility] HospitalIn the event this information is protected by the Federal Confidentiality of Alcohol and Drug Abuse Patient Records regulations: The Federal rules restrict any use of the information to criminally investigate or prosecute any alcohol or drug abuse patient.[facility] HospitalIn the event this information is protected by the Federal Confidentiality of Alcohol and Drug Abuse Patient Records regulations: The Federal rules restrict any use of the information to criminally investigate or prosecute any alcohol or drug abuse patient.[facility] HospitalIn the event this information is protected by the Federal Confidentiality of Alcohol and Drug Abuse Patient Records regulations: The Federal rules restrict any use of the information to criminally investigate or prosecute any alcohol or drug abuse patient.[facility] HospitalIn the event this information is protected by the Federal Confidentiality of Alcohol and Drug Abuse Patient Records regulations: The Federal rules restrict any use of the information to criminally investigate or prosecute any alcohol or drug abuse patient.[facility] HospitalIn the event this information is protected by the Federal Confidentiality of Alcohol and Drug Abuse Patient Records regulations: The Federal rules restrict any use of the information to criminally investigate or prosecute any alcohol or drug abuse patient.[facility] HospitalIn the event this information is protected by the Federal Confidentiality of Alcohol and Drug Abuse Patient Records regulations: The Federal rules restrict any use of the information to criminally investigate or prosecute any alcohol or drug abuse patient.[facility] HospitalIn the event this information is protected by the Federal Confidentiality of Alcohol and Drug Abuse Patient Records regulations: The Federal rules restrict any use of the information to criminally investigate or prosecute any alcohol or drug abuse patient.[facility] HospitalIn the event this information is protected by the Federal Confidentiality of Alcohol and Drug Abuse Patient Records regulations: The Federal rules restrict any use of the information to criminally investigate or prosecute any alcohol or drug abuse patient.[facility] HospitalIn the event this information is protected by the Federal Confidentiality of Alcohol and Drug Abuse Patient Records regulations: The Federal rules restrict any use of the information to criminally investigate or prosecute any alcohol or drug abuse patient.[facility] HospitalIn the event this information is protected by the Federal Confidentiality of Alcohol and Drug Abuse Patient Records regulations: The Federal rules restrict any use of the information to criminally investigate or prosecute any alcohol or drug abuse patient.[facility] HospitalIn the event this information is protected by the Federal Confidentiality of Alcohol and Drug Abuse Patient Records regulations: The Federal rules restrict any use of the information to criminally investigate or prosecute any alcohol or drug abuse patient.[facility] HospitalIn the event this information is protected by the Federal Confidentiality of Alcohol and Drug Abuse Patient Records regulations: The Federal rules restrict any use of the information to criminally investigate or prosecute any alcohol or drug abuse patient.[facility] HospitalIn the event this information is protected by the Federal Confidentiality of Alcohol and Drug Abuse Patient Records regulations: The Federal rules restrict any use of the information to criminally investigate or prosecute any alcohol or drug abuse patient.[facility] HospitalIn the event this information is protected by the Federal Confidentiality of Alcohol and Drug Abuse Patient Records regulations: The Federal rules restrict any use of the information to criminally investigate or prosecute any alcohol or drug abuse patient.[facility] HospitalIn the event this information is protected by the Federal Confidentiality of Alcohol and Drug Abuse Patient Records regulations: The Federal rules restrict any use of the information to criminally investigate or prosecute any alcohol or drug abuse patient.[facility] HospitalIn the event this information is protected by the Federal Confidentiality of Alcohol and Drug Abuse Patient Records regulations: The Federal rules restrict any use of the information to criminally investigate or prosecute any alcohol or drug abuse patient.[facility] HospitalIn the event this information is protected by the Federal Confidentiality of Alcohol and Drug Abuse Patient Records regulations: The Federal rules restrict any use of the information to criminally investigate or prosecute any alcohol or drug abuse patient.[facility] HospitalIn the event this information is protected by the Federal Confidentiality of Alcohol and Drug Abuse Patient Records regulations: The Federal rules restrict any use of the information to criminally investigate or prosecute any alcohol or drug abuse patient.[facility] HospitalIn the event this information is protected by the Federal Confidentiality of Alcohol and Drug Abuse Patient Records regulations: The Federal rules restrict any use of the information to criminally investigate or prosecute any alcohol or drug abuse patient.[facility] HospitalIn the event this information is protected by the Federal Confidentiality of Alcohol and Drug Abuse Patient Records regulations: The Federal rules restrict any use of the information to criminally investigate or prosecute any alcohol or drug abuse patient.[facility] HospitalIn the event this information is protected by the Federal Confidentiality of Alcohol and Drug Abuse Patient Records regulations: The Federal rules restrict any use of the information to criminally investigate or prosecute any alcohol or drug abuse patient.[facility] HospitalIn the event this information is protected by the Federal Confidentiality of Alcohol and Drug Abuse Patient Records regulations: The Federal rules restrict any use of the information to criminally investigate or prosecute any alcohol or drug abuse patient.[facility] HospitalIn the event this information is protected by the Federal Confidentiality of Alcohol and Drug Abuse Patient Records regulations: The Federal rules restrict any use of the information to criminally investigate or prosecute any alcohol or drug abuse patient.[facility] HospitalIn the event this information is protected by the Federal Confidentiality of Alcohol and Drug Abuse Patient Records regulations: The Federal rules restrict any use of the information to criminally investigate or prosecute any alcohol or drug abuse patient.[facility] HospitalIn the event this information is protected by the Federal Confidentiality of Alcohol and Drug Abuse Patient Records regulations: The Federal rules restrict any use of the information to criminally investigate or prosecute any alcohol or drug abuse patient.[facility] HospitalIn the event this information is protected by the Federal Confidentiality of Alcohol and Drug Abuse Patient Records regulations: The Federal rules restrict any use of the information to criminally investigate or prosecute any alcohol or drug abuse patient.[facility] HospitalIn the event this information is protected by the Federal Confidentiality of Alcohol and Drug Abuse Patient Records regulations: The Federal rules restrict any use of the information to criminally investigate or prosecute any alcohol or drug abuse patient.[facility] HospitalIn the event this information is protected by the Federal Confidentiality of Alcohol and Drug Abuse Patient Records regulations: The Federal rules restrict any use of the information to criminally investigate or prosecute any alcohol or drug abuse patient.[facility] HospitalIn the event this information is protected by the Federal Confidentiality of Alcohol and Drug Abuse Patient Records regulations: The Federal rules restrict any use of the information to criminally investigate or prosecute any alcohol or drug abuse patient.[facility] HospitalIn the event this information is protected by the Federal Confidentiality of Alcohol and Drug Abuse Patient Records regulations: The Federal rules restrict any use of the information to criminally investigate or prosecute any alcohol or drug abuse patient.[facility] HospitalIn the event this information is protected by the Federal Confidentiality of Alcohol and Drug Abuse Patient Records regulations: The Federal rules restrict any use of the information to criminally investigate or prosecute any alcohol or drug abuse patient.[facility] HospitalIn the event this information is protected by the Federal Confidentiality of Alcohol and Drug Abuse Patient Records regulations: The Federal rules restrict any use of the information to criminally investigate or prosecute any alcohol or drug abuse patient.[facility] HospitalIn the event this information is protected by the Federal Confidentiality of Alcohol and Drug Abuse Patient Records regulations: The Federal rules restrict any use of the information to criminally investigate or prosecute any alcohol or drug abuse patient.[facility] HospitalIn the event this information is protected by the Federal Confidentiality of Alcohol and Drug Abuse Patient Records regulations: The Federal rules restrict any use of the information to criminally investigate or prosecute any alcohol or drug abuse patient.[facility] HospitalIn the event this information is protected by the Federal Confidentiality of Alcohol and Drug Abuse Patient Records regulations: The Federal rules restrict any use of the information to criminally investigate or prosecute any alcohol or drug abuse patient.[facility] HospitalIn the event this information is protected by the Federal Confidentiality of Alcohol and Drug Abuse Patient Records regulations: The Federal rules restrict any use of the information to criminally investigate or prosecute any alcohol or drug abuse patient.[facility] HospitalIn the event this information is protected by the Federal Confidentiality of Alcohol and Drug Abuse Patient Records regulations: The Federal rules restrict any use of the information to criminally investigate or prosecute any alcohol or drug abuse patient.[facility] HospitalIn the event this information is protected by the Federal Confidentiality of Alcohol and Drug Abuse Patient Records regulations: The Federal rules restrict any use of the information to criminally investigate or prosecute any alcohol or drug abuse patient.[facility] HospitalIn the event this information is protected by the Federal Confidentiality of Alcohol and Drug Abuse Patient Records regulations: The Federal rules restrict any use of the information to criminally investigate or prosecute any alcohol or drug abuse patient.[facility] Reason for Visit (unrecogniz ed section and content) Reason Comments Contraception requesting Depo shot Derm Problem lump to left forearm x a few years; increasing in size, painful Reason Comments Orders Reason Comments Imm/Inj depo [...] MRI ANY JT UPPER EXTREMITY W/CONTRAST MATRL Podlogar, IVANNA Sarabia.LINEN CLERK [address] [place] [address] Mr Imaging Referral ID Status Reason Start Date Expiration Date V isits Requested Visits Authorized [id number] Closed Auto-Generat ed Referral Clearance Not Met [...] extremity Procedures CONSULT TO GENERAL SURGERY OFFICE/OUTPATIENT [facility] 60-74 MINUTES Saravanan Clayton MD [address] [place] [address] Referral ID Status Reason Start Date Expiration Date V isits Requested Visits Authorized [id number] Closed PCP Requested Referral 11/10/2022 11/10/2023 1 [...] ld sores, needs letter- emotional support animal Reason Comments ADD/ADHD Reason Comments lft side o prabha y teple and eye swollen S tarted with swelling yesterday after trying to squeeze it , believes maybe just a pimple. Reason Comments f/up n facial swelling Reason Onset Date Comments Refill Request 12/22/2023 Reason Onset Date Comments Refill Request 01/20/2024 Reason Onset Date Comments Refill Request 02/07/2024 Herpes 02/07/2024 cold sore Reason Onset Date Comments Refill Request 02/23/2024 Reason Onset Date Comments Refill Request 03/24/2024 Reason Onset Date Comments Refill Request 04/25/2024 Reason Comments Refill Request Reason Onset Date Comments Refill Request 07/27/2024 Reason Comments Follow Up Reason Comments Patient Update Failed to provide ur ine specimen Reason Onset Date Comments Refill Request 09/30/2024 Reason Onset Date Comments Refill Request 10/01/2024 Reason Onset Date Comments Refill Request 11/05/2024 Reason Comments Ear Pain Right ear pain x 1 d ay and sinus, cough and FLORES x 1 week Reason Comments Ear Pain Reason Comments Ear Problem Reason Comments Ear Problem Right ear not improv ing, having trouble hearing Reason Comments worsening symptoms Care Teams (unrecognized sec tion and content) Program Writer Relationship Specialty Start Date End Date Ellis Arnett, DO [address] [place] [address] PCP - General Family Practice 02/11/14 Program Writer Relationship Specialty Start Date End Date Ellis Arnett, DO [address] [place] [address] PCP - General Family Practice 02/11/14 Program Writer Relationship Specialty Start Date End Date Ellis Arnett, DO [address] [place] [address] PCP - General Family Practice 02/11/14 Program Writer Relationship Specialty Start Date End Date Ellis Arnett DO [address] [place] [address] PCP - General Family Medicine 02/11/14 Program Writer Relationship Specialty Start Date End Date Ellis Arnett, DO [address] [place] [address] PCP - General Family Medicine 02/11/14 Program Writer Relationship Specialty Start Date End Date Ellis Arnett, DO [address] [place] [address] PCP - General Family Medicine 02/11/14 Program Writer Relationship Specialty Start Date End Date Ellis Arnett, DO [address] [place] [address] PCP - General Family Medicine 02/11/14 Program Writer Relationship Specialty Start Date End Date Ellis Arnett, DO [address] [place] [address] PCP - General Family Medicine 02/11/14 Program Writer Relationship Specialty Start Date End Date Ellis Arnett, DO [address] [place] [address] PCP - General Family Medicine 02/11/14 Program Writer Relationship Specialty Start Date End Date Ellis Arnett, DO [address] [place] [address] PCP - General Family Medicine 02/11/14 Program Writer Relationship Specialty Start Date End Date Ellis Arnett, DO [address] [place] [address] PCP - General Family Medicine 02/11/14 Program Writer Relationship Specialty Start Date End Date Ellis Arnett, DO [address] [place] [address] PCP - General Family Medicine 02/11/14 Program Writer Relationship Specialty Start Date End Date Ellis Arnett, DO [address] [place] [address] PCP - General Family Medicine 02/11/14 Program Writer Relationship Specialty Start Date End Date Ellis Arnett, DO [address] [place] [address] PCP - General Family Medicine 02/11/14 Program Writer Relationship Specialty Start Date End Date Ellis Arnett DO [address] [place] [address] PCP - General Family Medicine 02/11/14 Program Writer Relationship Specialty Start Date End Date Ellis Arnett DO [address] [place] [address] PCP - General Family Medicine 02/11/14 Program Writer Relationship Specialty Start Date End Date Ellis Arnett DO [address] [place] [address] PCP - General Family Medicine 02/11/14 Program Writer Relationship Specialty Start Date End Date Ellis Arnett DO [address] [place] [address] PCP - General Family Medicine 02/11/14 Program Writer Relationship Specialty Start Date End Date Ellis Arnett DO [address] [facility] [address] PCP - General Family Medicine 02/11/14 Team Status: Active Member Role Status Dates Dr. Ellis Arnett DO Family Provider Active Dr. Ellis Arnett DO Primary Care Provider Active Team Status: Inactive Member Role Status Dates Dr. Ellis Arnett DO Primary Care Provider Active Dr. Juvenal Kim MD Emergency Provider Active Program Writer Relationship Specialty Start Date End Date Ellis Arnett DO [address] [place] [address] PCP - General Family Medicine 02/11/14 Program Writer Relationship Specialty Start Date End Date Ellis Arnett DO [address] [facility] [address] PCP - General Family Medicine 02/11/14 Program Writer Relationship Specialty Start Date End Date Ellis Arnett DO [address] [facility] [address] PCP - General Family Medicine 02/11/14 Team Status: Inactive Member Role Status Dates Dr. Ellis Arnett , DO Primary Care Provider Active Dr. Juvenal Kim MD Attending Provider, Emergency Provider Active Team Status: Inactive Member Role Status Dates Dr. Ellis Arnett DO Primary Care Provider Active Dr. Dilip Grey DO Emergency Provider Active Team Status: Inactive Member Role Status Dates Dr. Ellis Arnett , Primary Care Provider Active Dr. Martell Lopez MD Emergency Provider Active Program Writer Relationship Specialty Start Date End Date Ellis Arnett DO [address] [facility] [address] PCP - General Family Medicine 02/11/14 Program Writer Relationship Specialty Start Date End Date Ellis Arnett DO [address] [facility] [address] PCP - General Family Medicine 02/11/14 Program Writer Relationship Specialty Start Date End Date Ellis Arnett DO [address] [facility] [address] PCP - General Family Medicine 02/11/14 Program Writer Relationship Specialty Start Date End Date Ellis Arentt DO [address] [place] [address] PCP - General Family Medicine 02/11/14 Program Writer Relationship Specialty Start Date End Date Ellis Arnett DO [address] [place] [address] PCP - General Family Medicine 02/11/14 Program Writer Relationship Specialty Start Date End Date Ellis Arnett DO [address] [place] [address] PCP - General Family Medicine 02/11/14 Program Writer Relationship Specialty Start Date End Date Ellis Arnett DO [address] [place] [address] PCP - General Family Medicine 02/11/14 Program Writer Relationship Specialty Start Date End Date Ellis Arnett DO [address] [place] [address] PCP - General Family Medicine 02/11/14 Program Writer Relationship Specialty Start Date End Date Ellis Arnett DO [address] [place] [address] PCP - General Family Medicine 02/11/14 Program Writer Relationship Specialty Start Date End Date Ellis Arnett DO [address] [place] [address] PCP - General Family Medicine 02/11/14 Ying Del Cid, SURGICAL INSTRUMENT MAKER.LINEN CLERK [address] [place] [address] Pattern Assembler Family Medicine 08/12/24 Marya Francois, IVANNA.LINEN CLERK [address] [place] [address] Pattern Assembler Family Medicine 08/12/24 Program Writer Relationship Specialty Start Date End Date Ellis Arnett DO [address] [place] [address] PCP - General Family Medicine 02/11/14 Ying Del Cid, SURGICAL INSTRUMENT MAKER.LINEN CLERK [address] [facility] [address] Pattern Assembler Family [facility] 08/12/24 [facility], SURGICAL INSTRUMENT MAKER.LINEN CLERK [address] [facility] [address] [facility]/24 Program Writer Relationship Specialty Start Date End Date Ellis Arnett DO [address] [place] [address] PCP - General Family Medicine 02/11/14 Ying Del Cid, SURGICAL INSTRUMENT MAKER.LINEN CLERK [address] [place] [address] Pattern Assembler [facility] 08/12/24 [facility], SURGICAL INSTRUMENT MAKER.LINEN CLERK [address] [place] [address] Pattern Assembler Family [facility] 08/12/24 Program Writer Relationship Specialty Start Date End Date Ellis Arnett DO [address] [place] [address] PCP - General Family Medicine 02/11/14 MarkMarya, SURGICAL INSTRUMENT MAKER.LINEN CLERK [address] [place] [address] Pattern Assembler Family Medicine 08/12/24 Program Writer Relationship Specialty Start Date End Date Ellis Arnett DO [address] [place] [address] PCP - General Family Medicine 02/11/14 MarkMarya, SURGICAL INSTRUMENT MAKER.LINEN CLERK [address] [place] [address] Pattern Assembler Family Medicine 08/12/24 Program Writer Relationship Specialty Start Date End Date Ellis Arnett DO [address] [place] [address] PCP - General Family Medicine 02/11/14 [facility], SURGICAL INSTRUMENT MAKER.LINEN CLERK [address] [place] [address] Pattern Assembler Family [facility] 08/12/24 Program Writer Relationship Specialty Start Date End Date Ellis Arnett DO [address] [place] [address] PCP - General Family Medicine 02/11/14 MarkMarya, SURGICAL INSTRUMENT MAKER.LINEN CLERK [address] [place] [place] [address] Pattern Assembler Family [facility] 08/12/24 Program Writer Relationship Specialty Start Date End Date Ellis Arnett DO [address] [place] [address] PCP - General Family Medicine 02/11/14 MarkMarya, SURGICAL INSTRUMENT MAKER.LINEN CLERK [address] [place] [address] Pattern Assembler Family [facility] 08/12/24 Program Writer Relationship Specialty Start Date End Date Ellis Arnett DO [address] [place] [address] PCP - General Family Medicine 02/11/14 Marya Francois APRN.NAVIN [address] [place] [address] Pattern Assembler Family Medicine 08/12/24 FOR RECORDS PERTAINING TO PATIENTS WHO ARE [...] BE BASED ON THE PRIMARY CLINICAL RECORDS. [employer] [facility]. provides no warranty or guarantee of the accuracy or completeness of information in this document.
== END 2025-02-06 18:54 | disposition home or self-care (01) ==
PROVIDERS: Emergency Provider Emergency Medicine; PCP Student in an Organized Health Care Education/Training Program; Visit Provider Emergency Medicine
DX: L03.011 Cellulitis of right finger (principal); F17.210 Nicotine dependence, cigarettes, uncomplicated; Z23 Encounter for immunization
CPT/HCPCS: 10060; 73130; 90715; 99282

== ENCOUNTER 2025-05-30 15:50 | Emergency (ER) | payer MEDICAID, SELFPAY ==
[2025-05-30 15:51] VITALS: BP 122/86; PULSE 99; RESP 20; TEMP 37.6; O2SAT 99; BMI 23.9
[2025-05-30 15:54] VITALS: BP 122/86; PULSE 99; RESP 20; TEMP 37.6; O2SAT 99
--- NOTE | 2025-05-30 17:04 | EDS_ITS ---
HPI History of Present Illness Chief Complaint: Cellulitis Narrative Narrative: Patient is a 34 year old female presenting to the ED for facial cellulitis. Patient has a PMHX of MRSA and facial abscess. Denies history of diabetes or IV drug use. States two days ago she developed what looked like a pimple on her right cheek. She states she tried to pop it last night and got a small amount of drainage out that looked like pus. She then develops some redness around the cheek today and became concerned so she came in for evaluation. Denies fever, chills, mouth/lip/tongue swelling, difficulty breathing or swallowing. Prior similar symptoms: Yes Recent Illness/Hospitalization: No PFSH PFSH Medical History Asthma Home Medications ?Medication ?Instructions ?Recorded ?Last Taken ?Type clindamycin HCl 300 mg capsule 300 mg PO Q6H 10 days # 40 CAPSULES 10/15/23 Unknown Rx (Cleocin HCl) doxycycline hyclate 100 mg capsule 100 mg PO BID 5 day s #10 caps 02/06/25 Unknown Rx clindamycin HCl 150 mg capsule 450 mg (3 x 150 mg) PO Q8H 7 days 05/30/25 Unknown Rx (Cleocin HCl) #63 caps Allergy/AdvReac Type Severity Reaction Status Date / Time sulfamethoxazole (From Allergy Vomiting Verified 05/30/25 15:51 Bactrim) trimethoprim (From Bactrim) Allergy Vomiting Verified 05/30/25 15:51 Surgical History H/O section Social History household members: significant other and children housing: apartment Smoking Status: Current every day smoker tobacco type: cigarettes ROS ROS ED ROS Narrative see HPI EXAM Physical Exam Narrative Exam Narrative: Vital signs: Reviewed General: Alert and orientedx3. No acute distress HEENT: Head is normocephalic and atraumatic. Erythema of the right cheek extending from under the right eye to the jaw on the right. There is a small 1 cm area of fluctuance that is draining actively. There is mild swelling to the cheek. The erythema and swelling does not extend to the ear or down the neck. No periorbital erythema or swelling. Extraocular movements intact. No conjunctival injection. On oropharynx exam there is no swelling of the right sided cheek or on inspection of the gingiva. Uvula midline. No posterior oropharynx erythema or swelling. No bogginess of the palate consistent with Ludwigs. Neck: Supple without lymphadenopathy. Normal active ROM of the neck. No nuchal rigidity. Cardiovascular: Regular rate and rhythm, no murmurs. No rubs or gallops. Normal S1 and S2 Respiratory: Clear to auscultation bilaterally. No wheezes, rales, rhonchi Abdominal: Soft and nontender. Normal bowel sounds. No guarding or rebound. Nonsurgical abdomen Extremities: No tenderness. No bruising. Normal range of motion. Normal sensation. Skin: No rash or redness. Neurological: Cranial nerves II through XII are grossly intact. Normal strength and sensation. Normal cerebellar function The rest of the physical exam is unremarkable Const Vital Signs: 05/30/25 17:18 Temperature 99.1 F Pulse Rate 70 Respiratory Rate 16 Blood Pressure 130/80 H Blood Pressure Mean 96 Pulse Ox 100 MDM MDM MDM Narrative Medical decision making narrative: Patient is a 34-year-old female presenting to the emergency department for concern of a facial infection. Patient was seen and examined. Vitals are stable. Patient resting bed comfortably no acute distress. Differential includes but is not limited to: Cellulitis, abscess, less likely periorbital cellulitis, deep space infections of the neck No fevers or systemic symptoms at home. Vitals stable here. No evidence of sepsis. Patient is very well appearing. POC US completed at bedside. There is a very small hypoechoic 1 CM area underneath the draining pustule on the right cheek. There is no indication for I&D given it is already actively draining. She has no signs of periorbital cellulitis. No signs of airway compromise. I think this is all superficial facial cellulitis with a small abscess that is draining. No concern for deep space infection. Normal ROM of neck. Normal mental status. However given the patients history I did offer to obtain CT imaging of the face, she declines at this time. States she will return if it worsens. Given first dose of clindamycin here, hx of MRSA. Discharged home on clinda. She was given very strict return precautions if she develops any worsening erythema, the pustule stops draining, fever, chills, nausea, vomiting, neck or throat pain or difficulty breathing or swallowing. Patient discharged from the Emergency Department. I do not feel that the patient's evaluation reveals any acute reason for admission at this time. I instructed them to either follow-up with their primary care physician or promptly return to the Emergency Department for reevaluation should symptoms worsen or new symptoms develop. I explained what symptoms would indicate the need to return to the emergency department. Shared decision making was used. The patient voiced understanding of the treatment plan and is agreeable with it. Clinical impression: Facial cellulitis Facial abscess History & Record Review Discussion w/independent historian: Patient Additional record(s) reviewed:: Prior ED visit Lab Data Attestation: I reviewed the patient's lab results. Discharge Plan Triage Chief Complaint: Cellulitis ED Provider: Mayra Saba Dx/Rx/DC Orders Clinical Impression: Cellulitis, Facial abscess Instructions: ED Abscess Antibiotic Treatment Only, ED Cellulitis Prescriptions: New clindamycin HCl [Cleocin HCl] 150 mg capsule 450 mg PO Q8H 7 Days Qty: 63 0RF No Action clindamycin HCl [Cleocin HCl] 300 mg capsule 300 mg PO Q6H 10 Days Qty: 40 0RF doxycycline hyclate 100 mg capsule 100 mg PO BID 5 Days Qty: 10 0RF Primary Care Provider: Ellis Arnett Referrals: Ellis Arnett DO [Primary Care Provider, Medical] - 2 Days Activity Restrictions/Additional Instructions: Please take the antibiotic 3 tablets 3 times a day for the next 7 days. You need to return to the ED if you develop any fevers, chills, nausea, vomiting, worsening swelling, redness or pain. Follow-up with your primary care doctor s oon as possible. Your evaluation in the Emergency Department did not reveal any acute reason for admission. However, I want to emphasize that you may be early in the course of a disease process or illness even if it is not present. For this reason you should follow-up within 24 hours for reevaluation with either your primary care physician or if necessary back here in the Emergency Department. You should return to the Emergency Department immediately if your symptoms worsen or new symptoms develop. Print Language: Taiwanese Disposition Disposition: Home, Self Care Discharge Date/Time: 05/30/25 17:19
[2025-05-30 17:18] VITALS: BP 130/80; PULSE 70; RESP 16; TEMP 37.3; O2SAT 100
== END 2025-05-30 17:19 | disposition home or self-care (01) ==
PROVIDERS: Emergency Provider Student in an Organized Health Care Education/Training Program; PCP Student in an Organized Health Care Education/Training Program; Visit Provider Student in an Organized Health Care Education/Training Program
DX: L03.211 Cellulitis of face (principal); L02.01 Cutaneous abscess of face; F17.210 Nicotine dependence, cigarettes, uncomplicated; Z86.14 Personal history of Methicillin resistant Staphylococcus aureus infection
CPT/HCPCS: 99282